=== PATIENT | female | born 1955 | race Caucasian/White ===

== ENCOUNTER 2018-06-11 22:17 | Emergency (ER) | payer OTHER, MEDICAID, SELFPAY ==
[2018-06-11 22:25] VITALS: BP 130/78; PULSE 87; RESP 14; TEMP 37; O2SAT 100; BMI 22.4
--- NOTE | 2018-06-11 22:38 | PC.NURSE ---
She has some skin flaking on her anterior right 5th toe and posterior 3rd toe.also has a whitish colored lesion on bottom of her right foot below her 2nd and 3rd toes.
--- NOTE | 2018-06-11 22:48 | ED.SKABFB ---
HPI - Skin/Abscess/Foreign Bdy General Chief complaint: Skin/Abscess/Foreign Body Stated complaint: Rt foot poss spider bite, bumps and pain Time Seen by Provider: 06/11/18 22:19 Source: patient Mode of arrival: ambulatory Limitations: no limitations History of Present Illness HPI narrative: 63-year-old female here for evaluation of a possible skin abscess on the bottom of her right foot. Patient states that approximately 3 weeks ago she thought she was bit by a spider. She states that it was itching afterwards. Her foot then started to peel. Everything was improving until several days ago when it started to hurt more. She went to the walk-in clinic and was placed on to steroid creams. She reports that she started those 3 days ago and things have not helped. Related Data Home Medications Medication Instructions Recorded Confirmed ASPIRIN (#ASPIRIN) 325 mg PO Q DAY #0 02/21/11 04/17/18 [Fish Oil] Q DAY #0 03/09/11 04/17/18 Previous Rx's Medication Instructions Recorded methocarbamol 500 mg PO QIDP PRN #30 tab 10/23/17 bupropion HCl XL 300 mg 24 hr 300 mg PO QDAY #30 tab 04/17/18 tablet, extended release citalopram 40 mg tablet 40 mg PO Q DAY #30 tab 04/17/18 clonazepam 1 mg tablet 1 mg PO SEE INSTRUCTIONS PRN #60 04/17/18 tab levothyroxine 25 mcg tablet 25 mcg PO QAM #30 tab 04/17/18 liothyronine 5 mcg tablet 5 mcg PO BID #90 tab 04/17/18 losartan 50 mg tablet 50 mg PO Q DAY #30 tab 04/17/18 simvastatin 80 mg tablet 80 mg PO Q PM #30 tab 04/17/18 topiramate 100 mg tablet 100 mg PO BID #60 tab 04/17/18 clotrimazole 1 % topical cream 1 applictn TOP BID #28 gram 06/07/18 triamcinolone acetonide 0.1 % 1 applictn TOP BID 7 Days #28.4 06/07/18 topical cream gram Allergies Allergy/AdvReac Type Severity Reaction Status Date / Time NASRIN Inhibitors Allergy Intermediate EDEMA IN Verified 06/11/18 22:25 BOTH HANDS codeine Allergy Mild NAUSEA/VOMI Verified 06/11/18 22:25 TING meperidine Allergy Mild VOMITING Verified 06/11/18 22:25 Review of Systems Constitutional Denies fever(s) Musculoskeletal Denies myalgias and Denies arthralgias Integumentary/Breasts Comments: Pain and itching to the bottom of the right foot with peeling of the skin and a small lump Neurologic Comments: No numbness or tingling to the right foot Hematologic/Lymphatic Denies easy bleeding and Denies easy bruising PFSH Medical History Chronic pain (Acute) Diabetes (Acute) Surgical History No pertinent past surgical history (Acute) Social History Smoking Status: Current some day smoker alcohol intake: never substance use type: does not use Exam Initial Vital Signs Initial Vital Signs: Vital Signs Temperature 98.6 F 06/11/18 22:25 Pulse Rate 87 06/11/18 22:25 Respiratory Rate 14 06/11/18 22:25 Blood Pressure 130/78 H 06/11/18 22:25 Pulse Oximetry 100 06/11/18 22:25 Const General: cooperative, healthy appearing, comfortable, well developed, well groomed and No acute distress Orientation: alert, awake and oriented x3 Resp Effort & Inspection: normal respiratory effort Cardio Pulses: dorsalis pedis present on the right Skin Other: Patient with a 1/2 cm area of firmness and overlying white scan without surrounding erythema on the plantar aspect of her right foot just over the ball of her foot. Neuro Other: Sensation intact to light touch right lower extremity Extrem Other: Right lower extremity unremarkable except for what was described in the skin section Procedures Abscess I/D Site: foot Side (if applicable): right Local Anesthetic: lidocaine 1% Amount of anesthesia used (mL): 2 Technique: incised with #11 blade Amount of fluid expressed (mL): 0.5 Irrigation: No Packing used?: none Course Vital Signs - 8 hr 06/11/18 22:25 Temperature 98.6 F Pulse Rate 87 Respiratory Rate 14 Blood Pressure 130/78 H Pulse Oximetry 100 MDM - Skin/Abscess/Foreign Bdy MDM Narrative Medical decision making narrative: Small area of firmness with a white area on the base of the right foot without surrounding erythema. This was incised as described above. Small amount of purulent material returned. Was explored no foreign body was found. Will hold on any antibiotics for now. A bandage was placed. Patient tolerated procedure well. She was given return precautions. She was instructed to stop the steroid cream that she was given earlier this week. She expressed understanding and agreement with plan. Discharge Plan Departure Patient Disposition: Home, Self-Care Clinical Impression: Abscess Instructions: DI for Incision and Drainage of a Skin Abscess Activity Restrictions/Additional Instructions: Expect some oozing from the area. Keep it covered likely discussed. You can shower in use soap and water like normal. Call your primary care doctor for a follow-up. Stop the steroid cream that she were given earlier this week. Return to the emergency department for any new or worsening symptoms Prescriptions: No Action triamcinolone acetonide 0.1 % cream 1 applictn TOP BID 7 Days Qty: 28.4 RF: 0 clotrimazole 1 % cream 1 applictn TOP BID Qty: 28 RF: 0 bupropion HCl 300 mg tablet extended release 24 hr 300 mg PO QDAY Qty: 30 RF: 3 citalopram 40 mg tablet 40 mg PO Q DAY Qty: 30 RF: 3 clonazepam 1 mg tablet 1 mg PO SEE INSTRUCTIONS PRN (Reason: anxiety) Qty: 60 RF: 3 levothyroxine 25 mcg tablet 25 mcg PO QAM Qty: 30 RF: 6 liothyronine [Cytomel] 5 mcg tablet 5 mcg PO BID Qty: 90 RF: 3 losartan [Cozaar] 50 mg tablet 50 mg PO Q DAY Qty: 30 RF: 5 simvastatin [Zocor] 80 mg tablet 80 mg PO Q PM Qty: 30 RF: 10 topiramate [Topamax] 100 mg tablet 100 mg PO BID Qty: 60 RF: 3 ASPIRIN (#ASPIRIN) 325 mg PO Q DAY Qty: 0 RF: 0 [Fish Oil] Q DAY Qty: 0 RF: 0 methocarbamol 500 MG tablet 500 mg PO QIDP PRNQty: 30 RF: 1
--- NOTE | 2018-06-11 22:52 | PC.NURSE ---
cleaned and dressed the I&D site on the bottom of her right foot.
== END 2018-06-11 22:50 | disposition home or self-care (01) ==
LOC: ED 23:00
PROVIDERS: Emergency Provider Emergency Medicine; Family Provider Physician Assistant; PCP Physician Assistant
DX: L02.611 Cutaneous abscess of right foot (principal)
CPT/HCPCS: 10060; 99282

== ENCOUNTER → 2018-09-09 14:26 | Outpatient (CLI) | payer OTHER, MEDICAID, SELFPAY ==
[2018-09-09 15:27] LABS: Hematocrit 33.6 % (36-46); Hemoglobin 11.3 g/dL (12.0-16.0); Mean Corpuscular HGB Conc 33.7 % (30-36); Mean Corpuscular Hemoglobin 32.4 PG (26-34); Mean Corpuscular Volume 95.9 fL (80-100); Platelet Count 194 X10^3/uL (150-400); Red Cell Distribution Width 12.8 % (11.6-14.8); White Blood Cell Count 5.7 X10^3/uL (4.5-11.0)
[2018-09-09 15:29] LABS: Reticulocyte Count, Percent 1.5 % (1.06-2.63)
[2018-09-09 15:55] LABS: Alanine Aminotransferase 33 IU/L (9-52); Albumin 4.6 g/dL (3.5-5.0); Albumin Globulin Ratio 2.1 (1.0-2.8); Alkaline Phosphatase 58 U/L (38-126); Aspartate Aminotransferase 33 IU/L (14-36); BUN Creatinine Ratio 23.3 (6-22); Bilirubin Total 0.2 mg/dL (0.2-1.3); Blood Urea Nitrogen 28 mg/dL (7-17); Calcium 9.4 mg/dL (8.4-10.2); Carbon Dioxide 25 mmol/L (22-32); Chloride 106 mmol/L (98-107); Cholesterol 167 mg/dL (140-199); Estimated Glomerular Filt Rate 45.4 mL/min (>60); Globulin 2.2 g/dL (1.7-4.1); Glucose 85 mg/dL (80-110); HDL Cholesterol 65 mg/dL (40-60); HEMOLYSIS < 15 (0-50); LDL Cholesterol Calculated 77 mg/dL (<100); Potassium 4.4 mmol/L (3.4-5.1); Sodium 144 mmol/L (137-145); Total Protein 6.8 g/dL (6.3-8.2); Triglycerides 124 mg/dL (35-150)
[2018-09-09 16:13] LABS: Free T3, Triiodothyronine Free 3.44 pg/mL (2.77-5.27); Free T4, Direct Thyroxine 0.65 ng/dL (0.78-2.19)
[2018-09-09 16:26] LABS: Thyroid Stimulating Hormone 0.42 uIU/mL (0.47-4.68)
[2018-09-09 16:48] LABS: Vitamin B12 878 pg/mL (239-931)
== END ==
PROVIDERS: Visit Provider Student in an Organized Health Care Education/Training Program
DX: E03.9 Hypothyroidism, unspecified (principal); D64.9 Anemia, unspecified; E55.9 Vitamin D deficiency, unspecified; E78.2 Mixed hyperlipidemia; F17.220 Nicotine dependence, chewing tobacco, uncomplicated; I10 Essential (primary) hypertension; N28.9 Disorder of kidney and ureter, unspecified; Z86.39 Personal history of other endocrine, nutritional and metabolic disease
CPT/HCPCS: 36415; 80053; 80061; 82306; 82607; 84439; 84443; 84481; 85027; 85045

== ENCOUNTER 2018-10-25 18:11 | Emergency (ER) | payer OTHER, MEDICAID, SELFPAY ==
[2018-10-25 18:18] VITALS: BP 131/89; PULSE 79; RESP 15; TEMP 37; O2SAT 100
--- NOTE | 2018-10-25 19:50 | ED.FALL ---
HPI - Fall <Anuja Freire PA-C - Last Filed: 10/25/18 22:02> General Chief Complaint: Fall Stated Complaint: fell off a ladder Thurs, rt hip pain, spine pain Time Seen by Provider: 10/25/18 19:50 Source: patient Mode of arrival: ambulatory Limitations: no limitations History of Present Illness HPI Narrative: This 63-year-old female fell about 3 ft off of a stepladder in her garage 3 days ago. She fell backwards, states that she landed on some objects (does not remember what) as well as partly on the ground. She states that she hit her head and the scalp was bleeding. She also hit her back and has some bruises on the low back and hip area. She states that she was quite sore but felt like this would get better so has been trying to treat with Tylenol at home, however especially her right hip pain has been getting progressively worse to the point that she has difficulty walking due to the pain, so she comes in for evaluation. She denies any LOC, acute vision change, nausea or vomiting. She denies any weakness or paresthesia in the extremities. She denies any bowel or bladder symptoms or groin numbness. She states that her neck is a little bit sore but no difficulty moving it. She states that her right leg hurts with movement but coming from her hip, not her back. She denies any radiating pain. Related Data Home Medications Medication Instructions Recorded Confirmed ASPIRIN (#ASPIRIN) 325 mg PO Q DAY #0 02/21/11 09/09/18 [Fish Oil] Q DAY #0 03/09/11 09/09/18 Previous Rx's Medication Instructions Recorded bupropion HCl XL 300 mg 24 hr 300 mg PO QDAY #30 tab 04/17/18 tablet, extended release citalopram 40 mg tablet 40 mg PO Q DAY #30 tab 04/17/18 levothyroxine 25 mcg tablet 25 mcg PO QAM #30 tab 04/17/18 liothyronine 5 mcg tablet 5 mcg PO BID #90 tab 04/17/18 losartan 50 mg tablet 50 mg PO Q DAY #30 tab 04/17/18 simvastatin 80 mg tablet 80 mg PO Q PM #30 tab 04/17/18 clotrimazole 1 % topical cream 1 applictn TOP BID #28 gram 06/07/18 clonazepam 1 mg tablet 2.5 mg PO DAILY PRN 30 Days #75 tab 09/09/18 topiramate 100 mg tablet 100 mg PO BID #60 tab 10/24/18 oxycodone-acetaminophen [Endocet] 1 tab PO Q4-6H PRN #10 tab 10/25/18 Allergies Allergy/AdvReac Type Severity Reaction Status Date / Time NASRIN Inhibitors Allergy Intermediate EDEMA IN Verified 09/09/18 09:59 BOTH HANDS codeine Allergy Mild NAUSEA/VOMI Verified 09/09/18 09:59 TING meperidine Allergy Mild VOMITING Verified 09/09/18 09:59 Review of Systems <Anuja Freire PA-C - Last Filed: 10/25/18 22:02> Review of Systems All systems reviewed & are unremarkable except as noted in HPI and below Exam <Anuja Freire PA-C - Last Filed: 10/25/18 22:02> Narrative Exam Narrative: GENERAL APPEARANCE: Patient sitting comfortably, in no distress. HEENT: PERRL, EOMI, normal ear canals, nasal and oral mucosa NECK: Supple LUNGS: Clear to auscultation bilaterally. HEART: Rate and rhythm regular without murmur, normal S1 and S2, no S3 or S4. DERMATOLOGIC: There is an abrasion and mild hematoma left temporoparietal scalp that is mildly tender. Faint ecchymoses on the left posterior medial hip NEUROLOGIC: Alert and oriented, normal speech and coordination. Sensation grossly intact throughout the extremities MUSCULOSKELETAL: Mild tenderness over the mid to inferior C-spine and also over inferior strap muscle attachments, more on the right. Full range of motion of the C-spine. Full range of motion of the upper extremities. Tender throughout the the entirety of the thoracic spine and mid to inferior lumbar spine. Tender over the right posterior hip and SI joint, none on the left. Range of motion in the right hip is limited secondary to tenderness. Normal flexion/extension of knee, normal range of motion in the ankle. No tenderness on the left hip or lower extremity. Patient able to ambulate independently Initial Vital Signs Initial Vital Signs: Vital Signs Temperature 98.6 F 10/25/18 18:18 Pulse Rate 79 10/25/18 18:18 Respiratory Rate 15 10/25/18 18:18 Blood Pressure 131/89 10/25/18 18:18 Pulse Oximetry 100 10/25/18 18:18 <DO Aris Loyola Last Filed: 10/26/18 04:59> Initial Vital Signs Initial Vital Signs: Vital Signs Temperature 98.6 F 10/25/18 18:18 Pulse Rate 79 10/25/18 18:18 Respiratory Rate 15 10/25/18 18:18 Blood Pressure 131/89 10/25/18 18:18 Pulse Oximetry 100 10/25/18 18:18 Course <Anuja Freire PA-C - Last Filed: 10/25/18 22:02> Orders Ordered: ED Orders 10/25/18 20:13 CT head/brain wo con Stat XR cervical spine 2V or 3V Stat XR hip w pel if done RT 2V Stat XR t and l spine 2 to 3 views Stat Discontinued Medications Oxycodone/Acetaminophen (Percocet 5/325) 1 tab PO NOW ONE Stop: 10/25/18 20:14 Last Admin: 10/25/18 20:20 Dose: 1 tab Oxycodone/Acetaminophen (Percocet 5/325) 1 tab PO NOW ONE Stop: 10/25/18 20:56 Last Admin: 10/25/18 21:15 Dose: 1 tab Vital Signs - 8 hr 10/25/18 21:30 Pulse Rate 68 Respiratory Rate 15 Blood Pressure [Right Arm] 156/92 H Pulse Oximetry 100 <Tristin Covarrubias DO - Last Filed: 10/26/18 04:59> Orders Ordered: ED Orders 10/25/18 20:13 CT head/brain wo con Stat XR cervical spine 2V or 3V Stat XR hip w pel if done RT 2V Stat XR t and l spine 2 to 3 views Stat Discontinued Medications Oxycodone/Acetaminophen (Percocet 5/325) 1 tab PO NOW ONE Stop: 10/25/18 20:14 Last Admin: 10/25/18 20:20 Dose: 1 tab Oxycodone/Acetaminophen (Percocet 5/325) 1 tab PO NOW ONE Stop: 10/25/18 20:56 Last Admin: 10/25/18 21:15 Dose: 1 tab Vital Signs - 8 hr 10/25/18 21:30 Pulse Rate 68 Respiratory Rate 15 Blood Pressure [Right Arm] 156/92 H Pulse Oximetry 100 MDM - Fall <Anuja Freire PA-C - Last Filed: 10/25/18 22:02> Imaging Data CT scan - head: Radiologist's impression: View Report History [address] [address] [address] Scan Report Signed Patient: Taylor Olivera MR#: [id number] : 1955 Acct:[id number] Age/Sex: 63 / F Date of Service: 10/25/18 Loc: ED Accession Number: [id number] Procedure: CT head/brain wo con Ordering Provider: Anuja Freire P.A-C PROCEDURE: CT HEAD/BRAIN WO CON INDICATIONS: L. temporal parietal contusion, on ASA TECHNIQUE: Noncontrast 4.5 mm thick angled axial sections acquired from the foramen magnum to the vertex, with coronal and sagittal reformats. For radiation dose reduction, the following was used: automated exposure control, adjustment of mA and/or kV according to patient size. COMPARISON: None. FINDINGS: Image quality: Excellent. CSF spaces: Basal cisterns are patent. No extra-axial fluid collections. Ventricles are normal in size and shape. Brain: No midline shift. No intracranial masses or hemorrhage. Hughes-white matter interface is normal. Skull and face: Calvarium and visualized facial bones are intact, without suspicious lesions. Sinuses: Visualized sinuses and mastoids are clear. IMPRESSION: No trauma found. No intracranial hemorrhage present. Dictated by: Wilmer Gallo M.D. on 10/25/2018 at 20:57 Approved by: Wilmer Gallo M.D. on 10/25/2018 at 20:57 hip: Radiologist's impression: View Report History [address] [address] XRay Report Signed Patient: Taylor Olivera MR#: [id number] : 1955 Acct:[id number] Age/Sex: 63 / F Date of Service: 10/25/18 Loc: ED Accession Number: [id number] Procedure: XR hip w pel if done RT 2V Ordering Provider: Anuja Freire P.A-C PROCEDURE: XR HIP W PEL IF DONE RT 2V INDICATIONS: pain posterior s/p fall TECHNIQUE: 2 views of the hip were acquired. COMPARISON: None. FINDINGS: Bones: No fractures or dislocations. No suspicious bony lesions. The visualized pelvic ring appears intact. Soft tissues: No suspicious soft tissue calcifications or masses. IMPRESSION: There is mild symmetric hip joint osteoarthritis, no trauma found. Dictated by: Wilmer Gallo M.D. on 10/25/2018 at 20:59 Approved by: Wilmer Gallo M.D. on 10/25/2018 at 20:59 spine: Radiologist's impression: [place] [address] XRay Report Signed Patient: Taylor Olivera MR#: [id number] : 1955 Acct:[id number] Age/Sex: 63 / F Date of Service: 10/25/18 Loc: ED Accession Number: [id number] Procedure: XR t and l spine 2 to 3 views Ordering Provider: Anuja Freire P.A-C PROCEDURE: XR T AND L SPINE 2 TO 3 VIEWS INDICATIONS: pain s/p fall TECHNIQUE: 2 views acquired of the thoracolumbar spine. COMPARISON: None. FINDINGS: Bones: No acute fractures or dislocations. Visualized inferior ribs appear intact. No suspicious bony lesions. Soft tissues: No suspicious soft tissue calcifications. IMPRESSION: No trauma found. Dictated by: Wilmer Gallo M.D. on 10/25/2018 at 20:58 Approved by: Wilmer Gallo M.D. on 10/25/2018 at 20:58 [place] [address] XRay Report Signed Patient: Taylor Olivera MR#: [id number] : 1955 Acct:[id number] Age/Sex: 63 / F Date of Service: 10/25/18 Loc: ED Accession Number: [id number] Procedure: XR cervical spine 2V or 3V Ordering Provider: Anuja FreireA-C PROCEDURE: XR CERVICAL SPINE 2V OR 3V INDICATIONS: inferior pain s/p fall TECHNIQUE: 3 view(s) of the cervical spine were acquired. COMPARISON: None. FINDINGS: Bones: No fractures or dislocations to the T1 level. The lateral masses of C1 appear intact on the odontoid view. No suspicious bony lesions. Soft tissues: No prevertebral soft tissue swelling. IMPRESSION: Mild mid and lower cervical spine degenerative disc disease but no sign of spinal or foraminal stenosis or trauma. Dictated by: Wilmer Gallo M.D. on 10/25/2018 at 20:57 Approved by: Wilmer Gallo Discharge Plan Departure Patient Disposition: Home Clinical Impression: Contusion of multiple sites Discharge Date/Time: 10/25/18 21:33 Interventions: ED Discharge Assessment Last Done: 10/25/18 21:32 Instructions: DI for Hip Pain Activity Restrictions/Additional Instructions: Please return as we talked about if you have any acutely worsening symptoms, or new symptoms such as vision change, vomiting or severe headache, or numbness or weakness in your extremities. You can take the prescription pain medicine Percocet as needed since you have done well with that in the past, just remember that it can make you drowsy and not to drive. You can also use other topical medicines such as patches, i.e. lidocaine, or rubs such as Maxwell-Berman. You also may wish to try ice and heat on the sore areas. Please follow-up with your PCP early next week to reassess and determine whether you need any further testing such as further imaging studies or treatment such as physical therapy depending upon your progress Prescriptions: New oxycodone-acetaminophen [Endocet] 5-325 mg tablet 1 tab PO Q4-6H PRN (Reason: acute hip/spine pain) Qty: 10 RF: 0 No Action clotrimazole 1 % cream 1 applictn TOP BID Qty: 28 RF: 0 bupropion HCl 300 mg tablet extended release 24 hr 300 mg PO QDAY Qty: 30 RF: 3 citalopram 40 mg tablet 40 mg PO Q DAY Qty: 30 RF: 3 levothyroxine 25 mcg tablet 25 mcg PO QAM Qty: 30 RF: 6 liothyronine [Cytomel] 5 mcg tablet 5 mcg PO BID Qty: 90 RF: 3 losartan [Cozaar] 50 mg tablet 50 mg PO Q DAY Qty: 30 RF: 5 simvastatin [Zocor] 80 mg tablet 80 mg PO Q PM Qty: 30 RF: 10 ASPIRIN (#ASPIRIN) 325 mg PO Q DAY Qty: 0 RF: 0 [Fish Oil] Q DAY Qty: 0 RF: 0 topiramate [Topamax] 100 mg tablet 100 mg PO BID Qty: 60 RF: 5 clonazepam 1 mg tablet 2.5 mg PO DAILY PRN (Reason: anxiety) 30 Days Qty: 75 RF: 5 Referrals: Mitchel German MD [Primary Care Provider] - <Tristin Covarrubias DO - Last Filed: 10/26/18 04:59> Cosign ED Attending Ari Attestation: I was immediately available in the department for consultation. Documentation has been reviewed. I agree with assessment and plan.
--- NOTE | 2018-10-25 20:13 | DI.RAD.S_ITS ---
PROCEDURE: XR HIP W PEL IF DONE RT 2V INDICATIONS: pain posterior s/p fall TECHNIQUE: 2 views of the hip were acquired. COMPARISON: None. FINDINGS: Bones: No fractures or dislocations. No suspicious bony lesions. The visualized pelvic ring appears intact. Soft tissues: No suspicious soft tissue calcifications or masses. IMPRESSION: There is mild symmetric hip joint osteoarthritis, no trauma found. Dictated by: Wilmer Gallo M.D. on 10/25/2018 at 20:59 Approved by: Wilmer Glalo M.D. on 10/25/2018 at 20:59
--- NOTE | 2018-10-25 20:13 | DI.RAD.S_ITS ---
PROCEDURE: XR T AND L SPINE 2 TO 3 VIEWS INDICATIONS: pain s/p fall TECHNIQUE: 2 views acquired of the thoracolumbar spine. COMPARISON: None. FINDINGS: Bones: No acute fractures or dislocations. Visualized inferior ribs appear intact. No suspicious bony lesions. Soft tissues: No suspicious soft tissue calcifications. IMPRESSION: No trauma found. Dictated by: Wilmer Gallo M.D. on 10/25/2018 at 20:58 Approved by: Wilmer Gallo M.D. on 10/25/2018 at 20:58
--- NOTE | 2018-10-25 20:13 | DI.RAD.S_ITS ---
PROCEDURE: XR CERVICAL SPINE 2V OR 3V INDICATIONS: inferior pain s/p fall TECHNIQUE: 3 view(s) of the cervical spine were acquired. COMPARISON: None. FINDINGS: Bones: No fractures or dislocations to the T1 level. The lateral masses of C1 appear intact on the odontoid view. No suspicious bony lesions. Soft tissues: No prevertebral soft tissue swelling. IMPRESSION: Mild mid and lower cervical spine degenerative disc disease but no sign of spinal or foraminal stenosis or trauma. Dictated by: Wilmer Gallo M.D. on 10/25/2018 at 20:57 Approved by: Wilmer Gallo M.D. on 10/25/2018 at 20:58
--- NOTE | 2018-10-25 20:13 | DI.CT.S_ITS ---
PROCEDURE: CT HEAD/BRAIN WO CON INDICATIONS: L. temporal parietal contusion, on ASA TECHNIQUE: Noncontrast 4.5 mm thick angled axial sections acquired from the foramen magnum to the vertex, with coronal and sagittal reformats. For radiation dose reduction, the following was used: automated exposure control, adjustment of mA and/or kV according to patient size. COMPARISON: None. FINDINGS: Image quality: Excellent. CSF spaces: Basal cisterns are patent. No extra-axial fluid collections. Ventricles are normal in size and shape. Brain: No midline shift. No intracranial masses or hemorrhage. Hughes-white matter interface is normal. Skull and face: Calvarium and visualized facial bones are intact, without suspicious lesions. Sinuses: Visualized sinuses and mastoids are clear. IMPRESSION: No trauma found. No intracranial hemorrhage present. Dictated by: Wilmer Gallo M.D. on 10/25/2018 at 20:57 Approved by: Wilmer Gallo M.D. on 10/25/2018 at 20:57
[2018-10-25] MEDS: OXYCODONE/ACETAMINOPHEN 5/325 TABLET 1 TAB PO ×2 (20:20→21:15)
[2018-10-25 21:30] VITALS: BP 156/92; PULSE 68; RESP 15; O2SAT 100
== END 2018-10-25 21:33 | disposition home or self-care (01) ==
PROVIDERS: Emergency Provider Internal Medicine; PCP Student in an Organized Health Care Education/Training Program
DX: T07.XXXA Unspecified multiple injuries, initial encounter (principal); W11.XXXA Fall on and from ladder, initial encounter
CPT/HCPCS: 70450; 72040; 72082; 73502; 99282; 99284

== ENCOUNTER → 2019-01-18 15:13 | Outpatient (CLI) | payer OTHER, MEDICAID, SELFPAY | PROVIDERS: PCP Student in an Organized Health Care Education/Training Program; Visit Provider Physician Assistant | DX: R30.0 Dysuria (principal) | CPT/HCPCS: 87077; 87086; 87186 ==

== ENCOUNTER → 2019-06-05 19:47 | Outpatient (CLI) | payer OTHER, MEDICAID, SELFPAY | PROVIDERS: PCP Student in an Organized Health Care Education/Training Program; Visit Provider Physician Assistant | DX: N30.91 Cystitis, unspecified with hematuria (principal) | CPT/HCPCS: 87077; 87086; 87186 ==

== ENCOUNTER → 2019-10-08 15:42 | Outpatient (CLI) | payer OTHER, MEDICAID, SELFPAY ==
[2019-10-08 16:46] LABS: Hematocrit 37.5 % (36-46); Hemoglobin 12.7 g/dL (12.0-16.0); Mean Corpuscular HGB Conc 33.8 % (30-36); Mean Corpuscular Hemoglobin 32.5 PG (26-34); Mean Corpuscular Volume 96.2 fL (80-100); Platelet Count 204 X10^3/uL (150-400); Red Blood Cell Count 3.89 X10^6/uL (4.0-5.2); Red Cell Distribution Width 12.6 % (11.6-14.8); White Blood Cell Count 6.8 X10^3/uL (4.5-11.0)
[2019-10-08 17:14] LABS: BUN Creatinine Ratio 25.5 (6-22); Blood Urea Nitrogen 28 mg/dL (7-17); Calcium 10.9 mg/dL (8.4-10.2); Carbon Dioxide 25 mmol/L (22-32); Chloride 107 mmol/L (98-107); Glucose 100 mg/dL (80-110); HEMOLYSIS < 15 (0-50); Potassium 4.8 mmol/L (3.4-5.1); Sodium 142 mmol/L (137-145)
[2019-10-08 17:29] LABS: Free T3, Triiodothyronine Free 3.08 pg/mL (2.77-5.27); Free T4, Direct Thyroxine 0.82 ng/dL (0.78-2.19)
[2019-10-08 17:43] LABS: Thyroid Stimulating Hormone 0.14 uIU/mL (0.47-4.68)
[2019-10-08 20:16] LABS: Vitamin D 25 Hydroxy (D3) 59.2 ng/mL (30.0-100.0)
[2019-10-13 14:07] LABS: Parathyroid Hormone Int 18 pg/mL (14-64)
== END ==
PROVIDERS: PCP Student in an Organized Health Care Education/Training Program; Visit Provider Student in an Organized Health Care Education/Training Program
DX: D64.9 Anemia, unspecified (principal); E03.9 Hypothyroidism, unspecified; I10 Essential (primary) hypertension; N28.9 Disorder of kidney and ureter, unspecified; E83.52 Hypercalcemia
CPT/HCPCS: 36415; 80048; 82306; 83970; 84439; 84443; 84481; 85027

== ENCOUNTER → 2019-11-26 16:47 | Outpatient (CLI) | payer OTHER, MEDICAID, SELFPAY ==
--- NOTE | 2019-11-26 16:48 | DI.MG.S_ITS ---
BILATERAL DIGITAL SCREENING MAMMOGRAM 3D/2D WITH CAD: 11/26/2019 CLINICAL: Routine screening. Comparison is made to exams dated: 08/27/2014 mammogram, 06/19/2010 mammogram, 11/10/2009 mammogram, and 08/20/2008 mammogram - [facility]. The tissue of both breasts is heterogeneously dense. This may lower the sensitivity of mammography. Current study was also evaluated with a Computer Aided Detection (CAD) system. No significant masses, calcifications, or other findings are seen in either breast. There has been no significant interval change. IMPRESSION: NEGATIVE There is no mammographic evidence of malignancy. A 1 year screening mammogram is recommended. This exam was interpreted at Station ID: [id number]. NOTE: For mammograms, a report in lay terms will be sent to the patient. Approximately 15% of breast malignancies will not be visualized mammographically. In the management of a palpable breast mass, a negative mammogram must not discourage biopsy of a clinically suspicious lesion. Electronically Signed By: Natasha springer/markie:11/26/2019 17:51:41 letter sent: Normal Exam ACR BI-RADS Category 1: Negative [id number]
== END ==
PROVIDERS: PCP Student in an Organized Health Care Education/Training Program; Visit Provider Student in an Organized Health Care Education/Training Program
DX: Z12.31 Encounter for screening mammogram for malignant neoplasm of breast (principal)
CPT/HCPCS: 77063; 77067

== ENCOUNTER 2019-12-13 21:18 | Observation (INO) | payer OTHER, MEDICAID, SELFPAY ==
[2019-12-13 21:30] VITALS: BP 140/72; PULSE 80; RESP 16; TEMP 36.7; O2SAT 98
--- NOTE | 2019-12-13 21:30 | DI.RAD.S_ITS ---
PROCEDURE: XR CHEST 1V INDICATIONS: chest pain TECHNIQUE: One view of the chest was acquired. COMPARISON: None. FINDINGS: Surgical changes and devices: None. Lungs and pleura: Lungs are clear. No pleural effusions or pneumothorax. Mediastinum: Mediastinal contours appear normal. Heart size is normal. Bones and chest wall: No suspicious bony lesions. Overlying soft tissues appear unremarkable. IMPRESSION: No acute cardiopulmonary disease process. Dictated by: Haley Cabrera MD, PhD on 12/13/2019 at 21:51 Approved by: Haley Cabrera MD, PhD on 12/13/2019 at 21:51
[2019-12-13 21:46] LABS: INR 0.9 (0.9-1.3); Prothrombin Time 10.5 SECONDS (10.1-12.7)
[2019-12-13 21:47] LABS: Add Manual Diff / Slide Review NO; Basophils Absolute Auto 0 /uL (0-100); Basophils Percent Auto 0.4 % (0-2); Eosinophils Absolute Auto 100 /uL (0-450); Eosinophils Percent Auto 2.2 % (2-4); Hematocrit 37.7 % (36-46); Hemoglobin 12.8 g/dL (12.0-16.0); Lymphocytes Absolute Auto 2000 /uL (1100-4500); Mean Corpuscular Hemoglobin 32.5 PG (26-34); Mean Corpuscular Volume 95.6 fL (80-100); Monocytes Absolute Auto 700 /uL (0-900); Monocytes Percent Auto 11.6 % (3-14); Neutrophils Absolute Auto 3100 /uL (1500-7000); Neutrophils Percent Auto 51.8 % (50-75); Platelet Count 218 X10^3/uL (150-400); Red Blood Cell Count 3.94 X10^6/uL (4.0-5.2); White Blood Cell Count 5.9 X10^3/uL (4.5-11.0)
[2019-12-13 21:48] LABS: PTT Partial Thromboplastin Tim 46 SECONDS (26.4-36.2)
[2019-12-13 21:50] LABS: Alanine Aminotransferase 41 IU/L (<35); Albumin Globulin Ratio 1.5 (1.0-2.8); Alkaline Phosphatase 89 U/L (38-126); Aspartate Aminotransferase 40 IU/L (14-36); Bilirubin Total 0.2 mg/dL (0.2-1.3); Blood Urea Nitrogen 33 mg/dL (7-17); Calcium 9.9 mg/dL (8.4-10.2); Carbon Dioxide 27 mmol/L (22-32); Chloride 108 mmol/L (98-107); Creatine Kinase 88 U/L (30-135); Estimated Glomerular Filt Rate 55.8 mL/min (>60); Globulin 3.3 g/dL (1.7-4.1); Glucose 68 mg/dL (80-110); HEMOLYSIS 16 (0-50); Lipase 467 U/L (23-300); Sodium 143 mmol/L (137-145); Total Protein 8.3 g/dL (6.3-8.2)
[2019-12-13 22:02] LABS: Troponin I < 0.012 ng/mL (0.01-0.034)
[2019-12-13 22:11] VITALS: BP 139/60; PULSE 70
[2019-12-13] MEDS: NITROGLYCERIN 0.4 MG SL TAB SL (22:11)
--- NOTE | 2019-12-13 22:17 | PC.NURSE ---
patient reorts feeling very nausous after first SL nitro. Pt refuses further nitro. Provider notified. Patient states her chest pain remains 6\10
[2019-12-13 22:20] LABS: D Dimer < 200 ng/mL (<230)
[2019-12-13] MEDS: ONDANSETRON 4 MG/2 ML INJ IV (22:21)
--- NOTE | 2019-12-13 22:31 | PC.NURSE ---
patient refusing metoprolol. States she is allergic. States it makes her hands swell. Provider notified and went to bedside.
--- NOTE | 2019-12-13 22:34 | ED.CHESTPAIN ---
HPI - Chest Pain General Chief Complaint: Chest Pain Stated Complaint: Chest pains Time Seen by Provider: 12/13/19 21:20 Source: patient Mode of arrival: Family Vehicle Limitations: no limitations History of Present Illness HPI narrative: 64-year-old female smoker with history of hypertension, hyperlipidemia, hypothyroid and known cardiac disease presents with a chief complaint of chest pain which started at rest about 1 hour prior to her arrival. She states that it is pressure like and in her left anterior chest but does not radiate. She denies any shortness of breath, cough nausea or vomiting. She does state that it feels quite similar to the symptoms that led her to get a stent about 10 years ago. Her last provocative testing was 1 year ago and she apparently had a normal stress test per the patient. She sees cardiology at [facility]. She does admit to increasing exertional fatigue and dyspnea over the past week but denies pain. She has had no diaphoresis. She states she has been taking her medications as directed. MD complaint: chest pain Onset (ago): hour(s) Duration: constant Onset: during rest Pain location: left chest Severity: moderate Severity scale (1-10): 8 Quality: heaviness Pain radiation: none Relieving factors: nothing Exacerbating factors: nothing Treatments prior to arrival chest pain: none Related Data Home Medications Medication Instructions Recorded Confirmed ASPIRIN (#ASPIRIN) 325 mg PO Q DAY #0 02/21/11 12/14/19 [Fish Oil] Q DAY #0 03/09/11 12/08/19 clonazepam See Rx Instructions .ROUTE .COMPLEX 12/14/19 12/14/19 topiramate 12/14/19 Previous Rx's Medication Instructions Recorded citalopram 40 mg tablet 40 mg PO Q DAY #30 tab 12/04/18 levothyroxine 25 mcg tablet 25 mcg PO QAM #30 tab 03/22/19 liothyronine 5 mcg tablet 5 mcg PO BID #60 tab 03/22/19 topiramate 100 mg tablet 100 mg PO BID #60 tab 04/28/19 simvastatin 80 mg tablet 80 mg PO Q PM #90 tab 04/29/19 losartan 50 mg tablet 50 mg PO Q DAY #90 tab 10/10/19 bupropion HCl 150 mg 24 hr tablet, 150 mg PO QAM #30 tab 12/08/19 extended release Allergies Allergy/AdvReac Type Severity Reaction Status Date / Time NASRIN Inhibitors Allergy Intermediate EDEMA IN Verified 12/13/19 21:33 BOTH HANDS codeine Allergy Mild NAUSEA/VOMI Verified 12/13/19 21:33 TING meperidine Allergy Mild VOMITING Verified 12/13/19 21:33 Review of Systems Constitutional Constitutional: Denies chills, Denies fatigue, Denies fever(s), Denies frequent falls, Denies lethargy and Denies weakness Eyes Eyes: Denies change in vision, Denies eye discharge, Denies irritation and Denies loss of vision ENT Ears, Nose, Mouth, and Throat: Denies change in voice, Denies dizziness, Denies neck pain, Denies sore throat and Denies throat swelling Cardiovascular Cardiovascular: Reports chest pain, Denies irregular heart rhythm, Denies lightheadedness, Denies palpitations, Denies dyspnea, Denies dyspnea on exertion and Denies orthopnea Respiratory Respiratory: Denies cough, Denies dyspnea, Denies dyspnea on exertion and Denies wheezing Gastrointestinal Gastrointestinal: Denies abdominal pain, Denies change in bowel habits, Denies diarrhea, Denies nausea and Denies vomiting Genitourinary Genitourinary: Denies hematuria, Denies flank pain, Denies urinary incontinence and Denies urinary urgency Musculoskeletal Musculoskeletal: Denies back pain, Denies muscle weakness, Denies neck pain, Denies numbness and Denies tingling Integumentary/Breasts Skin/Breast: Denies pruritus, Denies erythema, Denies rash and Denies wounds Neurologic Neurologic: Denies behavioral changes, Denies confusion, Denies dizziness, Denies frequent falls, Denies loss of vision, Denies numbness, Denies tingling and Denies weakness Psychiatric Psychiatric: Denies anxiety, Denies behavioral changes, Denies confusion, Denies depression, Denies homicidal ideation and Denies suicidal ideation Endocrine Endocrine: Denies fatigue, Denies flushing and Denies palpitations Hematologic/Lymphatic Hematologic/Lymphatic: Denies easy bruising Allergic/Immunologic Allergic/Immunologic: Denies urticaria, Denies throat swelling and Denies wheezing Patient History Medical History Anemia (Chronic) Anterior myocardial infarction (Resolved 2007) CAD (coronary artery disease) (Chronic) Chicken pox (Resolved) Chronic headaches (Chronic) Chronic pain (Chronic) Depression (Chronic) Diabetes mellitus (Chronic) Hyperlipidemia (Chronic) Hypertension (Chronic) Measles (Resolved) Migraines (Chronic) Narcotic abuse, episodic (Chronic) Panic disorder (Chronic) Surgical History Anesthesia (Resolved) History of appendectomy (Resolved) History of colonoscopy with polypectomy (Resolved 12/29/14) History of esophagogastroduodenoscopy (EGD) (Resolved 12/29/14) History of tonsillectomy (Resolved) Status post blepharoplasty of both eyes (Resolved 11/11/12) Status post insertion of drug-eluting stent into left anterior descending (LAD) artery (Resolved 2007) Family History Father Diabetes mellitus Heart disease Hypertension Stroke Social History household members: none Smoking Status: Current some day smoker alcohol intake: never substance use type: does not use Smoking Status: Current some day smoker alcohol intake frequency: 0-2 drinks per day Substance Use Type: does not use Exam Narrative Exam Narrative: GENERAL: [64] year old patient appears stated age. Well-nourished, well-developed patient, in mild distress. HEAD: Atraumatic. Normocephalic. EYES: Pupils equal round and reactive. Extraocular motions intact. No scleral icterus. No injection or drainage. ENT: Nose without bleeding, purulent drainage. Throat without erythema, tonsillar hypertrophy or exudate. Airway patent. NECK: Trachea midline. Non tender CARDIOVASCULAR: Regular rate and rhythm without murmurs, gallops, or rubs. RESPIRATORY: Clear to auscultation. Breath sounds equal bilaterally. No wheezes, rales, or rhonchi. GASTROINTESTINAL: Abdomen soft, non-tender, nondistended. EXTREMITIES: No edema or joint tenderness. BACK: Nontender without deformity or crepitance. No flank tenderness. NEURO: AOx3. SKIN: No rash or erythema of visible areas Initial Vital Signs Initial Vital Signs: Vital Signs Temperature 98.0 F 12/13/19 21:30 Pulse Rate 80 12/13/19 21:30 Respiratory Rate 16 12/13/19 21:30 Blood Pressure 140/72 12/13/19 21:30 Pulse Oximetry 98 12/13/19 21:30 Course Course Course Narrative: patient given aspirin, nitro, refused metoprolol despite discussion. Orders Ordered: ED Orders 12/13/19 22:35 US abdomen limited Stat 12/13/19 23:55 Troponin I Stat Naloxone HCl (Narcan) 0.2 mg IV Q2MIN PRN PRN Reason: Opiate Reversal Nitroglycerin (Nitrostat) 0.4 mg SL [id number] PRN PRN Reason: Chest Pain Last Admin: 12/13/19 22:11 Dose: 0.4 mg Documented by: GENNA Discontinued Medications Aspirin (Aspirin Chew) 324 mg PO NOW ONE Stop: 12/14/19 00:43 Last Admin: 12/14/19 02:13 Dose: 324 mg Documented by: OPAL Metoprolol Tartrate (Lopressor) 5 mg IV NOW ONE Stop: 12/13/19 22:20 Last Admin: 12/13/19 22:57 Dose: Not Given Documented by: GENNA Ondansetron HCl (Zofran) 4 mg IV NOW ONE Stop: 12/13/19 22:20 Last Admin: 12/13/19 22:21 Dose: 4 mg Documented by: GENNA Reevaluation(s) Reevaluation #1: pain free Time: 00:47 Consultations Consultation #1: second troponin normal. Call to [facility] given recent worsening symptoms Vital Signs Vital signs: Vital Signs - 8 hr 12/14/19 00:54 Pulse Rate 71 Respiratory Rate 15 Blood Pressure [Left Arm] 138/76 Pulse Oximetry 97 MDM - Chest Pain Lab Data Result diagrams: 12/13/19 21:30 12/13/19 21:30 Labs: Lab Results 12/13/19 12/13/19 12/13/19 Range/Units 21:30 21:30 21:30 WBC 5.9 (4.5-11.0) X10^3/uL RBC 3.94 L (4.0-5.2) X10^6/uL Hgb 12.8 (12.0-16.0) g/dL Hct 37.7 (36-46) % MCV 95.6 (80-100) fL MCH 32.5 (26-34) PG MCHC 34.0 (30-36) % RDW 13.0 (11.6-14.8) % Plt Count 218 (150-400) X10^3/uL Neut % (Auto) 51.8 (50-75) % Lymph % (Auto) 34.0 (25-40) % [place] % (Auto) 11.6 (3-14) % Eos % (Auto) 2.2 (2-4) % Baso % (Auto) 0.4 (0-2) % Neut # (Auto) 3100 (6511-6045) /uL Lymph # (Auto) 2000 (6886-7789) /uL [place] # (Auto) 700 (0-900) /uL Eos # (Auto) 100 (0-450) /uL Baso # (Auto) 0 (0-100) /uL PT 10.5 (10.1-12.7) SECONDS INR 0.9 (0.9-1.3) APTT 46 H (26.4-36.2) SECONDS D-Dimer (<230) ng/mL Sodium 143 (137-145) mmol/L Potassium 4.0 (3.4-5.1) mmol/L Chloride 108 H (98-107) mmol/L Carbon Dioxide 27 (22-32) mmol/L BUN 33 H (7-17) mg/dL Creatinine 1.00 (0.52-1.04) mg/dL Estimated GFR 55.8 L (>60) mL/min BUN/Creatinine Ratio 33.0 H (6-22) Glucose 68 L (80-110) mg/dL Calcium 9.9 (8.4-10.2) mg/dL Total Bilirubin 0.2 (0.2-1.3) mg/dL AST 40 H (14-36) IU/L ALT 41 H (<35) IU/L Alkaline Phosphatase 89 (38-126) U/L Total Creatine Kinase 88 (30-135) U/L CK-MB (CK-2) TNP CK-MB (CK-2) Rel Index TNP Troponin I < 0.012 (0.01-0.034) ng/mL Total Protein 8.3 H (6.3-8.2) g/dL Albumin 5.0 (3.5-5.0) g/dL Globulin 3.3 (1.7-4.1) g/dL Albumin/Globulin Ratio 1.5 (1.0-2.8) Lipase 467 H (23-300) U/L Ethyl Alcohol ( - 10) mg/dL 12/13/19 12/13/19 12/13/19 Range/Units 21:30 21:30 23:55 WBC (4.5-11.0) X10^3/uL RBC (4.0-5.2) X10^6/uL Hgb (12.0-16.0) g/dL Hct (36-46) % MCV (80-100) fL MCH (26-34) PG MCHC (30-36) % RDW (11.6-14.8) % Plt Count (150-400) X10^3/uL Neut % (Auto) (50-75) % Lymph % (Auto) (25-40) % [place] % (Auto) (3-14) % Eos % (Auto) (2-4) % Baso % (Auto) (0-2) % Neut # (Auto) (0801-3848) /uL Lymph # (Auto) (1334-3674) /uL [place] # (Auto) (0-900) /uL Eos # (Auto) (0-450) /uL Baso # (Auto) (0-100) /uL PT (10.1-12.7) SECONDS INR (0.9-1.3) APTT (26.4-36.2) SECONDS D-Dimer < 200 (<230) ng/mL Sodium (137-145) mmol/L Potassium (3.4-5.1) mmol/L Chloride (98-107) mmol/L Carbon Dioxide (22-32) mmol/L BUN (7-17) mg/dL Creatinine (0.52-1.04) mg/dL Estimated GFR (>60) mL/min BUN/Creatinine Ratio (6-22) Glucose (80-110) mg/dL Calcium (8.4-10.2) mg/dL Total Bilirubin (0.2-1.3) mg/dL AST (14-36) IU/L ALT (<35) IU/L Alkaline Phosphatase (38-126) U/L Total Creatine Kinase (30-135) U/L CK-MB (CK-2) CK-MB (CK-2) Rel Index Troponin I < 0.012 (0.01-0.034) ng/mL Total Protein (6.3-8.2) g/dL Albumin (3.5-5.0) g/dL Globulin (1.7-4.1) g/dL Albumin/Globulin Ratio (1.0-2.8) Lipase (23-300) U/L Ethyl Alcohol < 10 ( - 10) mg/dL MDM Narrative Medical decision making narrative: 64-year-old female with known cardiac history and prior stent presents with left anterior chest pressure, very similar to discomfort prior to her stent. Pain controlled with above-stated therapies. EKGs are nonischemic and troponin x2 negative. Patient has been having some increasing symptoms over the past week or so and after discussion with Cardiology at [facility] they recommend admission and stress testing but to not recommend transfer unless patient rules. Discharge Plan Departure Patient Disposition: Admitted as Observation Clinical Impression: Chest pain Qualifiers: Chest pain type: unspecified Qualified Code(s): R07.9 - Chest pain, unspecified Discharge Date/Time: 12/14/19 04:25 Admit Date/Time: 12/14/19 04:23 Admit Provider: Marnie Asher
--- NOTE | 2019-12-13 22:35 | DI.US.S_ITS ---
PROCEDURE: US ABDOMEN LIMITED INDICATIONS: EPIGASTRIC PAIN; ELEVATED LIPASE TECHNIQUE: Real-time focused scanning was performed of the abdomen, with image documentation. COMPARISON: None. FINDINGS: Liver demonstrates normal size and echotexture. No gallstones. No gallbladder wall thickening, pericholecystic fluid or sonographic Dsouza's sign. No intrahepatic or extrahepatic biliary dilation. Common bile duct measures 3.4 mm. Pancreas is obscured by overlying bowel gas. No free fluid is present IMPRESSION: 1. Normal limited ultrasound exam. 2. Pancreas is obscured by overlying bowel gas. 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 Dictated by: Yazmin Simmons M.D. on 12/14/2019 at 9:59 Approved by: Yazmin Simmons M.D. on 12/14/2019 at 10:00
[2019-12-13 23:18] LABS: Ethanol (ETOH) < 10 mg/dL
[2019-12-14 00:24] LABS: Troponin I < 0.012 ng/mL (0.01-0.034)
[2019-12-14 00:54] VITALS: BP 138/76; PULSE 71; RESP 15; O2SAT 97
[2019-12-14] MEDS: ASPIRIN 81 MG CHEW TAB 324 MG PO (02:13)
[2019-12-14 04:25] VITALS: BP 126/72; PULSE 63; RESP 18; TEMP 37; O2SAT 100
[2019-12-14 04:40] VITALS: BMI 22.9
--- NOTE | 2019-12-14 05:48 | PC.NURSE ---
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 IV in place in lt forearm and saline locked. Pt NPO as ordered. Pt denies chest pain or pressure. Pt is alert, oriented X3.
--- NOTE | 2019-12-14 05:57 | PC.NURSE ---
for additional vital signs see paper chart.
--- NOTE | 2019-12-14 06:43 | PM.HP.1 ---
History of Present Illness History of Present Illness Date Patient Seen: 12/14/19 Time Patient Seen: 06:43 Chief complaint: Chest pains Narrative: HPI is obtained via direct interview with the patient. Patient is an inconsistent historian. The patient is a 64-year-old PMHx of CAD (h/o [place] / stenting 2007), HTN, hypothyroidism, DM 2T, chronic migraine headaches, CKD, and anxiety/depression. Patient presented to the ED out of concern for chest pain. Patient physically points to chest discomfort to the area of 4th left intercostal space / left lower sternal border. Pain is characterized as stabbing. Notes highest magnitude of 7/10. Denies radiation to the back, extremities neck or jaw. Patient reports associated symptoms of feeling cold and shortness of breath. Symptom onset is said to have occured at 2000 hours (respectively), half an hour prior to ED presentation. At time of the event patient was cleaning her house, she denies over exerting at time of the event. Patient notes having a more active day than which she usually has. In ED patient was given a dose of nitro which took her chest discomfort from 7/10 to /10. Patient reports not feeling well most of the week. She denies fever and chills. Denies URI symptoms. Notes feeling more fatigued, without further specific symptoms. Patient has not experienced dizziness, lightheadedness, or syncopal events. She denies exertional dyspnea, peripheral edema, or orthopnea. Patient reports waking up at night with shortness of breath and palpitations on number of occasions over the past week. Patient states that she has been diagnosed with KATIE. She also notes that an appointment has been set up for further follow-up, which she has missed. Patient denies abdominal pain and gastrointestinal distress. The patient states that in September of 2019 she had an adjustment in her Wellbutrin dose. The dose was increased from 300 mg daily to 450 mg. Patient reports having side effects to the increased dose in the form of auditory hallucinations. Patient reports notifying her primary care doctor and notes a decrease in dose to 300 mg in the past week. PCP note reviewed and it appears that patient is providing a fairly accurate account. ED presentation and workup VSS. Labs, 12/13/19 2130 WBC 5.9 HGB 12.8 PLT 218 PT 10.5 INR 0.9 APTT 46 Na 143 K 4.0 Cl 108 Ca 9.9 Alb 5.0 Glucose 68 CO2 27 BUN 33 CR 1.0 GFR 55 T.Bili 0.2 AST 40 ALT 41 ALP 89 Trop < 0.012 Lipase 467 Chest x-ray did not reveal any acute cardiopulmonary findings Abdominal U/S pending Patient History Medical History Anemia (Chronic) Anterior myocardial infarction (Resolved 2007) CAD (coronary artery disease) (Chronic) Chicken pox (Resolved) Chronic headaches (Chronic) Chronic pain (Chronic) Depression (Chronic) Diabetes mellitus (Chronic) Hyperlipidemia (Chronic) Hypertension (Chronic) Measles (Resolved) Migraines (Chronic) Narcotic abuse, episodic (Chronic) Panic disorder (Chronic) Surgical History Anesthesia (Resolved) History of appendectomy (Resolved) History of colonoscopy with polypectomy (Resolved 12/29/14) History of esophagogastroduodenoscopy (EGD) (Resolved 12/29/14) History of tonsillectomy (Resolved) Status post blepharoplasty of both eyes (Resolved 11/11/12) Status post insertion of drug-eluting stent into left anterior descending (LAD) artery (Resolved 2007) Family & Social History Family History Father Diabetes mellitus Heart disease Hypertension Stroke Social History: household members none Prior Living Arrangements House Safety & Behavioral: Feels Safe in Current Yes Environment Been Physically Hurt or No Threatened By a Person Suicidal Ideation Description None Suicide Plan Description No Plan Tobacco & Substance use: Smoking Status Current some day smoker. Overall patient denies any type of history of smoking. However she notes smoking half a cigarette in the morning and half in the evening alcohol intake never alcohol intake frequency 0-2 drinks per day Substance Use Type does not use Meds Home Medications and Allergies Home Medications Medication Instructions Recorded Confirmed Type ASPIRIN (#ASPIRIN) 325 mg PO Q DAY #0 02/21/11 12/14/19 History [Fish Oil] Q DAY #0 03/09/11 12/08/19 History citalopram 40 mg tablet 40 mg PO Q DAY #30 tab 12/04/18 12/14/19 Rx levothyroxine 25 mcg tablet 25 mcg PO QAM #30 tab 03/22/19 12/08/19 Rx liothyronine 5 mcg tablet 5 mcg PO BID #60 tab 03/22/19 12/14/19 Rx topiramate 100 mg tablet 100 mg PO BID #60 tab 04/28/19 12/14/19 Rx simvastatin 80 mg tablet 80 mg PO Q PM #90 tab 04/29/19 12/08/19 Rx losartan 50 mg tablet 50 mg PO Q DAY #90 tab 10/10/19 12/08/19 Rx bupropion HCl 150 mg 24 hr tablet, 150 mg PO QAM #30 tab 12/08/19 12/08/19 Rx extended release clonazepam See Rx Instructions .ROUTE .COMPLEX 12/14/19 12/14/19 History topiramate 12/14/19 History Allergies Allergy/AdvReac Type Severity Reaction Status Date / Time NASRIN Inhibitors Allergy Intermediate EDEMA IN Verified 12/13/19 21:33 BOTH HANDS codeine Allergy Mild NAUSEA/VOMI Verified 12/13/19 21:33 TING meperidine Allergy Mild VOMITING Verified 12/13/19 21:33 Review of Systems Review of Systems ROS: Yes All systems reviewed with the patient and are negative except as otherwise documented Exam Vital Signs (past 8 hours): - 12/14/19 00:54 12/14/19 04:25 Temperature 98.6 F Pulse Rate 71 63 Respiratory Rate 15 18 Blood Pressure 126/72 Blood Pressure [Left Arm] 138/76 Pulse Oximetry 97 100 Oxygen Delivery Method Room Air Oxygen Flow Rate 0 Narrative Exam Narrative: Constitutional: NAD Neurologic: AOx3, no focal neurological deficits Head: NC, AT Eyes: PERRL, EOMI, Ears: external ears normal, no otorrhea Nose: external nose normal, no rhinorrhea or epistaxis Throat: MMM, oropharynx w/o exudate Neck: no masses, lymphadenopathy, or JVD Chest / Respiratory: CTAB, no dyspnea or tachypnea at rest Heart / CV: S1S2, no murmur Abdomen / GI: round, NT, ND, + BS, no organomegaly : no suprapubic tenderness, no CVA Peripheral / Vascular: warm to touch, DP and PT pulses palpable, no edema Musc: full ROM of upper and lower extremities, adequate muscle tone and bulk Skin: no ecchymosis or suspicious lesions / ulcers Objective Labs Result Diagrams: 12/13/19 21:30 12/13/19 21:30 Labs: Laboratory Results - last 24 hr 12/13/19 12/13/19 12/13/19 21:30 21:30 21:30 WBC 5.9 RBC 3.94 L Hgb 12.8 Hct 37.7 MCV 95.6 MCH 32.5 MCHC 34.0 RDW 13.0 Plt Count 218 Neut % (Auto) 51.8 Lymph % (Auto) 34.0 [place] % (Auto) 11.6 Eos % (Auto) 2.2 Baso % (Auto) 0.4 Neut # (Auto) 3100 Lymph # (Auto) 2000 [place] # (Auto) 700 Eos # (Auto) 100 Baso # (Auto) 0 PT 10.5 INR 0.9 APTT 46 H D-Dimer Sodium 143 Potassium 4.0 Chloride 108 H Carbon Dioxide 27 BUN 33 H Creatinine 1.00 Estimated GFR 55.8 L BUN/Creatinine Ratio 33.0 H Glucose 68 L Calcium 9.9 Total Bilirubin 0.2 AST 40 H ALT 41 H Alkaline Phosphatase 89 Total Creatine Kinase 88 CK-MB (CK-2) TNP CK-MB (CK-2) Rel Index TNP Troponin I < 0.012 Total Protein 8.3 H Albumin 5.0 Globulin 3.3 Albumin/Globulin Ratio 1.5 Lipase 467 H Ethyl Alcohol 12/13/19 12/13/19 12/13/19 21:30 21:30 23:55 WBC RBC Hgb Hct MCV MCH MCHC RDW Plt Count Neut % (Auto) Lymph % (Auto) [place] % (Auto) Eos % (Auto) Baso % (Auto) Neut # (Auto) Lymph # (Auto) [place] # (Auto) Eos # (Auto) Baso # (Auto) PT INR APTT D-Dimer < 200 Sodium Potassium Chloride Carbon Dioxide BUN Creatinine Estimated GFR BUN/Creatinine Ratio Glucose Calcium Total Bilirubin AST ALT Alkaline Phosphatase Total Creatine Kinase CK-MB (CK-2) CK-MB (CK-2) Rel Index Troponin I < 0.012 Total Protein Albumin Globulin Albumin/Globulin Ratio Lipase Ethyl Alcohol < 10 Assessment & Plan Assessment & Plan narrative: Patient is being admitted for acute chest pain Acute chest pain, present on admission, active - H/O CAD ([place] s/p stenting) - Trop negative x2. 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 Elevated lipase, acute, present on admission, active - Repeat lipase w/ am lab - U/S of abdomen (pending), to be followed, reported to be negative by ED - Will hold statin until liver enzyme normalize Hypoglycemia, acute, present on admission, active - Asymptomatic - h/o DM II, diet controlled - Currently NPO, check glucose Q4H Hypothyroidism, chronic condition, present on admission, active - TSH 0.14 in september 2019, appears to be over corrected According to the patient she has not had an adjustment in her thyroid medications - Resume BRICK MACHINE OPERATOR regimen of cytomel and lethothyroxine Essential hypertension, chronic condition, present on admission, active - Normotensive, continue trending - Resume BRICK MACHINE OPERATOR regimen of llosartan 50 mg q.day Anxiety and depression, chronic condition present on admission, active - Resume BRICK MACHINE OPERATOR regimen of bupropion and citalopram Full code. Designates her daughter has surrogate decision maker. Home medications reviewed and reconciled accordingly VTE prophylaxis with SCDs / SQ heparin
[2019-12-14 08:00] VITALS: BP 144/73; PULSE 73; RESP 22; TEMP 37; O2SAT 98
[2019-12-14 08:46] LABS: Creatine Kinase 58 U/L (30-135)
[2019-12-14 08:48] LABS: Alanine Aminotransferase 31 IU/L (<35); Albumin Globulin Ratio 1.5 (1.0-2.8); Alkaline Phosphatase 59 U/L (38-126); Aspartate Aminotransferase 31 IU/L (14-36); BUN Creatinine Ratio 28.9 (6-22); Bilirubin Total 0.2 mg/dL (0.2-1.3); Blood Urea Nitrogen 26 mg/dL (7-17); Calcium 9.1 mg/dL (8.4-10.2); Carbon Dioxide 22 mmol/L (22-32); Chloride 110 mmol/L (98-107); Estimated Glomerular Filt Rate > 60.0 mL/min (>60); Globulin 2.7 g/dL (1.7-4.1); Glucose 107 mg/dL (80-110); HEMOLYSIS < 15 (0-50); Potassium 3.9 mmol/L (3.4-5.1); Sodium 144 mmol/L (137-145); Total Protein 6.7 g/dL (6.3-8.2)
[2019-12-14 08:49] LABS: Hemoglobin A1C% w Est Avg Glu 5.5 % (4.0-6.0)
[2019-12-14] MEDS: TOPIRAMATE 100 MG TABLET PO (08:49)
[2019-12-14] MEDS: buPROPion XL 150 MG TAB 300 MG PO (08:49)
[2019-12-14] MEDS: LIOTHYRONINE 5 MCG TABLET PO (08:49)
[2019-12-14] MEDS: ASPIRIN 325 MG TABLET PO (08:49)
[2019-12-14] MEDS: CITALOPRAM 20 MG TABLET 40 MG PO (08:49)
[2019-12-14 08:58] LABS: Troponin I < 0.012 ng/mL (0.01-0.034)
[2019-12-14 09:08] LABS: Lipase 299 U/L (23-300)
[2019-12-14 09:36] LABS: Cholesterol 135 mg/dL (140-199); HDL Cholesterol 55 mg/dL (40-60); LDL Cholesterol Calculated 67 mg/dL (<100); Triglycerides 66 mg/dL (35-150)
[2019-12-14] MEDS: ACETAMINOPHEN 325 MG TABLET 650 MG PO (10:54)
--- NOTE | 2019-12-14 11:16 | PM.DS.1 ---
History of Present Illness History of Present Illness Date Patient Seen: 12/14/19 Chief complaint: Chest pains Narrative: Written by Marnie AVILA: HPI is obtained via direct interview with the patient. Patient is an inconsistent historian. The patient is a 64-year-old PMHx of CAD (h/o DE / stenting 2007), HTN, hypothyroidism, DM 2T, chronic migraine headaches, CKD, and anxiety/depression. Patient presented to the ED out of concern for chest pain. Patient physically points to chest discomfort to the area of 4th left intercostal space / left lower sternal border. Pain is characterized as stabbing. Notes highest magnitude of 7/10. Denies radiation to the back, extremities neck or jaw. Patient reports associated symptoms of feeling cold and shortness of breath. Symptom onset is said to have occured at 2000 hours (respectively), half an hour prior to ED presentation. At time of the event patient was cleaning her house, she denies over exerting at time of the event. Patient notes having a more active day than which she usually has. In ED patient was given a dose of nitro which took her chest discomfort from 7/10 to 10. Patient reports not feeling well most of the week. She denies fever and chills. Denies URI symptoms. Notes feeling more fatigued, without further specific symptoms. Patient has not experienced dizziness, lightheadedness, or syncopal events. She denies exertional dyspnea, peripheral edema, or orthopnea. Patient reports waking up at night with shortness of breath and palpitations on number of occasions over the past week. Patient states that she has been diagnosed with KATIE. She also notes that an appointment has been set up for further follow-up, which she has missed. Patient denies abdominal pain and gastrointestinal distress. The patient states that in September of 2019 she had an adjustment in her Wellbutrin dose. The dose was increased from 300 mg daily to 450 mg. Patient reports having side effects to the increased dose in the form of auditory hallucinations. Patient reports notifying her primary care doctor and notes a decrease in dose to 300 mg in the past week. PCP note reviewed and it appears that patient is providing a fairly accurate account. ED presentation and workup VSS. Labs, 12/13/19 2130 WBC 5.9 HGB 12.8 PLT 218 PT 10.5 INR 0.9 APTT 46 Na 143 K 4.0 Cl 108 Ca 9.9 Alb 5.0 Glucose 68 CO2 27 BUN 33 CR 1.0 GFR 55 T.Bili 0.2 AST 40 ALT 41 ALP 89 Trop < 0.012 Lipase 467 Chest x-ray did not reveal any acute cardiopulmonary findings Abdominal U/S pending Discharge Providers Provider Date of admission: 12/14/19 04:23 Discharge Date: 12/14/19 Primary care physician: Mitchel German MD Discharge provider: Lata Tyson DO Summary Hospital Course Discharge Diagnosis: 1. Acute atypical chest pain, present on admission. Resolved. 2. Acute elevated lipase, present on admission. Resolved. 3. Acute hypoglycemia, present on admission. Resolved. 4. Hypothyroidism, chronic, present on admission. Stable. 5. Hypertension, chronic, present on admission. Stable. 6. Depression and anxiety, chronic, present on admission. Stable. 7. Tobacco dependence, chronic, present on admission. Stable. 8. Migraine headaches, chronic, present on admission. Stable. Hospital Course: Taylor Olivera is a 64-year-old female with past medical history significant for CAD status post DE and stenting x1 in 2007, hypertension, hyperlipidemia, previous diabetes mellitus type 2 now in remission, hypothyroidism, chronic migraine headaches, depression and anxiety. Patient presented to the ED out of concern for chest pain. 1. Acute atypical chest pain, present on admission. Resolved. -Patient presented with intermittent sharp and stabbing left-sided chest pain with associated -Cardiac risk factors include: CAD status post DE and stenting x1, treated hypertension, treated hyperlipidemia, smoker, and family history. -Cardiac risk factors include: CAD, untreated hypertension, uncontrolled hyperlipidemia, former smoker, significant family history, possible KATIE. -EKG demonstrated normal sinus rhythm without acute ischemic changes such as ST elevation or depression. -Continued to monitor serial troponin x3 which were negative at < 0.012. -Risk stratified with hemoglobin A1c which was normal at 5.5% and fasting lipid panel demonstrated good lipid control including: Total cholesterol 135, triglycerides 66, LDL 67 (goal <100), HDL 55. -Continued to monitor closely on telemetry. Patient was in normal sinus rhythm throughout entire hospitalization without ectopy. -Continued aspirin 81 mg daily and simvastatin 80 mg daily for cardiovascular prophylaxis. -Unable to perform stress test or echocardiogram due to scheduling conflicts. Recommended outpatient cardiac stress test in next 1-2 weeks per PCP. 2. Acute elevated lipase, present on admission. Resolved. -Initial lipase mildly elevated at 467. Repeat lipase normal at 299. -Abdominal ultrasound was normal. Pancreas was unable to be evaluated due to being obscured by overlying bowel gas. -Held statin initially as LFTs are mildly elevated with AST 41 and ALT 40. LFTs normalized and discharged with instructions to resume statin therapy. 3. Acute hypoglycemia, present on admission. Resolved. -Patient presented with glucose of 68 and asymptomatic. -Patient previously had diabetes mellitus type 2 that was diet controlled and now in remission with normal hemoglobin A1c 5.5%. 4. Hypothyroidism, chronic, present on admission. Stable. -According to the patient she has not had an adjustment in her thyroid medications -TSH low at 0.24 and free T4 low at a 0.75 possibly public service representative of sick euthyroid or secondary/tertiary hypothyroidism. -Continued levothyroxine 25 mcg daily and liothyronine 5 mcg twice daily. Recommend outpatient referral to Endocrinology for evaluation of thyroid disease per PCP. 5. Hypertension, chronic, present on admission. Stable. -Patient mostly normotensive throughout hospitalization with occasional elevated SBP 140s. -Continued losartan 50 mg daily. 6. Depression and anxiety, chronic, present on admission. Stable. -Continued home bupropion 300 mg daily and citalopram 40 mg daily. 7. Tobacco dependence, chronic, present on admission. Stable. -Patient initially denied smoking and then reported smoking half a cigarette in the morning and half a cigarette in the evening. -Counseled patient on smoking cessation. 8. Migraine headaches, chronic, present on admission. Stable. -Patient developed migraine headache which was treated with her home medication topiramate. -Continued topiramate 100 mg twice daily. Exam Vital Signs (past 8 hours): - 12/14/19 04:25 12/14/19 08:00 Temperature 98.6 F 98.6 F Pulse Rate 63 73 Respiratory Rate 18 22 Blood Pressure 126/72 144/73 H Pulse Oximetry 100 98 Oxygen Delivery Method Room Air Oxygen Flow Rate 0 Narrative Exam Narrative: General: Older female sitting in bed and in acute distress, well-developed, well-nourished, mildly somnolent but appropriately interactive. HEENT: Normocephalic, atraumatic. External ears without defect. Pupils equal, round, and reactive to light. Anicteric sclerae, moist conjunctivae, and no lid lag. Oropharynx free of erythema and cobble stoning with moist mucosa. Neck: Supple with full range of motion. No jugular venous distension. No lymphadenopathy or thyromegaly. Cardiovascular: Regular rate and rhythm without murmurs, rubs, or gallops appreciated. Pulmonary: Clear to auscultation bilaterally without crackles, wheezes, or rhonchi. Normal respiratory effort with no use of accessory muscles. Abdomen: Soft, bowel sounds present, nontender, nondistended. No hepatosplenomegaly or masses appreciated. Extremities: No clubbing, cyanosis, or edema. Skin: Normal temperature, turgor, and texture; no rash, ulcers, or subcutaneous nodules appreciated. Neurological: Cranial nerves grossly intact. Psychiatric: Mildly somnolent but arousable. Normal mood and affect. Alert and oriented to person, place, and time. Objective Labs Result Diagrams: 12/13/19 21:30 12/14/19 08:10 Labs: Laboratory Results - last 24 hr 12/13/19 12/13/19 12/13/19 21:30 21:30 21:30 WBC 5.9 RBC 3.94 L Hgb 12.8 Hct 37.7 MCV 95.6 MCH 32.5 MCHC 34.0 RDW 13.0 Plt Count 218 Neut % (Auto) 51.8 Lymph % (Auto) 34.0 [place] % (Auto) 11.6 Eos % (Auto) 2.2 Baso % (Auto) 0.4 Neut # (Auto) 3100 Lymph # (Auto) 2000 [place] # (Auto) 700 Eos # (Auto) 100 Baso # (Auto) 0 PT 10.5 INR 0.9 APTT 46 H D-Dimer Sodium 143 Potassium 4.0 Chloride 108 H Carbon Dioxide 27 BUN 33 H Creatinine 1.00 Estimated GFR 55.8 L BUN/Creatinine Ratio 33.0 H Glucose 68 L Hemoglobin A1c Calcium 9.9 Total Bilirubin 0.2 AST 40 H ALT 41 H Alkaline Phosphatase 89 Total Creatine Kinase 88 CK-MB (CK-2) TNP CK-MB (CK-2) Rel Index TNP Troponin I < 0.012 Total Protein 8.3 H Albumin 5.0 Globulin 3.3 Albumin/Globulin Ratio 1.5 Triglycerides Cholesterol LDL Cholesterol, Calc HDL Cholesterol Lipase 467 H Ethyl Alcohol 12/13/19 12/13/19 12/13/19 21:30 21:30 23:55 WBC RBC Hgb Hct MCV MCH MCHC RDW Plt Count Neut % (Auto) Lymph % (Auto) [place] % (Auto) Eos % (Auto) Baso % (Auto) Neut # (Auto) Lymph # (Auto) [place] # (Auto) Eos # (Auto) Baso # (Auto) PT INR APTT D-Dimer < 200 Sodium Potassium Chloride Carbon Dioxide BUN Creatinine Estimated GFR BUN/Creatinine Ratio Glucose Hemoglobin A1c Calcium Total Bilirubin AST ALT Alkaline Phosphatase Total Creatine Kinase CK-MB (CK-2) CK-MB (CK-2) Rel Index Troponin I < 0.012 Total Protein Albumin Globulin Albumin/Globulin Ratio Triglycerides Cholesterol LDL Cholesterol, Calc HDL Cholesterol Lipase Ethyl Alcohol < 10 12/14/19 12/14/19 12/14/19 08:10 08:10 08:10 WBC RBC Hgb Hct MCV MCH MCHC RDW Plt Count Neut % (Auto) Lymph % (Auto) [place] % (Auto) Eos % (Auto) Baso % (Auto) Neut # (Auto) Lymph # (Auto) [place] # (Auto) Eos # (Auto) Baso # (Auto) PT INR APTT D-Dimer Sodium 144 Potassium 3.9 Chloride 110 H Carbon Dioxide 22 BUN 26 H Creatinine 0.90 Estimated GFR > 60.0 BUN/Creatinine Ratio 28.9 H Glucose 107 Hemoglobin A1c Calcium 9.1 Total Bilirubin 0.2 AST 31 ALT 31 Alkaline Phosphatase 59 Total Creatine Kinase 58 CK-MB (CK-2) TNP CK-MB (CK-2) Rel Index TNP Troponin I < 0.012 Total Protein 6.7 Albumin 4.0 Globulin 2.7 Albumin/Globulin Ratio 1.5 Triglycerides Cholesterol LDL Cholesterol, Calc HDL Cholesterol Lipase 299 Ethyl Alcohol 12/14/19 12/14/19 08:10 08:10 WBC RBC Hgb Hct MCV MCH MCHC RDW Plt Count Neut % (Auto) Lymph % (Auto) [place] % (Auto) Eos % (Auto) Baso % (Auto) Neut # (Auto) Lymph # (Auto) [place] # (Auto) Eos # (Auto) Baso # (Auto) PT INR APTT D-Dimer Sodium Potassium Chloride Carbon Dioxide BUN Creatinine Estimated GFR BUN/Creatinine Ratio Glucose Hemoglobin A1c 5.5 Calcium Total Bilirubin AST ALT Alkaline Phosphatase Total Creatine Kinase CK-MB (CK-2) CK-MB (CK-2) Rel Index Troponin I Total Protein Albumin Globulin Albumin/Globulin Ratio Triglycerides 66 Cholesterol 135 L LDL Cholesterol, Calc 67 HDL Cholesterol 55 Lipase Ethyl Alcohol Discharge Plan Discharge Plan Patient Disposition: Home Discharge comment: You are being discharged home. There is no evidence that your intermittent shooting/sharp chest pain was related to your heart, as your heart enzymes and EKG were negative, and more likely related to indigestion and gastrointestinal in origin as your lipase was slightly elevated and now is normal. Please follow-up with your primary care provider, Dr. German, regarding your hospitalization and recommend an outpatient stress test in the near future. Your aspirin has been lowered to 81 mg daily as there is no added cardiovascular benefit with aspirin 325 mg and more GI related side effects/complications including ulcerations and bleeding. Also recommend outpatient sleep study and implementation of CPAP if obstructive sleep apnea is present. Discharge orders & Medications Prescriptions: New aspirin 81 mg tablet,delayed release (DR/EC) 81 mg PO DAILY Qty: 30 RF: 0 Continued [Fish Oil] 1 cap PO Q DAY Qty: 0 RF: 0 citalopram 40 mg tablet 40 mg PO Q DAY Qty: 30 RF: 11 levothyroxine 25 mcg tablet 25 mcg PO QAM Qty: 30 RF: 11 liothyronine [Cytomel] 5 mcg tablet 5 mcg PO BID Qty: 60 RF: 11 topiramate [Topamax] 100 mg tablet 100 mg PO BID Qty: 60 RF: 5 losartan [Cozaar] 50 mg tablet 50 mg PO Q DAY Qty: 90 RF: 1 clonazepam 1 mg tablet See Rx Instructions .ROUTE .COMPLEX RF: 0 simvastatin [Zocor] 80 mg tablet 80 mg PO DAILY RF: 0 bupropion HCl 150 mg tablet extended release 24 hr 300 mg PO QAM RF: 0 Discontinued aspirin 325 mg Tablet 325 mg PO Q DAY Qty: 0 RF: 0 Follow up/Referrals: Mitchel German MD [Primary Care Provider] - 12/22/19 11:30 am Diet/Activity/Treatments Diet: Low-fat, Low-sodium and Low-cholesterol Activity: Activity as tolerated Visit Report/Discharge Packet Instructions: DI for Chest Pain Discharge Data Primary Care Provider: Mitchel German Attending Provider: Marnie Asher Admit Date/Time: 12/14/19 04:23 Discharges patient from system. Discharge Date/Time: 12/14/19 12:35
--- NOTE | 2019-12-14 11:23 | CM.DANOTE ---
DCP Brief Assessment Note: Patient is a 64 year old female who was admitted on 12/14/19 for Chest Pains. Pt has [facility] [facility] and [employer] for insurance and her PCP is Dr. Mitchel German. EMR was reviewed. Per MD, pt's chest pains were relieved by nitro and her EKG is negative and pt could benefit from Echo and Stress test but not available today and not emergent and can be completed in the outpt setting. No d/c barriers identified and per RN no concerns at this time. No bedside assessment completed due to triage needs and no d/c planning needs identified. Plan: Patient to d/c home today via friend POV and follow up outpt stress test and Echo. No SW needs at this time, please refer if indicated. ADRIANO Garay
[2019-12-14 12:22] LABS: TSH w/ Reflex to FT4 0.24 uIU/mL (0.47-4.68)
--- NOTE | 2019-12-14 12:36 | PC.NURSE ---
Pt dc'd to home per order at 1235. D/c packet and educational materials provided and reviewed. Family at bedside during teaching. Reviewed med regimen, ASA dose change, f/u, referral needs. Provided education re: CP and instructed pt to return to ED via EMS if symptoms return. Pt and family verbalize understanding. Removed PIV with cath tip intact. All belongings are gathered and given to pt/family. Pt was escorted to POV driven by daughter in no acute distress for d/c home.
[2019-12-14 15:25] LABS: Free T4, Direct Thyroxine 0.75 ng/dL (0.78-2.19)
== END 2019-12-14 12:35 | disposition home or self-care (01) ==
LOC: ED 12-14 03:02 → ICU 12-14 09:20
PROVIDERS: Internal Medicine; Admitting Provider Nurse Practitioner Gerontology; Emergency Provider Emergency Medicine; PCP Student in an Organized Health Care Education/Training Program; Visit Provider Nurse Practitioner Gerontology
DX: R07.89 Other chest pain (principal); R74.8 Abnormal levels of other serum enzymes; E16.2 Hypoglycemia, unspecified; E03.9 Hypothyroidism, unspecified; I10 Essential (primary) hypertension; F32.9 Major depressive disorder, single episode, unspecified; F41.9 Anxiety disorder, unspecified; F17.210 Nicotine dependence, cigarettes, uncomplicated; G43.909 Migraine, unspecified, not intractable, without status migrainosus
CPT/HCPCS: 36415; 71045; 76705; 80053; 80061; 80320; 82550; 82962; 83036; 83690; 84439; 84443; 84484; 85025; 85379; 85610; 85730; 93005; 96374; 99284; 99285; G0378; J1644; J2405

== ENCOUNTER → 2020-01-07 15:57 | Outpatient (CLI) | payer OTHER, MEDICAID, SELFPAY ==
[2019-12-14 04:40] VITALS: BMI 22.9
[2019-12-28 15:14] VITALS: BMI 22.9
--- NOTE | 2020-01-07 15:58 | DI.ECHO.S_ITS ---
[facility]---------+ [facility] +---------+ : : [address] : : : : [id number] : : : : Phone: [phone]---------+ Echocardiogram Report + + :Name: TANISHA IRIZARRY Study Date: 01/07/2020 Height: 60 in : :[facility] Weight: 115 lb : : Gender: Female BSA: 1.5 m2 : :: 1955 Age: 64 yrs BP: 170/100 mmHg: :Reason For Study: chest pain : : Performed By: Jaycee Morgan : :Referring: JANE GERMAN : + + Interpretation Summary The left ventricle is normal in size and wall thickness. The left ventricular ejection fraction is normal. Diastolic parameters suggest a relaxation abnormality of the left ventricle, consistent with probable normal filling pressures. The right ventricle is normal in size and function. Pulmonary artery pressures cannot be estimated because of the lack of a measurable TR jet velocity but the IVC suggests a CVP of around 3 mmHg. No hemodynamically significant valvular abnormalities. Document Control Specialist's note: Please note that patient complained of headache for past 4-5 hours and feeling unwell. Patient stated she took her blood pressure medication around 10:30AM. Spoke with Dr. Watters the aircraft inspection record clerk physician for Dr. German who stated she should go to ER due to elevated blood pressure and symptomatic. Patient agreed and was taken to ER registration. Procedure: A two-dimensional transthoracic echocardiogram with color flow and Doppler was performed. The study quality was technically adequate. There is no prior echocardiogram noted for this patient. The patient was in normal sinus rhythm during the exam. Left Ventricle: The left ventricle is normal in size and wall thickness. The ejection fraction is estimated to be 55-60%. The left ventricular ejection fraction is normal. There are no focal wall motion abnormalities. Diastolic parameters suggest a relaxation abnormality of the left ventricle, consistent with probable normal filling pressures. Right Ventricle: The right ventricle is normal in size and function. Atria: Both atria are normal in size. There is no Doppler evidence for an interatrial shunt. Mitral Valve: The mitral valve is normal in structure and function. There is trace mitral regurgitation. Aortic Valve: The aortic valve is trileaflet. The aortic valve opens well. There is no aortic valve stenosis. There is mild aortic regurgitation. Tricuspid Valve: The tricuspid valve is normal in structure and function. There is a trace or physiologic amount of tricuspid regurgitation. Pulmonary artery pressures cannot be estimated because of the lack of a measurable TR jet velocity but the IVC suggests a CVP of around 3 mmHg. Pulmonic Valve: The pulmonic valve is not well seen, but is grossly normal. There is no pulmonic valvular regurgitation. Great Vessels: The aortic root is normal size. The ascending aorta is normal in size. The IVC is of normal diameter and collapses greater than 50% with a sniff. This suggests a low right atrial pressure of 3 mm Hg. Pericardium/ Pleura There is no pericardial effusion. There is no pleural effusion. MMode/2D Measurements & Calculations LVIDd: 4.0 cm LVOT diam: 2.0 cm LVIDs: 2.8 cm Ao root diam: 2.7 cm FS: 31.3 % asc Aorta Diam: 2.9 cm EPSS: 1.3 cm Ao Arch Diam (Prox Trans): 2.7 cm IVSd: 0.83 cm LVPWd: 0.87 cm LV diehl. diameter/BSA (cm/m^2): 2.7 LV sys. diameter/BSA (cm/m^2): 1.9 LA A2 area: 16.1 cm2 RA long axis: 4.7 cm LA A4 area: 11.2 cm2 RA area: 11.3 cm2 LA length (vol): 3.6 cm RA vol: 22.8 ml LA vol: 42.7 ml RA : 15.5 ml/m2 LA vol index: 28.9 ml/m2 IVC diam: 1.3 cm RVD1 (basal): 2.9 cm TAPSE: 2.1 cm Doppler Measurements & Calculations Ao V2 max: 112.3 cm/sec LVOT Max Erik: 89.8 cm/sec Ao V2 mean: 78.1 cm/sec LV V1 max P.2 mmHg Ao max P.0 mmHg LV V1 VTI: 17.6 cm Ao mean P.7 mmHg CARMEN(I,D): 2.5 cm2 Ao V2 VTI: 22.4 cm CARMEN(V,D): 2.5 cm2 sev ratio: 0.79 CARMEN indexed to BSA (cm^2/m^2): 1.7 AI P1/2t: 858.0 msec AI dec slope: 144.3 cm/sec2 MV E max erik: 60.5 cm/sec PA V2 max: 56.3 cm/sec MV A max erik: 88.5 cm/sec PA V2 mean: 38.5 cm/sec MV E/A: 0.68 PA mean P.66 mmHg Med Peak E' Erik: 4.7 cm/sec PA Accel Time: 0.09 sec E/E' med: 12.8 Lat Peak E' Erik: 6.6 cm/sec E/E' lat: 9.1 E/e' average: 10.9 MV dec time: 0.22 sec MV P1/2t: 64.1 msec MV P1/2t max erik: 62.4 cm/sec SV(LVOT): 55.2 ml MVA(P1/2t): 3.4 cm2 Electronically signed by: Luis F Cartagena M.D. on Reading Physician:01/07/2020 05:44 PM
== END ==
PROVIDERS: PCP Student in an Organized Health Care Education/Training Program; Referring Provider Student in an Organized Health Care Education/Training Program; Visit Provider Student in an Organized Health Care Education/Training Program
DX: I35.1 Nonrheumatic aortic (valve) insufficiency (principal); R07.9 Chest pain, unspecified; I25.10 Atherosclerotic heart disease of native coronary artery without angina pectoris; R51 Headache; I10 Essential (primary) hypertension
CPT/HCPCS: 93306

== ENCOUNTER 2020-01-07 17:12 | Emergency (ER) | payer OTHER, MEDICAID, SELFPAY ==
[2019-12-28 15:14] VITALS: BMI 22.9
[2020-01-07 17:15] VITALS: BP 146/79; PULSE 80; RESP 18; TEMP 36.9; O2SAT 98
--- NOTE | 2020-01-07 17:20 | PC.NURSE ---
Pt states she was sent by the [employer] and states I really don't think I need to be here. States she would not normally have come to ED for such. BP checked and it is lower than previous reading. As per triage note, pt is a/o x 4, easy work of breathing, pink, warm and dry. Pt denies complaints. States she wants to go home and take her migraine meds. Given strict instructions to return if any needs or concerns which patient verbalized. Pt concerned about bill, I told her to call billing if needed. Pt did not want to sign in but felt as if she had to. Home w/o difficulty.
--- NOTE | 2020-01-08 08:02 | ED.HA ---
HPI - Headache General Chief Complaint: Headache Stated Complaint: high blood pressure Mode of arrival: Ambulatory History of Present Illness HPI Narrative: The patient left without treatment. The patient was not seen, evaluated, or examined by myself. Related Data Home Medications Medication Instructions Recorded Confirmed [Fish Oil] 1 cap PO Q DAY #0 03/09/11 12/16/19 bupropion HCl 300 mg PO QAM 12/14/19 12/16/19 clonazepam See Rx Instructions .ROUTE .COMPLEX 12/14/19 12/16/19 simvastatin [Zocor] 80 mg PO DAILY 12/14/19 12/16/19 Previous Rx's Medication Instructions Recorded levothyroxine 25 mcg tablet 25 mcg PO QAM #30 tab 03/22/19 liothyronine 5 mcg tablet 5 mcg PO BID #60 tab 03/22/19 topiramate 100 mg tablet 100 mg PO BID #60 tab 04/28/19 losartan 50 mg tablet 50 mg PO Q DAY #90 tab 10/10/19 aspirin 81 mg PO DAILY #30 tab 12/14/19 citalopram 40 mg tablet 40 mg PO Q DAY #30 tab 12/30/19 Allergies Allergy/AdvReac Type Severity Reaction Status Date / Time NASRIN Inhibitors Allergy Intermediate EDEMA IN Verified 12/16/19 15:38 BOTH HANDS codeine Allergy Mild NAUSEA/VOMI Verified 12/16/19 15:38 TING meperidine Allergy Mild VOMITING Verified 12/16/19 15:38 Patient History Medical History (Updated 01/07/20 @ 17:23 by Rhianna Reyna RN) Anemia (Chronic) Anterior myocardial infarction (Resolved 2007) CAD (coronary artery disease) (Chronic) Chest pain (Resolved) Chicken pox (Resolved) Chronic headaches (Chronic) Chronic pain (Chronic) Depression (Chronic) Diabetes mellitus (Chronic) Hyperlipidemia (Chronic) Hypertension (Chronic) Measles (Resolved) Migraines (Chronic) Narcotic abuse, episodic (Chronic) Panic disorder (Chronic) Surgical History Anesthesia (Resolved) History of appendectomy (Resolved) History of colonoscopy with polypectomy (Resolved 12/29/14) History of esophagogastroduodenoscopy (EGD) (Resolved 12/29/14) History of tonsillectomy (Resolved) Status post blepharoplasty of both eyes (Resolved 11/11/12) Status post insertion of drug-eluting stent into left anterior descending (LAD) artery (Resolved 2007) Social History household members: none Smoking Status: Current some day smoker alcohol intake: never substance use type: does not use Smoking Status: Current some day smoker alcohol intake frequency: 0-2 drinks per day Substance Use Type: does not use Exam Initial Vital Signs Initial Vital Signs: Vital Signs Temperature 98.4 F 01/07/20 17:15 Pulse Rate 80 01/07/20 17:15 Respiratory Rate 18 01/07/20 17:15 Blood Pressure 146/79 H 01/07/20 17:15 Pulse Oximetry 98 01/07/20 17:15 Discharge Plan Departure Patient Disposition: Left Without Being Seen Clinical Impression: Patient left without being seen Discharge Date/Time: 01/07/20 17:23
== END 2020-01-07 17:23 | disposition left against medical advice (07) ==
PROVIDERS: Emergency Provider Emergency Medicine; PCP Student in an Organized Health Care Education/Training Program
DX: I10 Essential (primary) hypertension (principal); I35.1 Nonrheumatic aortic (valve) insufficiency; R07.9 Chest pain, unspecified; I25.10 Atherosclerotic heart disease of native coronary artery without angina pectoris; R51 Headache
CPT/HCPCS: 93306; 99281

== ENCOUNTER → 2020-02-03 11:54 | Outpatient (CLI) | payer OTHER, MEDICAID, SELFPAY ==
[2019-12-28 15:14] VITALS: BMI 22.9
[2020-02-04 07:17] LABS: Hepatitis B Core Antibody Positive (Negative); RPR Screen Non Reactive (Non Reactive)
[2020-02-04 15:21] LABS: Hepatitis B Surface Antigen NEGATIVE s/c (NEGATIVE)
[2020-02-04 15:34] LABS: HIV 1 & 2 Ab/Ag 4th Gen Combo NEGATIVE (NEGATIVE); Hep C Virus Ab w/Reflex Quant NEGATIVE s/c (NEGATIVE)
== END ==
PROVIDERS: PCP Student in an Organized Health Care Education/Training Program; Referring Provider Student in an Organized Health Care Education/Training Program; Visit Provider Student in an Organized Health Care Education/Training Program
DX: Z72.51 High risk heterosexual behavior (principal)
CPT/HCPCS: 36415; 86592; 86704; 86803; 87340; 87389

== ENCOUNTER → 2020-02-05 14:23 | Outpatient (CLI) | payer OTHER, MEDICAID, SELFPAY ==
[2019-12-28 15:14] VITALS: BMI 22.9
[2020-02-06 04:07] LABS: Hepatitis B Surf Ab Qualitativ Reactive (.)
== END ==
PROVIDERS: PCP Student in an Organized Health Care Education/Training Program; Referring Provider Student in an Organized Health Care Education/Training Program; Visit Provider Student in an Organized Health Care Education/Training Program
DX: B19.10 Unspecified viral hepatitis B without hepatic coma (principal); Z72.51 High risk heterosexual behavior
CPT/HCPCS: 36415; 86706; 87517

== ENCOUNTER 2020-02-13 20:29 | Emergency (ER) | payer OTHER, MEDICAID, SELFPAY ==
[2019-12-28 15:14] VITALS: BMI 22.9
[2020-02-13 20:30] VITALS: BP 145/72; PULSE 85; RESP 19; TEMP 36.6; O2SAT 96; BMI 18.2
--- NOTE | 2020-02-13 20:41 | DI.RAD.S_ITS ---
PROCEDURE: XR CHEST 2V INDICATIONS: shortness of breath TECHNIQUE: 2 views of the chest were acquired. COMPARISON: [facility], , XR CHEST 1V, 12/13/2019, 21:36. FINDINGS: Surgical changes and devices: None. Lungs and pleura: Slight interval increase in conspicuity of diffuse interstitial prominence. No focal consolidation. No pleural effusion or pneumothorax. Mediastinum: Mediastinal contours are normal. Heart size is normal. Bones and chest wall: No suspicious bony abnormalities. Soft tissues appear unremarkable. IMPRESSION: Slight interval increase in conspicuity of diffuse interstitial prominence. This is nonspecific and may represent an infectious/inflammatory process versus mild/early pulmonary edema. No focal airspace disease. Dictated by: Tyson Heath M.D. on 02/13/2020 at 21:10 Approved by: Tyson Heath M.D. on 02/13/2020 at 21:12
[2020-02-13 20:46] VITALS: PULSE 80; RESP 18; O2SAT 99
--- NOTE | 2020-02-13 20:50 | PC.NURSE ---
patient states she was just sitting there and developed sudden onset of shortness of breath. Denies chest pains, n\v\d, fever, chills. She reports she did not have a cough at home. Patient has been coughing intermittently in the ED with auditory expiratory wheeze from across the room.
[2020-02-13 21:03] LABS: Add Manual Diff / Slide Review NO; Basophils Absolute Auto 0 /uL (0-100); Basophils Percent Auto 0.7 % (0-2); Eosinophils Absolute Auto 100 /uL (0-450); Eosinophils Percent Auto 2.3 % (2-4); Hematocrit 34.3 % (36-46); Hemoglobin 11.6 g/dL (12.0-16.0); Lymphocytes Absolute Auto 2100 /uL (1100-4500); Lymphocytes Percent Auto 33.9 % (25-40); Mean Corpuscular HGB Conc 33.8 % (30-36); Mean Corpuscular Hemoglobin 32.9 PG (26-34); Mean Corpuscular Volume 97.2 fL (80-100); Monocytes Absolute Auto 600 /uL (0-900); Monocytes Percent Auto 9.1 % (3-14); Neutrophils Absolute Auto 3400 /uL (1500-7000); Platelet Count 223 X10^3/uL (150-400); Red Blood Cell Count 3.53 X10^6/uL (4.0-5.2); Red Cell Distribution Width 13.2 % (11.6-14.8); White Blood Cell Count 6.3 X10^3/uL (4.5-11.0)
[2020-02-13 21:15] LABS: Lactate (Lactic Acid) 1.5 mmol/L (0.7-2.1)
[2020-02-13 21:15] LABS: Alanine Aminotransferase 28 IU/L (<35); Albumin 4.7 g/dL (3.5-5.0); Albumin Globulin Ratio 1.6 (1.0-2.8); Alkaline Phosphatase 83 U/L (38-126); Aspartate Aminotransferase 39 IU/L (14-36); BUN Creatinine Ratio 28.2 (6-22); Bilirubin Total 0.2 mg/dL (0.2-1.3); Blood Urea Nitrogen 29 mg/dL (7-17); Calcium 9.5 mg/dL (8.4-10.2); Carbon Dioxide 25 mmol/L (22-32); Chloride 110 mmol/L (98-107); Estimated Glomerular Filt Rate 53.9 mL/min (>60); Glucose 93 mg/dL (80-110); HEMOLYSIS < 15 (0-50); Potassium 3.9 mmol/L (3.4-5.1); Sodium 140 mmol/L (137-145); Total Protein 7.7 g/dL (6.3-8.2)
[2020-02-13 21:19] LABS: D Dimer < 200 ng/mL (<230)
[2020-02-13 21:34] LABS: NT-proBNP (BNP-Adult 18+) 88 pg/mL (<125)
--- NOTE | 2020-02-13 21:37 | ED.SOB ---
HPI - SOB/Dyspnea General Chief Complaint: Shortness of Breath/Dyspnea Stated Complaint: SOB Time Seen by Provider: 02/13/20 20:30 Source: patient Mode of arrival: Wheelchair Limitations: no limitations History of Present Illness HPI Narrative: 64-year-old smoker with history of hypothyroid and a previous [place] presents with her son and a chief complaint of an episode of shortness of breath that started about 1 hour prior to her arrival. She was resting and not doing anything overly exertional. She is not dizzy nor weak or lightheaded. She has had some cough which is occasionally productive of sputum. She denies any chest pain or pressure. She denies any recent travel or exposure to persons known to have COVID-19. She does have a history of myocardial infarction and a stent but states this feels much different. She was in her normal state of health until this event. She denies any recent exertional pain, shortness of breath or decreasing exercise tolerance. She has had no fever or chills nor nausea, vomiting or diarrhea. She states that her chest is whistling. When she takes a deep breath she has a dry and hacking cough. She states that she was working in her mother's garden this evening and was working with some loss just prior to when this happened. She denies any allergic symptoms. She denies any provocation of her shortness of breath. She denies any medication or dietary change MD Complaint: shortness of breath Onset (ago): hour(s) Context: allergen exposure Severity: mild Consistency/Duration: constant Relieving factors: nothing Exacerbating factors: deep breaths Known history of: other Associated symptoms: cough, wheezing and sputum production Treatment prior to arrival: none Related Data Home Medications Medication Instructions Recorded Confirmed [Fish Oil] 1 cap PO Q DAY #0 03/09/11 02/10/20 clonazepam See Rx Instructions .ROUTE .COMPLEX 12/14/19 02/10/20 simvastatin [Zocor] 80 mg PO DAILY 12/14/19 02/10/20 Previous Rx's Medication Instructions Recorded levothyroxine 25 mcg tablet 25 mcg PO QAM #30 tab 03/22/19 liothyronine 5 mcg tablet 5 mcg PO BID #60 tab 03/22/19 topiramate 100 mg tablet 100 mg PO BID #60 tab 04/28/19 aspirin 81 mg PO DAILY #30 tab 12/14/19 citalopram 40 mg tablet 40 mg PO Q DAY #30 tab 01/12/20 losartan 50 mg tablet 50 mg PO Q DAY #90 tab 01/27/20 quetiapine 25 mg tablet See Rx Instructions PO ONCE HS #90 02/10/20 tab Allergies Allergy/AdvReac Type Severity Reaction Status Date / Time NASRIN Inhibitors Allergy Intermediate EDEMA IN Verified 02/13/20 20:38 BOTH HANDS codeine Allergy Mild NAUSEA/VOMI Verified 02/13/20 20:38 TING meperidine Allergy Mild VOMITING Verified 02/13/20 20:38 Review of Systems Constitutional Constitutional: Denies chills, Denies fatigue, Denies fever(s), Denies frequent falls, Denies lethargy and Denies weakness Eyes Eyes: Denies change in vision, Denies eye discharge, Denies irritation and Denies loss of vision ENT Ears, Nose, Mouth, and Throat: Denies change in voice, Denies dizziness, Denies neck pain, Denies sore throat and Denies throat swelling Cardiovascular Cardiovascular: Denies chest pain, Denies irregular heart rhythm, Denies lightheadedness, Denies palpitations, Denies dyspnea, Denies dyspnea on exertion and Denies orthopnea Respiratory Respiratory: Reports cough, Denies dyspnea, Denies dyspnea on exertion and Reports wheezing Gastrointestinal Gastrointestinal: Denies abdominal pain, Denies change in bowel habits, Denies diarrhea, Denies nausea and Denies vomiting Genitourinary Genitourinary: Denies hematuria, Denies flank pain, Denies urinary incontinence and Denies urinary urgency Musculoskeletal Musculoskeletal: Denies back pain, Denies muscle weakness, Denies neck pain, Denies numbness and Denies tingling Integumentary/Breasts Skin/Breast: Denies pruritus, Denies erythema, Denies rash and Denies wounds Neurologic Neurologic: Denies behavioral changes, Denies confusion, Denies dizziness, Denies frequent falls, Denies loss of vision, Denies numbness, Denies tingling and Denies weakness Psychiatric Psychiatric: Denies anxiety, Denies behavioral changes, Denies confusion, Denies depression, Denies homicidal ideation and Denies suicidal ideation Endocrine Endocrine: Denies fatigue, Denies flushing and Denies palpitations Hematologic/Lymphatic Hematologic/Lymphatic: Denies easy bruising Allergic/Immunologic Allergic/Immunologic: Denies urticaria, Denies throat swelling and Reports wheezing Patient History Medical History Anemia (Chronic) Anterior myocardial infarction (Resolved 2007) CAD (coronary artery disease) (Chronic) Chest pain (Resolved) Chicken pox (Resolved) Chronic headaches (Chronic) Chronic pain (Chronic) Depression (Acute) Diabetes mellitus (Chronic) Hyperlipidemia (Chronic) Hypertension (Chronic) Measles (Resolved) Migraines (Chronic) Narcotic abuse, episodic (Chronic) Panic disorder (Chronic) Panic disorder without agoraphobia (02/21/11) PTSD (post-traumatic stress disorder) (Acute) Sinusitis (Acute) Skin rash (Acute) Surgical History Anesthesia (Resolved) History of appendectomy (Resolved) History of colonoscopy with polypectomy (Resolved 12/29/14) History of esophagogastroduodenoscopy (EGD) (Resolved 12/29/14) History of tonsillectomy (Resolved) Status post blepharoplasty of both eyes (Resolved 11/11/12) Status post insertion of drug-eluting stent into left anterior descending (LAD) artery (Resolved 2007) Family History Father Diabetes mellitus Heart disease Hypertension Stroke Social History household members: none Smoking Status: Current some day smoker alcohol intake: never substance use type: does not use Smoking Status: Current some day smoker alcohol intake frequency: holidays/special occasions only Substance Use Type: does not use Exam Narrative Exam Narrative: GENERAL: [64] year old patient appears stated age. Well-nourished, well-developed patient, in mild distress. HEAD: Atraumatic. Normocephalic. EYES: Pupils equal round and reactive. Extraocular motions intact. No scleral icterus. No injection or drainage. ENT: Nose without bleeding, purulent drainage. Throat without erythema, tonsillar hypertrophy or exudate. Airway patent. NECK: Trachea midline. Non tender CARDIOVASCULAR: Regular rate and rhythm without murmurs, gallops, or rubs. RESPIRATORY: Decreased breath sounds bilaterally with prolonged expiratory phase and a faint bilateral expiratory wheeze GASTROINTESTINAL: Abdomen soft, non-tender, nondistended. EXTREMITIES: No edema or joint tenderness. BACK: Nontender without deformity or crepitance. No flank tenderness. NEURO: AOx3. SKIN: No rash or erythema of visible areas Initial Vital Signs Initial Vital Signs: Vital Signs Temperature 97.9 F 02/13/20 20:30 Pulse Rate 85 02/13/20 20:30 Respiratory Rate 19 02/13/20 20:30 Blood Pressure 145/72 H 02/13/20 20:30 Pulse Oximetry 96 02/13/20 20:30 Scores HEART Score Heart Score history: Slightly Suspicious Heart Score EKG: Normal Heart Score Age: 45-64 years old Heart Score risk factors: > 3 risk factors or hx of atherosclerotic disease Heart Score troponin: < or = to normal limit Heart Score Total: 3 Course Orders Ordered: ED Orders 02/13/20 20:36 EKG-12 Lead Stat 02/13/20 20:40 Complete Blood Count AUTO DIFF Stat Comprehensive Metabolic Panel Stat D Dimer Stat NT-proBNP (BNP-Adult 18+) Stat 02/13/20 20:41 XR chest 2V Stat Measure peak expiratory flow ONCE RT Consult Eval and Treat Now 02/13/20 20:55 Lactate (Lactic Acid) Stat 02/13/20 21:55 CT chest wo con Stat 02/13/20 23:30 Troponin I Stat Discontinued Medications Albuterol (Ventolin Hfa Prepack) 1 box MISC SEEINSTR ONE Stop: 02/13/20 21:56 Last Admin: 02/13/20 23:18 Dose: 1 box Documented by: ROSALINO Vital Signs Vital signs: Vital Signs - 8 hr 02/13/20 20:30 02/13/20 20:46 02/13/20 22:33 Temperature 97.9 F Pulse Rate 85 80 78 Respiratory Rate 19 18 18 Blood Pressure 145/72 H Blood Pressure [Right Arm] 120/74 Pulse Oximetry 96 99 98 02/13/20 23:18 02/14/20 00:00 02/14/20 00:52 Temperature Pulse Rate 82 82 81 Respiratory Rate 20 17 18 Blood Pressure Blood Pressure [Right Arm] 95/51 L 111/57 L Pulse Oximetry 96 97 96 02/14/20 01:05 Temperature Pulse Rate 78 Respiratory Rate 15 Blood Pressure 107/57 L Blood Pressure [Right Arm] Pulse Oximetry 96 MDM - SOB/Dyspnea Lab Data Result diagrams: 02/13/20 20:40 02/13/20 20:40 Labs: Lab Results 02/13/20 02/13/20 02/13/20 Range/Units 20:40 20:40 20:40 WBC 6.3 (4.5-11.0) X10^3/uL RBC 3.53 L (4.0-5.2) X10^6/uL Hgb 11.6 L (12.0-16.0) g/dL Hct 34.3 L (36-46) % MCV 97.2 (80-100) fL MCH 32.9 (26-34) PG MCHC 33.8 (30-36) % RDW 13.2 (11.6-14.8) % Plt Count 223 (150-400) X10^3/uL Neut % (Auto) 54.0 (50-75) % Lymph % (Auto) 33.9 (25-40) % [place] % (Auto) 9.1 (3-14) % Eos % (Auto) 2.3 (2-4) % Baso % (Auto) 0.7 (0-2) % Neut # (Auto) 3400 (6284-3762) /uL Lymph # (Auto) 2100 (6409-8992) /uL [place] # (Auto) 600 (0-900) /uL Eos # (Auto) 100 (0-450) /uL Baso # (Auto) 0 (0-100) /uL D-Dimer < 200 (<230) ng/mL Sodium 140 (137-145) mmol/L Potassium 3.9 (3.4-5.1) mmol/L Chloride 110 H (98-107) mmol/L Carbon Dioxide 25 (22-32) mmol/L BUN 29 H (7-17) mg/dL Creatinine 1.03 (0.52-1.04) mg/dL Estimated GFR 53.9 L (>60) mL/min BUN/Creatinine Ratio 28.2 H (6-22) Glucose 93 (80-110) mg/dL Lactate (0.7-2.1) mmol/L Calcium 9.5 (8.4-10.2) mg/dL Total Bilirubin 0.2 (0.2-1.3) mg/dL AST 39 H (14-36) IU/L ALT 28 (<35) IU/L Alkaline Phosphatase 83 (38-126) U/L Troponin I (0.01-0.034) ng/mL NT-Pro-B Natriuret Pep (<125) pg/mL Total Protein 7.7 (6.3-8.2) g/dL Albumin 4.7 (3.5-5.0) g/dL Globulin 3.0 (1.7-4.1) g/dL Albumin/Globulin Ratio 1.6 (1.0-2.8) 02/13/20 02/13/20 02/13/20 Range/Units 20:40 20:55 23:30 WBC (4.5-11.0) X10^3/uL RBC (4.0-5.2) X10^6/uL Hgb (12.0-16.0) g/dL Hct (36-46) % MCV (80-100) fL MCH (26-34) PG MCHC (30-36) % RDW (11.6-14.8) % Plt Count (150-400) X10^3/uL Neut % (Auto) (50-75) % Lymph % (Auto) (25-40) % [place] % (Auto) (3-14) % Eos % (Auto) (2-4) % Baso % (Auto) (0-2) % Neut # (Auto) (8982-1654) /uL Lymph # (Auto) (2419-8449) /uL [place] # (Auto) (0-900) /uL Eos # (Auto) (0-450) /uL Baso # (Auto) (0-100) /uL D-Dimer (<230) ng/mL Sodium (137-145) mmol/L Potassium (3.4-5.1) mmol/L Chloride (98-107) mmol/L Carbon Dioxide (22-32) mmol/L BUN (7-17) mg/dL Creatinine (0.52-1.04) mg/dL Estimated GFR (>60) mL/min BUN/Creatinine Ratio (6-22) Glucose (80-110) mg/dL Lactate 1.5 (0.7-2.1) mmol/L Calcium (8.4-10.2) mg/dL Total Bilirubin (0.2-1.3) mg/dL AST (14-36) IU/L ALT (<35) IU/L Alkaline Phosphatase (38-126) U/L Troponin I < 0.012 (0.01-0.034) ng/mL NT-Pro-B Natriuret Pep 88 (<125) pg/mL Total Protein (6.3-8.2) g/dL Albumin (3.5-5.0) g/dL Globulin (1.7-4.1) g/dL Albumin/Globulin Ratio (1.0-2.8) Imaging Data CT scan - chest: Radiologist's Impression: No airspace consolidation ECG Data Attestation: I personally reviewed and interpreted this ECG as follows: Interpretation: EKG is normal sinus rhythm rate [79] and free of any signs of ischemia or ectopy. No ST segmental elevation or depression. No T wave inversions MDM Narrative Medical decision making narrative: Multiple causes of chest pain considered including [place], PE, pneumothorax, pneumonia, aortic dissection, and pleurisy. Patient reports no radiation, no diaphoresis, no provocation with exertion, and no vomiting Patient's symptoms improved or duration of stay with above-stated therapies. Findings and discharge diagnosis discussed with patient/family followed by verbalization of understanding Return precautions discussed with patient/family whom verbalize understanding. Discharge Plan Departure Patient Disposition: Home Clinical Impression: Acute dyspnea, Cough Discharge Date/Time: 02/14/20 01:06 Instructions: DI for Cough -- Adult Activity Restrictions/Additional Instructions: *You have been diagnosed with [acute dyspnea with cough. Heart attack and blood clot considered, and there are no signs of pneumonia on imaging. ] *What to do: *Take medications as directed *Follow up with your primary care provider in 2-3 days, call for an appointment. Let them know you were seen in the Emergency Department and that we ask that you be seen in follow up *Return to ER if you should have any new, worsening or concerning symptoms, such as [ ] Prescriptions: No Action quetiapine 25 mg tablet See Rx Instructions PO ONCE HS Qty: 90 RF: 3 citalopram 40 mg tablet 40 mg PO Q DAY Qty: 30 RF: 1 [Fish Oil] 1 cap PO Q DAY Qty: 0 RF: 0 levothyroxine 25 mcg tablet 25 mcg PO QAM Qty: 30 RF: 11 liothyronine [Cytomel] 5 mcg tablet 5 mcg PO BID Qty: 60 RF: 11 topiramate [Topamax] 100 mg tablet 100 mg PO BID Qty: 60 RF: 5 losartan [Cozaar] 50 mg tablet 50 mg PO Q DAY Qty: 90 RF: 1 clonazepam 1 mg tablet See Rx Instructions .ROUTE .COMPLEX RF: 0 simvastatin [Zocor] 80 mg tablet 80 mg PO DAILY RF: 0 aspirin 81 mg tablet,delayed release (DR/EC) 81 mg PO DAILY Qty: 30 RF: 0 Referrals: Mitchel German MD [Primary Care Provider] -
--- NOTE | 2020-02-13 21:55 | DI.CT.S_ITS ---
PROCEDURE: CT CHEST WO CON INDICATIONS: cough, SOB, smoker TECHNIQUE: Noncontrast 5 mm thick sections acquired from the pulmonary apices to the posterior costophrenic angles. 1 mm lung window, 5 mm thick coronal and sagittal and 7 mm axial MIP reformats were then acquired. For radiation dose reduction, the following was used: automated exposure control, adjustment of mA and/or kV according to patient size. COMPARISON: [facility], CT, CHEST/ABD/PEL WITHOUT CONTRAST, 12/06/2014, 13:46. FINDINGS: Image quality: Diagnostic. Lungs and pleura: The lungs are well aerated without a focal consolidation, effusion, or pneumothorax. No overt heart failure is identified. No significant bronchial wall thickening is evident. The major airways are patent. There is no lung mass. A 3 mm nodule involving the inferior aspect of the left lower lobe near the pulmonary fissure is unchanged (image 36, series 6). This nodule is unchanged since 12/06/14. Areas of mild pleural thickening along the major pulmonary fissures are present bilaterally, unchanged. No new nodules are identified. No imaging findings of emphysema are appreciated. Mediastinum: Heart size is normal. No pericardial effusion. No mediastinal adenopathy by size criteria. Coronary artery atherosclerosis is present. There is also mild aortic atherosclerosis. Thoracic aorta and central pulmonary arteries are normal in size. Esophagus is normal in caliber. There is a small hiatal hernia. Bones and chest wall: No suspicious bony lesions. No vertebral body compression fractures. Mild degenerative changes of the spine are present. No axillary or supraclavicular adenopathy by size criteria. Thyroid gland is not enlarged were adequately characterized on CT. Abdomen: Visualized upper abdominal solid organs and bowel loops appear normal in the absence of contrast. IMPRESSION: 1. No acute cardiopulmonary process. 2. Small hiatal hernia. 3. Coronary and aortic atherosclerosis. Note: The preliminary report provided by [email or web address]. is concordant with the final report. Dictated by: Rick Lambert M.D. on 02/14/2020 at 7:51 Approved by: Rick Lambert M.D. on 02/14/2020 at 7:56
[2020-02-13 22:33] VITALS: BP 120/74; PULSE 78; RESP 18; O2SAT 98
[2020-02-13 23:18] VITALS: PULSE 82; RESP 20; O2SAT 96
[2020-02-13] MEDS: ALBUTEROL HFA PREPACK 1 BOX MISC (23:18)
[2020-02-14] VITALS: BP 95/51; PULSE 82; RESP 17; O2SAT 97
[2020-02-14 00:52] VITALS: BP 111/57; PULSE 81; RESP 18; O2SAT 96
[2020-02-14 00:52] LABS: Troponin I < 0.012 ng/mL (0.01-0.034)
[2020-02-14 01:05] VITALS: BP 107/57; PULSE 78; RESP 15; O2SAT 96
[2020-02-15 02:04] LABS: COVID19 Sendout Not Detected (Not Detect)
== END 2020-02-14 01:06 | disposition home or self-care (01) ==
PROVIDERS: Emergency Provider Emergency Medicine; PCP Student in an Organized Health Care Education/Training Program
DX: R06.00 Dyspnea, unspecified (principal); R05 Cough; R68.89 Other general symptoms and signs; I25.10 Atherosclerotic heart disease of native coronary artery without angina pectoris
CPT/HCPCS: 36415; 71046; 71250; 80053; 83605; 83880; 84484; 85025; 85379; 87635; 93005; 94150; 94640; 99284

== ENCOUNTER → 2020-02-22 14:00 | Outpatient (CLI) | payer OTHER, MEDICAID, SELFPAY ==
[2019-12-28 15:14] VITALS: BMI 22.9
[2020-02-22 14:11] LABS: Bacteria Urine None Seen; RBC Urine None Seen (0-5/HPF)
[2020-02-22 14:51] LABS: Appearance Urine UA CLEAR; Bilirubin Urine UA NEGATIVE (NEGATIVE); Color Urine UA YELLOW; Glucose Urine UA NEGATIVE (Negative); Ketones Urine UA NEGATIVE (NEGATIVE); Leukocyte Esterase Urine UA NEGATIVE (NEGATIVE); Nitrite Urine UA NEGATIVE (Negative); Occult Blood Urine UA TRACE-LYSED (Negative); Protein Urine UA NEGATIVE (Negative); Specific Gravity Urine UA 1.015 (1.000-1.035); Urobilinogen Urine UA 0.2 E.U./dL (0.2)
[2020-02-22 15:27] LABS: Culture Indicated Urine Cult Not Indicated; Squamous Epithelial Cell Urine 0-1 /HPF (0-5/HPF); WBC Urine 0-1/HPF (0-5/HPF)
== END ==
PROVIDERS: PCP Student in an Organized Health Care Education/Training Program; Referring Provider Student in an Organized Health Care Education/Training Program; Visit Provider Student in an Organized Health Care Education/Training Program
DX: R30.0 Dysuria (principal)
CPT/HCPCS: 81001

== ENCOUNTER 2020-03-01 18:29 | Emergency (ER) | payer OTHER, MEDICAID, SELFPAY ==
[2019-12-28 15:14] VITALS: BMI 22.9
[2020-03-01 18:40] VITALS: BP 114/80; PULSE 96; RESP 14; TEMP 36.6; O2SAT 100; BMI 24.7
[2020-03-01 19:11] LABS: UR Morphine/Opiate cutoff 300 Negative (Negative); Ur Creatinine Normal (Normal); Ur Specific Gravity Normal (Normal); Urine Amphetamines Negative (Negative); Urine Barbiturates Negative (Negative); Urine Benzodiazepines Negative (Negative); Urine Cocaine Negative (Negative); Urine MDMA Negative (Negative); Urine Methadone Negative (Negative); Urine Methamphetamines Negative (Negative); Urine Oxycodone Negative (Negative); Urine Phencyclidine Negative (Negative); Urine Tetrahydrocannabinol Negative (Negative); Urine Tricyclic Antidepressant Positive (Negative); Urine pH Normal (Normal)
[2020-03-01 19:18] LABS: Add Manual Diff / Slide Review NO; Basophils Absolute Auto 0 /uL (0-100); Basophils Percent Auto 0.7 % (0-2); Eosinophils Absolute Auto 100 /uL (0-450); Eosinophils Percent Auto 2.9 % (2-4); Hematocrit 34.1 % (36-46); Hemoglobin 11.4 g/dL (12.0-16.0); Lymphocytes Absolute Auto 2100 /uL (1100-4500); Mean Corpuscular HGB Conc 33.5 % (30-36); Mean Corpuscular Hemoglobin 32.9 PG (26-34); Mean Corpuscular Volume 98.2 fL (80-100); Monocytes Absolute Auto 500 /uL (0-900); Monocytes Percent Auto 9.3 % (3-14); Neutrophils Absolute Auto 2400 /uL (1500-7000); Neutrophils Percent Auto 46.1 % (50-75); Platelet Count 200 X10^3/uL (150-400); Red Blood Cell Count 3.47 X10^6/uL (4.0-5.2); Red Cell Distribution Width 13.8 % (11.6-14.8); White Blood Cell Count 5.1 X10^3/uL (4.5-11.0)
[2020-03-01 19:28] LABS: Acetaminophen < 10 ug/mL (10-30); Alanine Aminotransferase 29 IU/L (<35); Albumin 4.6 g/dL (3.5-5.0); Albumin Globulin Ratio 1.5 (1.0-2.8); Alkaline Phosphatase 82 U/L (38-126); Aspartate Aminotransferase 42 IU/L (14-36); BUN Creatinine Ratio 18.3 (6-22); Bilirubin Total 0.1 mg/dL (0.2-1.3); Blood Urea Nitrogen 21 mg/dL (7-17); Calcium 9.8 mg/dL (8.4-10.2); Carbon Dioxide 24 mmol/L (22-32); Chloride 109 mmol/L (98-107); Estimated Glomerular Filt Rate 47.5 mL/min (>60); Ethanol (ETOH) < 10 mg/dL; Globulin 3.1 g/dL (1.7-4.1); Glucose 90 mg/dL (80-110); HEMOLYSIS < 15 (0-50); Potassium 3.5 mmol/L (3.4-5.1); Salicylate < 1.0 mg/dL (<20); Sodium 142 mmol/L (137-145); Total Protein 7.7 g/dL (6.3-8.2)
--- NOTE | 2020-03-01 19:49 | PC.NURSE ---
Pt just getting dressed in hosp attire. Has daughter with her
[2020-03-01 19:50] LABS: Free T4, Direct Thyroxine 0.57 ng/dL (0.78-2.19)
[2020-03-01 20:04] LABS: Thyroid Stimulating Hormone 0.27 uIU/mL (0.47-4.68)
--- NOTE | 2020-03-01 20:19 | ED_ITS ---
HPI - Psych <Tristin Covarrubias, DO - Last Filed: 03/03/20 05:06> General Chief Complaint: Psychiatric Symptoms Stated Complaint: attempted to commit suicide Time Seen by Provider: 03/01/20 18:50 Source: patient Mode of arrival: Ambulatory Limitations: no limitations History of Present Illness HPI Narrative: 64-year-old female daily smoker with history of depression is sent here by her psychiatrist with her daughter and a chief complaint failed suicide attempt yesterday. This came to the attention of her psychiatrist whom center to see us today. The patient has had increasing difficulty with auditory and visual hallucinations over the past few months. Though she does have a history of methamphetamine use she has been clean for over 90 days and continues to have hallucinations. These solution a shins largely pertain to former boyfriend that used to live with her and tell her that he is spying on her and has hidden cameras in her apartment. Daughter states that she has used a shovel to carve holes in many of the card[place] of her house looking for these campus. Last night in an attempt to commit suicide the patient took a significant number of her Klonopin and daughter watched her overnight and call the psychiatrist today. The patient denies any history of suicidal ideation. Psychiatrist had called the rn social services earlier in the day to inform him of the patient's vomiting and likely need for inpatient hospitalization MD complaint: suicidal ideation and feels depressed Onset (ago): day(s) Duration: constant History of same: Yes Relieving factors: none Exacerbating factors: other Context: significant life stressor Associated psychiatric symptoms: depression and suicidal ideation Associated symptoms: denies other symptoms Treatments prior to arrival: none If self harm: admits thoughts of self harm and has plan Related Data Home Medications Medication Instructions Recorded Confirmed [Fish Oil] 1 cap PO Q DAY #0 03/09/11 02/24/20 clonazepam See Rx Instructions .ROUTE .COMPLEX 12/14/19 02/24/20 simvastatin [Zocor] 80 mg PO DAILY 12/14/19 02/24/20 Previous Rx's Medication Instructions Recorded levothyroxine 25 mcg tablet 25 mcg PO QAM #30 tab 03/22/19 liothyronine 5 mcg tablet 5 mcg PO BID #60 tab 03/22/19 aspirin 81 mg PO DAILY #30 tab 12/14/19 losartan 50 mg tablet 50 mg PO Q DAY #90 tab 01/27/20 quetiapine 25 mg tablet See Rx Instructions PO ONCE HS #90 02/10/20 tab quetiapine 50 mg tablet 150 mg PO BEDTIME #90 tab 02/18/20 topiramate 100 mg tablet 100 mg PO BID #60 tab 02/19/20 citalopram 40 mg tablet 40 mg PO Q DAY #30 tab 02/22/20 cefdinir 300 mg capsule 300 mg PO BID 7 Days #14 cap 02/24/20 nicotine 1 patch TRANSDERMAL DAILY 60 Days 02/24/20 21mg/24hr-14mg/24hr-7mg/24hr daily #56 patch transderm patch,sequential Allergies Allergy/AdvReac Type Severity Reaction Status Date / Time NASRIN Inhibitors Allergy Intermediate EDEMA IN Verified 03/01/20 18:40 BOTH HANDS codeine Allergy Mild NAUSEA/VOMI Verified 03/01/20 18:40 TING meperidine Allergy Mild VOMITING Verified 03/01/20 18:40 Review of Systems <Tristin Covarrubias, - Last Filed: 03/03/20 05:06> Constitutional Constitutional: Denies chills, Denies fatigue, Denies fever(s), Denies frequent falls, Denies lethargy and Denies weakness Eyes Eyes: Denies change in vision, Denies eye discharge, Denies irritation and Denies loss of vision ENT Ears, Nose, Mouth, and Throat: Denies change in voice, Denies dizziness, Denies neck pain, Denies sore throat and Denies throat swelling Cardiovascular Cardiovascular: Denies chest pain, Denies irregular heart rhythm, Denies lightheadedness, Denies palpitations, Denies dyspnea, Denies dyspnea on exertion and Denies orthopnea Respiratory Respiratory: Denies cough, Denies dyspnea, Denies dyspnea on exertion and Denies wheezing Gastrointestinal Gastrointestinal: Denies abdominal pain, Denies change in bowel habits, Denies diarrhea, Denies nausea and Denies vomiting Genitourinary Genitourinary: Denies hematuria, Denies flank pain, Denies urinary incontinence and Denies urinary urgency Musculoskeletal Musculoskeletal: Denies back pain, Denies muscle weakness, Denies neck pain, Denies numbness and Denies tingling Integumentary/Breasts Skin/Breast: Denies pruritus, Denies erythema, Denies rash and Denies wounds Neurologic Neurologic: Denies behavioral changes, Denies confusion, Denies dizziness, Denies frequent falls, Denies loss of vision, Denies numbness, Denies tingling and Denies weakness Psychiatric Psychiatric: Denies anxiety, Denies behavioral changes, Denies confusion, Denies depression, Reports hallucinations, Denies homicidal ideation and Reports suicidal ideation Endocrine Endocrine: Denies fatigue, Denies flushing and Denies palpitations Hematologic/Lymphatic Hematologic/Lymphatic: Denies easy bruising Allergic/Immunologic Allergic/Immunologic: Denies urticaria, Denies throat swelling and Denies wheezing Patient History <Tristin Covarrubias DO - Last Filed: 03/03/20 05:06> Social History household members: none Smoking Status: Current every day smoker alcohol intake: never substance use type: does not use Smoking Status: Current every day smoker alcohol intake frequency: holidays/special occasions only Substance Use Type: does not use Exam <Tristin Covarrubias DO - Last Filed: 03/03/20 05:06> Narrative Exam Narrative: GENERAL: [64] year old patient appears stated age. Well-nourishe d, well-developed patient, in mild distress. HEAD: Atraumatic. Normocephalic. EYES: Pupils equal round and reactive. Extraocular motions intact. No scleral icterus. No injection or drainage. ENT: Nose without bleeding, purulent drainage. Throat without erythema, tonsillar hypertrophy or exudate. Airway patent. NECK: Trachea midline. Non tender CARDIOVASCULAR: Regular rate and rhythm without murmurs, gallops, or rubs. RESPIRATORY: Clear to auscultation. Breath sounds equal bilaterally. No wheezes, rales, or rhonchi. GASTROINTESTINAL: Abdomen soft, non-tender, nondistended. EXTREMITIES: No edema or joint tenderness. BACK: Nontender without deformity or crepitance. No flank tenderness. NEURO: AOx3. SKIN: No rash or erythema of visible areas Initial Vital Signs Initial Vital Signs: Vital Signs Temperature 97.9 F 03/01/20 18:40 Pulse Rate 96 H 03/01/20 18:40 Respiratory Rate 14 03/01/20 18:40 Blood Pressure 114/80 03/01/20 18:40 Pulse Oximetry 100 03/01/20 18:40 <Ramona Blanca MD - Last Filed: 03/02/20 11:16> Initial Vital Signs Initial Vital Signs: Vital Signs Temperature 97.9 F 03/01/20 18:40 Pulse Rate 96 H 03/01/20 18:40 Respiratory Rate 14 03/01/20 18:40 Blood Pressure 114/80 03/01/20 18:40 Pulse Oximetry 100 03/01/20 18:40 Course <Tristin Covarrubias DO - Last Filed: 03/03/20 05:06> Course Course Narrative: patient seen by STUDY DIRECTOR, briefly at end of shift. We share the opinion that she is currently cooperative and therefore not an PATRICIO/DCR patient. We will keep her overnight and will work on opportunities for placement tomorrow. Orders Ordered: Discontinued Medications Citalopram Hydrobromide (Celexa) 40 mg PO NOW ONE Stop: 03/02/20 05:58 Last Admin: 03/02/20 07:46 Dose: 40 mg Documented by: XOCHITL Levothyroxine Sodium (Synthroid) 25 mcg PO 0600 TEETEE Last Admin: 03/02/20 07:45 Dose: 25 mcg Documented by: XOCHITL Losartan Potassium (Cozaar) 50 mg PO NOW ONE Stop: 03/02/20 05:58 Last Admin: 03/02/20 07:45 Dose: 50 mg Documented by: XOCHITL Topiramate (Topamax) 100 mg PO NOW ONE Stop: 03/02/20 05:58 Last Admin: 03/02/20 07:45 Dose: 100 mg Documented by: XOCHITL Vital Signs Vital signs: Vital Signs - 8 hr 03/02/20 04:44 03/02/20 07:43 03/02/20 07:45 Temperature 98.1 F Pulse Rate 78 76 65 Respiratory Rate 16 17 Blood Pressure 107/63 Blood Pressure [Right Arm] 117/59 L 107/63 Pulse Oximetry 98 96 03/02/20 11:00 Temperature 98.1 F Pulse Rate 79 Respiratory Rate 18 Blood Pressure Blood Pressure [Right Arm] 104/55 L Pulse Oximetry 96 <Ramona Blanca MD - Last Filed: 03/02/20 11:16> Orders Ordered: Discontinued Medications Citalopram Hydrobromide (Celexa) 40 mg PO NOW ONE Stop: 03/02/20 05:58 Last Admin: 03/02/20 07:46 Dose: 40 mg Documented by: XOCHITL Levothyroxine Sodium (Synthroid) 25 mcg PO 0600 TEETEE Last Admin: 03/02/20 07:45 Dose: 25 mcg Documented by: XOCHITL Losartan Potassium (Cozaar) 50 mg PO NOW ONE Stop: 03/02/20 05:58 Last Admin: 03/02/20 07:45 Dose: 50 mg Documented by: XOCHITL Topiramate (Topamax) 100 mg PO NOW ONE Stop: 03/02/20 05:58 Last Admin: 03/02/20 07:45 Dose: 100 mg Documented by: XOCHITL Vital Signs Vital signs: Vital Signs - 8 hr 03/02/20 04:44 03/02/20 07:43 03/02/20 07:45 Temperature 98.1 F Pulse Rate 78 76 65 Respiratory Rate 16 17 Blood Pressure 107/63 Blood Pressure [Right Arm] 117/59 L 107/63 Pulse Oximetry 98 96 03/02/20 11:00 Temperature 98.1 F Pulse Rate 79 Respiratory Rate 18 Blood Pressure Blood Pressure [Right Arm] 104/55 L Pulse Oximetry 96 [facility] - Psych <Tristin Covarrubias, - Last Filed: 03/03/20 05:06> Lab Data Result diagrams: 03/01/20 19:07 03/01/20 23:30 Labs: Lab Results 03/01/20 03/01/20 03/01/20 Range/Units 18:57 19:07 19:07 WBC 5.1 (4.5-11.0) X10^3/uL RBC 3.47 L (4.0-5.2) X10^6/uL Hgb 11.4 L (12.0-16.0) g/dL Hct 34.1 L (36-46) % MCV 98.2 (80-100) fL MCH 32.9 (26-34) PG MCHC 33.5 (30-36) % RDW 13.8 (11.6-14.8) % Plt Count 200 (150-400) X10^3/uL Neut % (Auto) 46.1 L (50-75) % Lymph % (Auto) 41.0 H (25-40) % [place] % (Auto) 9.3 (3-14) % Eos % (Auto) 2.9 (2-4) % Baso % (Auto) 0.7 (0-2) % Neut # (Auto) 2400 (4970-5363) /uL Lymph # (Auto) 2100 (5215-5981) /uL [place] # (Auto) 500 (0-900) /uL Eos # (Auto) 100 (0-450) /uL Baso # (Auto) 0 (0-100) /uL Sodium 142 (137-145) mmol/L Potassium 3.5 (3.4-5.1) mmol/L Chloride 109 H (98-107) mmol/L Carbon Dioxide 24 (22-32) mmol/L BUN 21 H (7-17) mg/dL Creatinine 1.15 H (0.52-1.04) mg/dL Estimated GFR 47.5 L (>60) mL/min BUN/Creatinine Ratio 18.3 (6-22) Glucose 90 (80-110) mg/dL Calcium 9.8 (8.4-10.2) mg/dL Total Bilirubin 0.1 L (0.2-1.3) mg/dL AST 42 H (14-36) IU/L ALT 29 (<35) IU/L Alkaline Phosphatase 82 (38-126) U/L Total Protein 7.7 (6.3-8.2) g/dL Albumin 4.6 (3.5-5.0) g/dL Globulin 3.1 (1.7-4.1) g/dL Albumin/Globulin Ratio 1.5 (1.0-2.8) TSH (0.47-4.68) uIU/mL Free T4 (0.78-2.19) ng/dL Salicylates < 1.0 (<20) mg/dL U Opiates 300ng/mL cut Negative (Negative) Ur Oxycodone Screen Negative (Negative) Urine Methadone Screen Negative (Negative) Acetaminophen < 10 L (10-30) ug/mL Ur Barbiturates Screen Negative (Negative) U Tricyclic Antidepress Positive H (Negative) Ur Phencyclidine Scrn Negative (Negative) Ur Amphetamines Screen Negative (Negative) U Methamphetamines Scrn Negative (Negative) Ur MDMA Scrn (Ecstasy) Negative (Negative) U Benzodiazepines Scrn Negative (Negative) Urine Cocaine Screen Negative (Negative) U Marijuana (THC) Screen Negative (Negative) Ethyl Alcohol < 10 ( - 10) mg/dL 03/01/20 03/01/20 Range/Units 19:07 23:30 WBC (4.5-11.0) X10^3/uL RBC (4.0-5.2) X10^6/uL Hgb (12.0-16.0) g/dL Hct (36-46) % MCV (80-100) fL MCH (26-34) PG MCHC (30-36) % RDW (11.6-14.8) % Plt Count (150-400) X10^3/uL Neut % (Auto) (50-75) % Lymph % (Auto) (25-40) % [place] % (Auto) (3-14) % Eos % (Auto) (2-4) % Baso % (Auto) (0-2) % Neut # (Auto) (5018-3931) /uL Lymph # (Auto) (4305-9015) /uL [place] # (Auto) (0-900) /uL Eos # (Auto) (0-450) /uL Baso # (Auto) (0-100) /uL Sodium 137 (137-145) mmol/L Potassium 3.5 (3.4-5.1) mmol/L Chloride 109 H (98-107) mmol/L Carbon Dioxide 22 (22-32) mmol/L BUN 22 H (7-17) mg/dL Creatinine 1.15 H (0.52-1.04) mg/dL Estimated GFR 47.5 L (>60) mL/min BUN/Creatinine Ratio 19.1 (6-22) Glucose 106 (80-110) mg/dL Calcium 9.1 (8.4-10.2) mg/dL Total Bilirubin (0.2-1.3) mg/dL AST (14-36) IU/L ALT (<35) IU/L Alkaline Phosphatase (38-126) U/L Total Protein (6.3-8.2) g/dL Albumin (3.5-5.0) g/dL Globulin (1.7-4.1) g/dL Albumin/Globulin Ratio (1.0-2.8) TSH 0.27 L (0.47-4.68) uIU/mL Free T4 0.57 L (0.78-2.19) ng/dL Salicylates (<20) mg/dL U Opiates 300ng/mL cut (Negative) Ur Oxycodone Screen (Negative) Urine Methadone Screen (Negative) Acetaminophen (10-30) ug/mL Ur Barbiturates Screen (Negative) U Tricyclic Antidepress (Negative) Ur Phencyclidine Scrn (Negative) Ur Amphetamines Screen (Negative) U Methamphetamines Scrn (Negative) Ur MDMA Scrn (Ecstasy) (Negative) U Benzodiazepines Scrn (Negative) Urine Cocaine Screen (Negative) U Marijuana (THC) Screen (Negative) Ethyl Alcohol ( - 10) mg/dL Urine Dip Bedside Urine Glucose Negative Bedside Urine Bilirubin - Negative Bedside Urine Ketone - Negative Urine Specific [place] 1.015 Bedside Urine Occult Blood - Negative Bedside Urine pH 6.0 Bedside Urine Protein - Negative Bedside Urine Urobilinogen - Negative Bedside Urine Nitrite - Negative Bedside Urine Leukocytes - Negative Esterase Imaging Data CT scan - head: Radiologist's Impression: [address] [address] [address] Scan Report Signed Patient: Hilda Olivera#: [id number] : 5Acct:[id number] Age/Sex: 64 / FDate of Service: 03/01/20 Loc: ED Accession Number: [id number] Procedure: CT head/brain wo con Ordering Provider: Tristin Covarrubias D.O. PROCEDURE: CT HEAD/BRAIN WO CON INDICATIONS: mental status change TECHNIQUE: Noncontrast 4.5 mm thick angled axial sections acquired from the foramen magnum to the vertex, with coronal and sagittal reformats. For radiation dose reduction, the following was used: automated exposure control, adjustment of mA and/or kV according to patient size. COMPARISON: [facility], CT, CT HEAD/BRAIN WO CON, 10/25/2018, 20:10. FINDINGS: Image quality: Excellent. CSF spaces: Basal cisterns are patent. No extra-axial fluid collections. Ventricles are normal in size and shape. Brain: No midline shift. No intracranial masses or hemorrhage. Hughes-white matter interface is normal. Skull and face: Calvarium and visualized facial bones are intact, without suspicious lesions. Sinuses: Visualized sinuses and mastoids are clear. IMPRESSION: 1. No acute intracranial abnormalities. Dictated by: Yazmin Simmons M.D. on 03/01/2020 at 21:29 Approved by: Yazmin Simmons M.D. on 03/01/2020 at 21:31 <Ramona Blanca MD - Last Filed: 03/02/20 11:16> Medical Records Attestation: I reviewed the patient's medical records. Lab Data Attestation: I reviewed the patient's lab results. Labs: Lab Results 03/01/20 03/01/20 03/01/20 Range/Units 18:57 19:07 19:07 WBC 5.1 (4.5-11.0) X10^3/uL RBC 3.47 L (4.0-5.2) X10^6/uL Hgb 11.4 L (12.0-16.0) g/dL Hct 34.1 L (36-46) % MCV 98.2 (80-100) fL MCH 32.9 (26-34) PG MCHC 33.5 (30-36) % RDW 13.8 (11.6-14.8) % Plt Count 200 (150-400) X10^3/uL Neut % (Auto) 46.1 L (50-75) % Lymph % (Auto) 41.0 H (25-40) % [place] % (Auto) 9.3 (3-14) % Eos % (Auto) 2.9 (2-4) % Baso % (Auto) 0.7 (0-2) % Neut # (Auto) 2400 (9663-5800) /uL Lymph # (Auto) 2100 (2416-4172) /uL [place] # (Auto) 500 (0-900) /uL Eos # (Auto) 100 (0-450) /uL Baso # (Auto) 0 (0-100) /uL Sodium 142 (137-145) mmol/L Potassium 3.5 (3.4-5.1) mmol/L Chloride 109 H (98-107) mmol/L Carbon Dioxide 24 (22-32) mmol/L BUN 21 H (7-17) mg/dL Creatinine 1.15 H (0.52-1.04) mg/dL Estimated GFR 47.5 L (>60) mL/min BUN/Creatinine Ratio 18.3 (6-22) Glucose 90 (80-110) mg/dL Calcium 9.8 (8.4-10.2) mg/dL Total Bilirubin 0.1 L (0.2-1.3) mg/dL AST 42 H (14-36) IU/L ALT 29 (<35) IU/L Alkaline Phosphatase 82 (38-126) U/L Total Protein 7.7 (6.3-8.2) g/dL Albumin 4.6 (3.5-5.0) g/dL Globulin 3.1 (1.7-4.1) g/dL Albumin/Globulin Ratio 1.5 (1.0-2.8) TSH (0.47-4.68) uIU/mL Free T4 (0.78-2.19) ng/dL Salicylates < 1.0 (<20) mg/dL U Opiates 300ng/mL cut Negative (Negative) Ur Oxycodone Screen Negative (Negative) Urine Methadone Screen Negative (Negative) Acetaminophen < 10 L (10-30) ug/mL Ur Barbiturates Screen Negative (Negative) U Tricyclic Antidepress Positive H (Negative) Ur Phencyclidine Scrn Negative (Negative) Ur Amphetamines Screen Negative (Negative) U Methamphetamines Scrn Negative (Negative) Ur MDMA Scrn (Ecstasy) Negative (Negative) U Benzodiazepines Scrn Negative (Negative) Urine Cocaine Screen Negative (Negative) U Marijuana (THC) Screen Negative (Negative) Ethyl Alcohol < 10 ( - 10) mg/dL 03/01/20 03/01/20 Range/Units 19:07 23:30 WBC (4.5-11.0) X10^3/uL RBC (4.0-5.2) X10^6/uL Hgb (12.0-16.0) g/dL Hct (36-46) % MCV (80-100) fL MCH (26-34) PG MCHC (30-36) % RDW (11.6-14.8) % Plt Count (150-400) X10^3/uL Neut % (Auto) (50-75) % Lymph % (Auto) (25-40) % [place] % (Auto) (3-14) % Eos % (Auto) (2-4) % Baso % (Auto) (0-2) % Neut # (Auto) (7501-5384) /uL Lymph # (Auto) (7768-5974) /uL [place] # (Auto) (0-900) /uL Eos # (Auto) (0-450) /uL Baso # (Auto) (0-100) /uL Sodium 137 (137-145) mmol/L Potassium 3.5 (3.4-5.1) mmol/L Chloride 109 H (98-107) mmol/L Carbon Dioxide 22 (22-32) mmol/L BUN 22 H (7-17) mg/dL Creatinine 1.15 H (0.52-1.04) mg/dL Estimated GFR 47.5 L (>60) mL/min BUN/Creatinine Ratio 19.1 (6-22) Glucose 106 (80-110) mg/dL Calcium 9.1 (8.4-10.2) mg/dL Total Bilirubin (0.2-1.3) mg/dL AST (14-36) IU/L ALT (<35) IU/L Alkaline Phosphatase (38-126) U/L Total Protein (6.3-8.2) g/dL Albumin (3.5-5.0) g/dL Globulin (1.7-4.1) g/dL Albumin/Globulin Ratio (1.0-2.8) TSH 0.27 L (0.47-4.68) uIU/mL Free T4 0.57 L (0.78-2.19) ng/dL Salicylates (<20) mg/dL U Opiates 300ng/mL cut (Negative) Ur Oxycodone Screen (Negative) Urine Methadone Screen (Negative) Acetaminophen (10-30) ug/mL Ur Barbiturates Screen (Negative) U Tricyclic Antidepress (Negative) Ur Phencyclidine Scrn (Negative) Ur Amphetamines Screen (Negative) U Methamphetamines Scrn (Negative) Ur MDMA Scrn (Ecstasy) (Negative) U Benzodiazepines Scrn (Negative) Urine Cocaine Screen (Negative) U Marijuana (THC) Screen (Negative) Ethyl Alcohol ( - 10) mg/dL Urine Dip Bedside Urine Glucose Negative Bedside Urine Bilirubin - Negative Bedside Urine Ketone - Negative Urine Specific [place] 1.015 Bedside Urine Occult Blood - Negative Bedside Urine pH 6.0 Bedside Urine Protein - Negative Bedside Urine Urobilinogen - Negative Bedside Urine Nitrite - Negative Bedside Urine Leukocytes - Negative Esterase MDM Narrative Medical decision making narrative: After discussion with rn social services and brief evaluation with Dr. Clifford, psychiatrist, patient is felt to be safe for home discharge. She has an appointment tomorrow with Dr. Clifford at 2pm check in at walk in clinic. 11:15 patient seen evaluated. Has a safety plan, does not feels like she has heard herself, is pleased with discharge plans and outpatient follow-up tomorrow. Her daughter is in the room during the discussion and also feel safe current plans. She is safe for home discharge at this time Discharge Plan Departure Patient Disposition: Home Clinical Impression: Suicidal ideation Depression Qualifiers: Depression Type: unspecified Qualified Code(s): F32.9 - Major depressive disorder, single episode, unspecified Discharge Date/Time: 03/02/20 11:26 Instructions: DI for Suicidal Ideation-Adult Activity Restrictions/Additional Instructions: Thank you for coming in today After talking with Dr. Clifford, our psychiatrist and our social work, it does seem safe for you to be discharged home. If you feel that you are getting worse or feel like you need to hurt herself, please return to the emergency department. You have an appointment at 2:00 a.m. tomorrow, March [address] Clifford. You will need to check in to see him through the walking clinic tomorrow. I wish you the best. Prescriptions: No Action quetiapine 25 mg tablet See Rx Instructions PO ONCE HS Qty: 90 RF: 3 quetiapine 50 mg tablet 150 mg PO BEDTIME Qty: 90 RF: 3 [Fish Oil] 1 cap PO Q DAY Qty: 0 RF: 0 levothyroxine 25 mcg tablet 25 mcg PO QAM Qty: 30 RF: 11 liothyronine [Cytomel] 5 mcg tablet 5 mcg PO BID Qty: 60 RF: 11 losartan [Cozaar] 50 mg tablet 50 mg PO Q DAY Qty: 90 RF: 1 topiramate [Topamax] 100 mg tablet 100 mg PO BID Qty: 60 RF: 5 citalopram 40 mg tablet 40 mg PO Q DAY Qty: 30 RF: 1 cefdinir 300 mg capsule 300 mg PO BID 7 Days Qty: 14 RF: 0 nicotine 21-14-7 mg/24 hr patch, TD daily, sequential 1 patch transdermal DAILY 60 Days Qty: 56 RF: 0 clonazepam 1 mg tablet See Rx Instructions .ROUTE .COMPLEX RF: 0 simvastatin [Zocor] 80 mg tablet 80 mg PO DAILY RF: 0 aspirin 81 mg tablet,delayed release (DR/EC) 81 mg PO DAILY Qty: 30 RF: 0 Referrals: Mitchel German MD [Primary Care Provider] - ED Sign-out <Tristin Covarrubias DO - Last Filed: 03/03/20 05:06> Cosign ED Attending Taishaature Attestation: I was immediately available in the department for consultation. This documentation has been reviewed and I agree with assessment and plan. Supervised by Tristin Covarrubias DO
--- NOTE | 2020-03-01 20:30 | PC.NURSE ---
Pt currently speaking with Dr Covarrubias
--- NOTE | 2020-03-01 20:33 | DI.CT.S_ITS ---
PROCEDURE: CT HEAD/BRAIN WO CON INDICATIONS: mental status change TECHNIQUE: Noncontrast 4.5 mm thick angled axial sections acquired from the foramen magnum to the vertex, with coronal and sagittal reformats. For radiation dose reduction, the following was used: automated exposure control, adjustment of mA and/or kV according to patient size. COMPARISON: [facility], CT, CT HEAD/BRAIN WO CON, 10/25/2018, 20:10. FINDINGS: Image quality: Excellent. CSF spaces: Basal cisterns are patent. No extra-axial fluid collections. Ventricles are normal in size and shape. Brain: No midline shift. No intracranial masses or hemorrhage. Hughes-white matter interface is normal. Skull and face: Calvarium and visualized facial bones are intact, without suspicious lesions. Sinuses: Visualized sinuses and mastoids are clear. IMPRESSION: 1. No acute intracranial abnormalities. Dictated by: Yazmin Simmons M.D. on 03/01/2020 at 21:29 Approved by: Yazmin Simmons M.D. on 03/01/2020 at 21:31
--- NOTE | 2020-03-01 21:46 | PC.NURSE ---
Pt eating a sandwich and has finished approx 1100 ml fluids. currently reading a book.
--- NOTE | 2020-03-01 22:22 | PC.NURSE ---
Currently speaking with ADRIANO
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
[2020-03-01 23:43] VITALS: BP 122/78; PULSE 88; RESP 16; TEMP 36.1; O2SAT 98
[2020-03-01 23:49] LABS: BUN Creatinine Ratio 19.1 (6-22); Blood Urea Nitrogen 22 mg/dL (7-17); Calcium 9.1 mg/dL (8.4-10.2); Carbon Dioxide 22 mmol/L (22-32); Chloride 109 mmol/L (98-107); Estimated Glomerular Filt Rate 47.5 mL/min (>60); Glucose 106 mg/dL (80-110); HEMOLYSIS < 15 (0-50); Potassium 3.5 mmol/L (3.4-5.1); Sodium 137 mmol/L (137-145)
[2020-03-02 04:44] VITALS: BP 117/59; PULSE 78; RESP 16; TEMP 36.7; O2SAT 98
[2020-03-02 07:43] VITALS: BP 107/63; PULSE 76; RESP 17; O2SAT 96
[2020-03-02 07:45] VITALS: BP 107/63; PULSE 65
[2020-03-02] MEDS: TOPIRAMATE 100 MG TABLET PO (07:45)
[2020-03-02] MEDS: LOSARTAN 50 MG TABLET PO (07:45)
[2020-03-02] MEDS: LEVOTHYROXINE 25 MCG TABLET PO (07:45)
[2020-03-02] MEDS: CITALOPRAM 20 MG TABLET 40 MG PO (07:46)
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
--- NOTE | 2020-03-02 10:50 | PC.NURSE ---
SUPERINTENDENT CEMETERY in room with patient
[2020-03-02 11:00] VITALS: BP 104/55; PULSE 79; RESP 18; TEMP 36.7; O2SAT 96
== END 2020-03-02 11:26 | disposition home or self-care (01) ==
PROVIDERS: Emergency Medicine; Emergency Provider Emergency Medicine; PCP Student in an Organized Health Care Education/Training Program
DX: R45.851 Suicidal ideations (principal); F32.9 Major depressive disorder, single episode, unspecified
CPT/HCPCS: 36415; 70450; 80048; 80053; 80305; 80320; 80329; 81003; 84439; 84443; 85025; 99284; G0480

== ENCOUNTER 2020-03-07 14:02 | Emergency (ER) | payer OTHER, MEDICAID, SELFPAY ==
[2019-12-28 15:14] VITALS: BMI 22.9
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
--- NOTE | 2020-03-07 19:27 | ED.ABDPAIN ---
HPI - Abdominal Pain General Stated Complaint: Shortness of Breath History of Present Illness HPI narrative: The patient is a 64-year-old female who left without being interviewed or examined. She was never treated or examined. Related Data Home Medications Medication Instructions Recorded Confirmed [Fish Oil] 1 cap PO Q DAY #0 03/09/11 03/03/20 simvastatin [Zocor] 80 mg PO DAILY 12/14/19 03/03/20 Previous Rx's Medication Instructions Recorded levothyroxine 25 mcg tablet 25 mcg PO QAM #30 tab 03/22/19 liothyronine 5 mcg tablet 5 mcg PO BID #60 tab 03/22/19 aspirin 81 mg PO DAILY #30 tab 12/14/19 losartan 50 mg tablet 50 mg PO Q DAY #90 tab 01/27/20 topiramate 100 mg tablet 100 mg PO BID #60 tab 02/19/20 citalopram 40 mg tablet 40 mg PO Q DAY #30 tab 02/22/20 nicotine 1 patch TRANSDERMAL DAILY 60 Days 02/24/20 21mg/24hr-14mg/24hr-7mg/24hr daily #56 patch transderm patch,sequential clonazepam 0.5 mg tablet 0.5 mg PO BID #60 tab 03/03/20 quetiapine 100 mg tablet 300 mg PO BEDTIME #90 tab 03/07/20 quetiapine 25 mg tablet 50 mg PO BID #60 tab 03/07/20 Allergies Allergy/AdvReac Type Severity Reaction Status Date / Time NASRIN Inhibitors Allergy Intermediate EDEMA IN Verified 03/03/20 14:11 BOTH HANDS codeine Allergy Mild NAUSEA/VOMI Verified 03/03/20 14:11 TING meperidine Allergy Mild VOMITING Verified 03/03/20 14:11 Patient History Social History household members: none Smoking Status: Current every day smoker alcohol intake: never substance use type: does not use Smoking Status: Current every day smoker alcohol intake frequency: holidays/special occasions only Substance Use Type: does not use Discharge Plan Departure Patient Disposition: Left Without Being Seen Clinical Impression: Patient left before triage assessment Discharge Date/Time: 03/07/20 14:34
== END 2020-03-07 14:34 | disposition left against medical advice (07) ==
PROVIDERS: Emergency Provider Emergency Medicine; PCP Student in an Organized Health Care Education/Training Program

== ENCOUNTER → 2020-03-09 16:27 | Outpatient (CLI) | payer OTHER, MEDICAID, SELFPAY ==
[2019-12-28 15:14] VITALS: BMI 22.9
[2020-03-09 16:51] LABS: Ur Creatinine Normal (Normal); Ur Specific Gravity Normal (Normal); Urine Tetrahydrocannabinol Negative (Negative); Urine pH Normal (Normal)
[2020-03-09 16:52] LABS: UR Morphine/Opiate cutoff 300 Negative (Negative); Urine Amphetamines Negative (Negative); Urine Barbiturates Negative (Negative); Urine Benzodiazepines Negative (Negative); Urine Cocaine Negative (Negative); Urine MDMA Negative (Negative); Urine Methadone Negative (Negative); Urine Methamphetamines Negative (Negative); Urine Oxycodone Negative (Negative); Urine Phencyclidine Negative (Negative); Urine Tricyclic Antidepressant Positive (Negative)
== END ==
PROVIDERS: PCP Student in an Organized Health Care Education/Training Program; Referring Provider Student in an Organized Health Care Education/Training Program; Visit Provider Student in an Organized Health Care Education/Training Program
DX: F15.21 Other stimulant dependence, in remission (principal)
CPT/HCPCS: 80305

== ENCOUNTER → 2020-04-04 13:25 | Outpatient (CLI) | payer OTHER, MEDICAID, SELFPAY ==
[2019-12-28 15:14] VITALS: BMI 22.9
[2020-04-04 14:32] LABS: BUN Creatinine Ratio 21.9 (6-22); Blood Urea Nitrogen 23 mg/dL (7-17); Calcium 9.8 mg/dL (8.4-10.2); Carbon Dioxide 25 mmol/L (22-32); Chloride 108 mmol/L (98-107); Estimated Glomerular Filt Rate 52.8 mL/min (>60); Glucose 111 mg/dL (80-110); HEMOLYSIS < 15 (0-50); Potassium 4.1 mmol/L (3.4-5.1); Sodium 141 mmol/L (137-145)
[2020-04-05 11:36] LABS: Ionized Calcium 5.1 mg/dL (4.5-5.6)
== END ==
PROVIDERS: PCP Student in an Organized Health Care Education/Training Program; Referring Provider Student in an Organized Health Care Education/Training Program; Visit Provider Student in an Organized Health Care Education/Training Program
DX: E83.52 Hypercalcemia (principal); N18.3 Chronic kidney disease, stage 3 (moderate)
CPT/HCPCS: 36415; 80048; 82330

== ENCOUNTER → 2020-08-01 11:39 | Outpatient (CLI) | payer MEDICARE, MEDICAID, SELFPAY ==
[2019-12-28 15:14] VITALS: BMI 22.9
--- NOTE | 2020-08-01 | DI.CT.S_ITS ---
PROCEDURE: CT SINUS SCREEN WO CON INDICATIONS: Acute recurrent pansinusitis TECHNIQUE: Noncontrast 3.0 mm axial images acquired from the frontal sinuses to the mid-sella, with coronal and sagittal reformats. For radiation dose reduction, the following was used: automated exposure control, adjustment of mA and/or kV according to patient size. COMPARISON: [facility], CT, SINUS SCREEN WO CONTRAST, 12/02/2014, 15:09. FINDINGS: Image quality: Excellent. Maxillary Sinuses: No bony remodeling or destruction. Sinuses are clear. Ethmoid Air Cells: No bony remodeling or destruction. Sinuses are clear. Sphenoid Sinuses: No bony remodeling or destruction. Sinuses are clear. Frontal Sinuses: No bony remodeling or destruction. Sinuses are clear. Ostiomeatal Complexes: Ostiomeatal complexes are patent, yet they are mildly constitutionally narrowed. No Vlad cells. Miscellaneous: Visualized intra-orbital contents are normal. No brian bullosa or paradoxical turbinate curvature. A portion of the nasal septum is missing. There is mild rightward nasal septal deviation. IMPRESSION: No significant active paranasal sinus disease is seen. Mild rightward nasal septal deviation. A portion nasal septum is missing. Constitutionally narrowed ostiomeatal complexes. Dictated by: Thaddeus Og M.D. on 08/01/2020 at 11:16 Approved by: Thaddeus Og M.D. on 08/01/2020 at 11:19
== END ==
PROVIDERS: PCP Student in an Organized Health Care Education/Training Program; Referring Provider Student in an Organized Health Care Education/Training Program; Visit Provider Otolaryngology
DX: J01.41 Acute recurrent pansinusitis (principal); J34.89 Other specified disorders of nose and nasal sinuses; J34.2 Deviated nasal septum
CPT/HCPCS: 70486

== ENCOUNTER → 2020-08-12 13:45 | Outpatient (CLI) | payer MEDICARE, MEDICAID, SELFPAY ==
[2019-12-28 15:14] VITALS: BMI 22.9
[2020-08-12 15:19] LABS: HEMOLYSIS 17 (0-50); Iron 121 ug/dL (37-170)
[2020-08-12 15:21] LABS: Alanine Aminotransferase 65 IU/L (<35); Albumin 4.4 g/dL (3.5-5.0); Albumin Globulin Ratio 1.5 (1.0-2.8); Alkaline Phosphatase 109 U/L (38-126); Aspartate Aminotransferase 52 IU/L (14-36); Bilirubin Total 0.2 mg/dL (0.2-1.3); Bilirubin Unconjugated 0.1 mg/dL (0.0-1.1); Globulin 2.9 g/dL (1.7-4.1); HEMOLYSIS < 15 (0-50); Total Protein 7.3 g/dL (6.3-8.2)
[2020-08-12 15:30] LABS: Percent Iron Saturation 33 % (15-50); Total Iron Binding Capacity 371 ug/dL (265-497); Transferrin 312 mg/dL (206-381)
[2020-08-12 16:52] LABS: Hepatitis B Surface Antigen NEGATIVE s/c (NEGATIVE)
[2020-08-14 07:49] LABS: Hepatitis BE Antigen Negative (Negative)
== END ==
PROVIDERS: PCP Student in an Organized Health Care Education/Training Program; Referring Provider Student in an Organized Health Care Education/Training Program; Visit Provider Student in an Organized Health Care Education/Training Program
DX: G25.81 Restless legs syndrome (principal); R76.8 Other specified abnormal immunological findings in serum
CPT/HCPCS: 36415; 80076; 83540; 83550; 87340; 87350

== ENCOUNTER → 2020-08-22 13:26 | Outpatient (CLI) | payer MEDICARE, MEDICAID, SELFPAY ==
[2019-12-28 15:14] VITALS: BMI 22.9
--- NOTE | 2020-08-22 13:31 | DI.US.S_ITS ---
PROCEDURE: US PERIPH VENOUS LOW EXTREM LT INDICATIONS: Unilateral edema with pain TECHNIQUE: Real-time imaging, as well as color and pulse Doppler interrogation, were performed of the lower extremity deep veins from the inguinal ligament to the popliteal fossa. COMPARISON: None. FINDINGS: The common femoral, femoral and popliteal veins are normally compressible, and free of intraluminal thrombus. Color and pulse Doppler demonstrate normal phasic intraluminal flow. There is normal augmentation response to distal compression maneuver. IMPRESSION: No deep venous thrombosis identified within the left lower extremity. Dictated by: Omkar GARCIA Interpreted: Amauri Mills MD on 08/22/2020 at 13:52 Approved by: Amauri Mills M.D. on 08/22/2020 at 15:43
== END ==
PROVIDERS: PCP Student in an Organized Health Care Education/Training Program; Referring Provider Student in an Organized Health Care Education/Training Program; Visit Provider Student in an Organized Health Care Education/Training Program
DX: M79.605 Pain in left leg (principal); R60.0 Localized edema
CPT/HCPCS: 93971

== ENCOUNTER → 2020-11-18 15:14 | Outpatient (CLI) | payer MEDICARE, MEDICAID, SELFPAY ==
[2019-12-28 15:14] VITALS: BMI 22.9
[2020-11-18] MEDS: COVID-19 VACC #1, MRNA(MOD) 100 MCG/0.5 ML VIAL IM (15:28)
== END ==
PROVIDERS: PCP Student in an Organized Health Care Education/Training Program; Visit Provider Internal Medicine
DX: Z23 Encounter for immunization (principal)
CPT/HCPCS: 0011A; 91301

== ENCOUNTER → 2020-12-02 17:09 | Outpatient (CLI) | payer MEDICARE, MEDICAID, SELFPAY ==
[2019-12-28 15:14] VITALS: BMI 22.9
--- NOTE | 2020-12-02 17:11 | DI.MG.S_ITS ---
BILATERAL DIGITAL SCREENING MAMMOGRAM 3D/2D WITH CAD: 12/02/2020 CLINICAL: Routine screening. Comparison is made to exams dated: 11/26/2019 mammogram, 08/27/2014 mammogram, and 06/19/2010 mammogram - [facility]. The tissue of both breasts is heterogeneously dense. This may lower the sensitivity of mammography. Current study was also evaluated with a Computer Aided Detection (CAD) system. No significant masses, calcifications, or other findings are seen in either breast. There has been no significant interval change. IMPRESSION: NEGATIVE There is no mammographic evidence of malignancy. A 1 year screening mammogram is recommended. This exam was interpreted at Station ID: [id number]. NOTE: For mammograms, a report in lay terms will be sent to the patient. Approximately 15% of breast malignancies will not be visualized mammographically. In the management of a palpable breast mass, a negative mammogram must not discourage biopsy of a clinically suspicious lesion. Electronically Signed By: Tyson hargrove/markie:12/05/2020 07:16:18 letter sent: Normal Exam ACR BI-RADS Category 1: Negative [id number]
== END ==
PROVIDERS: PCP Student in an Organized Health Care Education/Training Program; Referring Provider Student in an Organized Health Care Education/Training Program; Visit Provider Student in an Organized Health Care Education/Training Program
DX: Z12.31 Encounter for screening mammogram for malignant neoplasm of breast (principal)
CPT/HCPCS: 77063; 77067

== ENCOUNTER → 2020-12-16 15:59 | Outpatient (CLI) | payer MEDICARE, MEDICAID, SELFPAY ==
[2019-12-28 15:14] VITALS: BMI 22.9
[2020-12-16] MEDS: COVID-19 VACC #2, MRNA(MOD) 100 MCG/0.5 ML VIAL IM (16:12)
== END ==
PROVIDERS: PCP Student in an Organized Health Care Education/Training Program; Visit Provider Internal Medicine
DX: Z23 Encounter for immunization (principal)
CPT/HCPCS: 0012A; 91301

== ENCOUNTER → 2021-01-11 15:02 | Outpatient (CLI) | payer MEDICARE, MEDICAID, SELFPAY ==
[2019-12-28 15:14] VITALS: BMI 22.9
[2021-01-11 16:30] LABS: Hemoglobin A1C% w Est Avg Glu 5.8 % (4.0-6.0)
[2021-01-11 17:42] LABS: BUN Creatinine Ratio 23.6 (6-22); Blood Urea Nitrogen 26 mg/dL (7-17); Estimated Glomerular Filt Rate 49.8 mL/min (>60)
[2021-01-11 18:09] LABS: TSH w/ Reflex to FT4 1.99 uIU/mL (0.47-4.68)
== END ==
PROVIDERS: PCP Student in an Organized Health Care Education/Training Program; Referring Provider Student in an Organized Health Care Education/Training Program; Visit Provider Student in an Organized Health Care Education/Training Program
DX: E03.9 Hypothyroidism, unspecified (principal); R73.03 Prediabetes; N18.31 Chronic kidney disease, stage 3a; F15.21 Other stimulant dependence, in remission; F43.10 Post-traumatic stress disorder, unspecified; F41.0 Panic disorder [episodic paroxysmal anxiety]; F32.9 Major depressive disorder, single episode, unspecified; F15.950 Other stimulant use, unspecified with stimulant-induced psychotic disorder with delusions
CPT/HCPCS: 36415; 82565; 83036; 84443; 84520; 90833; 99214

== ENCOUNTER → 2021-03-01 14:53 | Outpatient (CLI) | payer MEDICARE, MEDICAID, SELFPAY ==
[2019-12-28 15:14] VITALS: BMI 22.9
[2021-03-01 16:23] LABS: Appearance Urine UA SL CLOUDY; Bilirubin Urine UA NEGATIVE (NEGATIVE); Color Urine UA YELLOW; Glucose Urine UA NEGATIVE (Negative); Ketones Urine UA NEGATIVE (NEGATIVE); Leukocyte Esterase Urine UA 2+ (NEGATIVE); Nitrite Urine UA NEGATIVE (Negative); Occult Blood Urine UA 1+ (Negative); Protein Urine UA NEGATIVE (Negative); Urobilinogen Urine UA 0.2 E.U./dL (0.2)
[2021-03-01 16:27] LABS: pH Urine UA 6.5 (4.5-8.0)
[2021-03-01 16:38] LABS: Bacteria Urine Few (2-10); Culture Indicated Urine Specimen Cultured; RBC Urine 5-10/HPF (0-5/HPF); Squamous Epithelial Cell Urine 1-5 /HPF (0-5/HPF); Transitional Epi Cells Urine 1-5/HPF (0-5/HPF); WBC Urine >100/HPF (0-5/HPF)
[2021-03-01 16:39] LABS: UR Morphine/Opiate cutoff 300 Negative (Negative); Ur Creatinine Normal (Normal); Ur Specific Gravity Normal (Normal); Urine Amphetamines Negative (Negative); Urine Barbiturates Negative (Negative); Urine Benzodiazepines Negative (Negative); Urine Cocaine Negative (Negative); Urine MDMA Negative (Negative); Urine Methadone Negative (Negative); Urine Methamphetamines Negative (Negative); Urine Oxycodone Negative (Negative); Urine Phencyclidine Negative (Negative); Urine Tetrahydrocannabinol Negative (Negative); Urine Tricyclic Antidepressant Positive (Negative); Urine pH Normal (Normal)
== END ==
PROVIDERS: Psychiatry & Neurology Psychiatry; PCP Student in an Organized Health Care Education/Training Program; Referring Provider Student in an Organized Health Care Education/Training Program; Visit Provider Student in an Organized Health Care Education/Training Program
DX: F15.21 Other stimulant dependence, in remission (principal); R30.0 Dysuria; F15.950 Other stimulant use, unspecified with stimulant-induced psychotic disorder with delusions
CPT/HCPCS: 80305; 81001; 87086

== ENCOUNTER 2021-04-03 14:20 | Emergency (ER) | payer MEDICARE, MEDICAID, SELFPAY ==
[2019-12-28 15:14] VITALS: BMI 22.9
[2021-04-03 14:37] VITALS: BP 116/71; PULSE 77; RESP 19; TEMP 37.1; O2SAT 96; BMI 28.3
--- NOTE | 2021-04-03 14:59 | ED.LOWEXIN ---
HPI - Extremity Injury (Lower) General Chief Complaint: Extremity Injury, Lower Stated Complaint: Fall, Hurt Back Time Seen by Provider: 04/03/21 14:54 Source: patient Mode of arrival: Family Vehicle Limitations: no limitations History of Present Illness HPI Narrative: Patient is a 65-year-old female who presents with multiple falls in pain all over her body. She says that she has had multiple falls over the last 6 weeks or more. Provider on 03/01/2021 after she fell at a parking lot she was having some right knee pain he ordered an outpatient x-ray which she has yet to get down. Since then she slipped and fell off a ladder she fell pulling weeds she had a ladder come out and fall on her. She is complaining of severe pain all over her body. She is unable to walk on has to walk hunched over. She has no midline pain. No real lumbar pain, she has no numbness tingling or weakness. She complains of a left pain and in her hip and some left rib pain. But she denies any shortness of breath or pain with breathing MD complaint: hip injury and knee injury Onset (ago): unknown Related Data Home Medications Medication Instructions Recorded Confirmed quetiapine 100 mg tablet 100 mg PO DAILY 01/25/21 03/28/21 Previous Rx's Medication Instructions Recorded aspirin 81 mg PO DAILY #30 tab 12/14/19 levothyroxine 25 mcg tablet 25 mcg PO QAM #30 tab 04/15/20 liothyronine 5 mcg tablet 5 mcg PO BID #60 tab 04/15/20 losartan 50 mg tablet 50 mg PO Q DAY #90 tab 07/27/20 simvastatin 80 mg tablet 80 mg PO DAILY #90 tab 07/27/20 gabapentin 300 mg capsule 600 mg PO Q OTHER DAY #90 cap 08/17/20 risperidone 1 mg tablet 1 mg PO DAILY #30 tab 02/28/21 citalopram 40 mg tablet 40 mg PO DAILY #30 tab 03/17/21 clonazepam 0.5 mg tablet See Rx Instructions .ROUTE 03/17/21 .COMPLEX #150 tab topiramate 100 mg tablet 100 mg PO BID #60 tab 03/17/21 propranolol 10 mg tablet 20 mg PO TID #180 tab 03/28/21 Allergies Allergy/AdvReac Type Severity Reaction Status Date / Time NASRIN Inhibitors Allergy Intermediate EDEMA IN Verified 04/03/21 14:36 BOTH HANDS codeine Allergy Mild NAUSEA/VOMI Verified 04/03/21 14:36 TING meperidine Allergy Mild VOMITING Verified 04/03/21 14:36 Review of Systems Review of Systems Narrative: GENERAL: Denies chills, fatigue, malaise, fever, sweats, travel HEENT: Denies sinus pain, ear pain, sore throat, difficulty swallowing, neck pain RESPIRATORY: Denies dyspnea, cough, wheezing, hemoptysis, sputum. CARDIOVASCULAR: Denies chest pain, palpitations, orthopnea, edema GASTROINTESTINAL: Denies nausea, vomiting, abdominal pain, diarrhea, constipation, melena. : Denies dysuria, frequency, incontinence, hematuria, urinary retention, flank pain. MUSCULOSKELETAL: See HPI SKIN: No rash, no erythema, no pruritus NEUROLOGIC: Denies weakness, dizziness, headache, numbness, change in speech, confusion PSYCHIATRIC: No concerning psychosocial issues. 12 point review of systems is negative except for those stated above and HPI Patient History Medical History (Updated 04/03/21 @ 16:29 by Urmila Collazo DO) Amphetamine use disorder, severe, in early remission Anemia Anterior myocardial infarction (2007) CAD (coronary artery disease) Chest pain Chicken pox Chronic headaches Chronic pain Depression Diabetes mellitus 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 Hyperlipidemia Hypertension Intentional benzodiazepine overdose Measles Migraines Narcotic abuse, episodic Panic disorder Panic disorder without agoraphobia (02/21/11) PTSD (post-traumatic stress disorder) Surgical History Anesthesia History of appendectomy History of colonoscopy with polypectomy (12/29/14) History of esophagogastroduodenoscopy (EGD) (12/29/14) History of tonsillectomy Status post blepharoplasty of both eyes (11/11/12) Status post insertion of drug-eluting stent into left anterior descending (LAD) artery (2007) Family History Father Diabetes mellitus Heart disease Hypertension Stroke Social History household members: none Smoking Status: Current every day smoker alcohol intake: never substance use type: does not use Smoking Status: Current every day smoker tobacco type: cigarettes alcohol intake frequency: holidays/special occasions only Substance Use Type: does not use Exam Initial Vital Signs Initial Vital Signs: Vital Signs Temperature 98.7 F 04/03/21 14:37 Pulse Rate 77 04/03/21 14:37 Respiratory Rate 19 04/03/21 14:37 Blood Pressure 116/71 04/03/21 14:37 Pulse Oximetry 96 04/03/21 14:37 GENERAL: Sleeping female but arousable HEENT: Head atraumatic,EOMI, pupils reactive, face symmetric, [moist] mucous membranes NECK: Full flexion extension and rotation no vertebral tenderness or step-off CARDIOVASCULAR: Regular rate and rhythm without murmurs, rubs or gallops. RESPIRATORY: Breath sounds equal bilaterally, no wheezes rales or rhonchi. Mild left-sided rib pain without flail chest or contusion ABDOMEN: Soft, nontender. Normoactive bowel sounds all 4 quadrants. No guarding or rebound. BACK: No vertebral tenderness no step-offs EXTREMITIES: Normal range of motion, no clubbing or edema. Neurovascularly intact. Both knees are stable mild pain to left hip to palpation but good internal external rotation NEUROLOGICAL: Alert and oriented x4.Normal gait and speech. Cranial nerves II through XII grossly intact. SKIN: Warm, dry, no laceration, no petechiae, no rashes or lesions. Course Orders Ordered: ED Orders 04/03/21 15:13 CT cervical spine wo con Stat CT head/brain wo con Stat XR hip w pel if done LT 2V Stat XR ribs LT min 3V w CXR1V Stat Discontinued Medications Ketorolac Tromethamine (Ketorolac 30 Mg/Ml Vial) 30 mg IM NOW ONE Stop: 04/03/21 15:14 Last Admin: 04/03/21 15:50 Dose: 30 mg Documented by: GENNA Vital Signs Vital signs: Vital Signs - 8 hr 04/03/21 14:37 Temperature 98.7 F Pulse Rate 77 Respiratory Rate 19 Blood Pressure 116/71 Pulse Oximetry 96 MDM - Extremity Injury (Lower) Imaging Data CT scan - head: Radiologist's Impression: PROCEDURE: CT HEAD/BRAIN WO CON INDICATIONS: multiple frequent falls TECHNIQUE: Noncontrast 4.5 mm thick angled axial sections acquired from the foramen magnum to the vertex, with coronal and sagittal reformats. For radiation dose reduction, the following was used: automated exposure control, adjustment of mA and/or kV according to patient size. COMPARISON: [facility], CT, CT HEAD/BRAIN WO CON, 10/25/2018, 20:10. [facility], CT, CT HEAD/BRAIN WO CON, 03/01/2020, 20:45. FINDINGS: Image quality: Excellent. CSF spaces: Basal cisterns are patent. No extra-axial fluid collections. Ventricles are normal in size and shape. Brain: No midline shift. No intracranial masses or hemorrhage. Hughes-white matter interface is normal. Skull and face: Calvarium and visualized facial bones are intact, without suspicious lesions. Sinuses: Visualized sinuses and mastoids are clear. IMPRESSION: 1. No acute intracranial abnormalities. Dictated by: Yazmin Simmons M.D. on 04/03/2021 at 15:30 CT - cervical spine: Radiologist's Impression: PROCEDURE: CT CERVICAL SPINE WO CON INDICATIONS: pain falls TECHNIQUE: Noncontrast 3 mm thick sections acquired from the skull base to the T4 level. Sagittal and coronal reformats were then constructed. For radiation dose reduction, the following was used: automated exposure control, adjustment of mA and/or kV according to patient size. COMPARISON: RG, XR C-SPINE 4-6V, 09/13/2005, 13:33. [facility], CR, XR CERVICAL SPINE 2V OR 3V, 10/25/2018, 20:31. FINDINGS: Image quality: Excellent. Bones: No fractures or dislocations. There is moderate degenerative disc disease and uncovertebral hypertrophy at C6-C7. Mild facet arthropathy scattered in cervical spine, most pronounced at C 2-C3 on the right. Visualized superior ribs are intact. Soft tissues: Prevertebral soft tissues are normal in thickness. No paravertebral hematomas. No apical pneumothoraces. There is moderate carotid artery calcifications bilaterally IMPRESSION: 1. No fracture. 2. Degenerative disc and facet disease. 3. Moderate carotid artery calcifications. Dictated by: Yazmin Simmons M.D. on 04/03/2021 at 15:33 Chest x-ray: Radiologist's Impression: PROCEDURE: XR RIBS LT MIN 3V W CXR1V INDICATIONS: fall pain TECHNIQUE: 2 views of the left ribs were acquired, along with a single view chest. COMPARISON: None. FINDINGS: Surgical changes and devices: None. Bones and chest wall: No fractures or dislocations. No suspicious bony lesions. Overlying soft tissues appear unremarkable. Lungs and pleura: No pleural effusions or pneumothorax. Lungs appear clear. Mediastinum: Mediastinal contours appear normal. Heart size is normal. IMPRESSION: Normal PA view of the chest and left ribs. No fracture. Dictated by: Mckinley Mariano M.D. on 04/03/2021 at 16:07 Approved by: Mckinley Mariano M.D. on 04/03/2021 at 16:09 Extremity x-ray #1: Radiologist's Impression: PROCEDURE: XR HIP W PEL IF DONE LT 2V INDICATIONS: falls pain TECHNIQUE: AP view of the pelvis and two views of the left hip. COMPARISON: [facility], , XR HIP W PEL IF DONE RT 2V, 10/25/2018, 20:38. FINDINGS: Bones: No fractures or dislocations. No suspicious bony lesions. The visualized pelvic ring appears intact. Minimal degenerative changes of both hips. Soft tissues: No suspicious soft tissue calcifications or masses. IMPRESSION: No acute abnormality of the left hip or pelvis. The hips have minimal degenerative changes. Dictated by: Mckinley Mariano M.D. on 04/03/2021 at 16:10 [facility] Narrative Medical decision making narrative: Patient has had multiple falls the sound mechanical. She is feeling better after Toradol. Her scans are negative there is no acute injury. Discharge Plan Departure Patient Disposition: Home Clinical Impression: Falls Qualifiers: Encounter type: initial encounter Qualified Code(s): W19.XXXA - Unspecified fall, initial encounter Instructions: How to Prevent Falls Activity Restrictions/Additional Instructions: *You have been diagnosed with frequent falls *What to do: At this time likely you have no abnormality on a or scans. Please increase activity as tolerated avoid risky activities such as ladders *Continue to take medications as directed Tylenol 650 mg every 4-6 hours if needed for pain Motrin 600 mg every 6-8 hours if needed for pain *Follow up with your primary care provider in 2-3 days *Return to ER if you should have dizzy lightheadedness or any new, worsening or concerning symptoms Prescriptions: No Action quetiapine 100 mg tablet 100 mg PO DAILY RF: 0 risperidone 1 mg tablet 1 mg PO DAILY Qty: 30 RF: 1 propranolol 10 mg tablet 20 mg PO TID Qty: 180 RF: 1 liothyronine [Cytomel] 5 mcg tablet 5 mcg PO BID Qty: 60 RF: 11 levothyroxine 25 mcg tablet 25 mcg PO QAM Qty: 30 RF: 11 losartan [Cozaar] 50 mg tablet 50 mg PO Q DAY Qty: 90 RF: 3 simvastatin [Zocor] 80 mg tablet 80 mg PO DAILY Qty: 90 RF: 3 citalopram 40 mg tablet 40 mg PO DAILY Qty: 30 RF: 1 clonazepam 0.5 mg tablet See Rx Instructions .ROUTE .COMPLEX Qty: 150 RF: 0 topiramate [Topamax] 100 mg tablet 100 mg PO BID Qty: 60 RF: 11 gabapentin 300 mg capsule 600 mg PO Q OTHER DAY Qty: 90 RF: 3 aspirin 81 mg tablet,delayed release (DR/EC) 81 mg PO DAILY Qty: 30 RF: 0 Referrals: Mitchel German MD [Primary Care Provider] -
--- NOTE | 2021-04-03 15:13 | DI.CT.S_ITS ---
PROCEDURE: CT CERVICAL SPINE WO CON INDICATIONS: pain falls TECHNIQUE: Noncontrast 3 mm thick sections acquired from the skull base to the T4 level. Sagittal and coronal reformats were then constructed. For radiation dose reduction, the following was used: automated exposure control, adjustment of mA and/or kV according to patient size. COMPARISON: RG, XR C-SPINE 4-6V, 09/13/2005, 13:33. [facility], CR, XR CERVICAL SPINE 2V OR 3V, 10/25/2018, 20:31. FINDINGS: Image quality: Excellent. Bones: No fractures or dislocations. There is moderate degenerative disc disease and uncovertebral hypertrophy at C6-C7. Mild facet arthropathy scattered in cervical spine, most pronounced at C 2-C3 on the right. Visualized superior ribs are intact. Soft tissues: Prevertebral soft tissues are normal in thickness. No paravertebral hematomas. No apical pneumothoraces. There is moderate carotid artery calcifications bilaterally IMPRESSION: 1. No fracture. 2. Degenerative disc and facet disease. 3. Moderate carotid artery calcifications. Dictated by: Yazmin Simmons M.D. on 04/03/2021 at 15:33 Approved by: Yazmin Simmons M.D. on 04/03/2021 at 15:50
--- NOTE | 2021-04-03 15:13 | DI.CT.S_ITS ---
PROCEDURE: CT HEAD/BRAIN WO CON INDICATIONS: multiple frequent falls TECHNIQUE: Noncontrast 4.5 mm thick angled axial sections acquired from the foramen magnum to the vertex, with coronal and sagittal reformats. For radiation dose reduction, the following was used: automated exposure control, adjustment of mA and/or kV according to patient size. COMPARISON: [facility], CT, CT HEAD/BRAIN WO CON, 10/25/2018, 20:10. [facility], CT, CT HEAD/BRAIN WO CON, 03/01/2020, 20:45. FINDINGS: Image quality: Excellent. CSF spaces: Basal cisterns are patent. No extra-axial fluid collections. Ventricles are normal in size and shape. Brain: No midline shift. No intracranial masses or hemorrhage. Hughes-white matter interface is normal. Skull and face: Calvarium and visualized facial bones are intact, without suspicious lesions. Sinuses: Visualized sinuses and mastoids are clear. IMPRESSION: 1. No acute intracranial abnormalities. Dictated by: Yazmin Simmons M.D. on 04/03/2021 at 15:30 Approved by: Yazmin Simmons M.D. on 04/03/2021 at 15:32
--- NOTE | 2021-04-03 15:13 | DI.RAD.S_ITS ---
PROCEDURE: XR RIBS LT MIN 3V W CXR1V INDICATIONS: fall pain TECHNIQUE: 2 views of the left ribs were acquired, along with a single view chest. COMPARISON: None. FINDINGS: Surgical changes and devices: None. Bones and chest wall: No fractures or dislocations. No suspicious bony lesions. Overlying soft tissues appear unremarkable. Lungs and pleura: No pleural effusions or pneumothorax. Lungs appear clear. Mediastinum: Mediastinal contours appear normal. Heart size is normal. IMPRESSION: Normal PA view of the chest and left ribs. No fracture. Dictated by: Mckinley Mariano M.D. on 04/03/2021 at 16:07 Approved by: Mckinley Mariano M.D. on 04/03/2021 at 16:09
--- NOTE | 2021-04-03 15:13 | DI.RAD.S_ITS ---
PROCEDURE: XR HIP W PEL IF DONE LT 2V INDICATIONS: falls pain TECHNIQUE: AP view of the pelvis and two views of the left hip. COMPARISON: [facility], [facility], XR HIP W PEL IF DONE RT 2V, 10/25/2018, 20:38. FINDINGS: Bones: No fractures or dislocations. No suspicious bony lesions. The visualized pelvic ring appears intact. Minimal degenerative changes of both hips. Soft tissues: No suspicious soft tissue calcifications or masses. IMPRESSION: No acute abnormality of the left hip or pelvis. The hips have minimal degenerative changes. Dictated by: Mckinley Mariano M.D. on 04/03/2021 at 16:10 Approved by: Mckinley Mariano M.D. on 04/03/2021 at 16:11
[2021-04-03] MEDS: KETOROLAC 30 MG/ML VIAL IM (15:50)
--- NOTE | 2021-04-03 15:51 | PC.NURSE ---
Patient reports several falls two weeks ago while gardening at her mothers houses. reports 9\10 right knee pain is the worst pain. amblitory into the ED with a slow steady gate.
== END 2021-04-03 16:39 | disposition home or self-care (01) ==
PROVIDERS: Emergency Provider Emergency Medicine; PCP Student in an Organized Health Care Education/Training Program
DX: S79.912A Unspecified injury of left hip, initial encounter (principal); R07.81 Pleurodynia; M54.2 Cervicalgia; S09.90XA Unspecified injury of head, initial encounter; W19.XXXA Unspecified fall, initial encounter; R29.6 Repeated falls
CPT/HCPCS: 70450; 71101; 72125; 73502; 96372; 99283; 99284; J1885

== ENCOUNTER → 2021-04-06 15:53 | Outpatient (CLI) | payer MEDICARE, MEDICAID, SELFPAY ==
[2019-12-28 15:14] VITALS: BMI 22.9
--- NOTE | 2021-04-06 | DI.RAD.S_ITS ---
PROCEDURE: XR THORACIC SPINE 3V INDICATIONS: FALLS, BACK PAIN. TECHNIQUE: 3 views of the thoracic spine were acquired. COMPARISON: [facility], , XR T AND L SPINE 2 TO 3 VIEWS, 10/25/2018, 20:35. FINDINGS: Bones: No fractures or dislocations. No suspicious bony lesions. Multilevel disc space narrowing and endplate osteophyte formation. Visualized ribs are intact. Soft tissues: No paravertebral stripe thickening. IMPRESSION: Multilevel degenerative disc disease. No acute fracture. No osseous lesion. If symptoms and/or clinical suspicion for pathology persist, further assessment with repeat, or advanced imaging (e.g., CT, MRI, or bone scan) may be helpful for further assessment. Dictated by: Amauri Mills M.D. on 04/06/2021 at 16:50 Approved by: Amauri Mills M.D. on 04/06/2021 at 16:50
--- NOTE | 2021-04-06 15:55 | DI.RAD.S_ITS ---
PROCEDURE: XR LUMBAR SPINE 2-3V INDICATIONS: Falls, back pain TECHNIQUE: 3 views of the lumbar spine were acquired. COMPARISON: None. FINDINGS: Bones: 5 [id number] vertebrae are present. There is normal bony alignment. No vertebral body compression fractures. No suspicious bony lesions. Multilevel disc space narrowing and endplate osteophyte formation throughout the lumbar and lower thoracic spine. Facet hypertrophy throughout the mid and lower lumbar spine. Soft tissues: Overlying bowel gas pattern is normal. No suspicious soft tissue calcifications. IMPRESSION: Multilevel degenerative disc and facet disease. No acute fracture. No osseous lesion. If symptoms and/or clinical suspicion for pathology persist, further assessment with repeat, or advanced imaging (e.g., CT, MRI, or bone scan) may be helpful for further assessment. Dictated by: Amauri Mills M.D. on 04/06/2021 at 16:51 Approved by: Amauri Mills M.D. on 04/06/2021 at 16:51
--- NOTE | 2021-04-06 15:55 | DI.RAD.S_ITS ---
PROCEDURE: XR KNEE RT 3V INDICATIONS: Falls, knee pain TECHNIQUE: 3 views of the knee were acquired. COMPARISON: [facility], , KNEE 3V RIGHT, 07/03/2011, 8:46. FINDINGS: Bones: No fractures or dislocations. No suspicious bony lesions. Mild tricompartmental periarticular osteophyte formation. Soft tissues: No joint effusion. No suspicious soft tissue calcifications. IMPRESSION: Osteoarthritis. No acute fracture. No osseous lesion. If symptoms and/or clinical suspicion for pathology persist, further assessment with repeat, or advanced imaging (e.g., CT, MRI, or bone scan) may be helpful for further assessment. Dictated by: Amauri Mills M.D. on 04/06/2021 at 16:50 Approved by: Amauri Mills M.D. on 04/06/2021 at 16:51
--- NOTE | 2021-04-06 15:55 | DI.RAD.S_ITS ---
PROCEDURE: XR KNEE LT 3V INDICATIONS: Falls, knee pain TECHNIQUE: 3 views of the knee were acquired. COMPARISON: [facility], CR, XR KNEE RT 3V, 04/06/2021, 16:07. FINDINGS: Bones: No acute fractures or dislocations. Well corticated bony fragment adjacent to the patella, which may indicate a remote fracture. No suspicious bony lesions. Soft tissues: No joint effusion. No suspicious soft tissue calcifications. IMPRESSION: 1. Possible remote patellar fracture. 2. No acute fracture. No osseous lesion. If symptoms and/or clinical suspicion for pathology persist, further assessment with repeat, or advanced imaging (e.g., CT, MRI, or bone scan) may be helpful for further assessment. Dictated by: Amauri Mills M.D. on 04/06/2021 at 16:51 Approved by: Amauri Mills M.D. on 04/06/2021 at 16:52
== END ==
PROVIDERS: PCP Student in an Organized Health Care Education/Training Program; Referring Provider Student in an Organized Health Care Education/Training Program; Visit Provider Student in an Organized Health Care Education/Training Program
DX: M51.34 Other intervertebral disc degeneration, thoracic region (principal); M51.36 Other intervertebral disc degeneration, lumbar region; M47.816 Spondylosis without myelopathy or radiculopathy, lumbar region; M17.11 Unilateral primary osteoarthritis, right knee; M25.569 Pain in unspecified knee; M54.9 Dorsalgia, unspecified
CPT/HCPCS: 72072; 72100; 73562

== ENCOUNTER 2021-04-17 21:02 | Emergency (ER) | payer MEDICARE, MEDICAID, SELFPAY ==
[2019-12-28 15:14] VITALS: BMI 22.9
[2021-04-17 21:10] VITALS: BP 102/58; PULSE 72; RESP 17; TEMP 36.8; O2SAT 98; BMI 29.2
--- NOTE | 2021-04-17 22:44 | PC.NURSE ---
Patient was sleeping when RN came to assess her. Her daughter, Ronna, gave a detailed report: the patient has been having severe back and leg pain for a couple of weeks. She was given some relief with Tordadol during her previous ED visit which helped. She subsequently saw her PCP who diagnosed her with arthritis and recommended physical therapy; she has been having increasing pain unrelieved by the medication (Ronna thinks it is meloxicab) prescribed by her MD. She presents today sleeping so RN is not going to waken her until MD is available.
--- NOTE | 2021-04-17 23:06 | ED.BACK ---
HPI - Back Pain/Injury General Chief Complaint: Back Pain/Injury Stated Complaint: Severe back pain Time Seen by Provider: 04/17/21 21:07 Source: patient Mode of arrival: Wheelchair Limitations: no limitations History of Present Illness HPI Narrative: 65-year-old female daily smoker with history of type 2 diabetes and ongoing left lower back pain with radiation down her left leg. She has had troubles for some time including falls on various occasions but nothing recently. She states the pain is worse with motion and improves with rest, she states it starts in her lower back and radiates down her left lateral leg. It is sharp and stabbing and improves with rest. She denies any numbness, tingling or weakness. She has no footdrop. She denies any loss of control of bowel or bladder. She has had no recent trauma denies the use of blood thinners or street drugs. She has no chest pain or shortness of breath. MD Complaint: back pain Onset (ago): day(s) Duration: constant Similar Symptoms Previously: Yes Location: lumbar spine Severity: moderate Quality: burning and sharp Radiation: none Relieving factors: other Exacerbating factors: movement Associated symptoms: denies other symptoms Related Data Home Medications Medication Instructions Recorded Confirmed quetiapine 100 mg tablet 100 mg PO DAILY 01/25/21 04/11/21 Previous Rx's Medication Instructions Recorded aspirin 81 mg PO DAILY #30 tab 12/14/19 levothyroxine 25 mcg tablet 25 mcg PO QAM #30 tab 04/15/20 liothyronine 5 mcg tablet 5 mcg PO BID #60 tab 04/15/20 losartan 50 mg tablet 50 mg PO Q DAY #90 tab 07/27/20 simvastatin 80 mg tablet 80 mg PO DAILY #90 tab 07/27/20 gabapentin 300 mg capsule 600 mg PO Q OTHER DAY #90 cap 08/17/20 risperidone 1 mg tablet 1 mg PO DAILY #30 tab 02/28/21 citalopram 40 mg tablet 40 mg PO DAILY #30 tab 03/17/21 clonazepam 0.5 mg tablet See Rx Instructions .ROUTE 03/17/21 .COMPLEX #150 tab topiramate 100 mg tablet 100 mg PO BID #60 tab 03/17/21 propranolol 10 mg tablet 20 mg PO TID #180 tab 03/28/21 meloxicam 15 mg tablet 15 mg PO DAILY PRN 30 Days #30 tab 04/06/21 cyclobenzaprine 10 mg PO TID PRN #14 tab 04/18/21 ketorolac 10 mg PO Q6H PRN #14 tab 04/18/21 methylprednisolone [Medrol (Pritesh)] See Rx Instructions .ROUTE 04/18/21 .COMPLEX #21 ea Allergies Allergy/AdvReac Type Severity Reaction Status Date / Time NASRIN Inhibitors Allergy Intermediate EDEMA IN Verified 04/17/21 21:13 BOTH HANDS codeine Allergy Mild NAUSEA/VOMI Verified 04/17/21 21:13 TING meperidine Allergy Mild VOMITING Verified 04/17/21 21:13 Review of Systems Constitutional Constitutional: Denies chills, Denies fatigue, Denies fever(s), Denies frequent falls, Denies lethargy and Denies weakness Eyes Eyes: Denies change in vision, Denies eye discharge, Denies irritation and Denies loss of vision ENT Ears, Nose, Mouth, and Throat: Denies change in voice, Denies dizziness, Denies neck pain, Denies sore throat and Denies throat swelling Cardiovascular Cardiovascular: Denies chest pain, Denies irregular heart rhythm, Denies lightheadedness, Denies palpitations, Denies dyspnea, Denies dyspnea on exertion and Denies orthopnea Respiratory Respiratory: Denies cough, Denies dyspnea, Denies dyspnea on exertion and Denies wheezing Gastrointestinal Gastrointestinal: Denies abdominal pain, Denies change in bowel habits, Denies diarrhea, Denies nausea and Denies vomiting Musculoskeletal Musculoskeletal: Reports back pain, Denies neck pain and Denies numbness Integumentary/Breasts Skin/Breast: Denies pruritus, Denies erythema, Denies rash and Denies wounds Neurologic Neurologic: Denies behavioral changes, Denies confusion, Denies dizziness, Denies frequent falls, Denies loss of vision, Denies numbness and Denies weakness Psychiatric Psychiatric: Denies anxiety, Denies behavioral changes, Denies confusion, Denies depression, Denies homicidal ideation and Denies suicidal ideation Endocrine Endocrine: Denies fatigue, Denies flushing and Denies palpitations Hematologic/Lymphatic Hematologic/Lymphatic: Denies easy bruising Allergic/Immunologic Allergic/Immunologic: Denies urticaria, Denies throat swelling and Denies wheezing Patient History Medical History Amphetamine use disorder, severe, in early remission Anemia Anterior myocardial infarction (2007) CAD (coronary artery disease) Chest pain Chicken pox Chronic headaches Chronic pain Depression Diabetes mellitus 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 Hyperlipidemia Hypertension Intentional benzodiazepine overdose Measles Migraines Narcotic abuse, episodic Panic disorder Panic disorder without agoraphobia (02/21/11) PTSD (post-traumatic stress disorder) Surgical History Anesthesia History of appendectomy History of colonoscopy with polypectomy (12/29/14) History of esophagogastroduodenoscopy (EGD) (12/29/14) History of tonsillectomy Status post blepharoplasty of both eyes (11/11/12) Status post insertion of drug-eluting stent into left anterior descending (LAD) artery (2007) Family History Father Diabetes mellitus Heart disease Hypertension Stroke Social History household members: none Smoking Status: Current every day smoker alcohol intake: never substance use type: does not use Smoking Status: Current every day smoker tobacco type: cigarettes alcohol intake frequency: holidays/special occasions only Substance Use Type: does not use Exam Narrative Exam Narrative: GENERAL: [65] year old patient appears stated age. Well-developed patient, in mild distress. HEAD: Atraumatic. Normocephalic. EYES: Pupils equal round and reactive. Extraocular motions intact. No scleral icterus. No injection or drainage. ENT: Nose without bleeding, purulent drainage. Throat without erythema, tonsillar hypertrophy or exudate. Airway patent. NECK: Trachea midline. Non tender CARDIOVASCULAR: Regular rate and rhythm without murmurs, gallops, or rubs. RESPIRATORY: Clear to auscultation. Breath sounds equal bilaterally. No wheezes, rales, or rhonchi. GASTROINTESTINAL: Abdomen soft, non-tender, nondistended. EXTREMITIES: No edema or joint tenderness. BACK: assembly machine tender but free of any obvious external abnormalities. Patient exam notes decreased range of motion and muscle spasm, but no CVA tenderness, or vertebral point tenderness. There are no symptoms of cauda equina such as saddle anesthesia, and decreased reflexes, decreased sensation or strength. NEURO: AOx3. SKIN: No rash or erythema of visible areas Initial Vital Signs Initial Vital Signs: Vital Signs Temperature 98.2 F 04/17/21 21:10 Pulse Rate 72 04/17/21 21:10 Respiratory Rate 17 04/17/21 21:10 Blood Pressure 102/58 L 04/17/21 21:10 Pulse Oximetry 98 04/17/21 21:10 Course Orders Ordered: ED Orders 04/17/21 23:54 CT lumbar spine wo con Stat Discontinued Medications Gabapentin (Gabapentin 300 Mg Capsule) 300 mg PO NOW ONE Stop: 04/17/21 23:55 Last Admin: 04/18/21 00:19 Dose: 300 mg Documented by: VIJAY Prednisone (Prednisone 20 Mg Tablet) 40 mg PO NOW ONE Stop: 04/17/21 23:55 Last Admin: 04/18/21 00:19 Dose: 40 mg Documented by: VIJAY Vital Signs Vital signs: Vital Signs - 8 hr 04/18/21 01:49 Temperature 98.1 F Pulse Rate 67 Respiratory Rate 16 Blood Pressure 117/70 Pulse Oximetry 95 MDM - Back Pain/Injury Imaging Data L Spine: Radiologist's Impression: No acute findings MDM Narrative Medical decision making narrative: Multiple etiologies of back pain considered including; Epidural abscess, cauda equina, mass occupying lesion, and other considered Patient is very reassuring exam, CT scan demonstrates no obvious abnormality. She is given above-stated medications and demonstrates improvement even while in the department. Return precautions given and questions answered to her apparent satisfaction Discharge Plan Departure Patient Disposition: Home Clinical Impression: Acute left lumbar radiculopathy Instructions: DI for Low Back Pain Activity Restrictions/Additional Instructions: *You have been diagnosed with [lumbar pain with radiculopathy] *What to do: *Please continue to take your regular medications as directed. [x ] New medication prescriptions sent to your pharmacy: [ ] [ ] New medication written as a paper prescription [ ] No new medications given *Please follow up with your primary care provider in 2-3 days, call for an appointment. Let them know you were seen in the Emergency Department and that we ask that you be seen in follow up. We will electronically transmit a record of today's note if your PCP is in our system *If you do not have a primary care provider please contact the [facility] Resource line at [phone]. They will ask some questions about your medical history and help get you set up with a doctor in the community. *Return to Emergency Department if you should have any new, worsening or concerning symptoms, such as [fever greater than 101 F, shaking chills, worsening pain, persistent vomiting or other bothersome symptoms] Prescriptions: New cyclobenzaprine 10 mg tablet 10 mg PO TID PRN (Reason: muscle spasm) Qty: 14 RF: 0 ketorolac 10 mg tablet 10 mg PO Q6H PRN (Reason: pain) Qty: 14 RF: 0 methylprednisolone [Medrol (Pritesh)] 4 mg tablets,dose pack See Rx Instructions .ROUTE .COMPLEX Qty: 21 RF: 0 No Action quetiapine 100 mg tablet 100 mg PO DAILY RF: 0 risperidone 1 mg tablet 1 mg PO DAILY Qty: 30 RF: 1 propranolol 10 mg tablet 20 mg PO TID Qty: 180 RF: 1 liothyronine [Cytomel] 5 mcg tablet 5 mcg PO BID Qty: 60 RF: 11 levothyroxine 25 mcg tablet 25 mcg PO QAM Qty: 30 RF: 11 losartan [Cozaar] 50 mg tablet 50 mg PO Q DAY Qty: 90 RF: 3 simvastatin [Zocor] 80 mg tablet 80 mg PO DAILY Qty: 90 RF: 3 citalopram 40 mg tablet 40 mg PO DAILY Qty: 30 RF: 1 clonazepam 0.5 mg tablet See Rx Instructions .ROUTE .COMPLEX Qty: 150 RF: 0 topiramate [Topamax] 100 mg tablet 100 mg PO BID Qty: 60 RF: 11 gabapentin 300 mg capsule 600 mg PO Q OTHER DAY Qty: 90 RF: 3 meloxicam 15 mg tablet 15 mg PO DAILY PRN (Reason: Pain) 30 Days Qty: 30 RF: 0 aspirin 81 mg tablet,delayed release (DR/EC) 81 mg PO DAILY Qty: 30 RF: 0 Referrals: Mitchel German MD [Primary Care Provider] -
--- NOTE | 2021-04-17 23:54 | DI.CT.S_ITS ---
PROCEDURE: CT LUMBAR SPINE WO CON INDICATIONS: severe lumbar pain TECHNIQUE: Noncontrast 3 mm thick sections acquired from the T12 level to the sacrum. Sagittal and coronal reformats were constructed. For radiation dose reduction, the following was used: automated exposure control. COMPARISON: None. FINDINGS: Image quality: Degraded by patient motion artifact. Bones: There is normal bony alignment. No acute vertebral body compression fractures. No suspicious lytic or blastic bony lesions. No pars defects. Spine degenerative disc disease and facet arthropathy. Soft tissues: No retroperitoneal masses or hematomas. Visualized aorta is normal in caliber. IMPRESSION: No fracture. No acute osseous lesion. If symptoms and/or clinical suspicion for pathology persists, evaluation with MRI should be considered for further assessment. Dictated by: Haley Cabrera MD, PhD on 04/18/2021 at 7:43 Approved by: Haley Cabrera MD, PhD on 04/18/2021 at 7:46
[2021-04-18] MEDS: predniSONE 20 MG TABLET 40 MG PO (00:19)
[2021-04-18] MEDS: GABAPENTIN 300 MG CAPSULE PO (00:19)
[2021-04-18 01:49] VITALS: BP 117/70; PULSE 67; RESP 16; TEMP 36.7; O2SAT 95
== END 2021-04-18 01:50 | disposition home or self-care (01) ==
PROVIDERS: Emergency Provider Emergency Medicine; PCP Student in an Organized Health Care Education/Training Program
DX: M54.16 Radiculopathy, lumbar region (principal)
CPT/HCPCS: 72131; 99283; 99284

== ENCOUNTER 2021-07-12 13:00 | Outpatient (RCR) | payer MEDICARE, MEDICAID, SELFPAY ==
[2019-12-28 15:14] VITALS: BMI 22.9
--- NOTE | 2021-05-08 16:00 | PT.OPPOC ---
Physical, Occupational & Speech Therapy At [facility] Current Diagnoses Unspecified osteoarthritis, unspecified site (05/08/21) Pain in unspecified knee (05/08/21) Dorsalgia, unspecified (05/08/21) Difficulty in walking, not elsewhere classified (05/08/21) Abnormal posture (05/08/21) Visit Care Team Role Provider Type Mitchel German MD Attending Provider Physician Primary Care Provider Referring Provider Specialty: Internal Medicine Address: [address] [place] [address], [address], [facility] Email: [email or web address] Plan Of Care PT-OP-T Assessment and Plan Start: 04/26/21 14:10 Freq: Status: Active Protocol: Document 05/08/21 11:18 SAK (Rec: 05/11/21 21:45 SAK [id number]) Physical Therapy Assessment Rehab Potential Rehabilitation Potential Good Evaluation Complexity Number of Personal Factors/Comorbidities 1-2 Number of Body Systems Impaired 3 Clinical Presentation at Evaluation Evolving Impairments Impairments Activity Tolerance,Gait,Pain, Posture Goals Six Impairment balance dysfunction Short Term Goal (STG) Perform objective balance assessment to include Amaro Balance assessment Retirement Goal (LTG) Patient to score in the low fall risk category on Amaro balance score LTG Duration 08/09/21 Five Impairment unable to walk without pain Retirement Goal (LTG) Patient will be able to resume prior level of activity including returning to taking walks of 3 miles with minimal to no pain with least restrictive device. LTG Duration 08/09/21 Four Impairment postural dysfunction with moderate lean to the right Mold Cooler Goal (LTG) Patient will be able to stand and walk with neutral posture without an increase in pain LTG Duration 08/09/21 Three Impairment Oswestry disability index score 30% Retirement Goal (LTG) Decrease Oswestry disability index score to no greater than 10% as measure of improved activity tolerance and functin LTG Duration 08/09/21 Two Impairment LE functional scale score 50% Short Term Goal (STG) Improve LEFS to at least 60% as measure of improved activity tolerance and function Mold Cooler Goal (LTG) Improve LEFS score to at least 75% as measure of improved activity tolerance and function LTG Duration 08/09/21 One Impairment pain thoracic spine, left LE Short Term Goal (STG) Decrease pain to no greater than 4/10 STG Duration 06/27/21 Retirement Goal (LTG) decrease pain to no greater than 2/10 with all usual activities LTG Duration 08/09/21 Assessment Summary Assessment Patient presents with function -limiting pain s/p multiple falls. x-rays negative except for possible patellar fracture right. Objective assessment difficulty due to high pain level. Patient activity level is very low, she sits, stands, and walks with significant lean to the right, has difficulty correcting. Hasn't been using assistive device, but may benefit from use of cane or trekking pole, or possibly walker. No clear cause of falls, time limitations didn't allow for balance assessment this date; will perform at subsequent visits. Feel she would benefit from PT for pain management, gentle progression of therapeutic exercises, balance assessment and treatment, gait training, modalities and mnanual therapy as indicated. Physical Therapy Plan Frequency and Duration Frequency of Treatment 2x/Week Duration of Treatment 12 weeks Plan of Care Start Date 05/08/21 Plan of Care End Date 08/09/21 Therapeutic Interventions Therapeutic Interventions Aquatic Therapy,Gait Training, Home Exercise Program,Joint Mobilizations,Manual Therapy, Neuromuscular Re-education, Patient/Caregiver Education, Self-Care/Home Management,Soft Tissue Mobilization,Taping, Therapeutic Activities, Therapeutic Exercises Modalities Cold Pack/Ice Massage,Electric Stimulation,Hot Packs Next Visit Focus/Plan Next Note Type Treatment Note Next Visit Plan REview HEP, gentle ther ex progression for postural correction and stabilization, LE strengthening, gait training possibly with assistive device . End with heat or ice as indicated ( patient expressed preverence for heat). balance assessment and treatment as indicated. Plan of Care Dates Plan of Care Start Date 05/08/21 Plan of Care End Date 08/09/21 Electronically Signed by: Brittani Jensen, PT 05/11/21 [id number] Please Sign and Return: I have reviewed this Plan of Care and certify that the skilled therapy services above are required to meet the patient?s needs. Physician Signature Date Printed Name and Credentials Clinical Instructor Signature Printed Name and Credentials
--- NOTE | 2021-05-08 16:00 | PT.OIE ---
Current Diagnoses Unspecified osteoarthritis, unspecified site (05/08/21) Pain in unspecified knee (05/08/21) Dorsalgia, unspecified (05/08/21) Difficulty in walking, not elsewhere classified (05/08/21) Abnormal posture (05/08/21) Past Medical History (Last Reviewed 04/18/21 @ 00:00 by Tristin Covarrubias DO) Amphetamine use disorder, severe, in early remission Anemia Anterior myocardial infarction (2007) CAD (coronary artery disease) Chest pain Chicken pox Chronic headaches Chronic pain Depression Diabetes mellitus 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 History of appendectomy History of colonoscopy with polypectomy (12/29/14) History of esophagogastroduodenoscopy (EGD) (12/29/14) History of tonsillectomy Hyperlipidemia Hypertension Intentional benzodiazepine overdose Measles Migraines Narcotic abuse, episodic Panic disorder Panic disorder without agoraphobia (02/21/11) PTSD (post-traumatic stress disorder) Status post blepharoplasty of both eyes (11/11/12) Past Surgical History (Last Reviewed 04/18/21 @ 00:00 by Tristin Covarrubias DO) Anesthesia History of appendectomy History of colonoscopy with polypectomy (12/29/14) History of esophagogastroduodenoscopy (EGD) (12/29/14) History of tonsillectomy Status post blepharoplasty of both eyes (11/11/12) Status post insertion of drug-eluting stent into left anterior descending (LAD) artery (2007) Visit Care Team Role Provider Type Mitchel German MD Attending Provider Physician Primary Care Provider Referring Provider Specialty: Internal Medicine Address: [address] [place] [address], [address], [facility] Email: [email or web address] Physical Therapy Initial Evaluation PT-OP-A Visit Information Start: 04/26/21 14:10 Freq: Status: Active Protocol: Document 05/08/21 11:18 VARSHA (Rec: 05/08/21 12:00 VARSHA [id number]) Out-Patient Physical Therapy Visit Information Visit Information Visit Type Initial Evaluation Visit Start Time 11:15 Visit Stop Time 12:10 Total Visit Minutes 55 Visit Number 1 Evaluation Information Evaluation Date 05/08/21 PT-OP-B Current Condition Start: 04/26/21 14:10 Freq: Status: Active Protocol: Document 05/08/21 11:18 [facility] (Rec: 05/08/21 12:00 [facility] [id number]) Current Condition History of Current Condition Onset Date 1 month Current Complaints left LE pain History of Current Condition 4 falls in short period of time; was on folding ladder, fell off. Going downstairs, slipped and fell. Working in yard fell on rocks. Initially pain right knee; x-ray showed chip in knee cap. After subsequent falls, pain in left side. Exacerbation of mid and upper back pain since falls. A little better now but still leaning to side and forward, can't walk straight. Occasional tingling left foot, occasionally gives way (every other day), has fallen when leg gives way. Hasn't used assistive device. Less pain when walking with cart at grocery store. 4 days ago spent 2 days in bed, lots less pain, then overdid activity and increased pain again. No use of ice or heat. Worst pain back of right knee when standing and walking, best when laying down on right side . Prior Treatments and Tests xrays negative Future Testing and Treatments Planned Not sure when sees Dr. German for follow-up appointment. Treatment Goals Patient/Caregiver Goals return to prior level of function including ability to walk 3 miles, currently unable to walk due to pain. Prior Functional Status Baseline Function- ADL's Independent Baseline Function- Mobility Independent Baseline Function- Gait indep no device Baseline Function- Work/School retired Baseline Function- Recreation/Hobbies took walks of up to 3 miles at a time without difficulty or pain. Current Functional Impairments (Reported) Functional Limitations- ADL's painful Functional Limitations- Mobility/Gait painful and extremely limited Functional Limitations- Work/School retired Functional Limitations- Recreation/ unable to go for walks Hobbies Personal Factors Other Personal Factors That May Effect depression Therapy/Recovery PT-OP-C Subjective Start: 04/26/21 14:10 Freq: Status: Active Protocol: Document 05/08/21 11:18 [facility] (Rec: 05/11/21 21:45 [facility] [id number]) Patient Questionnaires Lower Extremity Functional Scale LEFS Score 50 Oswestry Low Back Index Oswestry Score 30% OP-PT Pain Assessment Location left LE Intensity 7 thoracic spine flora Intensity 7 PT-OP-G Mobility & Gait Start: 04/26/21 14:10 Freq: Status: Active Protocol: Document 05/08/21 11:18 SAK (Rec: 05/11/21 21:45 [facility] [id number]) OP Gait Assessment Gait Gait Assistance Required: Independent Assistive Devices Assistive Device None Gait Deviations General Gait Pattern Antalgic,Lateral Trunk Lean Comments Gait Comments trunk lean to right in standing and with gait. Stair Climbing Evaluation Comments Stair Climbing Comments not tested today due to high pain level PT-OP-H Neuro Start: 04/26/21 14:10 Freq: Status: Active Protocol: Document 05/08/21 11:18 SAK (Rec: 05/11/21 21:45 [facility] [id number]) Sensation Evaluation Gross Sensation Gross Sensation WNL PT-OP-J Posture/Palpation/Skin Start: 04/26/21 14:10 Freq: Status: Active Protocol: Document 05/08/21 11:18 SAK (Rec: 05/11/21 21:45 [facility] [id number]) Posture Evaluation Position Standing Head/C-Spine Posture Side Bent Right,Forward Head T-Spine Posture Increased Kyphosis L-Spine Posture Shifted Right Palpation Assessment Location left LE Palpation Findings Soft Tissue Tightness,Muscle Guarding,Tenderness thoracic spine flora Palpation Findings Soft Tissue Tightness,Muscle Guarding,Tenderness PT-OP-K Range of Motion Start: 04/26/21 14:10 Freq: Status: Active Protocol: Document 05/08/21 11:18 SAK (Rec: 05/11/21 21:45 [facility] [id number]) Lumbar Spine Range of Motion Lumbar Spine Active Testing Position Standing ROM Limitations Pain Comments moderate decrease all motions Shoulder Goniometric Range of Motion Shoulder flora Shoulder ROM WFL Yes Hip Goniometric Range of Motion Hip Left Hip ROM WFL No Flexion w/Knee Flexed 90 Straight Leg Raise 45 Extension 0 Abduction 25 Internal Rotation 20 External Rotation 35 Right Hip ROM WFL Yes Knee Goniometric Range of Motion Knee Left Knee ROM WFL No Flexion Active (degrees) 90 Extension Active (degrees) 5 Right Knee ROM WFL Yes Ankle and Foot Goniometric Range of Motion Ankle and Foot flora Ankle/Foot ROM WFL Yes PT-OP-M Strength Start: 04/26/21 14:10 Freq: Status: Active Protocol: Document 05/08/21 11:18 SAK (Rec: 05/11/21 21:45 [facility] [id number]) Shoulder Strength Shoulder Manual Muscle Testing flora Comments MMT difficult due to high level of pain in spine, low tolerance for resistance. Demonstrates anti-gravity strength approximately 75% Hip Strength Hip Manual Muscle Testing Left Flexion (L2) 3+ Fair+ Extension (S1) 3- Fair- Abduction 3+ Fair+ Adduction 3+ Fair+ External Rotation 3+ Fair+ Internal Rotation 3+ Fair+ Comments limited by pain Right Flexion (L2) 4- Good- Extension (S1) 3+ Fair+ Abduction 4- Good- Adduction 4- Good- External Rotation 4- Good- Internal Rotation 4- Good- Knee Strength Knee Manual Muscle Testing Left Flexion (S2) 4 Good Extension (L3) 4 Good Comments limited by pain Right Flexion (S2) 5 Normal Extension (L3) 5 Normal Ankle/Foot Strength Ankle and Foot Manual Muscle Testing flora Dorsiflexion (L4) 5 Normal Plantarflexion (S1) 5 Normal PT-OP-Q Treatments Start: 04/26/21 14:10 Freq: Status: Active Protocol: Document 05/08/21 11:18 [facility] (Rec: 05/11/21 21:45 [facility] [id number]) Self-Care/Home Management Treatment Education Patient Education Home Exercise Program Other Education written handout issued, patient demonstrated good understanding PT-OP-R Modalities Start: 04/26/21 14:10 Freq: Status: Active Protocol: Document 05/08/21 11:18 [facility] (Rec: 05/11/21 21:45 [facility] [id number]) Hot Pack/Cold Pack Treatment Hot Pack Location thoracic spine, left hip Patient Position Hooklying Treatment Duration (minutes) 15 Patient Tolerance Good PT-OP-T Assessment and Plan Start: 04/26/21 14:10 Freq: Status: Active Protocol: Document 05/08/21 11:18 [facility] (Rec: 05/11/21 21:45 [facility] [id number]) Physical Therapy Assessment Rehab Potential Rehabilitation Potential Good Evaluation Complexity Number of Personal Factors/Comorbidities 1-2 Number of Body Systems Impaired 3 Clinical Presentation at Evaluation Evolving Impairments Impairments Activity Tolerance,Gait,Pain, Posture Goals Six Impairment balance dysfunction Short Term Goal (STG) Perform objective balance assessment to include Amaro Balance assessment Sdv Pilot/Navigator/Dds Operator Goal (LTG) Patient to score in the low fall risk category on Amaro balance score LTG Duration 08/09/21 Five Impairment unable to walk without pain Penitentiary Goal (LTG) Patient will be able to resume prior level of activity including returning to taking walks of 3 miles with minimal to no pain with least restrictive device. LTG Duration 08/09/21 Four Impairment postural dysfunction with moderate lean to the right Sdv Pilot/Navigator/Dds Operator Goal (LTG) Patient will be able to stand and walk with neutral posture without an increase in pain LTG Duration 08/09/21 Three Impairment Oswestry disability index score 30% Penitentiary Goal (LTG) Decrease Oswestry disability index score to no greater than 10% as measure of improved activity tolerance and functin LTG Duration 08/09/21 Two Impairment LE functional scale score 50% Short Term Goal (STG) Improve LEFS to at least 60% as measure of improved activity tolerance and function Sdv Pilot/Navigator/Dds Operator Goal (LTG) Improve LEFS score to at least 75% as measure of improved activity tolerance and function LTG Duration 08/09/21 One Impairment pain thoracic spine, left LE 7 /10 Short Term Goal (STG) Decrease pain to no greater than 4/10 STG Duration 06/27/21 Penitentiary Goal (LTG) decrease pain to no greater than 2/10 with all usual activities LTG Duration 08/09/21 Assessment Summary Assessment Patient presents with function -limiting pain s/p multiple falls. x-rays negative except for possible patellar fracture right. Objective assessment difficulty due to high pain level. Patient activity level is very low, she sits, stands, and walks with significant lean to the right, has difficulty correcting. Hasn't been using assistive device, but may benefit from use of cane or trekking pole, or possibly walker. No clear cause of falls, time limitations didn't allow for balance assessment this date; will perform at subsequent visits. Feel she would benefit from PT for pain management, gentle progression of therapeutic exercises, balance assessment and treatment, gait training, modalities and mnanual therapy as indicated. Physical Therapy Plan Frequency and Duration Frequency of Treatment 2x/Week Duration of Treatment 12 weeks Plan of Care Start Date 05/08/21 Plan of Care End Date 08/09/21 Therapeutic Interventions Therapeutic Interventions Aquatic Therapy,Gait Training, Home Exercise Program,Joint Mobilizations,Manual Therapy, Neuromuscular Re-education, Patient/Caregiver Education, Self-Care/Home Management,Soft Tissue Mobilization,Taping, Therapeutic Activities, Therapeutic Exercises Modalities Cold Pack/Ice Massage,Electric Stimulation,Hot Packs Next Visit Focus/Plan Next Note Type Treatment Note Next Visit Plan REview HEP, gentle ther ex progression for postural correction and stabilization, LE strengthening, gait training possibly with assistive device . End with heat or ice as indicated ( patient expressed preverence for heat). balance assessment and treatment as indicated.
--- NOTE | 2021-05-18 09:45 | PT.OTN ---
Current Diagnoses Unspecified osteoarthritis, unspecified site (05/18/21) Pain in unspecified knee (05/18/21) Dorsalgia, unspecified (05/18/21) Difficulty in walking, not elsewhere classified (05/18/21) Abnormal posture (05/18/21) Physical Therapy Treatment Note PT-OP-A Visit Information Start: 04/26/21 14:10 Freq: Status: Active Protocol: Document 05/18/21 09:04 SP (Rec: 05/18/21 10:38 SP [id number]) Out-Patient Physical Therapy Visit Information Visit Information Visit Type Treatment Note Visit Start Time 09:04 Visit Stop Time 09:45 Total Visit Minutes 41 Visit Number 2 Number of GROUP MANAGING DIRECTOR Visits 1 Evaluation Information Evaluation Date 05/08/21 PT-OP-B Current Condition Start: 04/26/21 14:10 Freq: Status: Active Protocol: Document 05/08/21 11:18 SAK (Rec: 05/08/21 12:00 SAK [id number]) Current Condition History of Current Condition Onset Date 1 month Current Complaints left LE pain History of Current Condition 4 falls in short period of time; was on folding ladder, fell off. Going downstairs, slipped and fell. Working in yard fell on rocks. Initially pain right knee; x-ray showed chip in knee cap. After subsequent falls, pain in left side. Exacerbation of mid and upper back pain since falls. A little better now but still leaning to side and forward, can't walk straight. Occasional tingling left foot, occasionally gives way (every other day), has fallen when leg gives way. Hasn't used assistive device. Less pain when walking with cart at grocery store. 4 days ago spent 2 days in bed, lots less pain, then overdid activity and increased pain again. No use of ice or heat. Worst pain back of right knee when standing and walking, best when laying down on right side . Prior Treatments and Tests xrays negative Future Testing and Treatments Planned Not sure when sees Dr. German for follow-up appointment. Treatment Goals Patient/Caregiver Goals return to prior level of function including ability to walk 3 miles, currently unable to walk due to pain. Prior Functional Status Baseline Function- ADL's Independent Baseline Function- Mobility Independent Baseline Function- Gait indep no device Baseline Function- Work/School retired Baseline Function- Recreation/Hobbies took walks of up to 3 miles at a time without difficulty or pain. Current Functional Impairments (Reported) Functional Limitations- ADL's painful Functional Limitations- Mobility/Gait painful and extremely limited Functional Limitations- Work/School retired Functional Limitations- Recreation/ unable to go for walks Hobbies Personal Factors Other Personal Factors That May Effect depression Therapy/Recovery PT-OP-C Subjective Start: 04/26/21 14:10 Freq: Status: Active Protocol: Document 05/18/21 09:04 SP (Rec: 05/18/21 10:38 SP [id number]) OP-PT Subjective Patient Comments Patient Comments Pt stated has been able to do her exercises due to to painful. She stated walking without good posture. PT-OP-G Mobility & Gait Start: 04/26/21 14:10 Freq: Status: Active Protocol: Document 05/08/21 11:18 SAK (Rec: 05/11/21 21:45 SAK [id number]) OP Gait Assessment Gait Gait Assistance Required: Independent Assistive Devices Assistive Device None Gait Deviations General Gait Pattern Antalgic,Lateral Trunk Lean Comments Gait Comments trunk lean to right in standing and with gait. Stair Climbing Evaluation Comments Stair Climbing Comments not tested today due to high pain level PT-OP-H Neuro Start: 04/26/21 14:10 Freq: Status: Active Protocol: Document 05/08/21 11:18 SAK (Rec: 05/11/21 21:45 SAK [id number]) Sensation Evaluation Gross Sensation Gross Sensation WNL PT-OP-J Posture/Palpation/Skin Start: 04/26/21 14:10 Freq: Status: Active Protocol: Document 05/08/21 11:18 SAK (Rec: 05/11/21 21:45 SAK [id number]) Posture Evaluation Position Standing Head/C-Spine Posture Side Bent Right,Forward Head T-Spine Posture Increased Kyphosis L-Spine Posture Shifted Right Palpation Assessment Location left LE Palpation Findings Soft Tissue Tightness,Muscle Guarding,Tenderness thoracic spine flora Palpation Findings Soft Tissue Tightness,Muscle Guarding,Tenderness PT-OP-K Range of Motion Start: 04/26/21 14:10 Freq: Status: Active Protocol: Document 05/08/21 11:18 SAK (Rec: 05/11/21 21:45 SAK [id number]) Lumbar Spine Range of Motion Lumbar Spine Active Testing Position Standing ROM Limitations Pain Comments moderate decrease all motions Shoulder Goniometric Range of Motion Shoulder flora Shoulder ROM WFL Yes Hip Goniometric Range of Motion Hip Left Hip ROM WFL No Flexion w/Knee Flexed 90 Straight Leg Raise 45 Extension 0 Abduction 25 Internal Rotation 20 External Rotation 35 Right Hip ROM WFL Yes Knee Goniometric Range of Motion Knee Left Knee ROM WFL No Flexion Active (degrees) 90 Extension Active (degrees) 5 Right Knee ROM WFL Yes Ankle and Foot Goniometric Range of Motion Ankle and Foot flora Ankle/Foot ROM WFL Yes PT-OP-M Strength Start: 04/26/21 14:10 Freq: Status: Active Protocol: Document 05/08/21 11:18 SAK (Rec: 05/11/21 21:45 SAK [id number]) Shoulder Strength Shoulder Manual Muscle Testing flora Comments MMT difficult due to high level of pain in spine, low tolerance for resistance. Demonstrates anti-gravity strength approximately 75% Hip Strength Hip Manual Muscle Testing Left Flexion (L2) 3+ Fair+ Extension (S1) 3- Fair- Abduction 3+ Fair+ Adduction 3+ Fair+ External Rotation 3+ Fair+ Internal Rotation 3+ Fair+ Comments limited by pain Right Flexion (L2) 4- Good- Extension (S1) 3+ Fair+ Abduction 4- Good- Adduction 4- Good- External Rotation 4- Good- Internal Rotation 4- Good- Knee Strength Knee Manual Muscle Testing Left Flexion (S2) 4 Good Extension (L3) 4 Good Comments limited by pain Right Flexion (S2) 5 Normal Extension (L3) 5 Normal Ankle/Foot Strength Ankle and Foot Manual Muscle Testing flora Dorsiflexion (L4) 5 Normal Plantarflexion (S1) 5 Normal PT-OP-Q Treatments Start: 04/26/21 14:10 Freq: Status: Active Protocol: Document 05/18/21 09:04 SP (Rec: 05/18/21 10:38 SP [id number]) Therapeutic Exercises Supine Exercises pirformis fig 4 stretch Supine Exercise Name foot over opp knee resting and w/hip IR if beneficial Side left Resistance added to HEP Reps/Minutes 20 Comments painfree range B knee fall out Supine Exercise Name added to HEP Side bilateral Reps/Minutes x10 Comments good response painfree Sitting Exercises pirformis fig 4 stretch Sitting Exercise Name added to HEP Side left Reps/Minutes 20 Comments good reponse LE just resting on opp leg w/out hip IR for now. HS stretch Sitting Exercise Name added to HEP Side left Reps/Minutes 20 Comments cued hip hinge- felt ok, little tension painfree Manual Therapy Treatment Soft Tissue Mobilization STMs Body Location L ITB, glut med, pirformis Mobilization Type Cross-Friction,Rolling, Sustained Pressure Intensity/Depth Superficial Body Position Sidelying Comments R sidelying, gentle STMs, instruction in sitting for self usign rolling pin over quad, ITB, HS seemed helpful then 10 min later caused quad irritation. Hold on self STMs rolling pin ball on wall for now. Manual Techniques self STMs Type glut, quad, ITB, HS Comments rolling pin, ball on wall - little soreness over L quad to told her HOLD for now and focus on ROM, stretching. PT-OP-R Modalities Start: 04/26/21 14:10 Freq: Status: Active Protocol: Document 05/08/21 11:18 SAK (Rec: 05/11/21 21:45 SAK [id number]) Hot Pack/Cold Pack Treatment Hot Pack Location thoracic spine, left hip Patient Position Hooklying Treatment Duration (minutes) 15 Patient Tolerance Good PT-OP-T Assessment and Plan Start: 04/26/21 14:10 Freq: Status: Active Protocol: Document 05/18/21 09:04 SP (Rec: 05/18/21 10:38 SP [id number]) Physical Therapy Assessment Goals Six Impairment balance dysfunction Short Term Goal (STG) Perform objective balance assessment to include Amaro Balance assessment Mcc Goal (LTG) Patient to score in the low fall risk category on Amaro balance score LTG Duration 08/09/21 Five Impairment unable to walk without pain Curb Setter Helper Goal (LTG) Patient will be able to resume prior level of activity including returning to taking walks of 3 miles with minimal to no pain with least restrictive device. LTG Duration 08/09/21 Four Impairment postural dysfunction with moderate lean to the right Mcc Goal (LTG) Patient will be able to stand and walk with neutral posture without an increase in pain LTG Duration 08/09/21 Three Impairment Oswestry disability index score 30% Mcc Goal (LTG) Decrease Oswestry disability index score to no greater than 10% as measure of improved activity tolerance and functin LTG Duration 08/09/21 Two Impairment LE functional scale score 50% Short Term Goal (STG) Improve LEFS to at least 60% as measure of improved activity tolerance and function Curb Setter Helper Goal (LTG) Improve LEFS score to at least 75% as measure of improved activity tolerance and function LTG Duration 08/09/21 One Impairment pain thoracic spine, left LE 7 / Short Term Goal (STG) Decrease pain to no greater than 4/10 STG Duration 06/27/21 Curb Setter Helper Goal (LTG) decrease pain to no greater than 2/10 with all usual activities LTG Duration 08/09/21 Assessment Summary Assessment Pt reported L hip little sore after stretching but stated thinks will be helpful. Hold on rolling pin/ glut rolling at wall w/ racquetball due to think iritated L quad. Educated ease fluid movement and gentle stretches at home. Educated will continue to work on decrease muscle tension, posture and progress to strengthening, balance to improve functional mobility with pt in agreement. Physical Therapy Plan Frequency and Duration Frequency of Treatment 2x/Week Duration of Treatment 12 weeks Plan of Care Start Date 05/08/21 Plan of Care End Date 08/09/21 Therapeutic Interventions Therapeutic Interventions Aquatic Therapy,Gait Training, Home Exercise Program,Joint Mobilizations,Manual Therapy, Neuromuscular Re-education, Patient/Caregiver Education, Self-Care/Home Management,Soft Tissue Mobilization,Taping, Therapeutic Activities, Therapeutic Exercises Modalities Cold Pack/Ice Massage,Electric Stimulation,Hot Packs Next Visit Focus/Plan Next Note Type Treatment Note Next Visit Plan Next tx assess response to stretching, manual last tx. Initiated postural ex if tolerated. POC: REview HEP, gentle ther ex progression for postural correction and stabilization, LE strengthening, gait training possibly with assistive device . End with heat or ice as indicated ( patient expressed preverence for heat). balance assessment and treatment as indicated.
--- NOTE | 2021-05-26 12:56 | PT.OTN ---
Current Diagnoses Unspecified osteoarthritis, unspecified site (05/26/21) Pain in unspecified knee (05/26/21) Dorsalgia, unspecified (05/26/21) Difficulty in walking, not elsewhere classified (05/26/21) Abnormal posture (05/26/21) Physical Therapy Treatment Note PT-OP-A Visit Information Start: 04/26/21 14:10 Freq: Status: Active Protocol: Document 05/26/21 12:10 MA (Rec: 05/26/21 12:56 MA [id number]) Out-Patient Physical Therapy Visit Information Visit Information Visit Type Treatment Note Visit Note pt was late to therapy Visit Start Time 12:07 Visit Stop Time 12:48 Total Visit Minutes 41 Visit Number 3 Number of 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 Going downstairs, slipped and fell. Working in yard fell on rocks. Initially pain right knee; x-ray showed chip in knee cap. After subsequent falls, pain in left side. Exacerbation of mid and upper back pain since falls. A little better now but still leaning to side and forward, can't walk straight. Occasional tingling left foot, occasionally gives way (every other day), has fallen when leg gives way. Hasn't used assistive device. Less pain when walking with cart at grocery store. 4 days ago spent 2 days in bed, lots less pain, then overdid activity and increased pain again. No use of ice or heat. Worst pain back of right knee when standing and walking, best when laying down on right side . Prior Treatments and Tests xrays negative Future Testing and Treatments Planned Not sure when sees Dr. German for follow-up appointment. Treatment Goals Patient/Caregiver Goals return to prior level of function including ability to walk 3 miles, currently unable to walk due to pain. Prior Functional Status Baseline Function- ADL's Independent Baseline Function- Mobility Independent Baseline Function- Gait indep no device Baseline Function- Work/School retired Baseline Function- Recreation/Hobbies took walks of up to 3 miles at a time without difficulty or pain. Current Functional Impairments (Reported) Functional Limitations- ADL's painful Functional Limitations- Mobility/Gait painful and extremely limited Functional Limitations- Work/School retired Functional Limitations- Recreation/ unable to go for walks Hobbies Personal Factors Other Personal Factors That May Effect depression Therapy/Recovery PT-OP-C Subjective Start: 04/26/21 14:10 Freq: Status: Active Protocol: Document 05/26/21 12:10 MA (Rec: 05/26/21 12:56 MA [id number]) OP-PT Subjective Patient Comments Patient Comments L lateral hip is bothering pt today PT-OP-G Mobility & Gait Start: 04/26/21 14:10 Freq: Status: Active Protocol: Document 05/08/21 11:18 SAK (Rec: 05/11/21 21:45 SAK [id number]) OP Gait Assessment Gait Gait Assistance Required: Independent Assistive Devices Assistive Device None Gait Deviations General Gait Pattern Antalgic,Lateral Trunk Lean Comments Gait Comments trunk lean to right in standing and with gait. Stair Climbing Evaluation Comments Stair Climbing Comments not tested today due to high pain level PT-OP-H Neuro Start: 04/26/21 14:10 Freq: Status: Active Protocol: Document 05/08/21 11:18 SAK (Rec: 05/11/21 21:45 SAK [id number]) Sensation Evaluation Gross Sensation Gross Sensation WNL PT-OP-J Posture/Palpation/Skin Start: 04/26/21 14:10 Freq: Status: Active Protocol: Document 05/08/21 11:18 SAK (Rec: 05/11/21 21:45 SAK [id number]) Posture Evaluation Position Standing Head/C-Spine Posture Side Bent Right,Forward Head T-Spine Posture Increased Kyphosis L-Spine Posture Shifted Right Palpation Assessment Location left LE Palpation Findings Soft Tissue Tightness,Muscle Guarding,Tenderness thoracic spine flora Palpation Findings Soft Tissue Tightness,Muscle Guarding,Tenderness PT-OP-K Range of Motion Start: 04/26/21 14:10 Freq: Status: Active Protocol: Document 05/08/21 11:18 SAK (Rec: 05/11/21 21:45 SAK [id number]) Lumbar Spine Range of Motion Lumbar Spine Active Testing Position Standing ROM Limitations Pain Comments moderate decrease all motions Shoulder Goniometric Range of Motion Shoulder flora Shoulder ROM WFL Yes Hip Goniometric Range of Motion Hip Left Hip ROM WFL No Flexion w/Knee Flexed 90 Straight Leg Raise 45 Extension 0 Abduction 25 Internal Rotation 20 External Rotation 35 Right Hip ROM WFL Yes Knee Goniometric Range of Motion Knee Left Knee ROM WFL No Flexion Active (degrees) 90 Extension Active (degrees) 5 Right Knee ROM WFL Yes Ankle and Foot Goniometric Range of Motion Ankle and Foot flora Ankle/Foot ROM WFL Yes PT-OP-M Strength Start: 04/26/21 14:10 Freq: Status: Active Protocol: Document 05/08/21 11:18 SAK (Rec: 05/11/21 21:45 SAK [id number]) Shoulder Strength Shoulder Manual Muscle Testing flora Comments MMT difficult due to high level of pain in spine, low tolerance for resistance. Demonstrates anti-gravity strength approximately 75% Hip Strength Hip Manual Muscle Testing Left Flexion (L2) 3+ Fair+ Extension (S1) 3- Fair- Abduction 3+ Fair+ Adduction 3+ Fair+ External Rotation 3+ Fair+ Internal Rotation 3+ Fair+ Comments limited by pain Right Flexion (L2) 4- Good- Extension (S1) 3+ Fair+ Abduction 4- Good- Adduction 4- Good- External Rotation 4- Good- Internal Rotation 4- Good- Knee Strength Knee Manual Muscle Testing Left Flexion (S2) 4 Good Extension (L3) 4 Good Comments limited by pain Right Flexion (S2) 5 Normal Extension (L3) 5 Normal Ankle/Foot Strength Ankle and Foot Manual Muscle Testing flora Dorsiflexion (L4) 5 Normal Plantarflexion (S1) 5 Normal PT-OP-Q Treatments Start: 04/26/21 14:10 Freq: Status: Active Protocol: Document 05/26/21 12:10 MA (Rec: 05/26/21 12:56 MA [id number]) Therapeutic Exercises Supine Exercises Bridges Side bilateral Reps/Minutes 10x 5 SH Comments pt c/o tailbone pain after 8 pirformis fig 4 stretch Supine Exercise Name foot over opp knee resting and w/hip IR if beneficial Side left Resistance added to HEP Reps/Minutes 20 Comments d/c due to pain today B knee fall out Supine Exercise Name added to HEP Side bilateral Reps/Minutes x10 Comments good response painfree Sitting Exercises pirformis fig 4 stretch Sitting Exercise Name added to HEP Side left Reps/Minutes 20 Comments long sitting today & in chair HS stretch Sitting Exercise Name added to HEP Side left Reps/Minutes 20 Comments cued hip hinge- felt ok, little tension painfree Standing Exercises Calf Raises Side bilateral Equipment Used 4 stair step Reps/Minutes 10x Stretch Standing Exercise Name calf stretch on DELONTE Side bilateral Reps/Minutes 1 min Manual Therapy Treatment Soft Tissue Mobilization STMs Body Location L ITB, glut med, pirformis Mobilization Type Cross-Friction,Rolling, Sustained Pressure Intensity/Depth Superficial Body Position Sidelying Comments R sidelying, gentle STMs, instruction in sitting for self usign rolling pin over quad, ITB, HS seemed helpful then 10 min later caused quad irritation. Hold on self STMs rolling pin ball on wall for now. PT-OP-R Modalities Start: 04/26/21 14:10 Freq: Status: Active Protocol: Document 05/08/21 11:18 SAK (Rec: 05/11/21 21:45 SAK [id number]) Hot Pack/Cold Pack Treatment Hot Pack Location thoracic spine, left hip Patient Position Hooklying Treatment Duration (minutes) 15 Patient Tolerance Good PT-OP-T Assessment and Plan Start: 04/26/21 14:10 Freq: Status: Active Protocol: Document 05/26/21 12:10 MA (Rec: 05/26/21 12:56 MA [id number]) Physical Therapy Assessment Goals Six Impairment balance dysfunction Short Term Goal (STG) Perform objective balance assessment to include Amaro Balance assessment Support Group Manager Goal (LTG) Patient to score in the low fall risk category on Amaro balance score LTG Duration 08/09/21 Five Impairment unable to walk without pain [facility] Goal (LTG) Patient will be able to resume prior level of activity including returning to taking walks of 3 miles with minimal to no pain with least restrictive device. LTG Duration 08/09/21 Four Impairment postural dysfunction with moderate lean to the right [facility] Goal (LTG) Patient will be able to stand and walk with neutral posture without an increase in pain LTG Duration 08/09/21 Three Impairment Oswestry disability index score 30% [facility] Goal (LTG) Decrease Oswestry disability index score to no greater than 10% as measure of improved activity tolerance and functin LTG Duration 08/09/21 Two Impairment LE functional scale score 50% Short Term Goal (STG) Improve LEFS to at least 60% as measure of improved activity tolerance and function Support Group Manager Goal (LTG) Improve LEFS score to at least 75% as measure of improved activity tolerance and function LTG Duration 08/09/21 One Impairment pain thoracic spine, left LE Short Term Goal (STG) Decrease pain to no greater than 4/10 STG Duration 06/27/21 [facility] Goal (LTG) decrease pain to no greater than 2/10 with all usual activities LTG Duration 08/09/21 Assessment Summary Assessment Pt has pain through calf during most stretches. She has difficulty with piriformis stretch and feels it more in her ruiz than her hip. Attempted Lisandro stretch with pt also feeling pain through her ankle up to her knee both anteriorly and posteriorly. Stretched flora gastrocs on DELONTE and spent most of session cueing pt for proper LE positioning during HEP stretches and proper posture to avoid feeling the stretches in her back. Educated pt on working on her posture at home and trying to use rolling pin on LLE. Will continue posture training next session. Physical Therapy Plan Frequency and Duration Frequency of Treatment 2x/Week Duration of Treatment 12 weeks Plan of Care Start Date 05/08/21 Plan of Care End Date 08/09/21 Therapeutic Interventions Therapeutic Interventions Aquatic Therapy,Gait Training, Home Exercise Program,Joint Mobilizations,Manual Therapy, Neuromuscular Re-education, Patient/Caregiver Education, Self-Care/Home Management,Soft Tissue Mobilization,Taping, Therapeutic Activities, Therapeutic Exercises Modalities Cold Pack/Ice Massage,Electric Stimulation,Hot Packs Next Visit Focus/Plan Next Note Type Treatment Note Next Visit Plan Next tx assess response to stretching, manual last tx. Initiated postural ex if tolerated. POC: REview HEP, gentle ther ex progression for postural correction and stabilization, LE strengthening, gait training possibly with assistive device . End with heat or ice as indicated ( patient expressed preverence for heat). balance assessment and treatment as indicated.
--- NOTE | 2021-06-01 16:27 | PT.OTN ---
Current Diagnoses Unspecified osteoarthritis, unspecified site (06/01/21) Pain in unspecified knee (06/01/21) Dorsalgia, unspecified (06/01/21) Difficulty in walking, not elsewhere classified (06/01/21) Abnormal posture (06/01/21) Physical Therapy Treatment Note PT-OP-A Visit Information Start: 04/26/21 14:10 Freq: Status: Active Protocol: Document 06/01/21 14:41 SAK (Rec: 06/01/21 15:18 SAK [id number]) Out-Patient Physical Therapy Visit Information Visit Information Visit Type Treatment Note Visit Start Time 14:36 Visit Stop Time 15:20 Total Visit Minutes 44 Visit Number 4 Number of TEST ARCHITECT Visits 0 PT-OP-B Current Condition Start: 04/26/21 14:10 Freq: Status: Active Protocol: Document 05/08/21 11:18 SAK (Rec: 05/08/21 12:00 SAK [id number]) Current Condition History of Current Condition Onset Date 1 month Current Complaints left LE pain History of Current Condition 4 falls in short period of time; was on folding ladder, fell off. Going downstairs, slipped and fell. Working in yard fell on rocks. Initially pain right knee; x-ray showed chip in knee cap. After subsequent falls, pain in left side. Exacerbation of mid and upper back pain since falls. A little better now but still leaning to side and forward, can't walk straight. Occasional tingling left foot, occasionally gives way (every other day), has fallen when leg gives way. Hasn't used assistive device. Less pain when walking with cart at grocery store. 4 days ago spent 2 days in bed, lots less pain, then overdid activity and increased pain again. No use of ice or heat. Worst pain back of right knee when standing and walking, best when laying down on right side . Prior Treatments and Tests xrays negative Future Testing and Treatments Planned Not sure when sees Dr. German for follow-up appointment. Treatment Goals Patient/Caregiver Goals return to prior level of function including ability to walk 3 miles, currently unable to walk due to pain. Prior Functional Status Baseline Function- ADL's Independent Baseline Function- Mobility Independent Baseline Function- Gait indep no device Baseline Function- Work/School retired Baseline Function- Recreation/Hobbies took walks of up to 3 miles at a time without difficulty or pain. Current Functional Impairments (Reported) Functional Limitations- ADL's painful Functional Limitations- Mobility/Gait painful and extremely limited Functional Limitations- Work/School retired Functional Limitations- Recreation/ unable to go for walks Hobbies Personal Factors Other Personal Factors That May Effect depression Therapy/Recovery PT-OP-C Subjective Start: 04/26/21 14:10 Freq: Status: Active Protocol: Document 06/01/21 14:41 SAK (Rec: 06/01/21 15:18 [facility] [id number]) OP-PT Subjective Patient Comments Patient Comments Not walking as bent over, pain a little better, though sometimes really bad. Can't seem to walk very far, states doesn't have enough room in her house for a walker PT-OP-G Mobility & Gait Start: 04/26/21 14:10 Freq: Status: Active Protocol: Document 05/08/21 11:18 [facility] (Rec: 05/11/21 21:45 [facility] [id number]) OP Gait Assessment Gait Gait Assistance Required: Independent Assistive Devices Assistive Device None Gait Deviations General Gait Pattern Antalgic,Lateral Trunk Lean Comments Gait Comments trunk lean to right in standing and with gait. Stair Climbing Evaluation Comments Stair Climbing Comments not tested today due to high pain level PT-OP-H Neuro Start: 04/26/21 14:10 Freq: Status: Active Protocol: Document 05/08/21 11:18 [facility] (Rec: 05/11/21 21:45 [facility] [id number]) Sensation Evaluation Gross Sensation Gross Sensation WNL PT-OP-J Posture/Palpation/Skin Start: 04/26/21 14:10 Freq: Status: Active Protocol: Document 05/08/21 11:18 [facility] (Rec: 05/11/21 21:45 [facility] [id number]) Posture Evaluation Position Standing Head/C-Spine Posture Side Bent Right,Forward Head T-Spine Posture Increased Kyphosis L-Spine Posture Shifted Right Palpation Assessment Location left LE Palpation Findings Soft Tissue Tightness,Muscle Guarding,Tenderness thoracic spine flora Palpation Findings Soft Tissue Tightness,Muscle Guarding,Tenderness PT-OP-K Range of Motion Start: 04/26/21 14:10 Freq: Status: Active Protocol: Document 05/08/21 11:18 [facility] (Rec: 05/11/21 21:45 [facility] [id number]) Lumbar Spine Range of Motion Lumbar Spine Active Testing Position Standing ROM Limitations Pain Comments moderate decrease all motions Shoulder Goniometric Range of Motion Shoulder flora Shoulder ROM WFL Yes Hip Goniometric Range of Motion Hip Left Hip ROM WFL No Flexion w/Knee Flexed 90 Straight Leg Raise 45 Extension 0 Abduction 25 Internal Rotation 20 External Rotation 35 Right Hip ROM WFL Yes Knee Goniometric Range of Motion Knee Left Knee ROM WFL No Flexion Active (degrees) 90 Extension Active (degrees) 5 Right Knee ROM WFL Yes Ankle and Foot Goniometric Range of Motion Ankle and Foot flora Ankle/Foot ROM WFL Yes PT-OP-M Strength Start: 04/26/21 14:10 Freq: Status: Active Protocol: Document 05/08/21 11:18 [facility] (Rec: 05/11/21 21:45 [facility] [id number]) Shoulder Strength Shoulder Manual Muscle Testing flora Comments MMT difficult due to high level of pain in spine, low tolerance for resistance. Demonstrates anti-gravity strength approximately 75% Hip Strength Hip Manual Muscle Testing Left Flexion (L2) 3+ Fair+ Extension (S1) 3- Fair- Abduction 3+ Fair+ Adduction 3+ Fair+ External Rotation 3+ Fair+ Internal Rotation 3+ Fair+ Comments limited by pain Right Flexion (L2) 4- Good- Extension (S1) 3+ Fair+ Abduction 4- Good- Adduction 4- Good- External Rotation 4- Good- Internal Rotation 4- Good- Knee Strength Knee Manual Muscle Testing Left Flexion (S2) 4 Good Extension (L3) 4 Good Comments limited by pain Right Flexion (S2) 5 Normal Extension (L3) 5 Normal Ankle/Foot Strength Ankle and Foot Manual Muscle Testing flora Dorsiflexion (L4) 5 Normal Plantarflexion (S1) 5 Normal PT-OP-Q Treatments Start: 04/26/21 14:10 Freq: Status: Active Protocol: Document 06/01/21 14:41 [facility] (Rec: 06/01/21 15:18 [facility] [id number]) Cardio Equipment Recumbent Elliptical (Biodex) Duration (Minutes) 7 Resistance 1 Other cues for neutral postural alignment Gym Equipment Shuttle Recovery Unilateral Squats Resistance 25 Shuttle Recovery Platform Stable Bilateral Squats Resistance 50 Shuttle Recovery Platform Stable Therapeutic Exercises Supine Exercises HS stretch Reps/Minutes 2x30 Comments manual Bridges Side bilateral Reps/Minutes 10x 5 SH Comments denied pain B knee fall out Side bilateral Reps/Minutes x10 Comments good response painfree Therapeutic Activity Therapeutic Activity dynamic postural training Reps/Minutes 10 Comments use of mirror for postural re- education and training in static and dynamic postures and movements including gait due to poor body awareness. Patient needed verbal, manual, and visual cues for correction. Manual Therapy Treatment Soft Tissue Mobilization STMs Body Location L ITB, glut med, pirformis Mobilization Type Cross-Friction,Rolling, Sustained Pressure Intensity/Depth Moderate Body Position Sidelying Self-Care/Home Management Treatment Education Patient Education Body Mechanics,Posture PT-OP-R Modalities Start: 04/26/21 14:10 Freq: Status: Active Protocol: Document 05/08/21 11:18 [facility] (Rec: 05/11/21 21:45 [facility] [id number]) Hot Pack/Cold Pack Treatment Hot Pack Location thoracic spine, left hip Patient Position Hooklying Treatment Duration (minutes) 15 Patient Tolerance Good PT-OP-T Assessment and Plan Start: 04/26/21 14:10 Freq: Status: Active Protocol: Document 06/01/21 14:41 [facility] (Rec: 06/01/21 15:18 [facility] [id number]) Physical Therapy Assessment Goals Six Impairment balance dysfunction Short Term Goal (STG) Perform objective balance assessment to include Amaro Balance assessment Real Estate Legal Assistant Goal (LTG) Patient to score in the low fall risk category on Amaro balance score LTG Duration 08/09/21 Five Impairment unable to walk without pain Skilled Nursing Goal (LTG) Patient will be able to resume prior level of activity including returning to taking walks of 3 miles with minimal to no pain with least restrictive device. LTG Duration 08/09/21 Four Impairment postural dysfunction with moderate lean to the right Real Estate Legal Assistant Goal (LTG) Patient will be able to stand and walk with neutral posture without an increase in pain LTG Duration 08/09/21 Three Impairment Oswestry disability index score 30% Skilled Nursing Goal (LTG) Decrease Oswestry disability index score to no greater than 10% as measure of improved activity tolerance and functin LTG Duration 08/09/21 Two Impairment LE functional scale score 50% Short Term Goal (STG) Improve LEFS to at least 60% as measure of improved activity tolerance and function Real Estate Legal Assistant Goal (LTG) Improve LEFS score to at least 75% as measure of improved activity tolerance and function LTG Duration 08/09/21 One Impairment pain thoracic spine, left LE 7 Short Term Goal (STG) Decrease pain to no greater than 4/10 STG Duration 06/27/21 Real Estate Legal Assistant Goal (LTG) decrease pain to no greater than 2/10 with all usual activities LTG Duration 08/09/21 Assessment Summary Assessment Patient demonstrated improved exercise tolerance, decreased forward lean, but has difficulty correcting lateral shift to right,needing verbal, manual, and visual cues for correction. Improved tolerance for soft tissue mobilization. Refused ice or heat. Physical Therapy Plan Frequency and Duration Frequency of Treatment 2x/Week Duration of Treatment 12 weeks Plan of Care Start Date 05/08/21 Plan of Care End Date 08/09/21 Therapeutic Interventions Therapeutic Interventions Aquatic Therapy,Gait Training, Home Exercise Program,Joint Mobilizations,Manual Therapy, Neuromuscular Re-education, Patient/Caregiver Education, Self-Care/Home Management,Soft Tissue Mobilization,Taping, Therapeutic Activities, Therapeutic Exercises Modalities Cold Pack/Ice Massage,Electric Stimulation,Hot Packs Next Visit Focus/Plan Next Note Type Treatment Note Next Visit Plan Continue progression of postural re-education, strengthening, flexibility, manual techniques to decrease soft tissue tightness and pain .
--- NOTE | 2021-06-08 13:44 | PT.OTN ---
Current Diagnoses Unspecified osteoarthritis, unspecified site (06/08/21) Pain in unspecified knee (06/08/21) Dorsalgia, unspecified (06/08/21) Difficulty in walking, not elsewhere classified (06/08/21) Abnormal posture (06/08/21) Physical Therapy Treatment Note PT-OP-A Visit Information Start: 04/26/21 14:10 Freq: Status: Active Protocol: Document 06/08/21 12:58 SAK (Rec: 06/08/21 13:44 [facility] [id number]) Out-Patient Physical Therapy Visit Information Visit Information Visit Type Treatment Note Visit Start Time 13:00 Visit Stop Time 13:45 Total Visit Minutes 45 Visit Number 5 Number of WOOD CUTTER Visits 0 PT-OP-B Current Condition Start: 04/26/21 14:10 Freq: Status: Active Protocol: Document 06/08/21 12:58 SAK (Rec: 06/08/21 13:44 SAK [id number]) Current Condition History of Current Condition Onset Date 1 month Current Complaints left LE pain History of Current Condition 4 falls in short period of time; was on folding ladder, fell off. Going downstairs, slipped and fell. Working in yard fell on rocks. Initially pain right knee; x-ray showed chip in knee cap. After subsequent falls, pain in left side. Exacerbation of mid and upper back pain since falls. A little better now but still leaning to side and forward, can't walk straight. Occasional tingling left foot, occasionally gives way (every other day), has fallen when leg gives way. Hasn't used assistive device. Less pain when walking with cart at grocery store. 4 days ago spent 2 days in bed, lots less pain, then overdid activity and increased pain again. No use of ice or heat. Worst pain back of right knee when standing and walking, best when laying down on right side . Prior Treatments and Tests xrays negative Future Testing and Treatments Planned Not sure when sees Dr. German for follow-up appointment. PT-OP-C Subjective Start: 04/26/21 14:10 Freq: Status: Active Protocol: Document 06/08/21 12:58 SAK (Rec: 06/08/21 13:44 [facility] [id number]) OP-PT Subjective Patient Comments Patient Comments Good days and bad days, today is pretty good after having a massage yesterday. Compliant to HEP, trying to work on posture. Pain 2/10 today. PT-OP-G Mobility & Gait Start: 04/26/21 14:10 Freq: Status: Active Protocol: Document 05/08/21 11:18 [facility] (Rec: 05/11/21 21:45 [facility] [id number]) OP Gait Assessment Gait Gait Assistance Required: Independent Assistive Devices Assistive Device None Gait Deviations General Gait Pattern Antalgic,Lateral Trunk Lean Comments Gait Comments trunk lean to right in standing and with gait. Stair Climbing Evaluation Comments Stair Climbing Comments not tested today due to high pain level PT-OP-H Neuro Start: 04/26/21 14:10 Freq: Status: Active Protocol: Document 05/08/21 11:18 [facility] (Rec: 05/11/21 21:45 [facility] [id number]) Sensation Evaluation Gross Sensation Gross Sensation WNL PT-OP-J Posture/Palpation/Skin Start: 04/26/21 14:10 Freq: Status: Active Protocol: Document 05/08/21 11:18 [facility] (Rec: 05/11/21 21:45 [facility] [id number]) Posture Evaluation Position Standing Head/C-Spine Posture Side Bent Right,Forward Head T-Spine Posture Increased Kyphosis L-Spine Posture Shifted Right Palpation Assessment Location left LE Palpation Findings Soft Tissue Tightness,Muscle Guarding,Tenderness thoracic spine flora Palpation Findings Soft Tissue Tightness,Muscle Guarding,Tenderness PT-OP-K Range of Motion Start: 04/26/21 14:10 Freq: Status: Active Protocol: Document 05/08/21 11:18 [facility] (Rec: 05/11/21 21:45 [facility] [id number]) Lumbar Spine Range of Motion Lumbar Spine Active Testing Position Standing ROM Limitations Pain Comments moderate decrease all motions Shoulder Goniometric Range of Motion Shoulder flora Shoulder ROM WFL Yes Hip Goniometric Range of Motion Hip Left Hip ROM WFL No Flexion w/Knee Flexed 90 Straight Leg Raise 45 Extension 0 Abduction 25 Internal Rotation 20 External Rotation 35 Right Hip ROM WFL Yes Knee Goniometric Range of Motion Knee Left Knee ROM WFL No Flexion Active (degrees) 90 Extension Active (degrees) 5 Right Knee ROM WFL Yes Ankle and Foot Goniometric Range of Motion Ankle and Foot flora Ankle/Foot ROM WFL Yes PT-OP-M Strength Start: 04/26/21 14:10 Freq: Status: Active Protocol: Document 05/08/21 11:18 [facility] (Rec: 05/11/21 21:45 [facility] [id number]) Shoulder Strength Shoulder Manual Muscle Testing flora Comments MMT difficult due to high level of pain in spine, low tolerance for resistance. Demonstrates anti-gravity strength approximately 75% Hip Strength Hip Manual Muscle Testing Left Flexion (L2) 3+ Fair+ Extension (S1) 3- Fair- Abduction 3+ Fair+ Adduction 3+ Fair+ External Rotation 3+ Fair+ Internal Rotation 3+ Fair+ Comments limited by pain Right Flexion (L2) 4- Good- Extension (S1) 3+ Fair+ Abduction 4- Good- Adduction 4- Good- External Rotation 4- Good- Internal Rotation 4- Good- Knee Strength Knee Manual Muscle Testing Left Flexion (S2) 4 Good Extension (L3) 4 Good Comments limited by pain Right Flexion (S2) 5 Normal Extension (L3) 5 Normal Ankle/Foot Strength Ankle and Foot Manual Muscle Testing flora Dorsiflexion (L4) 5 Normal Plantarflexion (S1) 5 Normal PT-OP-Q Treatments Start: 04/26/21 14:10 Freq: Status: Active Protocol: Document 06/08/21 12:58 [facility] (Rec: 06/08/21 13:44 [facility] [id number]) Cardio Equipment Recumbent Elliptical (BiodCSDN) Duration (Minutes) 8 Resistance 1 Other cues for neutral postural alignment Gym Equipment Shuttle Recovery Unilateral Squats Resistance 25 Shuttle Recovery Platform Stable Reps/Time 10x2 Bilateral Squats Resistance 50 Shuttle Recovery Platform Stable Reps/Time 10x2 Therapeutic Exercises Supine Exercises HS stretch Reps/Minutes 2x30 Comments manual Bridges Side bilateral Reps/Minutes 10x 5 SH Comments denied pain Sidelying Exercises hip abd Reps/Minutes 10x Sitting Exercises pirformis fig 4 stretch Side left Comments in chair HS stretch Sitting Exercise Name added to HEP Side left Reps/Minutes 20 Comments cued hip hinge Standing Exercises rhythmic stabilization Reps/Minutes 3 min Comments mirror for visual feedback. row, shoulder ext Resistance L1 TB Reps/Minutes 10x Stretch Standing Exercise Name calf stretch on [place] Side bilateral Reps/Minutes 1 min Therapeutic Activity Therapeutic Activity dynamic postural training Reps/Minutes 10 Comments use of mirror for postural re- education and training in static and dynamic postures and movements including gait due to poor body awareness. Patient needed verbal, manual, and visual cues for correction. Self-Care/Home Management Treatment Education Patient Education Body Mechanics,Posture PT-OP-R Modalities Start: 04/26/21 14:10 Freq: Status: Active Protocol: Document 05/08/21 11:18 [facility] (Rec: 05/11/21 21:45 [facility] [id number]) Hot Pack/Cold Pack Treatment Hot Pack Location thoracic spine, left hip Patient Position Hooklying Treatment Duration (minutes) 15 Patient Tolerance Good PT-OP-T Assessment and Plan Start: 04/26/21 14:10 Freq: Status: Active Protocol: Document 06/08/21 12:58 [facility] (Rec: 06/08/21 13:44 [facility] [id number]) Physical Therapy Assessment Goals Six Impairment balance dysfunction Short Term Goal (STG) Perform objective balance assessment to include Amaro Balance assessment Damage Adjuster Goal (LTG) Patient to score in the low fall risk category on Amaro balance score LTG Duration 08/09/21 Five Impairment unable to walk without pain Damage Adjuster Goal (LTG) Patient will be able to resume prior level of activity including returning to taking walks of 3 miles with minimal to no pain with least restrictive device. LTG Duration 08/09/21 Four Impairment postural dysfunction with moderate lean to the right Care Home Goal (LTG) Patient will be able to stand and walk with neutral posture without an increase in pain LTG Duration 08/09/21 Three Impairment Oswestry disability index score 30% Care Home Goal (LTG) Decrease Oswestry disability index score to no greater than 10% as measure of improved activity tolerance and functin LTG Duration 08/09/21 Two Impairment LE functional scale score 50% Short Term Goal (STG) Improve LEFS to at least 60% as measure of improved activity tolerance and function Care Home Goal (LTG) Improve LEFS score to at least 75% as measure of improved activity tolerance and function LTG Duration 08/09/21 One Impairment pain thoracic spine, left LE 7 /10 Short Term Goal (STG) Decrease pain to no greater than 4/10 STG Duration 06/27/21 Damage Adjuster Goal (LTG) decrease pain to no greater than 2/10 with all usual activities LTG Duration 08/09/21 Assessment Summary Assessment Improving postural alignment, though unable to feel when neutral; still benefits from use of mirror. Increased exercise tolerance. Physical Therapy Plan Frequency and Duration Frequency of Treatment 2x/Week Duration of Treatment 12 weeks Plan of Care Start Date 05/08/21 Plan of Care End Date 08/09/21 Therapeutic Interventions Therapeutic Interventions Aquatic Therapy,Gait Training, Home Exercise Program,Joint Mobilizations,Manual Therapy, Neuromuscular Re-education, Patient/Caregiver Education, Self-Care/Home Management,Soft Tissue Mobilization,Taping, Therapeutic Activities, Therapeutic Exercises Modalities Cold Pack/Ice Massage,Electric Stimulation,Hot Packs Next Visit Focus/Plan Next Note Type Treatment Note Next Visit Plan Continue progression of postural re-education, strengthening, flexibility, manual techniques to decrease soft tissue tightness and pain .
--- NOTE | 2021-06-13 15:05 | PT.OTN ---
Current Diagnoses Unspecified osteoarthritis, unspecified site (06/13/21) Pain in unspecified knee (06/13/21) Dorsalgia, unspecified (06/13/21) Difficulty in walking, not elsewhere classified (06/13/21) Abnormal posture (06/13/21) Physical Therapy Treatment Note PT-OP-A Visit Information Start: 04/26/21 14:10 Freq: Status: Active Protocol: Document 06/13/21 14:33 [facility] (Rec: 06/13/21 15:04 [facility] [id number]) Out-Patient Physical Therapy Visit Information Visit Information Visit Type Treatment Note Visit Note Pt forgot about a dr's appt and has to leave at 15:00 Visit Start Time 14:30 Visit Stop Time 15:00 Total Visit Minutes 30 Visit Number 6 Number of FORESTRY SUPPORT SPECIALIST Visits 1 PT-OP-B Current Condition Start: 04/26/21 14:10 Freq: Status: Active Protocol: Document 06/08/21 12:58 SAK (Rec: 06/08/21 13:44 SAK [id number]) Current Condition History of Current Condition Onset Date 1 month Current Complaints left LE pain History of Current Condition 4 falls in short period of time; was on folding ladder, fell off. Going downstairs, slipped and fell. Working in yard fell on rocks. Initially pain right knee; x-ray showed chip in knee cap. After subsequent falls, pain in left side. Exacerbation of mid and upper back pain since falls. A little better now but still leaning to side and forward, can't walk straight. Occasional tingling left foot, occasionally gives way (every other day), has fallen when leg gives way. Hasn't used assistive device. Less pain when walking with cart at grocery store. 4 days ago spent 2 days in bed, lots less pain, then overdid activity and increased pain again. No use of ice or heat. Worst pain back of right knee when standing and walking, best when laying down on right side . Prior Treatments and Tests xrays negative Future Testing and Treatments Planned Not sure when sees Dr. German for follow-up appointment. PT-OP-C Subjective Start: 04/26/21 14:10 Freq: Status: Active Protocol: Document 06/13/21 14:33 MA (Rec: 06/13/21 15:04 MA [id number]) OP-PT Subjective Patient Comments Patient Comments When asked about pain, pt states she is feeling pretty good today PT-OP-G Mobility & Gait Start: 04/26/21 14:10 Freq: Status: Active Protocol: Document 05/08/21 11:18 SAK (Rec: 05/11/21 21:45 [facility] [id number]) OP Gait Assessment Gait Gait Assistance Required: Independent Assistive Devices Assistive Device None Gait Deviations General Gait Pattern Antalgic,Lateral Trunk Lean Comments Gait Comments trunk lean to right in standing and with gait. Stair Climbing Evaluation Comments Stair Climbing Comments not tested today due to high pain level PT-OP-H Neuro Start: 04/26/21 14:10 Freq: Status: Active Protocol: Document 05/08/21 11:18 SAK (Rec: 05/11/21 21:45 [facility] [id number]) Sensation Evaluation Gross Sensation Gross Sensation WNL PT-OP-J Posture/Palpation/Skin Start: 04/26/21 14:10 Freq: Status: Active Protocol: Document 05/08/21 11:18 [facility] (Rec: 05/11/21 21:45 [facility] [id number]) Posture Evaluation Position Standing Head/C-Spine Posture Side Bent Right,Forward Head T-Spine Posture Increased Kyphosis L-Spine Posture Shifted Right Palpation Assessment Location left LE Palpation Findings Soft Tissue Tightness,Muscle Guarding,Tenderness thoracic spine flora Palpation Findings Soft Tissue Tightness,Muscle Guarding,Tenderness PT-OP-K Range of Motion Start: 04/26/21 14:10 Freq: Status: Active Protocol: Document 05/08/21 11:18 [facility] (Rec: 05/11/21 21:45 [facility] [id number]) Lumbar Spine Range of Motion Lumbar Spine Active Testing Position Standing ROM Limitations Pain Comments moderate decrease all motions Shoulder Goniometric Range of Motion Shoulder flora Shoulder ROM WFL Yes Hip Goniometric Range of Motion Hip Left Hip ROM WFL No Flexion w/Knee Flexed 90 Straight Leg Raise 45 Extension 0 Abduction 25 Internal Rotation 20 External Rotation 35 Right Hip ROM WFL Yes Knee Goniometric Range of Motion Knee Left Knee ROM WFL No Flexion Active (degrees) 90 Extension Active (degrees) 5 Right Knee ROM WFL Yes Ankle and Foot Goniometric Range of Motion Ankle and Foot flora Ankle/Foot ROM WFL Yes PT-OP-M Strength Start: 04/26/21 14:10 Freq: Status: Active Protocol: Document 05/08/21 11:18 SAK (Rec: 05/11/21 21:45 SAK [id number]) Shoulder Strength Shoulder Manual Muscle Testing flora Comments MMT difficult due to high level of pain in spine, low tolerance for resistance. Demonstrates anti-gravity strength approximately 75% Hip Strength Hip Manual Muscle Testing Left Flexion (L2) 3+ Fair+ Extension (S1) 3- Fair- Abduction 3+ Fair+ Adduction 3+ Fair+ External Rotation 3+ Fair+ Internal Rotation 3+ Fair+ Comments limited by pain Right Flexion (L2) 4- Good- Extension (S1) 3+ Fair+ Abduction 4- Good- Adduction 4- Good- External Rotation 4- Good- Internal Rotation 4- Good- Knee Strength Knee Manual Muscle Testing Left Flexion (S2) 4 Good Extension (L3) 4 Good Comments limited by pain Right Flexion (S2) 5 Normal Extension (L3) 5 Normal Ankle/Foot Strength Ankle and Foot Manual Muscle Testing flora Dorsiflexion (L4) 5 Normal Plantarflexion (S1) 5 Normal PT-OP-Q Treatments Start: 04/26/21 14:10 Freq: Status: Active Protocol: Document 06/13/21 14:33 MA (Rec: 06/13/21 15:04 MA [id number]) Cardio Equipment Recumbent Elliptical (Hum) Duration (Minutes) 8 Resistance [address] Position all the way fwd Other cues for neutral postural alignment Gym Equipment Shuttle Recovery Unilateral Squats Resistance 25 Shuttle Recovery Platform Stable Reps/Time 10x2 Bilateral Squats Resistance 50#, 67# Shuttle Recovery Platform Stable Reps/Time 10x2 Therapeutic Exercises Sitting Exercises pirformis fig 4 stretch Side left Comments in chair HS stretch Sitting Exercise Name added to HEP Side left Reps/Minutes 20 Comments cued hip hinge Standing Exercises row, shoulder ext Resistance L1 TB Reps/Minutes 10x Neuro Re-Education Treatment Balance Activities Balance board Details A/P and lateral weight shifts Equipment rocker board Reps/Duration 5' Comments ccues for posture PT-OP-R Modalities Start: 04/26/21 14:10 Freq: Status: Active Protocol: Document 05/08/21 11:18 SAK (Rec: 05/11/21 21:45 SAK [id number]) Hot Pack/Cold Pack Treatment Hot Pack Location thoracic spine, left hip Patient Position Hooklying Treatment Duration (minutes) 15 Patient Tolerance Good PT-OP-T Assessment and Plan Start: 04/26/21 14:10 Freq: Status: Active Protocol: Document 06/13/21 14:33 [facility] (Rec: 06/13/21 15:04 [facility] [id number]) Physical Therapy Assessment Goals Six Impairment balance dysfunction Short Term Goal (STG) Perform objective balance assessment to include Amaro Balance assessment Chief Revenue Officer Goal (LTG) Patient to score in the low fall risk category on Amaro balance score LTG Duration 08/09/21 Five Impairment unable to walk without pain Skilled Nursing Goal (LTG) Patient will be able to resume prior level of activity including returning to taking walks of 3 miles with minimal to no pain with least restrictive device. LTG Duration 08/09/21 Four Impairment postural dysfunction with moderate lean to the right Chief Revenue Officer Goal (LTG) Patient will be able to stand and walk with neutral posture without an increase in pain LTG Duration 08/09/21 Three Impairment Oswestry disability index score 30% Chief Revenue Officer Goal (LTG) Decrease Oswestry disability index score to no greater than 10% as measure of improved activity tolerance and functin LTG Duration 08/09/21 Two Impairment LE functional scale score 50% Short Term Goal (STG) Improve LEFS to at least 60% as measure of improved activity tolerance and function Chief Revenue Officer Goal (LTG) Improve LEFS score to at least 75% as measure of improved activity tolerance and function LTG Duration 08/09/21 One Impairment pain thoracic spine, left LE 7 /10 Short Term Goal (STG) Decrease pain to no greater than 4/10 STG Duration 06/27/21 Chief Revenue Officer Goal (LTG) decrease pain to no greater than 2/10 with all usual activities LTG Duration 08/09/21 Assessment Summary Assessment Taylor requires frequent cues for posture throughout session today. Worked on balance with A/P and lateral weight shifts on balance board . Pt was able to increase weight on leg press from 50# to 67#. She had to leave session early due to having another drs appt. Encouraged pt to continue with stretches at home after appt due to limited time this session. Physical Therapy Plan Frequency and Duration Frequency of Treatment 2x/Week Duration of Treatment 12 weeks Plan of Care Start Date 05/08/21 Plan of Care End Date 08/09/21 Therapeutic Interventions Therapeutic Interventions Aquatic Therapy,Gait Training, Home Exercise Program,Joint Mobilizations,Manual Therapy, Neuromuscular Re-education, Patient/Caregiver Education, Self-Care/Home Management,Soft Tissue Mobilization,Taping, Therapeutic Activities, Therapeutic Exercises Modalities Cold Pack/Ice Massage,Electric Stimulation,Hot Packs Next Visit Focus/Plan Next Note Type Treatment Note Next Visit Plan Continue progression of postural re-education, strengthening, flexibility, manual techniques to decrease soft tissue tightness and pain . Use mirror for postural feeback
--- NOTE | 2021-06-20 15:18 | PT.OTN ---
Current Diagnoses Unspecified osteoarthritis, unspecified site (06/20/21) Pain in unspecified knee (06/20/21) Dorsalgia, unspecified (06/20/21) Difficulty in walking, not elsewhere classified (06/20/21) Abnormal posture (06/20/21) Physical Therapy Treatment Note PT-OP-A Visit Information Start: 04/26/21 14:10 Freq: Status: Active Protocol: Document 06/20/21 14:39 MA (Rec: 06/20/21 15:18 MA [id number]) Out-Patient Physical Therapy Visit Information Visit Information Visit Type Treatment Note Visit Start Time 14:35 Visit Stop Time 15:15 Total Visit Minutes 40 Visit Number 7 Number of FRAME STRAIGHTENER Visits 2 PT-OP-B Current Condition Start: 04/26/21 14:10 Freq: Status: Active Protocol: Document 06/08/21 12:58 SAK (Rec: 06/08/21 13:44 SAK [id number]) Current Condition History of Current Condition Onset Date 1 month Current Complaints left LE pain History of Current Condition 4 falls in short period of time; was on folding ladder, fell off. Going downstairs, slipped and fell. Working in yard fell on rocks. Initially pain right knee; x-ray showed chip in knee cap. After subsequent falls, pain in left side. Exacerbation of mid and upper back pain since falls. A little better now but still leaning to side and forward, can't walk straight. Occasional tingling left foot, occasionally gives way (every other day), has fallen when leg gives way. Hasn't used assistive device. Less pain when walking with cart at grocery store. 4 days ago spent 2 days in bed, lots less pain, then overdid activity and increased pain again. No use of ice or heat. Worst pain back of right knee when standing and walking, best when laying down on right side . Prior Treatments and Tests xrays negative Future Testing and Treatments Planned Not sure when sees Dr. German for follow-up appointment. PT-OP-C Subjective Start: 04/26/21 14:10 Freq: Status: Active Protocol: Document 06/20/21 14:39 MA (Rec: 06/20/21 15:18 MA [id number]) OP-PT Subjective Patient Comments Patient Comments My leg hurts bad today- pt pointing to lateral LLE PT-OP-G Mobility & Gait Start: 04/26/21 14:10 Freq: Status: Active Protocol: Document 05/08/21 11:18 SAK (Rec: 05/11/21 21:45 SAK [id number]) OP Gait Assessment Gait Gait Assistance Required: Independent Assistive Devices Assistive Device None Gait Deviations General Gait Pattern Antalgic,Lateral Trunk Lean Comments Gait Comments trunk lean to right in standing and with gait. Stair Climbing Evaluation Comments Stair Climbing Comments not tested today due to high pain level PT-OP-H Neuro Start: 04/26/21 14:10 Freq: Status: Active Protocol: Document 05/08/21 11:18 SAK (Rec: 05/11/21 21:45 SAK [id number]) Sensation Evaluation Gross Sensation Gross Sensation WNL PT-OP-J Posture/Palpation/Skin Start: 04/26/21 14:10 Freq: Status: Active Protocol: Document 05/08/21 11:18 SAK (Rec: 05/11/21 21:45 SAK [id number]) Posture Evaluation Position Standing Head/C-Spine Posture Side Bent Right,Forward Head T-Spine Posture Increased Kyphosis L-Spine Posture Shifted Right Palpation Assessment Location left LE Palpation Findings Soft Tissue Tightness,Muscle Guarding,Tenderness thoracic spine flora Palpation Findings Soft Tissue Tightness,Muscle Guarding,Tenderness PT-OP-K Range of Motion Start: 04/26/21 14:10 Freq: Status: Active Protocol: Document 05/08/21 11:18 SAK (Rec: 05/11/21 21:45 SAK [id number]) Lumbar Spine Range of Motion Lumbar Spine Active Testing Position Standing ROM Limitations Pain Comments moderate decrease all motions Shoulder Goniometric Range of Motion Shoulder flora Shoulder ROM WFL Yes Hip Goniometric Range of Motion Hip Left Hip ROM WFL No Flexion w/Knee Flexed 90 Straight Leg Raise 45 Extension 0 Abduction 25 Internal Rotation 20 External Rotation 35 Right Hip ROM WFL Yes Knee Goniometric Range of Motion Knee Left Knee ROM WFL No Flexion Active (degrees) 90 Extension Active (degrees) 5 Right Knee ROM WFL Yes Ankle and Foot Goniometric Range of Motion Ankle and Foot flora Ankle/Foot ROM WFL Yes PT-OP-M Strength Start: 04/26/21 14:10 Freq: Status: Active Protocol: Document 05/08/21 11:18 SAK (Rec: 05/11/21 21:45 SAK [id number]) Shoulder Strength Shoulder Manual Muscle Testing flora Comments MMT difficult due to high level of pain in spine, low tolerance for resistance. Demonstrates anti-gravity strength approximately 75% Hip Strength Hip Manual Muscle Testing Left Flexion (L2) 3+ Fair+ Extension (S1) 3- Fair- Abduction 3+ Fair+ Adduction 3+ Fair+ External Rotation 3+ Fair+ Internal Rotation 3+ Fair+ Comments limited by pain Right Flexion (L2) 4- Good- Extension (S1) 3+ Fair+ Abduction 4- Good- Adduction 4- Good- External Rotation 4- Good- Internal Rotation 4- Good- Knee Strength Knee Manual Muscle Testing Left Flexion (S2) 4 Good Extension (L3) 4 Good Comments limited by pain Right Flexion (S2) 5 Normal Extension (L3) 5 Normal Ankle/Foot Strength Ankle and Foot Manual Muscle Testing flora Dorsiflexion (L4) 5 Normal Plantarflexion (S1) 5 Normal PT-OP-Q Treatments Start: 04/26/21 14:10 Freq: Status: Active Protocol: Document 06/20/21 14:39 MA (Rec: 06/20/21 15:18 MA [id number]) Cardio Equipment Recumbent Elliptical ([email or web address]) Duration (Minutes) 8 Resistance 1 [address] Position all the way fwd Other cues for neutral postural alignment Therapeutic Exercises Supine Exercises Adduction Side bilateral Equipment Used pillow Reps/Minutes 10x 5 SH Bridges Side bilateral Reps/Minutes 10x 5 SH Comments denied pain pirformis fig 4 stretch Supine Exercise Name foot over opp knee resting and w/hip IR if beneficial Side left Reps/Minutes 1' B knee fall out Side bilateral Reps/Minutes x10 Comments good response painfree Sitting Exercises pirformis fig 4 stretch Side left Comments in chair HS stretch Sitting Exercise Name added to HEP Side left Reps/Minutes 20 Comments cued hip hinge Manual Therapy Treatment Soft Tissue Mobilization STMs Body Location L ITB, glut med, pirformis Mobilization Type Cross-Friction,Rolling, Sustained Pressure Intensity/Depth Moderate Body Position Sidelying PT-OP-R Modalities Start: 04/26/21 14:10 Freq: Status: Active Protocol: Document 05/08/21 11:18 SAK (Rec: 05/11/21 21:45 SAK [id number]) Hot Pack/Cold Pack Treatment Hot Pack Location thoracic spine, left hip Patient Position Hooklying Treatment Duration (minutes) 15 Patient Tolerance Good PT-OP-T Assessment and Plan Start: 04/26/21 14:10 Freq: Status: Active Protocol: Document 06/20/21 14:39 MA (Rec: 06/20/21 15:18 MA [id number]) Physical Therapy Assessment Goals Six Impairment balance dysfunction Short Term Goal (STG) Perform objective balance assessment to include Amaro Balance assessment World Renowned Chef And Restaurant Owner Goal (LTG) Patient to score in the low fall risk category on Amaro balance score LTG Duration 08/09/21 Five Impairment unable to walk without pain Snf Goal (LTG) Patient will be able to resume prior level of activity including returning to taking walks of 3 miles with minimal to no pain with least restrictive device. LTG Duration 08/09/21 Four Impairment postural dysfunction with moderate lean to the right Snf Goal (LTG) Patient will be able to stand and walk with neutral posture without an increase in pain LTG Duration 08/09/21 Three Impairment Oswestry disability index score 30% World Renowned Chef And Restaurant Owner Goal (LTG) Decrease Oswestry disability index score to no greater than 10% as measure of improved activity tolerance and functin LTG Duration 08/09/21 Two Impairment LE functional scale score 50% Short Term Goal (STG) Improve LEFS to at least 60% as measure of improved activity tolerance and function Snf Goal (LTG) Improve LEFS score to at least 75% as measure of improved activity tolerance and function LTG Duration 08/09/21 One Impairment pain thoracic spine, left LE 7 /10 Short Term Goal (STG) Decrease pain to no greater than 4/10 STG Duration 06/27/21 World Renowned Chef And Restaurant Owner Goal (LTG) decrease pain to no greater than 2/10 with all usual activities LTG Duration 08/09/21 Assessment Summary Assessment Pt has not been doing her HEP. Educated pt on importance of her HEP to see any improvements in her pain. Added self-rolling with rolling pin to L ITB and calf to help reduce pain. Pt required cues for all HEP exercises reviewed this session. Will continue reviewing exercises, work on STM to lateral LLE, and postural education next session. Physical Therapy Plan Frequency and Duration Frequency of Treatment 2x/Week Duration of Treatment 12 weeks Plan of Care Start Date 05/08/21 Plan of Care End Date 10/13/21 Therapeutic Interventions Therapeutic Interventions Aquatic Therapy,Gait Training, Home Exercise Program,Joint Mobilizations,Manual Therapy, Neuromuscular Re-education, Patient/Caregiver Education, Self-Care/Home Management,Soft Tissue Mobilization,Taping, Therapeutic Activities, Therapeutic Exercises Modalities Cold Pack/Ice Massage,Electric Stimulation,Hot Packs Next Visit Focus/Plan Next Note Type Treatment Note Next Visit Plan Continue progression of postural re-education, strengthening, flexibility, manual techniques to decrease soft tissue tightness and pain . Use mirror for postural feeback
--- NOTE | 2021-06-23 17:21 | PT.OTN ---
Current Diagnoses Unspecified osteoarthritis, unspecified site (06/23/21) Pain in unspecified knee (06/23/21) Dorsalgia, unspecified (06/23/21) Difficulty in walking, not elsewhere classified (06/23/21) Abnormal posture (06/23/21) Physical Therapy Treatment Note PT-OP-A Visit Information Start: 04/26/21 14:10 Freq: Status: Active Protocol: Document 06/23/21 14:27 MA (Rec: 06/23/21 15:16 MA [id number]) Out-Patient Physical Therapy Visit Information Visit Information Visit Type Treatment Note Visit Start Time 14:30 Visit Stop Time 15:10 Total Visit Minutes 40 Visit Number 8 Number of DIRECTOR OF SALES Visits 3 PT-OP-B Current Condition Start: 04/26/21 14:10 Freq: Status: Active Protocol: Document 06/08/21 12:58 SAK (Rec: 06/08/21 13:44 SAK [id number]) Current Condition History of Current Condition Onset Date 1 month Current Complaints left LE pain History of Current Condition 4 falls in short period of time; was on folding ladder, fell off. Going downstairs, slipped and fell. Working in yard fell on rocks. Initially pain right knee; x-ray showed chip in knee cap. After subsequent falls, pain in left side. Exacerbation of mid and upper back pain since falls. A little better now but still leaning to side and forward, can't walk straight. Occasional tingling left foot, occasionally gives way (every other day), has fallen when leg gives way. Hasn't used assistive device. Less pain when walking with cart at grocery store. 4 days ago spent 2 days in bed, lots less pain, then overdid activity and increased pain again. No use of ice or heat. Worst pain back of right knee when standing and walking, best when laying down on right side . Prior Treatments and Tests xrays negative Future Testing and Treatments Planned Not sure when sees Dr. German for follow-up appointment. PT-OP-C Subjective Start: 04/26/21 14:10 Freq: Status: Active Protocol: Document 06/23/21 14:27 MA (Rec: 06/23/21 15:16 MA [id number]) OP-PT Subjective Patient Comments Patient Comments Pt states she has tried her HEP exercises at home but she could not find a rolling pin for self-STM. PT-OP-G Mobility & Gait Start: 04/26/21 14:10 Freq: Status: Active Protocol: Document 05/08/21 11:18 SAK (Rec: 05/11/21 21:45 [facility] [id number]) OP Gait Assessment Gait Gait Assistance Required: Independent Assistive Devices Assistive Device None Gait Deviations General Gait Pattern Antalgic,Lateral Trunk Lean Comments Gait Comments trunk lean to right in standing and with gait. Stair Climbing Evaluation Comments Stair Climbing Comments not tested today due to high pain level PT-OP-H Neuro Start: 04/26/21 14:10 Freq: Status: Active Protocol: Document 05/08/21 11:18 SAK (Rec: 05/11/21 21:45 [facility] [id number]) Sensation Evaluation Gross Sensation Gross Sensation WNL PT-OP-J Posture/Palpation/Skin Start: 04/26/21 14:10 Freq: Status: Active Protocol: Document 05/08/21 11:18 [facility] (Rec: 05/11/21 21:45 [facility] [id number]) Posture Evaluation Position Standing Head/C-Spine Posture Side Bent Right,Forward Head T-Spine Posture Increased Kyphosis L-Spine Posture Shifted Right Palpation Assessment Location left LE Palpation Findings Soft Tissue Tightness,Muscle Guarding,Tenderness thoracic spine flora Palpation Findings Soft Tissue Tightness,Muscle Guarding,Tenderness PT-OP-K Range of Motion Start: 04/26/21 14:10 Freq: Status: Active Protocol: Document 05/08/21 11:18 SAK (Rec: 05/11/21 21:45 [facility] [id number]) Lumbar Spine Range of Motion Lumbar Spine Active Testing Position Standing ROM Limitations Pain Comments moderate decrease all motions Shoulder Goniometric Range of Motion Shoulder flora Shoulder ROM WFL Yes Hip Goniometric Range of Motion Hip Left Hip ROM WFL No Flexion w/Knee Flexed 90 Straight Leg Raise 45 Extension 0 Abduction 25 Internal Rotation 20 External Rotation 35 Right Hip ROM WFL Yes Knee Goniometric Range of Motion Knee Left Knee ROM WFL No Flexion Active (degrees) 90 Extension Active (degrees) 5 Right Knee ROM WFL Yes Ankle and Foot Goniometric Range of Motion Ankle and Foot flora Ankle/Foot ROM WFL Yes PT-OP-M Strength Start: 04/26/21 14:10 Freq: Status: Active Protocol: Document 05/08/21 11:18 SAK (Rec: 05/11/21 21:45 SAK [id number]) Shoulder Strength Shoulder Manual Muscle Testing flora Comments MMT difficult due to high level of pain in spine, low tolerance for resistance. Demonstrates anti-gravity strength approximately 75% Hip Strength Hip Manual Muscle Testing Left Flexion (L2) 3+ Fair+ Extension (S1) 3- Fair- Abduction 3+ Fair+ Adduction 3+ Fair+ External Rotation 3+ Fair+ Internal Rotation 3+ Fair+ Comments limited by pain Right Flexion (L2) 4- Good- Extension (S1) 3+ Fair+ Abduction 4- Good- Adduction 4- Good- External Rotation 4- Good- Internal Rotation 4- Good- Knee Strength Knee Manual Muscle Testing Left Flexion (S2) 4 Good Extension (L3) 4 Good Comments limited by pain Right Flexion (S2) 5 Normal Extension (L3) 5 Normal Ankle/Foot Strength Ankle and Foot Manual Muscle Testing flora Dorsiflexion (L4) 5 Normal Plantarflexion (S1) 5 Normal PT-OP-Q Treatments Start: 04/26/21 14:10 Freq: Status: Active Protocol: Document 06/23/21 14:27 MA (Rec: 06/23/21 15:16 MA [id number]) Cardio Equipment Recumbent Stepper ([employer]) Duration (Minutes) 6 Resistance 2.0 Seat Position 5 Therapeutic Exercises Supine Exercises Pelvic Tilts Reps/Minutes x10 Comments for better understanding of core work during supine marching Marching Side bilateral Reps/Minutes x10 Comments cues for core activation pirformis fig 4 stretch Supine Exercise Name foot over opp knee resting and w/hip IR if beneficial Side left Reps/Minutes 1' Gait Training Gait Activity Gait in mirror Comments working on push off watching for lateral shift of pelvis Manual Therapy Treatment Soft Tissue Mobilization STMs Body Location L ITB, glut med, pirformis Mobilization Type Cross-Friction,Rolling, Sustained Pressure Intensity/Depth Moderate Body Position Sidelying PT-OP-R Modalities Start: 04/26/21 14:10 Freq: Status: Active Protocol: Document 05/08/21 11:18 SAK (Rec: 05/11/21 21:45 SAK [id number]) Hot Pack/Cold Pack Treatment Hot Pack Location thoracic spine, left hip Patient Position Hooklying Treatment Duration (minutes) 15 Patient Tolerance Good PT-OP-T Assessment and Plan Start: 04/26/21 14:10 Freq: Status: Active Protocol: Document 06/23/21 14:27 MA (Rec: 06/23/21 15:16 MA [id number]) Physical Therapy Assessment Goals Six Impairment balance dysfunction Short Term Goal (STG) Perform objective balance assessment to include Amaro Balance assessment Mcfp Goal (LTG) Patient to score in the low fall risk category on Amaro balance score LTG Duration 08/09/21 Five Impairment unable to walk without pain Mcfp Goal (LTG) Patient will be able to resume prior level of activity including returning to taking walks of 3 miles with minimal to no pain with least restrictive device. LTG Duration 08/09/21 Four Impairment postural dysfunction with moderate lean to the right Mcfp Goal (LTG) Patient will be able to stand and walk with neutral posture without an increase in pain LTG Duration 08/09/21 Three Impairment Oswestry disability index score 30% Dog Food Shredder Operator Goal (LTG) Decrease Oswestry disability index score to no greater than 10% as measure of improved activity tolerance and functin LTG Duration 08/09/21 Two Impairment LE functional scale score 50% Short Term Goal (STG) Improve LEFS to at least 60% as measure of improved activity tolerance and function Dog Food Shredder Operator Goal (LTG) Improve LEFS score to at least 75% as measure of improved activity tolerance and function LTG Duration 08/09/21 One Impairment pain thoracic spine, left LE 7 /10 Short Term Goal (STG) Decrease pain to no greater than 4/10 STG Duration 06/27/21 Dog Food Shredder Operator Goal (LTG) decrease pain to no greater than 2/10 with all usual activities LTG Duration 08/09/21 Assessment Summary Assessment Pt struggles to complete HEP review today without heavy cues for form and movements. Encouraged pt to try all HEP exercises at home this weekend and write notes to reivew any exercises that cause her pain , any exercises she is confused on, or any exercises she has difficulty with so that she can review them with therapist next session. Pt is unable to properly do 90/90 core exercise without back pain initially. Went back to basic movements with pelvic tilts emphasising using her core before returning to 90/90 exercise with pt showing improved core connection and decreased back pain. When pt arrives she ambulates with increased lateral lean today. Worked on gait during session in front of mirror emphasizing push off without lateral shift of pelvis and increased lateral lean. Physical Therapy Plan Frequency and Duration Frequency of Treatment 2x/Week Duration of Treatment 12 weeks Plan of Care Start Date 05/08/21 Plan of Care End Date 08/09/21 Therapeutic Interventions Therapeutic Interventions Aquatic Therapy,Gait Training, Home Exercise Program,Joint Mobilizations,Manual Therapy, Neuromuscular Re-education, Patient/Caregiver Education, Self-Care/Home Management,Soft Tissue Mobilization,Taping, Therapeutic Activities, Therapeutic Exercises Modalities Cold Pack/Ice Massage,Electric Stimulation,Hot Packs Next Visit Focus/Plan Next Note Type Treatment Note Next Visit Plan Pt was instructed to do all HEP exercises and bring them next week with notes on which ones she had difficulty/pain with Continue progression of postural re-education, strengthening, flexibility, manual techniques to decrease soft tissue tightness and pain . Use mirror for postural feeback
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
--- NOTE | 2021-07-02 09:35 | PT.OTN ---
Current Diagnoses Unspecified osteoarthritis, unspecified site (06/29/21) Pain in unspecified knee (06/29/21) Dorsalgia, unspecified (06/29/21) Difficulty in walking, not elsewhere classified (06/29/21) Abnormal posture (06/29/21) Physical Therapy Treatment Note PT-OP-A Visit Information Start: 04/26/21 14:10 Freq: Status: Active Protocol: Document 06/29/21 12:56 SAK (Rec: 06/29/21 13:43 SAK [id number]) Out-Patient Physical Therapy Visit Information Visit Information Visit Type Treatment Note Visit Start Time 13:00 Visit Stop Time 13:40 Total Visit Minutes 40 Visit Number 9 PT-OP-B Current Condition Start: 04/26/21 14:10 Freq: Status: Active Protocol: Document 06/08/21 12:58 SAK (Rec: 06/08/21 13:44 SAK [id number]) Current Condition History of Current Condition Onset Date 1 month Current Complaints left LE pain History of Current Condition 4 falls in short period of time; was on folding ladder, fell off. Going downstairs, slipped and fell. Working in yard fell on rocks. Initially pain right knee; x-ray showed chip in knee cap. After subsequent falls, pain in left side. Exacerbation of mid and upper back pain since falls. A little better now but still leaning to side and forward, can't walk straight. Occasional tingling left foot, occasionally gives way (every other day), has fallen when leg gives way. Hasn't used assistive device. Less pain when walking with cart at grocery store. 4 days ago spent 2 days in bed, lots less pain, then overdid activity and increased pain again. No use of ice or heat. Worst pain back of right knee when standing and walking, best when laying down on right side . Prior Treatments and Tests xrays negative Future Testing and Treatments Planned Not sure when sees Dr. German for follow-up appointment. PT-OP-C Subjective Start: 04/26/21 14:10 Freq: Status: Active Protocol: Document 06/29/21 12:56 SAK (Rec: 06/29/21 13:43 SAK [id number]) OP-PT Subjective Patient Comments Patient Comments Patient reports she hasn't been doing her exercises faithfully, not using mirror for postural correction. States she feels like one of her legs is longer than the other. Pain constant 6/10, sometimes better sometimes more pain after PT. States moving more seems to help PT-OP-G Mobility & Gait Start: 04/26/21 14:10 Freq: Status: Active Protocol: Document 05/08/21 11:18 SAK (Rec: 05/11/21 21:45 [facility] [id number]) OP Gait Assessment Gait Gait Assistance Required: Independent Assistive Devices Assistive Device None Gait Deviations General Gait Pattern Antalgic,Lateral Trunk Lean Comments Gait Comments trunk lean to right in standing and with gait. Stair Climbing Evaluation Comments Stair Climbing Comments not tested today due to high pain level PT-OP-H Neuro Start: 04/26/21 14:10 Freq: Status: Active Protocol: Document 05/08/21 11:18 [facility] (Rec: 05/11/21 21:45 [facility] [id number]) Sensation Evaluation Gross Sensation Gross Sensation WNL PT-OP-J Posture/Palpation/Skin Start: 04/26/21 14:10 Freq: Status: Active Protocol: Document 05/08/21 11:18 [facility] (Rec: 05/11/21 21:45 [facility] [id number]) Posture Evaluation Position Standing Head/C-Spine Posture Side Bent Right,Forward Head T-Spine Posture Increased Kyphosis L-Spine Posture Shifted Right Palpation Assessment Location left LE Palpation Findings Soft Tissue Tightness,Muscle Guarding,Tenderness thoracic spine flora Palpation Findings Soft Tissue Tightness,Muscle Guarding,Tenderness PT-OP-K Range of Motion Start: 04/26/21 14:10 Freq: Status: Active Protocol: Document 05/08/21 11:18 [facility] (Rec: 05/11/21 21:45 [facility] [id number]) Lumbar Spine Range of Motion Lumbar Spine Active Testing Position Standing ROM Limitations Pain Comments moderate decrease all motions Shoulder Goniometric Range of Motion Shoulder flora Shoulder ROM WFL Yes Hip Goniometric Range of Motion Hip Left Hip ROM WFL No Flexion w/Knee Flexed 90 Straight Leg Raise 45 Extension 0 Abduction 25 Internal Rotation 20 External Rotation 35 Right Hip ROM WFL Yes Knee Goniometric Range of Motion Knee Left Knee ROM WFL No Flexion Active (degrees) 90 Extension Active (degrees) 5 Right Knee ROM WFL Yes Ankle and Foot Goniometric Range of Motion Ankle and Foot flora Ankle/Foot ROM WFL Yes PT-OP-M Strength Start: 04/26/21 14:10 Freq: Status: Active Protocol: Document 05/08/21 11:18 [facility] (Rec: 05/11/21 21:45 [facility] [id number]) Shoulder Strength Shoulder Manual Muscle Testing flora Comments MMT difficult due to high level of pain in spine, low tolerance for resistance. Demonstrates anti-gravity strength approximately 75% Hip Strength Hip Manual Muscle Testing Left Flexion (L2) 3+ Fair+ Extension (S1) 3- Fair- Abduction 3+ Fair+ Adduction 3+ Fair+ External Rotation 3+ Fair+ Internal Rotation 3+ Fair+ Comments limited by pain Right Flexion (L2) 4- Good- Extension (S1) 3+ Fair+ Abduction 4- Good- Adduction 4- Good- External Rotation 4- Good- Internal Rotation 4- Good- Knee Strength Knee Manual Muscle Testing Left Flexion (S2) 4 Good Extension (L3) 4 Good Comments limited by pain Right Flexion (S2) 5 Normal Extension (L3) 5 Normal Ankle/Foot Strength Ankle and Foot Manual Muscle Testing flora Dorsiflexion (L4) 5 Normal Plantarflexion (S1) 5 Normal PT-OP-Q Treatments Start: 04/26/21 14:10 Freq: Status: Active Protocol: Document 06/29/21 12:56 [facility] (Rec: 06/29/21 13:43 [facility] [id number]) Cardio Equipment Recumbent Stepper (Sci-Fit) Duration (Minutes) 6 Resistance 2.0 Seat Position 6 Therapeutic Exercises Supine Exercises lower trunk rotation Reps/Minutes 10x Pelvic Tilts Reps/Minutes x10 Comments for better understanding of core work during supine marching Marching Side bilateral Reps/Minutes x10 Comments cues for core activation Bridges Side bilateral Reps/Minutes 10x 5 SH Comments denied pain pirformis fig 4 stretch Supine Exercise Name foot over opp knee resting and w/hip IR if beneficial Side bilateral Reps/Minutes 1' Sitting Exercises HS stretch Side left Reps/Minutes 20 Comments cued hip hinge Standing Exercises lateral trunk stretch Reps/Minutes 2x10 rhythmic stabilization Standing Exercise Name after postural correction Reps/Minutes 3 min Comments mirror for visual feedback. row, shoulder ext Resistance L1 TB Reps/Minutes 10x Gait Training Gait Activity Gait in mirror Comments working on push off watching for lateral shift of pelvis Manual Therapy Treatment Soft Tissue Mobilization STMs Body Location L ITB, glut med, pirformis Mobilization Type Cross-Friction,Rolling, Sustained Pressure Intensity/Depth Moderate Body Position Sidelying Neuro Re-Education Treatment Other Activities postural correction Details seated and standing Comments mirror for visual feedback, verbal and manual cues as well . PT-OP-R Modalities Start: 04/26/21 14:10 Freq: Status: Active Protocol: Document 05/08/21 11:18 SAK (Rec: 05/11/21 21:45 [facility] [id number]) Hot Pack/Cold Pack Treatment Hot Pack Location thoracic spine, left hip Patient Position Hooklying Treatment Duration (minutes) 15 Patient Tolerance Good PT-OP-T Assessment and Plan Start: 04/26/21 14:10 Freq: Status: Active Protocol: Document 06/29/21 12:56 SAK (Rec: 06/29/21 13:43 [facility] [id number]) Physical Therapy Assessment Goals Six Impairment balance dysfunction Short Term Goal (STG) Perform objective balance assessment to include Amaro Balance assessment Intermediate Goal (LTG) Patient to score in the low fall risk category on Amaro balance score LTG Duration 08/09/21 Five Impairment unable to walk without pain Locksmith Apprentice Goal (LTG) Patient will be able to resume prior level of activity including returning to taking walks of 3 miles with minimal to no pain with least restrictive device. LTG Duration 08/09/21 Four Impairment postural dysfunction with moderate lean to the right Intermediate Goal (LTG) Patient will be able to stand and walk with neutral posture without an increase in pain LTG Duration 08/09/21 Three Impairment Oswestry disability index score 30% Intermediate Goal (LTG) Decrease Oswestry disability index score to no greater than 10% as measure of improved activity tolerance and functin LTG Duration 08/09/21 Two Impairment LE functional scale score 50% Short Term Goal (STG) Improve LEFS to at least 60% as measure of improved activity tolerance and function Locksmith Apprentice Goal (LTG) Improve LEFS score to at least 75% as measure of improved activity tolerance and function LTG Duration 08/09/21 One Impairment pain thoracic spine, left LE 7 /10 Short Term Goal (STG) Decrease pain to no greater than 4/10 STG Duration 06/27/21 Intermediate Goal (LTG) decrease pain to no greater than 2/10 with all usual activities LTG Duration 08/09/21 Assessment Summary Assessment Patient has difficulty with postural correction, needs verbal, manual, and visual cues. Leg length checked; equal leg length and pelvis level. Advised again not to carry heavy purse, especially on shortened side. Physical Therapy Plan Frequency and Duration Frequency of Treatment 2x/Week Duration of Treatment 12 weeks Plan of Care Start Date 05/08/21 Plan of Care End Date 08/09/21 Therapeutic Interventions Therapeutic Interventions Aquatic Therapy,Gait Training, Home Exercise Program,Joint Mobilizations,Manual Therapy, Neuromuscular Re-education, Patient/Caregiver Education, Self-Care/Home Management,Soft Tissue Mobilization,Taping, Therapeutic Activities, Therapeutic Exercises Modalities Cold Pack/Ice Massage,Electric Stimulation,Hot Packs Next Visit Focus/Plan Next Note Type Treatment Note Next Visit Plan Continue progression of postural re-education, strengthening, flexibility, manual techniques to decrease soft tissue tightness and pain . Use mirror for postural feeback
--- NOTE | 2021-07-10 16:50 | PT.OTN ---
Current Diagnoses Unspecified osteoarthritis, unspecified site (07/10/21) Pain in unspecified knee (07/10/21) Dorsalgia, unspecified (07/10/21) Difficulty in walking, not elsewhere classified (07/10/21) Abnormal posture (07/10/21) Physical Therapy Treatment Note PT-OP-A Visit Information Start: 04/26/21 14:10 Freq: Status: Active Protocol: Document 07/10/21 13:45 SAK (Rec: 07/10/21 14:27 SAK [id number]) Out-Patient Physical Therapy Visit Information Visit Information Visit Type Treatment Note Visit Start Time 13:45 Visit Stop Time 14:30 Total Visit Minutes 45 Visit Number 10 PT-OP-B Current Condition Start: 04/26/21 14:10 Freq: Status: Active Protocol: Document 06/08/21 12:58 SAK (Rec: 06/08/21 13:44 SAK [id number]) Current Condition History of Current Condition Onset Date 1 month Current Complaints left LE pain History of Current Condition 4 falls in short period of time; was on folding ladder, fell off. Going downstairs, slipped and fell. Working in yard fell on rocks. Initially pain right knee; x-ray showed chip in knee cap. After subsequent falls, pain in left side. Exacerbation of mid and upper back pain since falls. A little better now but still leaning to side and forward, can't walk straight. Occasional tingling left foot, occasionally gives way (every other day), has fallen when leg gives way. Hasn't used assistive device. Less pain when walking with cart at grocery store. 4 days ago spent 2 days in bed, lots less pain, then overdid activity and increased pain again. No use of ice or heat. Worst pain back of right knee when standing and walking, best when laying down on right side . Prior Treatments and Tests xrays negative Future Testing and Treatments Planned Not sure when sees Dr. German for follow-up appointment. PT-OP-C Subjective Start: 04/26/21 14:10 Freq: Status: Active Protocol: Document 06/29/21 12:56 SAK (Rec: 06/29/21 13:43 SAK [id number]) OP-PT Subjective Patient Comments Patient Comments Patient reports she hasn't been doing her exercises faithfully, not using mirror for postural correction. States she feels like one of her legs is longer than the other. Pain constant 6/10, sometimes better sometimes more pain after PT. States moving more seems to help PT-OP-G Mobility & Gait Start: 04/26/21 14:10 Freq: Status: Active Protocol: Document 05/08/21 11:18 SAK (Rec: 05/11/21 21:[address] [facility] [id number]) OP Gait Assessment Gait Gait Assistance Required: Independent Assistive Devices Assistive Device None Gait Deviations General Gait Pattern Antalgic,Lateral Trunk Lean Comments Gait Comments trunk lean to right in standing and with gait. Stair Climbing Evaluation Comments Stair Climbing Comments not tested today due to high pain level PT-OP-H Neuro Start: 04/26/21 14:10 Freq: Status: Active Protocol: Document 05/08/21 11:18 [facility] (Rec: 05/11/21 21:45 [facility] [id number]) Sensation Evaluation Gross Sensation Gross Sensation WNL PT-OP-J Posture/Palpation/Skin Start: 04/26/21 14:10 Freq: Status: Active Protocol: Document 05/08/21 11:18 [facility] (Rec: 05/11/21 21:45 [facility] [id number]) Posture Evaluation Position Standing Head/C-Spine Posture Side Bent Right,Forward Head T-Spine Posture Increased Kyphosis L-Spine Posture Shifted Right Palpation Assessment Location left LE Palpation Findings Soft Tissue Tightness,Muscle Guarding,Tenderness thoracic spine flora Palpation Findings Soft Tissue Tightness,Muscle Guarding,Tenderness PT-OP-K Range of Motion Start: 04/26/21 14:10 Freq: Status: Active Protocol: Document 05/08/21 11:18 [facility] (Rec: 05/11/21 21:45 [facility] [id number]) Lumbar Spine Range of Motion Lumbar Spine Active Testing Position Standing ROM Limitations Pain Comments moderate decrease all motions Shoulder Goniometric Range of Motion Shoulder flora Shoulder ROM WFL Yes Hip Goniometric Range of Motion Hip Left Hip ROM WFL No Flexion w/Knee Flexed 90 Straight Leg Raise 45 Extension 0 Abduction 25 Internal Rotation 20 External Rotation 35 Right Hip ROM WFL Yes Knee Goniometric Range of Motion Knee Left Knee ROM WFL No Flexion Active (degrees) 90 Extension Active (degrees) 5 Right Knee ROM WFL Yes Ankle and Foot Goniometric Range of Motion Ankle and Foot flora Ankle/Foot ROM WFL Yes PT-OP-M Strength Start: 04/26/21 14:10 Freq: Status: Active Protocol: Document 05/08/21 11:18 [facility] (Rec: 05/11/21 21:45 [facility] [id number]) Shoulder Strength Shoulder Manual Muscle Testing flora Comments MMT difficult due to high level of pain in spine, low tolerance for resistance. Demonstrates anti-gravity strength approximately 75% Hip Strength Hip Manual Muscle Testing Left Flexion (L2) 3+ Fair+ Extension (S1) 3- Fair- Abduction 3+ Fair+ Adduction 3+ Fair+ External Rotation 3+ Fair+ Internal Rotation 3+ Fair+ Comments limited by pain Right Flexion (L2) 4- Good- Extension (S1) 3+ Fair+ Abduction 4- Good- Adduction 4- Good- External Rotation 4- Good- Internal Rotation 4- Good- Knee Strength Knee Manual Muscle Testing Left Flexion (S2) 4 Good Extension (L3) 4 Good Comments limited by pain Right Flexion (S2) 5 Normal Extension (L3) 5 Normal Ankle/Foot Strength Ankle and Foot Manual Muscle Testing flora Dorsiflexion (L4) 5 Normal Plantarflexion (S1) 5 Normal PT-OP-Q Treatments Start: 04/26/21 14:10 Freq: Status: Active Protocol: Document 07/10/21 13:45 [facility] (Rec: 07/10/21 14:27 [facility] [id number]) Cardio Equipment Recumbent Stepper (Sci-Fit) Duration (Minutes) 8 Resistance 2.0 Seat Position 6 Other mirror for visual feedback of lateral alignment Gym Equipment Sport Cord green cord Exercise Details forward Reps/Duration 8x Comments emphasis on neutral postural alignment Therapeutic Exercises Prone Exercises shoulder extension Reps/Minutes 10x Comments with shoulder blade squeeze row Reps/Minutes 10x Standing Exercises lateral trunk flexion Equipment Used 2# Reps/Minutes 5x2 Comments mirror for visual feedback lateral trunk stretch Reps/Minutes 2x10 rhythmic stabilization Standing Exercise Name after postural correction Reps/Minutes 3 min Comments mirror for visual feedback. row, shoulder ext Resistance L1 TB Reps/Minutes 10x Comments multiple verbal and manual cues for aligment and movement . Therapeutic Activity Therapeutic Activity dynamic postural training Reps/Minutes 10 Comments use of mirror for postural re- education and training in static and dynamic postures and movements including gait due to poor body awareness. Patient needed verbal, manual, and visual cues for correction. Gait Training Gait Activity Gait in mirror Comments working on push off watching for lateral shift of pelvis Manual Therapy Treatment Soft Tissue Mobilization STMs Body Location thoracic and lumbar paraspinals Mobilization Type Myofascial Release,Strumming Intensity/Depth Moderate Body Position Prone Comments prone pillow Neuro Re-Education Treatment Other Activities postural correction Details seated and standing Comments mirror for visual feedback, verbal and manual cues as well . PT-OP-R Modalities Start: 04/26/21 14:10 Freq: Status: Active Protocol: Document 05/08/21 11:18 [facility] (Rec: 05/11/21 21:45 [facility] [id number]) Hot Pack/Cold Pack Treatment Hot Pack Location thoracic spine, left hip Patient Position Hooklying Treatment Duration (minutes) 15 Patient Tolerance Good PT-OP-T Assessment and Plan Start: 04/26/21 14:10 Freq: Status: Active Protocol: Document 07/10/21 13:45 [facility] (Rec: 07/10/21 14:27 [facility] [id number]) Physical Therapy Assessment Goals Six Impairment balance dysfunction Short Term Goal (STG) Perform objective balance assessment to include Amaro Balance assessment Steel Buffer Goal (LTG) Patient to score in the low fall risk category on Amaro balance score LTG Duration 08/09/21 Five Impairment unable to walk without pain Usp Goal (LTG) Patient will be able to resume prior level of activity including returning to taking walks of 3 miles with minimal to no pain with least restrictive device. LTG Duration 08/09/21 Four Impairment postural dysfunction with moderate lean to the right Usp Goal (LTG) Patient will be able to stand and walk with neutral posture without an increase in pain LTG Duration 08/09/21 Three Impairment Oswestry disability index score 30% Usp Goal (LTG) Decrease Oswestry disability index score to no greater than 10% as measure of improved activity tolerance and functin LTG Duration 08/09/21 Two Impairment LE functional scale score 50% Short Term Goal (STG) Improve LEFS to at least 60% as measure of improved activity tolerance and function Steel Buffer Goal (LTG) Improve LEFS score to at least 75% as measure of improved activity tolerance and function LTG Duration 08/09/21 One Impairment pain thoracic spine, left LE Short Term Goal (STG) Decrease pain to no greater than 4/10 STG Duration 06/27/21 Usp Goal (LTG) decrease pain to no greater than 2/10 with all usual activities LTG Duration 08/09/21 Assessment Summary Assessment Patient demonstrated some improvement in postural correction today with continued visual feedback, and addition of 2# weights for lateral trunk flexion. Needs fairly constant cues in sitting and standing as has poor kinesthetic awareness of positioning. Decreased soft tissue tightness after manual treatment. Physical Therapy Plan Frequency and Duration Frequency of Treatment 2x/Week Duration of Treatment 12 weeks Plan of Care Start Date 05/08/21 Plan of Care End Date 08/09/21 Therapeutic Interventions Therapeutic Interventions Aquatic Therapy,Gait Training, Home Exercise Program,Joint Mobilizations,Manual Therapy, Neuromuscular Re-education, Patient/Caregiver Education, Self-Care/Home Management,Soft Tissue Mobilization,Taping, Therapeutic Activities, Therapeutic Exercises Modalities Cold Pack/Ice Massage,Electric Stimulation,Hot Packs Next Visit Focus/Plan Next Note Type Treatment Note Next Visit Plan Continue progression of postural re-education, strengthening, flexibility, manual techniques to decrease soft tissue tightness and pain . Use mirror for postural feeback
--- NOTE | 2021-07-16 08:36 | PT.OTN ---
Current Diagnoses Unspecified osteoarthritis, unspecified site (07/12/21) Pain in unspecified knee (07/12/21) Dorsalgia, unspecified (07/12/21) Difficulty in walking, not elsewhere classified (07/12/21) Abnormal posture (07/12/21) Physical Therapy Treatment Note PT-OP-A Visit Information Start: 04/26/21 14:10 Freq: Status: Active Protocol: Document 07/12/21 12:57 SAK (Rec: 07/12/21 13:46 SAK [id number]) Out-Patient Physical Therapy Visit Information Visit Information Visit Type Treatment Note Visit Start Time 13:00 Visit Stop Time 13:45 Total Visit Minutes 45 Visit Number 11 PT-OP-B Current Condition Start: 04/26/21 14:10 Freq: Status: Active Protocol: Document 06/08/21 12:58 SAK (Rec: 06/08/21 13:44 SAK [id number]) Current Condition History of Current Condition Onset Date 1 month Current Complaints left LE pain History of Current Condition 4 falls in short period of time; was on folding ladder, fell off. Going downstairs, slipped and fell. Working in yard fell on rocks. Initially pain right knee; x-ray showed chip in knee cap. After subsequent falls, pain in left side. Exacerbation of mid and upper back pain since falls. A little better now but still leaning to side and forward, can't walk straight. Occasional tingling left foot, occasionally gives way (every other day), has fallen when leg gives way. Hasn't used assistive device. Less pain when walking with cart at grocery store. 4 days ago spent 2 days in bed, lots less pain, then overdid activity and increased pain again. No use of ice or heat. Worst pain back of right knee when standing and walking, best when laying down on right side . Prior Treatments and Tests xrays negative Future Testing and Treatments Planned Not sure when sees Dr. German for follow-up appointment. PT-OP-C Subjective Start: 04/26/21 14:10 Freq: Status: Active Protocol: Document 07/12/21 12:57 SAK (Rec: 07/12/21 13:46 SAK [id number]) OP-PT Subjective Patient Comments Patient Comments having difficulty correcting posture. less pain for 1 whole day after PT, feels soft tissue work very helpful, liked prone pillow. PT-OP-G Mobility & Gait Start: 04/26/21 14:10 Freq: Status: Active Protocol: Document 05/08/21 11:18 SAK (Rec: 05/11/21 21:45 [facility] [id number]) OP Gait Assessment Gait Gait Assistance Required: Independent Assistive Devices Assistive Device None Gait Deviations General Gait Pattern Antalgic,Lateral Trunk Lean Comments Gait Comments trunk lean to right in standing and with gait. Stair Climbing Evaluation Comments Stair Climbing Comments not tested today due to high pain level PT-OP-H Neuro Start: 04/26/21 14:10 Freq: Status: Active Protocol: Document 05/08/21 11:18 SAK (Rec: 05/11/21 21:45 [facility] [id number]) Sensation Evaluation Gross Sensation Gross Sensation WNL PT-OP-J Posture/Palpation/Skin Start: 04/26/21 14:10 Freq: Status: Active Protocol: Document 05/08/21 11:18 [facility] (Rec: 05/11/21 21:45 [facility] [id number]) Posture Evaluation Position Standing Head/C-Spine Posture Side Bent Right,Forward Head T-Spine Posture Increased Kyphosis L-Spine Posture Shifted Right Palpation Assessment Location left LE Palpation Findings Soft Tissue Tightness,Muscle Guarding,Tenderness thoracic spine flora Palpation Findings Soft Tissue Tightness,Muscle Guarding,Tenderness PT-OP-K Range of Motion Start: 04/26/21 14:10 Freq: Status: Active Protocol: Document 05/08/21 11:18 SAK (Rec: 05/11/21 21:45 [facility] [id number]) Lumbar Spine Range of Motion Lumbar Spine Active Testing Position Standing ROM Limitations Pain Comments moderate decrease all motions Shoulder Goniometric Range of Motion Shoulder flora Shoulder ROM WFL Yes Hip Goniometric Range of Motion Hip Left Hip ROM WFL No Flexion w/Knee Flexed 90 Straight Leg Raise 45 Extension 0 Abduction 25 Internal Rotation 20 External Rotation 35 Right Hip ROM WFL Yes Knee Goniometric Range of Motion Knee Left Knee ROM WFL No Flexion Active (degrees) 90 Extension Active (degrees) 5 Right Knee ROM WFL Yes Ankle and Foot Goniometric Range of Motion Ankle and Foot flora Ankle/Foot ROM WFL Yes PT-OP-M Strength Start: 04/26/21 14:10 Freq: Status: Active Protocol: Document 05/08/21 11:18 [facility] (Rec: 05/11/21 21:45 [facility] [id number]) Shoulder Strength Shoulder Manual Muscle Testing flora Comments MMT difficult due to high level of pain in spine, low tolerance for resistance. Demonstrates anti-gravity strength approximately 75% Hip Strength Hip Manual Muscle Testing Left Flexion (L2) 3+ Fair+ Extension (S1) 3- Fair- Abduction 3+ Fair+ Adduction 3+ Fair+ External Rotation 3+ Fair+ Internal Rotation 3+ Fair+ Comments limited by pain Right Flexion (L2) 4- Good- Extension (S1) 3+ Fair+ Abduction 4- Good- Adduction 4- Good- External Rotation 4- Good- Internal Rotation 4- Good- Knee Strength Knee Manual Muscle Testing Left Flexion (S2) 4 Good Extension (L3) 4 Good Comments limited by pain Right Flexion (S2) 5 Normal Extension (L3) 5 Normal Ankle/Foot Strength Ankle and Foot Manual Muscle Testing flora Dorsiflexion (L4) 5 Normal Plantarflexion (S1) 5 Normal PT-OP-Q Treatments Start: 04/26/21 14:10 Freq: Status: Active Protocol: Document 07/12/21 12:57 [facility] (Rec: 07/12/21 13:46 [facility] [id number]) Cardio Equipment Recumbent Stepper (Sci-Fit) Duration (Minutes) 10 Resistance 1.0 Seat Position 6 Other mirror for visual feedback of lateral alignment Therapeutic Exercises Supine Exercises full body stretch Reps/Minutes 2x 30 Comments arms overhead, emphasis on symmetry lower trunk rotation Reps/Minutes 10x Pelvic Tilts Reps/Minutes x10 Comments for better understanding of core work during supine marching Bridges Side bilateral Reps/Minutes 10x 5 SH Comments denied pain Sitting Exercises lateral trunk stretch Reps/Minutes 2 min Comments left sidelying with 2 pillows under side Standing Exercises lateral trunk flexion Equipment Used 2# Reps/Minutes 5x2 Comments mirror for visual feedback lateral trunk stretch Reps/Minutes 2x10 rhythmic stabilization Standing Exercise Name after postural correction Reps/Minutes 3 min Comments mirror for visual feedback. Therapeutic Activity Therapeutic Activity dynamic postural training Reps/Minutes 10 Comments use of mirror for postural re- education and training in static and dynamic postures and movements including gait due to poor body awareness. Patient needed verbal, manual, and visual cues for correction. Gait Training Gait Activity Gait in mirror Comments Emphasis on symmetrical postural alignment Manual Therapy Treatment Soft Tissue Mobilization STMs Body Location thoracic and lumbar paraspinals Mobilization Type Myofascial Release,Strumming Intensity/Depth Moderate Body Position Prone Comments prone pillow Neuro Re-Education Treatment Other Activities postural correction Details seated and standing Comments mirror for visual feedback, verbal and manual cues as well . PT-OP-R Modalities Start: 04/26/21 14:10 Freq: Status: Active Protocol: Document 05/08/21 11:18 [facility] (Rec: 05/11/21 21:45 [facility] [id number]) Hot Pack/Cold Pack Treatment Hot Pack Location thoracic spine, left hip Patient Position Hooklying Treatment Duration (minutes) 15 Patient Tolerance Good PT-OP-T Assessment and Plan Start: 04/26/21 14:10 Freq: Status: Active Protocol: Document 07/12/21 12:57 [facility] (Rec: 07/12/21 13:46 [facility] [id number]) Physical Therapy Assessment Goals Six Impairment balance dysfunction Short Term Goal (STG) Perform objective balance assessment to include Amaro Balance assessment Lab Scientist Goal (LTG) Patient to score in the low fall risk category on Amaro balance score LTG Duration 08/09/21 Five Impairment unable to walk without pain Fpc Goal (LTG) Patient will be able to resume prior level of activity including returning to taking walks of 3 miles with minimal to no pain with least restrictive device. LTG Duration 08/09/21 Four Impairment postural dysfunction with moderate lean to the right Lab Scientist Goal (LTG) Patient will be able to stand and walk with neutral posture without an increase in pain LTG Duration 08/09/21 Three Impairment Oswestry disability index score 30% Fpc Goal (LTG) Decrease Oswestry disability index score to no greater than 10% as measure of improved activity tolerance and functin 07/10/21: some goal progress. LTG Duration 08/09/21 Two Impairment LE functional scale score 50% Short Term Goal (STG) Improve LEFS to at least 60% as measure of improved activity tolerance and function 07/10/21: 50% despite verbalization of some improvement Fpc Goal (LTG) Improve LEFS score to at least 75% as measure of improved activity tolerance and function LTG Duration 08/09/21 One Impairment pain thoracic spine, left LE Short Term Goal (STG) Decrease pain to no greater than 4/10 07/10/21: pain decreased to 5/ 10 STG Duration partially met Fpc Goal (LTG) decrease pain to no greater than 2/10 with all usual activities LTG Duration 08/09/21 Assessment Summary Assessment decreased pain after PT. Patient needs constant cues for postural alignment, despite seeing lean in mirror has difficulty correcting. Physical Therapy Plan Frequency and Duration Frequency of Treatment 2x/Week Duration of Treatment 12 weeks Plan of Care Start Date 05/08/21 Plan of Care End Date 08/09/21 Therapeutic Interventions Therapeutic Interventions Aquatic Therapy,Gait Training, Home Exercise Program,Joint Mobilizations,Manual Therapy, Neuromuscular Re-education, Patient/Caregiver Education, Self-Care/Home Management,Soft Tissue Mobilization,Taping, Therapeutic Activities, Therapeutic Exercises Modalities Cold Pack/Ice Massage,Electric Stimulation,Hot Packs Next Visit Focus/Plan Next Note Type Treatment Note Next Visit Plan Continue progression of postural re-education, strengthening, flexibility, manual techniques to decrease soft tissue tightness and pain . Use mirror for postural feeback
--- NOTE | 2021-07-19 13:18 | PT-OP ANOTE ---
DNS for PT appointment despite phone call after last session, with patient apologizing and stating she would come today
--- NOTE | 2021-07-24 11:57 | PT.OPDS ---
Current Diagnoses Unspecified osteoarthritis, unspecified site (07/12/21) Pain in unspecified knee (07/12/21) Dorsalgia, unspecified (07/12/21) Difficulty in walking, not elsewhere classified (07/12/21) Abnormal posture (07/12/21) Visit Care Team Role Provider Type Mitchel German MD Attending Provider Physician Primary Care Provider Referring Provider Specialty: Internal Medicine Address: [address] [place] [address], [address], [facility] Email: [email or web address] Visit Number Visit Number 11 Discharge Summary PT-OP-B Current Condition Start: 04/26/21 14:10 Freq: Status: Active Protocol: Document 06/08/21 12:58 SAK (Rec: 06/08/21 13:44 SAK [id number]) Current Condition History of Current Condition Onset Date 1 month Current Complaints left LE pain History of Current Condition 4 falls in short period of time; was on folding ladder, fell off. Going downstairs, slipped and fell. Working in yard fell on rocks. Initially pain right knee; x-ray showed chip in knee cap. After subsequent falls, pain in left side. Exacerbation of mid and upper back pain since falls. A little better now but still leaning to side and forward, can't walk straight. Occasional tingling left foot, occasionally gives way (every other day), has fallen when leg gives way. Hasn't used assistive device. Less pain when walking with cart at grocery store. 4 days ago spent 2 days in bed, lots less pain, then overdid activity and increased pain again. No use of ice or heat. Worst pain back of right knee when standing and walking, best when laying down on right side . Prior Treatments and Tests xrays negative Future Testing and Treatments Planned Not sure when sees Dr. German for follow-up appointment. PT-OP-C Subjective Start: 04/26/21 14:10 Freq: Status: Active Protocol: Document 07/12/21 12:57 SAK (Rec: 07/12/21 13:46 SAK [id number]) OP-PT Subjective Patient Comments Patient Comments having difficulty correcting posture. less pain for 1 whole day after PT, feels soft tissue work very helpful, liked prone pillow. PT-OP-G Mobility & Gait Start: 04/26/21 14:10 Freq: Status: Active Protocol: Document 05/08/21 11:18 SAK (Rec: 05/11/21 21:45 SAK [id number]) OP Gait Assessment Gait Gait Assistance Required: Independent Assistive Devices Assistive Device None Gait Deviations General Gait Pattern Antalgic,Lateral Trunk Lean Comments Gait Comments trunk lean to right in standing and with gait. Stair Climbing Evaluation Comments Stair Climbing Comments not tested today due to high pain level PT-OP-H Neuro Start: 04/26/21 14:10 Freq: Status: Active Protocol: Document 05/08/21 11:18 SAK (Rec: 05/11/21 21:45 SAK [id number]) Sensation Evaluation Gross Sensation Gross Sensation WNL PT-OP-J Posture/Palpation/Skin Start: 04/26/21 14:10 Freq: Status: Active Protocol: Document 05/08/21 11:18 SAK (Rec: 05/11/21 21:45 [facility] [id number]) Posture Evaluation Position Standing Head/C-Spine Posture Side Bent Right,Forward Head T-Spine Posture Increased Kyphosis L-Spine Posture Shifted Right Palpation Assessment Location left LE Palpation Findings Soft Tissue Tightness,Muscle Guarding,Tenderness thoracic spine flora Palpation Findings Soft Tissue Tightness,Muscle Guarding,Tenderness PT-OP-K Range of Motion Start: 04/26/21 14:10 Freq: Status: Active Protocol: Document 05/08/21 11:18 SAK (Rec: 05/11/21 21:45 SAK [id number]) Lumbar Spine Range of Motion Lumbar Spine Active Testing Position Standing ROM Limitations Pain Comments moderate decrease all motions Shoulder Goniometric Range of Motion Shoulder flora Shoulder ROM WFL Yes Hip Goniometric Range of Motion Hip Left Hip ROM WFL No Flexion w/Knee Flexed 90 Straight Leg Raise 45 Extension 0 Abduction 25 Internal Rotation 20 External Rotation 35 Right Hip ROM WFL Yes Knee Goniometric Range of Motion Knee Left Knee ROM WFL No Flexion Active (degrees) 90 Extension Active (degrees) 5 Right Knee ROM WFL Yes Ankle and Foot Goniometric Range of Motion Ankle and Foot flora Ankle/Foot ROM WFL Yes PT-OP-M Strength Start: 04/26/21 14:10 Freq: Status: Active Protocol: Document 05/08/21 11:18 [facility] (Rec: 05/11/21 21:45 [facility] [id number]) Shoulder Strength Shoulder Manual Muscle Testing flora Comments MMT difficult due to high level of pain in spine, low tolerance for resistance. Demonstrates anti-gravity strength approximately 75% Hip Strength Hip Manual Muscle Testing Left Flexion (L2) 3+ Fair+ Extension (S1) 3- Fair- Abduction 3+ Fair+ Adduction 3+ Fair+ External Rotation 3+ Fair+ Internal Rotation 3+ Fair+ Comments limited by pain Right Flexion (L2) 4- Good- Extension (S1) 3+ Fair+ Abduction 4- Good- Adduction 4- Good- External Rotation 4- Good- Internal Rotation 4- Good- Knee Strength Knee Manual Muscle Testing Left Flexion (S2) 4 Good Extension (L3) 4 Good Comments limited by pain Right Flexion (S2) 5 Normal Extension (L3) 5 Normal Ankle/Foot Strength Ankle and Foot Manual Muscle Testing flora Dorsiflexion (L4) 5 Normal Plantarflexion (S1) 5 Normal PT-OP-T Assessment and Plan Start: 04/26/21 14:10 Freq: Status: Active Protocol: Document 07/24/21 11:56 [facility] (Rec: 07/24/21 11:56 [facility] [id number]) Physical Therapy Plan Discharge Physical Therapy Discharge Comments 3 no shows
== END 2021-07-25 14:15 | disposition home or self-care (01) ==
LOC: PHYS 13:00
PROVIDERS: PCP Student in an Organized Health Care Education/Training Program; Referring Provider Student in an Organized Health Care Education/Training Program; Visit Provider Student in an Organized Health Care Education/Training Program
DX: M25.569 Pain in unspecified knee (principal); M54.9 Dorsalgia, unspecified; M19.90 Unspecified osteoarthritis, unspecified site; R26.2 Difficulty in walking, not elsewhere classified; R29.3 Abnormal posture
CPT/HCPCS: 97110; 97116; 97140; 97162; 97530; 97535

== ENCOUNTER → 2021-09-13 14:03 | Outpatient (CLI) | payer MEDICARE, MEDICAID, SELFPAY ==
[2021-08-22 16:55] VITALS: BMI 22.9
== END ==
PROVIDERS: PCP Student in an Organized Health Care Education/Training Program; Referring Provider Psychiatry & Neurology Psychiatry; Visit Provider Psychiatry & Neurology Psychiatry
DX: R94.31 Abnormal electrocardiogram [ECG] [EKG] (principal)
CPT/HCPCS: 93005

== ENCOUNTER → 2021-10-30 14:21 | Outpatient (CLI) | payer MEDICARE, MEDICAID, SELFPAY ==
[2021-08-22 16:55] VITALS: BMI 22.9
[2021-10-30 15:53] LABS: Ur Creatinine Normal (Normal); Ur Specific Gravity Normal (Normal); Urine Cocaine Negative (Negative); Urine Tetrahydrocannabinol Negative (Negative); Urine pH Normal (Normal)
[2021-10-30 15:54] LABS: UR Morphine/Opiate cutoff 300 Negative (Negative); Urine Amphetamines Positive (Negative); Urine Barbiturates Negative (Negative); Urine Benzodiazepines Negative (Negative); Urine MDMA Negative (Negative); Urine Methadone Negative (Negative); Urine Methamphetamines Positive (Negative); Urine Oxycodone Negative (Negative); Urine Phencyclidine Negative (Negative); Urine Tricyclic Antidepressant Positive (Negative)
== END ==
PROVIDERS: PCP Student in an Organized Health Care Education/Training Program; Referring Provider Psychiatry & Neurology Psychiatry; Visit Provider Psychiatry & Neurology Psychiatry
DX: F15.950 Other stimulant use, unspecified with stimulant-induced psychotic disorder with delusions (principal); G25.71 Drug induced akathisia; F32.9 Major depressive disorder, single episode, unspecified; F43.10 Post-traumatic stress disorder, unspecified; F41.0 Panic disorder [episodic paroxysmal anxiety]
CPT/HCPCS: 80305; 99214

== ENCOUNTER → 2022-01-10 14:28 | Outpatient (CLI) | payer MEDICARE, MEDICAID, SELFPAY ==
[2021-08-22 16:55] VITALS: BMI 22.9
--- NOTE | 2022-01-10 | DI.MG.S_ITS ---
BILATERAL DIGITAL SCREENING MAMMOGRAM 3D/2D WITH CAD: 01/10/2022 CLINICAL: Routine screening. Comparison is made to exams dated: 12/02/2020 mammogram, 11/26/2019 mammogram, and 08/27/2014 mammogram - [facility]. The tissue of both breasts is heterogeneously dense. This may lower the sensitivity of mammography. Current study was also evaluated with a Computer Aided Detection (CAD) system. No significant masses, calcifications, or other findings are seen in either breast. There has been no significant interval change. IMPRESSION: NEGATIVE There is no mammographic evidence of malignancy. A 1 year screening mammogram is recommended. This exam was interpreted at Station ID: [id number]. NOTE: For mammograms, a report in lay terms will be sent to the patient. Approximately 15% of breast malignancies will not be visualized mammographically. In the management of a palpable breast mass, a negative mammogram must not discourage biopsy of a clinically suspicious lesion. Electronically Signed By: James hughes/markie:01/10/2022 14:57:21 letter sent: Normal Exam ACR BI-RADS Category 1: Negative [id number]
== END ==
PROVIDERS: PCP Student in an Organized Health Care Education/Training Program; Referring Provider Student in an Organized Health Care Education/Training Program; Visit Provider Student in an Organized Health Care Education/Training Program
DX: Z12.31 Encounter for screening mammogram for malignant neoplasm of breast (principal)
CPT/HCPCS: 77063; 77067

== ENCOUNTER → 2022-01-30 12:03 | Outpatient (CLI) | payer MEDICARE, MEDICAID, SELFPAY ==
[2021-08-22 16:55] VITALS: BMI 22.9
[2022-01-30 13:31] LABS: Hemoglobin A1C% w Est Avg Glu 5.7 % (4.0-6.0)
[2022-01-30 14:29] LABS: Alanine Aminotransferase 15 IU/L (<35); Albumin 4.3 g/dL (3.5-5.0); Albumin Globulin Ratio 1.7 (1.0-2.8); Alkaline Phosphatase 78 U/L (38-126); Aspartate Aminotransferase 24 IU/L (14-36); BUN Creatinine Ratio 21.4 (6-22); Bilirubin Total 0.3 mg/dL (0.2-1.3); Bilirubin Unconjugated 0.3 mg/dL (0.0-1.1); Blood Urea Nitrogen 24 mg/dL (7-17); Calcium 9.5 mg/dL (8.4-10.2); Carbon Dioxide 20 mmol/L (22-32); Chloride 110 mmol/L (98-107); Estimated Glomerular Filt Rate 48.7 mL/min (>60); Globulin 2.6 g/dL (1.7-4.1); Glucose 99 mg/dL (80-110); HEMOLYSIS < 15 (0-50); Potassium 4.3 mmol/L (3.4-5.1); Sodium 141 mmol/L (137-145); Total Protein 6.9 g/dL (6.3-8.2)
[2022-01-30 15:01] LABS: TSH w/ Reflex to FT4 1.61 uIU/mL (0.47-4.68)
[2022-01-31 07:43] LABS: Hepatitis B Surface Antigen NEGATIVE s/c (NEGATIVE)
== END ==
PROVIDERS: PCP Student in an Organized Health Care Education/Training Program; Referring Provider Student in an Organized Health Care Education/Training Program; Visit Provider Student in an Organized Health Care Education/Training Program
DX: E11.9 Type 2 diabetes mellitus without complications (principal); E03.9 Hypothyroidism, unspecified; N18.31 Chronic kidney disease, stage 3a; F15.21 Other stimulant dependence, in remission; R76.8 Other specified abnormal immunological findings in serum
CPT/HCPCS: 36415; 80048; 80076; 83036; 84443; 87340

== ENCOUNTER 2022-03-31 13:54 | Emergency (ER) | payer MEDICARE, MEDICAID, SELFPAY ==
[2021-08-22 16:55] VITALS: BMI 22.9
[2022-03-31] VITALS (8 sets, daily range): BP systolic 112–121; BP diastolic 59; PULSE 72–79; RESP 18; TEMP 36.9; O2SAT 92–99; BMI 25.5
--- NOTE | 2022-03-31 14:13 | DI.RAD.S_ITS ---
PROCEDURE: XR KNEE LT 1TO2V INDICATIONS: fall off ladder with pain and swelling TECHNIQUE: 3 views of the knee were acquired. COMPARISON: [facility], CR, XR TIBIA FIBULA LT 2V, 03/31/2022, 14:13. [facility], CR, XR KNEE RT 3V, 04/06/2021, 16:07. [facility], CR, XR KNEE LT 3V, 04/06/2021, 16:07. FINDINGS: Bones: Similar appearance of comminuted fracturing of the proximal tibia with comminuted tibial plateau fracture as well as mildly displaced and angulated oblique fracture of the proximal tibial metaphysis/diaphysis. No suspicious bony lesions. Soft tissues: Moderate joint effusion. Diffuse soft tissue edema/swelling. No suspicious soft tissue calcifications. IMPRESSION: Comminuted fracturing of the proximal tibia including comminuted fractures of the tibial plateau as well as a mildly displaced and angulated fracture of the proximal tibial metaphysis/diaphysis. Dictated by: Jake Sutherland D.O. on 03/31/2022 at 13:55 Approved by: Jake Sutherland D.O. on 03/31/2022 at 13:56
--- NOTE | 2022-03-31 14:13 | DI.RAD.S_ITS ---
PROCEDURE: XR TIBIA FIBULA LT 2V INDICATIONS: fall with pain and swelling TECHNIQUE: 4 views of the tibia and fibula were acquired. COMPARISON: None. FINDINGS: Bones: There is comminuted fracturing of the proximal tibia with comminuted fractures of the tibial plateau as well as oblique displaced and angulated fracture of the proximal tibial metaphysis/diaphysis. No suspicious bony lesions. Soft tissues: Enthesophyte of the superior pole of the patella. Diffuse soft tissue edema. IMPRESSION: Comminuted fracturing of the proximal tibia to include comminuted fracturing of the tibial plateau as well as a mildly displaced and angulated fracture of the proximal tibial metaphysis/diaphysis. Dictated by: Jake Sutherland D.O. on 03/31/2022 at 13:38 Approved by: Jake Sutherland D.O. on 03/31/2022 at 13:41
--- NOTE | 2022-03-31 14:14 | ED_ITS ---
HPI - Fall General Chief Complaint: Fall Stated Complaint: Fell off of ladder, knee pain, can't walk Time Seen by Provider: 03/31/22 14:00 Source: patient and family Mode of arrival: Wheelchair Limitations: no limitations History of Present Illness HPI Narrative: 66-year-old female who is here for evaluation of left knee pain. She states that earlier today she was standing on a ladder trying to move some things in her garage when she fell off the ladder. She landed on her bent left knee. Since that time she has been unable to walk. She has pain and swelling in the area. She did not hit her head. No loss of conscious. She has some bruising on her arms but no other injuries from the event. Related Data Home Medications Medication Instructions Recorded Confirmed aspirin 325 mg tablet 325 mg PO DAILY 10/16/21 12/12/21 Previous Rx's Medication Instructions Recorded gabapentin 300 mg capsule 600 mg PO Q OTHER DAY #90 cap 08/17/20 liothyronine 5 mcg tablet (Cytomel) 5 mcg PO BID #60 tab 04/18/21 levothyroxine 25 mcg tablet 25 mcg PO QAM #30 tab 05/25/21 losartan 50 mg tablet (Cozaar) 50 mg PO Q DAY #90 tab 08/08/21 simvastatin 80 mg tablet (Zocor) 80 mg PO DAILY #90 tab 08/08/21 quetiapine 100 mg tablet See Rx Instructions .ROUTE 10/30/21 .COMPLEX #240 tab propranolol 10 mg tablet 20 mg PO TID #180 tab 11/13/21 citalopram 40 mg tablet 40 mg PO DAILY #30 tab 03/05/22 clonazepam 0.5 mg tablet See Rx Instructions .ROUTE 03/05/22 .COMPLEX #150 tab topiramate 100 mg tablet (Topamax) 100 mg PO BID #60 tab 03/27/22 Allergies Allergy/AdvReac Type Severity Reaction Status Date / Time NASRIN Inhibitors Allergy Intermediate EDEMA IN Verified 12/12/21 14:15 BOTH HANDS codeine Allergy Mild NAUSEA/VOMI Verified 12/12/21 14:15 TING meperidine Allergy Mild VOMITING Verified 12/12/21 14:15 Review of Systems Constitutional Constitutional: Reports headache(s) (This is present prior to the) ENT Ears, Nose, Mouth, and Throat: Reports headache(s) (This is present prior to the) Musculoskeletal Musculoskeletal: Reports system reviewed and no additional complaints, except as documented and Reports as per HPI Integumentary/Breasts Skin/Breast: Reports system reviewed and no additional complaints, except as documented and Reports as per HPI Neurologic Neurologic: Reports headache(s) (This is present prior to the) Hematologic/Lymphatic On Anticoagulants: No Patient History Medical History Amphetamine use disorder, severe, in early remission Anemia Anterior myocardial infarction (2007) CAD (coronary artery disease) Chest pain Chicken pox Chronic headaches Chronic pain Depression Diabetes mellitus 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 Hyperlipidemia Hypertension Intentional benzodiazepine overdose Measles Migraines Narcotic abuse, episodic Panic disorder Panic disorder without agoraphobia (02/21/11) Presbyacusis PTSD (post-traumatic stress disorder) Right knee pain Surgical History Anesthesia History of appendectomy History of colonoscopy with polypectomy (12/29/14) History of esophagogastroduodenoscopy (EGD) (12/29/14) History of tonsillectomy Status post blepharoplasty of both eyes (11/11/12) Status post insertion of drug-eluting stent into left anterior descending (LAD) artery (2007) Family History Father Diabetes mellitus Heart disease Hypertension Stroke Social History household members: none Smoking Status: Current every day smoker alcohol intake: never substance use type: does not use Smoking Status: Current every day smoker tobacco type: cigarettes alcohol intake frequency: holidays/special occasions only Substance Use Type: does not use Exam Initial Vital Signs Initial Vital Signs: Vital Signs Temperature 98.5 F 03/31/22 13:54 Pulse Rate 79 03/31/22 13:54 Respiratory Rate 18 03/31/22 13:54 Blood Pressure 112/59 L 03/31/22 13:54 Pulse Oximetry 99 03/31/22 13:54 Const General: cooperative HENMT Head: normal to inspection and normocephalic Resp Effort & Inspection: normal respiratory effort Cardio Pulses: dorsalis pedis present on the left Skin Other: Significant bruising located anterior knee and anterior ruiz. Neuro General: patient alert and patient awake Extrem Other: Pelvis is stable. Right eye lower extremity in bilateral upper extremities unremarkable. Patient cannot do a straight leg raise on the left. Has tenderness to palpation throughout the left knee. Unable to evaluate ligaments secondary to discomfort Psych Appearance: grossly normal and well kempt Procedures Orthopedic Splinting/Casting Injury #1: Side: left Lower Extremity Injury Location: knee Lower Extremity Immobilizer: knee immobilizer Post splinting neuro exam: intact Post splinting vascular exam: intact Placed by: Nursing Course Orders Ordered: ED Orders 03/31/22 14:13 XR knee LT 1to2V Stat XR tibia fibula LT 2V Stat 03/31/22 14:48 COVID19 -Nasal RAPID/Pre-Proc Stat 03/31/22 15:15 Basic Metabolic Panel Stat Complete Blood Count AUTO DIFF Stat Discontinued Medications Morphine Sulfate (Morphine 4 Mg/Ml Inj) 4 mg IV NOW ONE Stop: 03/31/22 15:20 Last Admin: 03/31/22 15:29 Dose: 4 mg Documented by: MACK Vital Signs Vital signs: Vital Signs - 8 hr 03/31/22 13:54 03/31/22 14:05 03/31/22 14:06 Temperature 98.5 F Pulse Rate 79 79 79 Respiratory Rate 18 Blood Pressure 112/59 L 112/59 L Pulse Oximetry 99 92 98 03/31/22 14:30 03/31/22 15:00 03/31/22 15:01 Temperature Pulse Rate 74 78 73 Respiratory Rate Blood Pressure 119/59 L 121/59 L Pulse Oximetry 94 98 98 03/31/22 15:30 03/31/22 16:00 Temperature Pulse Rate 72 76 Respiratory Rate Blood Pressure Pulse Oximetry 99 98 MDM - Fall Lab Data Result diagrams: 03/31/22 15:15 03/31/22 15:15 Labs: Lab Results 03/31/22 03/31/22 03/31/22 Range/Units 14:48 15:15 15:15 WBC 10.3 (4.5-11.0) X10^3/uL RBC 2.73 L (4.0-5.2) X10^6/uL Hgb 9.0 L (12.0-16.0) g/dL Hct 26.2 L (36-46) % MCV 95.9 (80-100) fL MCH 32.9 (26-34) PG MCHC 34.3 (30-36) % RDW 13.6 (11.6-14.8) % Plt Count 167 (150-400) X10^3/uL Neut % (Auto) 80.9 H (50-75) % Lymph % (Auto) 7.3 L (25-40) % [place] % (Auto) 11.6 (3-14) % Eos % (Auto) 0.0 L (2-4) % Baso % (Auto) 0.2 (0-2) % Neut # (Auto) 8300 H (9736-8622) /uL Lymph # (Auto) 700 L (8740-4960) /uL [place] # (Auto) 1200 H (0-900) /uL Eos # (Auto) 0 (0-450) /uL Baso # (Auto) 0 (0-100) /uL Sodium 140 (137-145) mmol/L Potassium 3.8 (3.4-5.1) mmol/L Chloride 107 (98-107) mmol/L Carbon Dioxide 23 (22-32) mmol/L BUN 53 H (7-17) mg/dL Creatinine 1.35 H (0.52-1.04) mg/dL Estimated GFR 43 L (>60) mL/min BUN/Creatinine Ratio 39.3 H (6-22) Glucose 131 H (80-110) mg/dL Calcium 9.0 (8.4-10.2) mg/dL SARS-CoV-2 (PCR) Negative (Negative) Imaging Data Extremity x-ray #1: Radiologist's Impression: [address] [address] XRay Report Signed Patient: Taylor Olivera MR#: [id number] : 1955 Acct:[id number] Age/Sex: 66 / F Date of Service: 03/31/22 Loc: ED Accession Number: [id number] ?? Procedure: XR tibia fibula LT 2V Ordering Provider: Rommel Carlisle D.O. PROCEDURE:? XR TIBIA FIBULA LT 2V ? INDICATIONS:? fall with pain and swelling ? TECHNIQUE:? 4 views of the tibia and fibula were acquired.? ? COMPARISON:? None. ? FINDINGS:? ? Bones:? There is comminuted fracturing of the proximal tibia with comminuted fractures of the tibial plateau as well as oblique displaced and angulated fracture of the proximal tibial metaphysis/diaphysis.? No suspicious bony lesions.? ? Soft tissues:? Enthesophyte of the superior pole of the patella. Diffuse soft tissue edema. ? ? IMPRESSION:? ? Comminuted fracturing of the proximal tibia to include comminuted fracturing of the tibial plateau as well as a mildly displaced and angulated fracture of the proximal tibial metaphysis/diaphysis.? ? Dictated by: Jake Sutherland D.O. on 03/31/2022 at 13:38 ? ? Approved by: Jake Sutherland D.O. on 03/31/2022 at 13:41 Extremity x-ray #2: Radiologist's Impression: [place] [address] XRay Report Signed Patient: Taylor Olivera MR#: [id number] : 1955 Acct:[id number] Age/Sex: 66 / F Date of Service: 03/31/22 Loc: ED Accession Number: [id number] ?? Procedure: XR knee LT 1to2V Ordering Provider: Rommel Carlisle D.O. PROCEDURE:? XR KNEE LT 1TO2V ? INDICATIONS:? fall off ladder with pain and swelling ? TECHNIQUE:? 3 views of the knee were acquired.? ? COMPARISON:? [facility], CR, XR TIBIA FIBULA LT 2V, 03/31/2022, 14:13.? [facility], CR, XR KNEE RT 3V, 04/06/2021, 16:07.? [facility], CR, XR KNEE LT 3V, 04/06/2021, 16:07. ? FINDINGS:? ? Bones:? Similar appearance of comminuted fracturing of the proximal tibia with comminuted tibial plateau fracture as well as mildly displaced and angulated oblique fracture of the proximal tibial metaphysis/diaphysis.? No suspicious bony lesions.? ? Soft tissues:? Moderate joint effusion.? Diffuse soft tissue edema/swelling.? No suspicious soft tissue calcifications.? ? ? IMPRESSION:? ? Comminuted fracturing of the proximal tibia including comminuted fractures of the tibial plateau as well as a mildly displaced and angulated fracture of the proximal tibial metaphysis/diaphysis. ? ? Dictated by: Jake Sutherland D.O. on 03/31/2022 at 13:55 ? ? Approved by: Jake Sutherland D.O. on 03/31/2022 at 13:56?? [facility] Narrative Medical decision making narrative: Neurovascularly intact. Does have left-sided tibial plateau fracture and also a proximal tibia fracture. She was placed in a knee immobilizer for her comfort. Discussed the case with Dr. Jo with orthopedic surgery who recommended the patient be transferred to a facility that has orthopedic trauma given the tibial plateau fracture. There are no other injuries reported from the event. Did not hit her head. No loss of consciousness. No hip pain. Will transfer to [facility]. Discussed the case with the emergency physician who accepts patient in transfer. Patient is stable for transport. Discharge Plan Departure Patient Disposition: [facility] Clinical Impression: Closed fracture of left tibial plateau Prescriptions: No Action quetiapine 100 mg tablet See Rx Instructions .ROUTE .COMPLEX Qty: 240 3RF Rx Instructions: Take 100 mg (1 tab) PO BID and 600 mg (6 tabs) PO QHS aspirin 325 mg tablet 325 mg PO DAILY 0RF propranolol 10 mg tablet 20 mg PO TID Qty: 180 3RF liothyronine [Cytomel] 5 mcg tablet 5 mcg PO BID Qty: 60 11RF Hold Instructions: needs labs levothyroxine 25 mcg tablet 25 mcg PO QAM Qty: 30 11RF Hold Instructions: needs labs losartan [Cozaar] 50 mg tablet 50 mg PO Q DAY Qty: 90 2RF simvastatin [Zocor] 80 mg tablet 80 mg PO DAILY Qty: 90 2RF citalopram 40 mg tablet 40 mg PO DAILY Qty: 30 3RF clonazepam 0.5 mg tablet See Rx Instructions .ROUTE .COMPLEX Qty: 150 0RF Rx Instructions: 0.5 mg (1 tab) PO TID, and 1.0 mg (2 tab) PO QHS topiramate [Topamax] 100 mg tablet 100 mg PO BID Qty: 60 9RF gabapentin 300 mg capsule 600 mg PO Q OTHER DAY Qty: 90 3RF Referrals: Mitchel German MD [Primary Care Provider] -
[2022-03-31 15:13] LABS: COVID19 -Nasal RAPID Negative (Negative)
[2022-03-31 15:23] LABS: Add Manual Diff / Slide Review NO; Basophils Absolute Auto 0 /uL (0-100); Basophils Percent Auto 0.2 % (0-2); Eosinophils Absolute Auto 0 /uL (0-450); Hematocrit 26.2 % (36-46); Lymphocytes Absolute Auto 700 /uL (1100-4500); Lymphocytes Percent Auto 7.3 % (25-40); Mean Corpuscular HGB Conc 34.3 % (30-36); Mean Corpuscular Hemoglobin 32.9 PG (26-34); Mean Corpuscular Volume 95.9 fL (80-100); Monocytes Absolute Auto 1200 /uL (0-900); Monocytes Percent Auto 11.6 % (3-14); Neutrophils Absolute Auto 8300 /uL (1500-7000); Neutrophils Percent Auto 80.9 % (50-75); Platelet Count 167 X10^3/uL (150-400); Red Blood Cell Count 2.73 X10^6/uL (4.0-5.2); Red Cell Distribution Width 13.6 % (11.6-14.8); White Blood Cell Count 10.3 X10^3/uL (4.5-11.0)
[2022-03-31] MEDS: MORPHINE 4 MG/ML INJ IV (15:29)
[2022-03-31 15:36] LABS: BUN Creatinine Ratio 39.3 (6-22); Blood Urea Nitrogen 53 mg/dL (7-17); Carbon Dioxide 23 mmol/L (22-32); Chloride 107 mmol/L (98-107); Estimated Glomerular Filt Rate 43 mL/min (>60); Glucose 131 mg/dL (80-110); HEMOLYSIS < 15 (0-50); Potassium 3.8 mmol/L (3.4-5.1); Sodium 140 mmol/L (137-145)
[2022-03-31] MEDS: HYDROMORPHONE 1 MG INJ IV (16:20)
== END 2022-03-31 16:35 | disposition short-term general hospital (02) ==
PROVIDERS: Emergency Provider Emergency Medicine; PCP Student in an Organized Health Care Education/Training Program
DX: S82.142A Displaced bicondylar fracture of left tibia, initial encounter for closed fracture (principal); W11.XXXA Fall on and from ladder, initial encounter; Z20.822 Contact with and (suspected) exposure to COVID-19
CPT/HCPCS: 29530; 36415; 73560; 73590; 80048; 85025; 87635; 96374; 96375; 99284; C9803; J1170; J2270

== ENCOUNTER 2022-08-21 13:14 | Emergency (ER) | payer MEDICARE, MEDICAID, SELFPAY ==
[2021-08-22 16:55] VITALS: BMI 22.9
[2022-08-21 13:26] VITALS: BP 186/102; PULSE 100; RESP 18; TEMP 36.9; O2SAT 96; BMI 27.3
[2022-08-21 13:51] VITALS: BP 177/104; PULSE 103; O2SAT 96
--- NOTE | 2022-08-21 14:00 | PC.NURSE ---
i spoke with daughter lourdes (she is in the waiting room) she states she does not believe any one has been in the house that shouldn't be. she states the house is clean and looks like usual. lourdes states her mom gets paranoid when using meth. she found meth in the house, she through it out. the pt admits to using meth 2 days ago. lourdes doesn't think her mom has been taking her regular meds in the last 2 days either, nor sleeping.
--- NOTE | 2022-08-21 14:15 | DI.RAD.S_ITS ---
PROCEDURE: XR KNEE LT 3V INDICATIONS: knee pain, prior fx TECHNIQUE: 3 views of the knee were acquired. COMPARISON: [facility], CR, XR TIBIA FIBULA LT 2V, 03/31/2022, 14:13. [facility], CR, XR KNEE LT 1TO2V, 03/31/2022, 14:13. FINDINGS: Bones: No fractures or dislocations. No suspicious bony lesions. Soft tissues: Patient is status post ORIF of the left proximal tibia. Fracture fragments are in anatomic alignment with interval healing when compared with the prior study dated March 31, 2022. No suspicious bony lesions. IMPRESSION: Healed proximal tibial fracture. Dictated by: Natasha Connor M.D. on 08/21/2022 at 14:46 Approved by: Natasha Connor M.D. on 08/21/2022 at 14:46
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
[2022-08-21 14:27] LABS: Bacteria Urine Many (>30); Culture Indicated Urine Specimen Cultured; RBC Urine 1-5/HPF (0-5/HPF); Squamous Epithelial Cell Urine 1-5 /HPF (0-5/HPF); WBC Urine 5-10/HPF (0-5/HPF)
[2022-08-21 14:31] LABS: UR Morphine/Opiate cutoff 300 Negative (Negative); Ur Creatinine Normal (Normal); Ur Specific Gravity Normal (Normal); Urine Amphetamines Positive (Negative); Urine Barbiturates Negative (Negative); Urine Benzodiazepines Positive (Negative); Urine Cocaine Negative (Negative); Urine MDMA Negative (Negative); Urine Methadone Negative (Negative); Urine Methamphetamines Positive (Negative); Urine Oxycodone Negative (Negative); Urine Phencyclidine Negative (Negative); Urine Tetrahydrocannabinol Negative (Negative); Urine Tricyclic Antidepressant Positive (Negative); Urine pH Normal (Normal)
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
[2022-08-21] MEDS: cephALEXin 250 MG CAPSULE 500 MG PO (15:20)
[2022-08-21] MEDS: KETOROLAC 10 MG TABLET PO (15:21)
[2022-08-21] MEDS: clonazePAM 0.5 MG TABLET PO (15:21)
[2022-08-21 15:35] LABS: Add Manual Diff / Slide Review NO; Basophils Absolute Auto 0 /uL (0-100); Basophils Percent Auto 0.5 % (0-2); Eosinophils Absolute Auto 100 /uL (0-450); Eosinophils Percent Auto 1.1 % (2-4); Hematocrit 37.3 % (36-46); Hemoglobin 12.7 g/dL (12.0-16.0); Lymphocytes Absolute Auto 1700 /uL (1100-4500); Lymphocytes Percent Auto 29.5 % (25-40); Mean Corpuscular Hemoglobin 31.9 PG (26-34); Mean Corpuscular Volume 93.7 fL (80-100); Monocytes Absolute Auto 600 /uL (0-900); Monocytes Percent Auto 10.6 % (3-14); Neutrophils Absolute Auto 3300 /uL (1500-7000); Neutrophils Percent Auto 58.3 % (50-75); Platelet Count 225 X10^3/uL (150-400); Red Blood Cell Count 3.98 X10^6/uL (4.0-5.2); Red Cell Distribution Width 13.1 % (11.6-14.8); White Blood Cell Count 5.6 X10^3/uL (4.5-11.0)
[2022-08-21 15:39] LABS: Alanine Aminotransferase 29 IU/L (<35); Albumin 4.7 g/dL (3.5-5.0); Albumin Globulin Ratio 1.3 (1.0-2.8); Alkaline Phosphatase 133 U/L (38-126); Aspartate Aminotransferase 40 IU/L (14-36); BUN Creatinine Ratio 26.1 (6-22); Bilirubin Total 0.6 mg/dL (0.2-1.3); Blood Urea Nitrogen 23 mg/dL (7-17); Calcium 9.4 mg/dL (8.4-10.2); Carbon Dioxide 26 mmol/L (22-32); Chloride 99 mmol/L (98-107); Estimated Glomerular Filt Rate > 60 mL/min (>60); Ethanol (ETOH) < 10 mg/dL; Globulin 3.7 g/dL (1.7-4.1); Glucose 98 mg/dL (80-110); HEMOLYSIS < 15 (0-50); Potassium 3.9 mmol/L (3.4-5.1); Sodium 138 mmol/L (137-145); Total Protein 8.4 g/dL (6.3-8.2)
[2022-08-21 15:45] LABS: COVID19 -Nasal RAPID Negative (Negative)
[2022-08-21 15:48] VITALS: BP 186/104; PULSE 78; O2SAT 98
[2022-08-21 16:14] LABS: Acetaminophen < 10 ug/mL (10-30); Salicylate < 1.0 mg/dL (<20)
== END 2022-08-21 16:22 | disposition home or self-care (01) ==
PROVIDERS: Emergency Medicine; Emergency Provider Nurse Practitioner Critical Care Medicine; PCP Student in an Organized Health Care Education/Training Program
DX: N30.01 Acute cystitis with hematuria (principal); F41.9 Anxiety disorder, unspecified; F15.10 Other stimulant abuse, uncomplicated; I10 Essential (primary) hypertension; Z20.822 Contact with and (suspected) exposure to COVID-19
CPT/HCPCS: 73562; 80053; 80305; 80320; 80329; 81003; 81015; 85025; 87077; 87086; 87186; 87635; 99283; 99284; C9803; G0480

== ENCOUNTER → 2022-09-12 10:26 | Outpatient (CLI) | payer MEDICARE, MEDICAID, SELFPAY ==
[2021-08-22 16:55] VITALS: BMI 22.9
[2022-09-12 11:14] LABS: Appearance Urine UA CLEAR; Bilirubin Urine UA NEGATIVE (NEGATIVE); Color Urine UA YELLOW; Glucose Urine UA NEGATIVE (Negative); Ketones Urine UA NEGATIVE (NEGATIVE); Leukocyte Esterase Urine UA NEGATIVE (NEGATIVE); Nitrite Urine UA NEGATIVE (Negative); Occult Blood Urine UA 2+ (Negative); Protein Urine UA 1+ (Negative); Specific Gravity Urine UA 1.025 (1.000-1.035); Urobilinogen Urine UA 0.2 E.U./dL (0.2)
[2022-09-12 11:20] LABS: RBC Urine 1-5/HPF (0-5/HPF); WBC Urine None Seen (0-5/HPF)
[2022-09-12 11:21] LABS: Bacteria Urine None Seen; Culture Indicated Urine Cult Not Indicated
[2022-09-13 11:38] LABS: Hepatitis B Surface Antigen NEGATIVE s/c (NEGATIVE)
[2022-09-21 21:48] LABS: Hep C Virus Ab w/Reflex Quant NEGATIVE s/c (NEGATIVE)
== END ==
PROVIDERS: PCP Student in an Organized Health Care Education/Training Program; Referring Provider Student in an Organized Health Care Education/Training Program; Visit Provider Student in an Organized Health Care Education/Training Program
DX: Z11.59 Encounter for screening for other viral diseases (principal); R30.0 Dysuria; R76.8 Other specified abnormal immunological findings in serum; Z91.89 Other specified personal risk factors, not elsewhere classified
CPT/HCPCS: 36415; 81001; 86803; 87340

== ENCOUNTER → 2022-11-03 15:56 | Outpatient (CLI) | payer MEDICARE, MEDICAID, SELFPAY ==
[2021-08-22 16:55] VITALS: BMI 22.9
[2022-11-03 16:46] LABS: Influenza A - CEPHEID Flu A NEGATIVE (NEGATIVE); Influenza B - CEPHEID Flu B NEGATIVE (NEGATIVE); Respiratory Syncytial Virus Negative (Negative)
[2022-11-03 16:49] LABS: COVID-19 CEPHEID 4-PLEX PCR Negative (Negative)
== END ==
PROVIDERS: PCP Student in an Organized Health Care Education/Training Program; Visit Provider Nurse Practitioner Family
DX: J06.9 Acute upper respiratory infection, unspecified (principal)
CPT/HCPCS: 0241U

== ENCOUNTER 2023-03-04 22:22 | Emergency (ER) | payer MEDICARE, MEDICAID, SELFPAY ==
[2021-08-22 16:55] VITALS: BMI 22.9
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
[2023-03-04 22:32] VITALS: BP 198/105; PULSE 98; RESP 16; TEMP 36.6; O2SAT 98; BMI 29.2
[2023-03-04 23:53] VITALS: PULSE 85; O2SAT 91
[2023-03-04 23:54] VITALS: BP 208/110; PULSE 85; O2SAT 98
[2023-03-04 23:55] VITALS: BP 203/109; PULSE 81; O2SAT 97
--- NOTE | 2023-03-04 23:58 | DI.RAD.S_ITS ---
PROCEDURE: XR CHEST 2V INDICATIONS: possible pneumonitis TECHNIQUE: 2 views of the chest were acquired. COMPARISON: [facility], CR, XR CHEST 2V, 02/13/2020, 20:47. FINDINGS: Surgical changes and devices: None. Lungs and pleura: Lungs are clear. No pleural effusions or pneumothorax. Mediastinum: Mediastinal contours are normal. Heart size is normal. Bones and chest wall: No suspicious bony abnormalities. Soft tissues appear unremarkable. IMPRESSION: 1. No acute cardiopulmonary disease. Dictated by: Aly Kemp M.D. on 03/05/2023 at 1:36 Approved by: Aly Kemp M.D. on 03/05/2023 at 1:36
[2023-03-05] VITALS (7 sets, daily range): BP systolic 172–199; BP diastolic 97–112; PULSE 70–88; RESP 16; O2SAT 79–100
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
--- NOTE | 2023-03-05 00:20 | DI.RAD.S_ITS ---
PROCEDURE: XR TIBIA FIBULA LT 2V INDICATIONS: pain, prior fx and surgery TECHNIQUE: 2 views of the tibia and fibula were acquired. COMPARISON: [facility], CR, XR TIBIA FIBULA LT 2V, 03/31/2022, 14:13. FINDINGS: Bones: There are postsurgical changes status post open reduction internal fixation of the previously visualized proximal tibial fracture with associated improved alignment. Medial and lateral fixation plates are demonstrated within the tibia with multiple fixation screws. Soft tissues: No suspicious soft tissue calcifications or masses. IMPRESSION: 1. Postsurgical changes status post ORIF of proximal tibial fracture. Dictated by: Aly Kemp M.D. on 03/05/2023 at 1:36 Approved by: Aly Kemp M.D. on 03/05/2023 at 1:43
[2023-03-05] MEDS: ACETAMINOPHEN 325 MG TABLET 975 MG PO (00:47)
== END 2023-03-05 02:06 | disposition home or self-care (01) ==
PROVIDERS: Emergency Provider Emergency Medicine; PCP Student in an Organized Health Care Education/Training Program
DX: M79.605 Pain in left leg (principal); Z71.1 Person with feared health complaint in whom no diagnosis is made
CPT/HCPCS: 71046; 73590; 99283

== ENCOUNTER 2023-04-02 16:07 | Emergency (ER) | payer MEDICARE, MEDICAID, SELFPAY ==
[2021-08-22 16:55] VITALS: BMI 22.9
[2023-04-02 16:32] VITALS: BP 180/101; PULSE 89; RESP 20; TEMP 36.5; O2SAT 98; BMI 28.3
[2023-04-02 17:22] VITALS: BP 192/94; PULSE 82; RESP 18; O2SAT 97
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
--- NOTE | 2023-04-02 17:50 | CM.SWNOTE ---
CLINICAL PHARMACY TECHNICIAN Note CLINICAL PHARMACY TECHNICIAN receives consult from RN due to patient's concern for wanting to dispose of her methamphetamine. CLINICAL PHARMACY TECHNICIAN reviews policy with RN and CLINICAL PHARMACY TECHNICIAN calls [employer] dispatch as it is undetermined how much substances patient has. CLINICAL PHARMACY TECHNICIAN requests [employer] to assist with disposing of patient's reported meth. RN reviews this with patient, and patient requests to d/c to turn it in to [employer] herself. CLINICAL PHARMACY TECHNICIAN calls [employer] with this update. CLINICAL PHARMACY TECHNICIAN reviews EMR and sees LEEANN and MH hx, patient sees psychiatrist Dr. Clifford. Plan: Patient to d/c to home upon medical clearance and to dispose of her meth, patient to f/u with PCP and Psychiatrist. Ronna Ureña, CORRECTIONAL OFFICER
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
== END 2023-04-02 18:01 | disposition home or self-care (01) ==
PROVIDERS: Emergency Provider Student in an Organized Health Care Education/Training Program; PCP Pediatrics
DX: M79.605 Pain in left leg (principal)
CPT/HCPCS: 99281

== ENCOUNTER → 2023-04-05 11:55 | Outpatient (CLI) | payer MEDICARE, MEDICAID, SELFPAY ==
[2021-08-22 16:55] VITALS: BMI 22.9
[2023-04-05 13:05] LABS: Alanine Aminotransferase 26 IU/L (<35); Albumin 3.9 g/dL (3.5-5.0); Albumin Globulin Ratio 1.6 (1.0-2.8); Alkaline Phosphatase 117 U/L (38-126); Aspartate Aminotransferase 32 IU/L (14-36); BUN Creatinine Ratio 22.9 (6-22); Bilirubin Total 0.2 mg/dL (0.2-1.3); Blood Urea Nitrogen 19 mg/dL (7-17); Calcium 8.9 mg/dL (8.4-10.2); Carbon Dioxide 30 mmol/L (22-32); Chloride 104 mmol/L (98-107); Cholesterol 148 mg/dL (140-199); Estimated Glomerular Filt Rate > 60 mL/min (>60); Globulin 2.4 g/dL (1.7-4.1); Glucose 95 mg/dL (80-110); HDL Cholesterol 65 mg/dL (40-60); HEMOLYSIS < 15 (0-50); LDL Cholesterol Calculated 47 mg/dL (<100); Potassium 3.7 mmol/L (3.4-5.1); Sodium 140 mmol/L (137-145); Total Protein 6.3 g/dL (6.3-8.2); Triglycerides 180 mg/dL (35-150)
[2023-04-06 06:19] LABS: x Labcorp Estim. Avg Glu (eAG) 126 mg/dL (.)
== END ==
PROVIDERS: PCP Pediatrics; Referring Provider Psychiatry & Neurology Psychiatry; Visit Provider Psychiatry & Neurology Psychiatry
DX: F41.8 Other specified anxiety disorders (principal); Z79.899 Other long term (current) drug therapy
CPT/HCPCS: 36415; 80053; 80061; 83036

== ENCOUNTER → 2023-04-22 15:11 | Outpatient (CLI) | payer MEDICARE, MEDICAID, SELFPAY ==
[2021-08-22 16:55] VITALS: BMI 22.9
--- NOTE | 2023-04-22 | DI.MG.S_ITS ---
BILATERAL DIGITAL SCREENING MAMMOGRAM 3D/2D WITH CAD: 04/22/2023 CLINICAL: Routine screening. Family history of breast cancer. Comparison is made to exams dated: 01/10/2022 mammogram, 12/02/2020 mammogram, and 11/26/2019 mammogram - [facility]. Both breasts are heterogeneously dense, which may obscure small masses (category c / 51-75% glandular tissue). Current study was also evaluated with a Computer Aided Detection (CAD) system. No significant masses, calcifications, or other findings are seen in either breast. There has been no significant interval change. IMPRESSION: NEGATIVE There is no mammographic evidence of malignancy. A 1 year screening mammogram is recommended. Based on the Tyrer Cuzick model (a risk assessment model) the patient's lifetime risk is 7.9% and her 10 year risk is 4.2%. According to the ACR, ACS, and NCCN guidelines, an annual breast MRI exam along with mammogram is recommended if the patient's lifetime risk is 20% or greater. This exam was interpreted at Station ID: [id number]. NOTE: For mammograms, a report in lay terms will be sent to the patient. Approximately 15% of breast malignancies will not be visualized mammographically. In the management of a palpable breast mass, a negative mammogram must not discourage biopsy of a clinically suspicious lesion. Electronically Signed By: Tyson hargrove/markie:04/23/2023 08:01:02 letter sent: Normal Exam ACR BI-RADS Category 1: Negative 3341F
--- NOTE | 2023-04-22 15:13 | DI.RAD.S_ITS ---
PROCEDURE: XR CHEST 2V INDICATIONS: crackles, orthopnea, effusion vs vasc ongestion? TECHNIQUE: 2 views of the chest were acquired. COMPARISON: [facility], CR, XR CHEST 2V, 03/05/2023, 0:39. FINDINGS: Surgical changes and devices: None. Lungs and pleura: Lungs are clear. No pleural effusions or pneumothorax. Mediastinum: Mildly tortuous thoracic aorta is seen. Heart size is mildly enlarged. Bones and chest wall: No suspicious bony abnormalities. Soft tissues appear unremarkable. IMPRESSION: No acute cardiopulmonary pathology. Dictated by: Rainer Gan M.D. on 04/22/2023 at 17:26 Approved by: Rainer Gan M.D. on 04/22/2023 at 17:26
[2023-04-22 17:06] LABS: Add Manual Diff / Slide Review NO; Basophils Absolute Auto 0 /uL (0-100); Basophils Percent Auto 0.6 % (0-2); Eosinophils Absolute Auto 200 /uL (0-450); Eosinophils Percent Auto 3.1 % (2-4); Hematocrit 35.8 % (36-46); Hemoglobin 12.2 g/dL (12.0-16.0); Lymphocytes Absolute Auto 1800 /uL (1100-4500); Lymphocytes Percent Auto 28.6 % (25-40); Mean Corpuscular HGB Conc 34.1 % (30-36); Mean Corpuscular Hemoglobin 32.3 PG (26-34); Mean Corpuscular Volume 94.8 fL (80-100); Monocytes Absolute Auto 400 /uL (0-900); Monocytes Percent Auto 6.5 % (3-14); Neutrophils Absolute Auto 3900 /uL (1500-7000); Neutrophils Percent Auto 61.2 % (50-75); Platelet Count 198 X10^3/uL (150-400); Red Blood Cell Count 3.77 X10^6/uL (4.0-5.2); Red Cell Distribution Width 13.9 % (11.6-14.8); White Blood Cell Count 6.4 X10^3/uL (4.5-11.0)
[2023-04-22 17:57] LABS: NT-proBNP (BNP-Adult 18+) 28 pg/mL (<125)
[2023-04-22 17:59] LABS: Free T4, Direct Thyroxine 0.33 ng/dL (0.78-2.19)
[2023-04-22 18:02] LABS: Free T3, Triiodothyronine Free 5.13 pg/mL (2.77-5.27)
[2023-04-22 18:13] LABS: Thyroid Stimulating Hormone 1.59 uIU/mL (0.47-4.68)
[2023-04-23 03:07] LABS: Hepatitis BE Antigen Negative (Negative)
== END ==
PROVIDERS: PCP Pediatrics; Referring Provider Pediatrics; Visit Provider Pediatrics
DX: Z12.31 Encounter for screening mammogram for malignant neoplasm of breast (principal); Z80.3 Family history of malignant neoplasm of breast; I51.7 Cardiomegaly; R09.89 Other specified symptoms and signs involving the circulatory and respiratory systems; R06.01 Orthopnea; N18.31 Chronic kidney disease, stage 3a; E03.9 Hypothyroidism, unspecified; R63.5 Abnormal weight gain; Z86.19 Personal history of other infectious and parasitic diseases
CPT/HCPCS: 36415; 71046; 77063; 77067; 83880; 84439; 84443; 84481; 85025; 87350

== ENCOUNTER → 2023-06-22 18:17 | Outpatient (CLI) | payer MEDICARE, MEDICAID, SELFPAY ==
[2021-08-22 16:55] VITALS: BMI 22.9
[2023-06-22 19:14] LABS: Influenza A - CEPHEID Flu A NEGATIVE (NEGATIVE); Influenza B - CEPHEID Flu B NEGATIVE (NEGATIVE); Respiratory Syncytial Virus Negative (Negative)
[2023-06-22 19:18] LABS: COVID-19 CEPHEID 4-PLEX PCR Negative (Negative)
== END ==
PROVIDERS: Family Provider Pediatrics; PCP Pediatrics; Visit Provider Nurse Practitioner Family
DX: Z20.828 Contact with and (suspected) exposure to other viral communicable diseases (principal); R09.81 Nasal congestion
CPT/HCPCS: 0241U

== ENCOUNTER → 2024-01-22 13:31 | Outpatient (CLI) | payer MEDICARE, MEDICAID, SELFPAY ==
[2021-08-22 16:55] VITALS: BMI 22.9
--- NOTE | 2024-01-22 13:32 | DI.ECHO.S_ITS ---
[facility] +---------+ : : [address] : : : : [id number] : : : : Phone: [phone]+ Echocardiogram Report + + :Name: TANISHA IRIZARRY Study Date: 01/22/2024 Height: 60 in : :[facility] ReadingLocation: Weight: 146 lb : : Gender: Female BSA: 1.6 m2 : :: 1955 Age: 68 yrs BP: 154/96 mmHg: :Reason For Study: HOLOSYSTOLIC MURMUR : :Ordering Physician: GLEN, : :MARIE Performed By: Jaycee Morgan : :Referring: MARIE CARROLL : + + Interpretation Summary The left ventricle is normal in size and wall thickness. The left ventricular ejection fraction is normal. The ejection fraction is estimated to be 55-60%. This is unchanged compared to the previous study. The right ventricle is normal in size and function. No significant valvular pathology seen. There is mild luminal irregularity and echogenicity in the abdominal aorta, suggestive of aortic atherosclerotic disease. The IVC is of normal diameter and collapses greater than 50% with a sniff. This suggests a low right atrial pressure of 3 mm Hg. Procedure: A two-dimensional transthoracic echocardiogram with color flow and Doppler was performed. The study quality was technically adequate. Comparison is made with the echocardiogram of 01/07/2020. The patient was in sinus rhythm with heart rates between 64-70 bpm during the exam. Left Ventricle: The left ventricle is normal in size and wall thickness. There is no thrombus. A false chord is noted (normal variant). The ejection fraction is estimated to be 55-60%. The left ventricular ejection fraction is normal. This is unchanged compared to the previous study. There are no focal wall motion abnormalities. Diastolic parameters suggest a relaxation abnormality of the left ventricle, consistent with probable normal filling pressures. Right Ventricle: The right ventricle is normal in size and function. Atria: The left atrial size is normal. There has been no significant change since the previous study. Right atrial size is normal. There is no Doppler evidence for an interatrial shunt. Mitral Valve: The mitral valve leaflets are slightly calcified. There is trace mitral regurgitation. Aortic Valve: The aortic valve is trileaflet. The aortic valve opens well. There is no aortic valve stenosis. There is trace aortic regurgitation. Compared to the prior echo study, there has been a decrease in the severity of aortic regurgitation. Tricuspid Valve: The tricuspid valve is normal in structure and function. There is trace tricuspid regurgitation. Pulmonary artery pressures cannot be estimated because of the lack of a measurable TR jet velocity. Pulmonic Valve: The pulmonic valve leaflets are thin and pliable; valve motion is normal. There is mild pulmonic regurgitation. Great Vessels: The aortic root is normal size. The dimensions of the ascending aorta are normal. There is mild luminal irregularity and echogenicity in the abdominal aorta, suggestive of aortic atherosclerotic disease. The IVC is of normal diameter and collapses greater than 50% with a sniff. This suggests a low right atrial pressure of 3 mm Hg. Pericardium/ Pleura There is no pericardial effusion. There is no pleural effusion. MMode/2D Measurements & Calculations LVIDd: 3.9 cm LVOT diam: 2.0 cm LVIDs: 3.0 cm Ao root diam: 2.8 cm FS: 24.1 % asc Aorta Diam: 3.7 cm IVSd: 0.90 cm Ao Arch Diam (Prox Trans): 2.5 cm LVPWd: 0.99 cm LV diehl. diameter/BSA (cm/m^2): 2.4 LV sys. diameter/BSA (cm/m^2): 1.8 LA A2 area: 13.9 cm2 RA long axis: 5.0 cm LA A4 area: 14.5 cm2 RA area: 10.4 cm2 LA length (vol): 4.3 cm RA vol: 18.6 ml LA vol: 39.8 ml RA : 11.4 ml/m2 LA vol index: 24.4 ml/m2 IVC diam: 1.1 cm RVD1 (basal): 3.4 cm RVD2 (mid): 2.7 cm TAPSE: 2.0 cm Doppler Measurements & Calculations Ao V2 max: 164.1 cm/sec LVOT Max Erik: 89.5 cm/sec Ao V2 mean: 125.7 cm/sec LV V1 max P.2 mmHg Ao max P.8 mmHg LV V1 VTI: 17.9 cm Ao mean P.7 mmHg CARMEN(I,D): 1.5 cm2 Ao V2 VTI: 35.4 cm CARMEN(V,D): 1.6 cm2 sev ratio: 0.51 CARMEN indexed to BSA (cm^2/m^2): 0.93 MV E max erik: 67.0 cm/sec PA V2 max: 129.0 cm/sec MV A max erik: 94.2 cm/sec PA V2 mean: 99.9 cm/sec MV E/A: 0.71 PA mean P.2 mmHg Med Peak E' Erik: 4.6 cm/sec PA pr(Accel): 39.6 mmHg E/E' med: 14.6 Lat Peak E' Erik: 6.6 cm/sec E/E' lat: 10.1 E/e' average: 12.4 MV dec time: 0.24 sec SV(LVOT): 53.9 ml Reading Physician:09:10 AM
--- NOTE | 2024-01-22 13:32 | DI.RAD.S_ITS ---
Bone Density Report Name: TANISHA IRIZARRY Age: 68 Sex: Female Ethnicity: White Date of : 1955 Indication: postmenopausal; screening for osteoporosis; Referring Provider: MARIE CARROLL Study: Bone densitometry was performed. Exam Date: January 22, 2024 Accession number: [id number] Bone Density: Region BMD T-score Z-score Classification AP Spine(L1-L4) 0.878 -1.5 0.5 Osteopenia Femoral Neck (Left) 0.500 -3.1 -1.4 Osteoporosis Total Hip (Left) 0.662 -2.3 -0.9 Osteopenia Femoral Neck (Right) 0.559 -2.6 -0.9 Osteoporosis Total Hip (Right) 0.682 -2.1 -0.7 Osteopenia Total Hip Mean 0.672 -2.2 -0.8 Osteopenia World Health Organization criteria for BMD impression classify patients as: Normal (T-score at or above -1.0), Osteopenia (T-score between -1.0 and -2.5), or Osteoporosis (T-score at or below -2.5). 10-year Fracture Risk: FRAX not reported because: Some T-score for Spine Total or Hip Total or Femoral Neck at or below -2.5 Impression: The patient has osteoporosis, based on the Left Femoral Neck T-score. Discussion: INCREASED RISK OF FRACTURE. BONE DENSITY IS UNDESIRABLY LOW AT ONE OR MORE SKELETAL SITES, CONSISTENT WITH POSTMENOPAUSAL OSTEOPOROSIS. This patient's lowest T-score meets the World Health Organization's (WHO) criteria for osteoporosis at one or more sites (T-score -2.5 or below). In untreated patients, the risk of osteoporotic fracture increases approximately two-fold for each 1.0 SD decrease in T-score. Low bone density is not the only risk factor for fracture; also consider factors such as patient's age, frailty or poor health, risk of falling, risk of injury, previous osteoporotic fracture, family history of osteoporosis, cigarette smoking, low body weight, etc. Not everyone with low bone mineral density has osteoporosis; osteomalacia and other metabolic bone disorders should also be considered. Patients who have osteoporosis should be evaluated for specific diseases and conditions (secondary causes) that may cause or contribute to bone loss. The [place] Association [employer] Clinical Endocrinologists (AACE) and National Osteoporosis Foundation (NOF) recommend pharmacologic intervention for all postmenopausal women whose T-score is in this range. The patient should follow a healthful lifestyle (good nutrition with adequate calcium and vitamin D, and appropriate weight-bearing exercise). Follow-Up: Consider a repeat BMD and Vertebral Fracture Assessment (VFA) exam in 2 years or sooner if medically necessary, to reassess this patient's status. Reported by: CARLOS MAY M.D. on 01/22/2024 1:55:00 PM.
== END ==
PROVIDERS: Family Provider Pediatrics; PCP Family Medicine; Referring Provider Family Medicine; Visit Provider Family Medicine
DX: R01.1 Cardiac murmur, unspecified (principal); I37.1 Nonrheumatic pulmonary valve insufficiency; R06.01 Orthopnea; R09.89 Other specified symptoms and signs involving the circulatory and respiratory systems; I25.10 Atherosclerotic heart disease of native coronary artery without angina pectoris; I10 Essential (primary) hypertension; M81.0 Age-related osteoporosis without current pathological fracture; Z78.0 Asymptomatic menopausal state
CPT/HCPCS: 77080; 93306

== ENCOUNTER → 2024-04-15 10:16 | Outpatient (CLI) | payer MEDICARE, MEDICAID, SELFPAY ==
[2021-08-22 16:55] VITALS: BMI 22.9
[2024-04-15 10:49] LABS: Add Manual Diff / Slide Review NO; Basophils Absolute Auto 0 /uL (0-100); Basophils Percent Auto 0.6 % (0-2); Eosinophils Absolute Auto 300 /uL (0-450); Eosinophils Percent Auto 5.6 % (2-4); Hematocrit 34.2 % (36-46); Hemoglobin 11.3 g/dL (12.0-16.0); Lymphocytes Absolute Auto 2200 /uL (1100-4500); Lymphocytes Percent Auto 38.9 % (25-40); Mean Corpuscular HGB Conc 33.1 % (30-36); Mean Corpuscular Hemoglobin 31.7 PG (26-34); Mean Corpuscular Volume 95.8 fL (80-100); Monocytes Absolute Auto 400 /uL (0-900); Monocytes Percent Auto 7.1 % (3-14); Neutrophils Absolute Auto 2700 /uL (1500-7000); Neutrophils Percent Auto 47.8 % (50-75); Platelet Count 228 X10^3/uL (150-400); Red Blood Cell Count 3.57 X10^6/uL (4.0-5.2); Red Cell Distribution Width 13.3 % (11.6-14.8); White Blood Cell Count 5.7 X10^3/uL (4.5-11.0)
[2024-04-15 10:57] LABS: Hemoglobin A1C% w Est Avg Glu 5.8 % (4.0-6.0)
[2024-04-15 12:07] LABS: Alanine Aminotransferase 19 IU/L (<35); Albumin 4.6 g/dL (3.5-5.0); Albumin Globulin Ratio 1.8 (1.0-2.8); Alkaline Phosphatase 112 U/L (38-126); Aspartate Aminotransferase 29 IU/L (14-36); BUN Creatinine Ratio 23.1 (6-22); Bilirubin Total 0.3 mg/dL (0.2-1.3); Blood Urea Nitrogen 25 mg/dL (7-17); Calcium 9.3 mg/dL (8.4-10.2); Carbon Dioxide 29 mmol/L (22-32); Chloride 106 mmol/L (98-107); Estimated Glomerular Filt Rate 56 mL/min (>60); Globulin 2.6 g/dL (1.7-4.1); Glucose 101 mg/dL (80-110); HEMOLYSIS < 15 (0-50); Potassium 4.2 mmol/L (3.4-5.1); Sodium 141 mmol/L (137-145); Total Protein 7.2 g/dL (6.3-8.2)
[2024-04-15 12:38] LABS: TSH w/ Reflex to FT4 2.35 uIU/mL (0.47-4.68)
[2024-04-17 14:36] LABS: Hepatitis B Virus HBV DNA not detected IU/mL (.)
== END ==
PROVIDERS: Family Provider Pediatrics; PCP Family Medicine; Referring Provider Family Medicine; Visit Provider Family Medicine
DX: E11.9 Type 2 diabetes mellitus without complications (principal); E03.9 Hypothyroidism, unspecified; R76.8 Other specified abnormal immunological findings in serum; M81.0 Age-related osteoporosis without current pathological fracture; G25.71 Drug induced akathisia; F32.9 Major depressive disorder, single episode, unspecified; F15.21 Other stimulant dependence, in remission; F43.10 Post-traumatic stress disorder, unspecified; F41.0 Panic disorder [episodic paroxysmal anxiety]; Z86.19 Personal history of other infectious and parasitic diseases
CPT/HCPCS: 36415; 80053; 83036; 84443; 85025; 99214

== ENCOUNTER → 2024-05-15 18:53 | Outpatient (CLI) | payer MEDICARE, MEDICAID, SELFPAY ==
[2021-08-22 16:55] VITALS: BMI 22.9
--- NOTE | 2024-05-15 18:55 | DI.RAD.S_ITS ---
PROCEDURE: XR TIBIA FIBULA LT 2V INDICATIONS: Left leg injury TECHNIQUE: 2 views of the tibia and fibula were acquired. COMPARISON: [facility], CR, XR TIBIA FIBULA LT 2V, 03/05/2023, 0:39. FINDINGS: Bones: No fractures or dislocations. No suspicious bony lesions. Status post fixation of proximal tibia using lateral and medial plate and screw construct. No evidence of hardware complication. Degenerative changes of the knee joint. Soft tissues: No suspicious soft tissue calcifications or masses. IMPRESSION: No acute bony abnormality. Stable postoperative appearance of proximal tibia fixation. Approved by: Yarely Savage M.D.,Ph.D. on 05/15/2024 at 20:26
--- NOTE | 2024-05-15 18:55 | DI.RAD.S_ITS ---
PROCEDURE: XR KNEE LT 3V INDICATIONS: Left leg injury TECHNIQUE: 3 views of the knee were acquired. COMPARISON: [facility], CR, XR KNEE LT 3V, 08/21/2022, 14:18. FINDINGS: Bones: No fractures or dislocations. No suspicious bony lesions. Status post proximal tibia fixation. No evidence of hardware complication. Mild tricompartmental joint space narrowing. Redemonstration of well corticated ossific density at the lateral aspect of the patella, unchanged since 08/21/2022, likely sequela of prior injury. Soft tissues: No joint effusion. No suspicious soft tissue calcifications. IMPRESSION: No acute bony abnormality or significant effusion. Approved by: Yarely Savage M.D.,Ph.D. on 05/15/2024 at 20:27
== END ==
PROVIDERS: Family Provider Pediatrics; PCP Family Medicine; Referring Provider Registered Nurse; Visit Provider Registered Nurse
DX: M79.605 Pain in left leg (principal); M25.562 Pain in left knee
CPT/HCPCS: 73562; 73590

== ENCOUNTER → 2024-07-21 11:53 | Outpatient (CLI) | payer MEDICARE, MEDICAID, SELFPAY ==
[2021-08-22 16:55] VITALS: BMI 22.9
[2024-07-21 12:45] LABS: Add Manual Diff / Slide Review NO; Basophils Absolute Auto 0 /uL (0-100); Basophils Percent Auto 0.8 % (0-2); Eosinophils Absolute Auto 400 /uL (0-450); Eosinophils Percent Auto 6.6 % (2-4); Hematocrit 31.3 % (36-46); Hemoglobin 10.7 g/dL (12.0-16.0); Lymphocytes Absolute Auto 2100 /uL (1100-4500); Mean Corpuscular HGB Conc 34.1 % (30-36); Mean Corpuscular Hemoglobin 32.6 PG (26-34); Mean Corpuscular Volume 95.8 fL (80-100); Monocytes Absolute Auto 500 /uL (0-900); Monocytes Percent Auto 8.6 % (3-14); Neutrophils Absolute Auto 2700 /uL (1500-7000); Platelet Count 208 X10^3/uL (150-400); Red Blood Cell Count 3.26 X10^6/uL (4.0-5.2); Red Cell Distribution Width 13.6 % (11.6-14.8); White Blood Cell Count 5.7 X10^3/uL (4.5-11.0)
[2024-07-21 16:51] LABS: Albumin 4.2 g/dL (3.5-5.0); BUN Creatinine Ratio 16.5 (6-22); Blood Urea Nitrogen 15 mg/dL (7-17); C-Reactive Protein Quant 0.5 mg/dL (<1.0); Calcium 9.3 mg/dL (8.4-10.2); Carbon Dioxide 24 mmol/L (22-32); Chloride 107 mmol/L (98-107); Estimated Glomerular Filt Rate > 60 mL/min (>60); Glucose 97 mg/dL (80-110); HEMOLYSIS < 15 (0-50); Phosphorous 3.4 mg/dL (2.8-4.1); Potassium 3.9 mmol/L (3.4-5.1); Sodium 140 mmol/L (137-145)
== END ==
PROVIDERS: Family Provider Pediatrics; PCP Family Medicine; Referring Provider Family Medicine; Visit Provider Family Medicine
DX: E11.9 Type 2 diabetes mellitus without complications (principal); Z79.899 Other long term (current) drug therapy; N18.31 Chronic kidney disease, stage 3a; I10 Essential (primary) hypertension
CPT/HCPCS: 36415; 80069; 85025; 86140

== ENCOUNTER → 2024-07-22 15:21 | Outpatient (CLI) | payer MEDICARE, MEDICAID, SELFPAY ==
[2021-08-22 16:55] VITALS: BMI 22.9
[2024-07-22 16:24] LABS: Reticulocyte Count, Percent 1.3 % (1.1-2.6)
[2024-07-22 16:45] LABS: HEMOLYSIS < 15 (0-50)
[2024-07-22 16:56] LABS: Iron 79 ug/dL (37-170)
[2024-07-22 17:04] LABS: Percent Iron Saturation 21 % (15-50); Total Iron Binding Capacity 369 ug/dL (265-497); Transferrin 299 mg/dL (206-381)
[2024-07-22 17:24] LABS: Vitamin B12 Reflex MMA if <400 369 pg/mL (239-931)
[2024-07-27 18:39] LABS: Methylmalonic Acid,Serum 210 nmol/L (0-378)
== END ==
PROVIDERS: Family Provider Pediatrics; PCP Family Medicine; Referring Provider Family Medicine; Visit Provider Family Medicine
DX: D64.9 Anemia, unspecified (principal); N18.31 Chronic kidney disease, stage 3a
CPT/HCPCS: 36415; 82607; 83540; 83550; 83921; 85045

== ENCOUNTER → 2024-08-04 09:11 | Outpatient (CLI) | payer MEDICARE, MEDICAID, SELFPAY ==
[2021-08-22 16:55] VITALS: BMI 22.9
[2024-08-04 10:03] LABS: Hematocrit 35.3 % (36-46); Mean Corpuscular Hemoglobin 32.3 PG (26-34); Platelet Count 242 X10^3/uL (150-400); Red Blood Cell Count 3.72 X10^6/uL (4.0-5.2); Red Cell Distribution Width 13.5 % (11.6-14.8); White Blood Cell Count 6.5 X10^3/uL (4.5-11.0)
[2024-08-04 10:13] LABS: Neutrophils Absolute Manual 4030 /uL (3000-5900); RBC Morphology Normal Morphology; Total Cells Counted 100
[2024-08-04 10:43] LABS: Hemoglobin A1C% w Est Avg Glu 5.7 % (4.0-6.0)
[2024-08-04 12:04] LABS: Alanine Aminotransferase 17 IU/L (<35); Albumin 4.3 g/dL (3.5-5.0); Albumin Globulin Ratio 1.9 (1.0-2.8); Alkaline Phosphatase 103 U/L (38-126); Aspartate Aminotransferase 25 IU/L (14-36); BUN Creatinine Ratio 24.4 (6-22); Bilirubin Total 0.4 mg/dL (0.2-1.3); Blood Urea Nitrogen 29 mg/dL (7-17); Carbon Dioxide 24 mmol/L (22-32); Chloride 105 mmol/L (98-107); Estimated Glomerular Filt Rate 49 mL/min (>60); Globulin 2.3 g/dL (1.7-4.1); Glucose 80 mg/dL (80-110); HEMOLYSIS < 15 (0-50); Lactate Dehydrogenase 155 U/L (120-246); Potassium 3.5 mmol/L (3.4-5.1); Sodium 139 mmol/L (137-145); Total Protein 6.6 g/dL (6.3-8.2)
[2024-08-04 12:29] LABS: Cholesterol 141 mg/dL (140-199); HDL Cholesterol 56 mg/dL (40-60); LDL Cholesterol Calculated 42 mg/dL (<100); Triglycerides 216 mg/dL (35-150)
== END ==
PROVIDERS: Family Provider Pediatrics; PCP Family Medicine; Referring Provider Family Medicine; Visit Provider Family Medicine
DX: D64.9 Anemia, unspecified (principal); E11.9 Type 2 diabetes mellitus without complications; E03.9 Hypothyroidism, unspecified; R40.0 Somnolence; N18.31 Chronic kidney disease, stage 3a; E78.2 Mixed hyperlipidemia; I12.9 Hypertensive chronic kidney disease with stage 1 through stage 4 chronic kidney disease, or unspecified chronic kidney disease
CPT/HCPCS: 36415; 80053; 80061; 83036; 83615; 85025

== ENCOUNTER → 2024-09-16 14:53 | Outpatient (CLI) | payer MEDICARE, MEDICAID, SELFPAY ==
[2021-08-22 16:55] VITALS: BMI 22.9
--- NOTE | 2024-09-16 14:54 | DI.CT.S_ITS ---
PROCEDURE: CT LUNG LOW DOSE SCREENING INDICATIONS: Tobacco use TECHNIQUE: Noncontrast 2.0-2.5 mm thick sections acquired from the pulmonary apices to the posterior costophrenic angles. 7 mm thick axial MIP, and 5 mm coronal and sagittal reformats were then acquired. For radiation dose reduction, the following was used: automated exposure control, adjustment of mA and/or kV according to patient size. COMPARISON: [facility], CT, CT CHEST WO CON, 02/13/2020, 21:53. FINDINGS: Image quality: Diagnostic Lungs and pleura: Basal scarring/atelectasis. No dense consolidation or pleural effusions. Stable right medial lung nodule (6/38). No suspicious pulmonary nodules. Mediastinum, heart, and esophagus: No hiatal hernia. Coronary calcifications. No pathologic lymph nodes by size criteria Chest wall and thyroid: Unremarkable Upper abdomen: No gross abnormality on these low-dose noncontrast images Bones: There are degenerative changes. IMPRESSION: No suspicious pulmonary nodules. LUNG-RADS 2; continued annual screening, if eligible. Other findings above. Dictated by: Richard Gonzales M.D. on 09/17/2024 at 8:26 Approved by: Richard Gonzales M.D. on 09/17/2024 at 8:31
--- NOTE | 2024-09-16 14:54 | DI.MG.S_ITS ---
BILATERAL DIGITAL SCREENING MAMMOGRAM 3D/2D WITH CAD: 09/16/2024 CLINICAL: Routine screening. Family history of breast cancer. Comparison is made to exams dated: 04/22/2023 mammogram, 01/10/2022 mammogram, 12/02/2020 mammogram, 11/26/2019 mammogram, 08/27/2014 mammogram, and 06/19/2010 mammogram - [facility]. The breasts are heterogeneously dense, which may obscure small masses (category c / 51-75% glandular tissue). Current study was also evaluated with a Computer Aided Detection (CAD) system. No significant masses, calcifications, or other findings are seen in either breast. There has been no significant interval change. IMPRESSION: NEGATIVE There is no mammographic evidence of malignancy. A 1 year screening mammogram is recommended. Based on the Tyrer Cuzick model (a risk assessment model) the patient's lifetime risk is 7.1% and her 10 year risk is 4.2%. According to the ACR, ACS, and NCCN guidelines, an annual breast MRI exam along with mammogram is recommended if the patient's lifetime risk is 20% or greater. This exam was interpreted at Station ID: [id number]. NOTE: For mammograms, a report in lay terms will be sent to the patient. Approximately 15% of breast malignancies will not be visualized mammographically. In the management of a palpable breast mass, a negative mammogram must not discourage biopsy of a clinically suspicious lesion. Electronically Signed By: Yarely Savage M.D., Ph.D. cha/markie:09/17/2024 22:10:39 letter sent: Normal Exam ACR BI-RADS Category 1: Negative
== END ==
PROVIDERS: Family Provider Pediatrics; PCP Family Medicine; Referring Provider Family Medicine; Visit Provider Family Medicine
DX: Z12.31 Encounter for screening mammogram for malignant neoplasm of breast; Z80.3 Family history of malignant neoplasm of breast; R92.333 Mammographic heterogeneous density, bilateral breasts; Z12.2 Encounter for screening for malignant neoplasm of respiratory organs; F17.210 Nicotine dependence, cigarettes, uncomplicated; R91.1 Solitary pulmonary nodule; I25.10 Atherosclerotic heart disease of native coronary artery without angina pectoris
CPT/HCPCS: 71271; 77063; 77067

== ENCOUNTER 2024-10-21 03:28 | Emergency (ER) | payer MEDICARE, MEDICAID, SELFPAY ==
[2021-08-22 16:55] VITALS: BMI 22.9
[2024-10-21] VITALS (10 sets, daily range): BP systolic 92–111; BP diastolic 55–59; PULSE 64–76; RESP 18–19; TEMP 36.5; O2SAT 93–98; BMI 27.3
--- NOTE | 2024-10-21 03:43 | ED.WEAKNESS ---
HPI - Weakness General Chief complaint: Weakness Stated complaint: blood pressure is off not feeling right Time Seen by Provider: 10/21/24 03:43 Source: patient and family Mode of arrival: Wheelchair History of Present Illness HPI Narrative: 69-year-old female with history of PTSD, [id number] diabetes, hypertension, history of amphetamine use in remission presents by private vehicle from home for not feeling well. History obtained from patient and family member at bedside. Patient states that she went to bed around 1-130am feeling normal. She woke up a few hours later feeling very lightheaded and unwell. Family member at bedside notes slightly slurred speech. Patient also complaining of generalized joint swelling and pain. Joint pains have been intermittent for months, but worse tonight. Related Data Home Medications Medication Instructions Recorded Confirmed aspirin 325 mg tablet 325 mg PO DAILY 10/16/21 08/19/24 Previous Rx's Medication Instructions Recorded liothyronine 5 mcg tablet (Cytomel) 5 mcg PO BID #60 tabs 01/03/24 metformin 500 mg tablet 500 mg PO BID #180 tabs 02/05/24 propranolol 10 mg tablet 20 mg (2 x 10 mg) PO TID #540 tabs 05/12/24 citalopram 40 mg tablet 20 mg (1/2 x 40 mg) PO DAILY #90 05/28/24 tabs levothyroxine 25 mcg tablet 25 mcg PO QAM #30 tabs 06/24/24 gabapentin 300 mg capsule 600 mg (2 x 300 mg) PO Q OTHER DAY 08/19/24 #30 caps losartan 25 mg tablet 25 mg PO DAILY #60 tabs 08/19/24 simvastatin 40 mg tablet 40 mg PO BEDTIME #60 tabs 08/19/24 clonazepam 1 mg tablet See Rx Instructions .Route 10/05/24 .COMPLEX #90 tabs quetiapine 100 mg tablet 400 mg (4 x 100 mg) PO BEDTIME 10/07/24 #180 tabs Allergies Allergy/AdvReac Type Severity Reaction Status Date / Time NASRIN Inhibitors Allergy Intermediate EDEMA IN Verified 08/19/24 08:51 BOTH HANDS codeine Allergy Mild NAUSEA/VOMI Verified 08/19/24 08:51 TING meperidine Allergy Mild VOMITING Verified 08/19/24 08:51 Patient History Medical History Drug induced akathisia Weight gain due to medication Acute bacterial sinusitis Prediabetes Sinusitis History of hepatitis B Orthopnea Rales Weight gain Right knee pain Presbyacusis Intentional benzodiazepine overdose Amphetamine use disorder, severe, in early remission 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 PTSD (post-traumatic stress disorder) Chest pain Measles Chicken pox Anemia Chronic headaches Migraines Anterior myocardial infarction (2007) Narcotic abuse, episodic CAD (coronary artery disease) Hyperlipidemia Hypertension Diabetes mellitus Depression Panic disorder Chronic pain Panic disorder without agoraphobia (02/21/11) Surgical History Anesthesia Status post insertion of drug-eluting stent into left anterior descending (LAD) artery (2007) History of appendectomy History of tonsillectomy History of colonoscopy with polypectomy (12/29/14) History of esophagogastroduodenoscopy (EGD) (12/29/14) Status post blepharoplasty of both eyes (11/11/12) Family History Father Diabetes mellitus Heart disease Hypertension Stroke Social History household members: none Smoking Status: Current every day smoker alcohol intake: never substance use type: does not use Smoking Status: Current every day smoker tobacco type: cigarettes alcohol intake frequency: holidays/special occasions only Exam Initial Vital Signs Initial Vital Signs: Vital Signs Temperature 97.7 F 10/21/24 03:37 Pulse Rate 76 10/21/24 03:37 Respiratory Rate 19 10/21/24 03:37 Blood Pressure 96/58 L 10/21/24 03:37 Pulse Oximetry 94 10/21/24 03:37 Oxygen Delivery Method Room Air 10/21/24 03:37 Const: Awake, alert, nontoxic appearing, fidgeting Cardiac: regular rate, regular rhythm RESP: unlabored, clear bilaterally, no wheezing GI: Soft, nontender, nondistended MSK: no obvious swelling of any joints Skin: Warm, Dry, intact, no rashes Neuro: AO x3, CN II-XII grossly intact, slightly slurred speech, no facial drop, no pronator/leg drift, normal coordination Course Orders Ordered: ED Orders 10/21/24 03:40 CBC Auto Diff [Complete Blood Count AUTO DIFF] Stat CMP [Comprehensive Metabolic Panel] Stat Ethanol (ETOH) Stat Free T4, Direct Thyroxine Stat PT [Prothrombin Time INR] Stat TSH [Thyroid Stimulating Hormone] Stat 10/21/24 03:42 EKG-12 Lead Stat 10/21/24 03:51 UA Complete [Urinalysis and Microscopic] Stat Urine Drug Screen, Rapid Stat 10/21/24 03:52 CT head/brain wo con Stat Chest [XR chest 1V] Stat 10/21/24 03:57 Ammonia (NH3) Stat Discontinued Medications Sodium Chloride (Normal Saline 0.9%) 1,000 mls @ 1,000 mls/hr IV BOLUS ONE Stop: 10/21/24 05:52 Last Infusion: 10/21/24 05:57 Dose: Infused Vital Signs Vital signs: Vital Signs - 8 hr 10/21/24 03:37 10/21/24 03:51 10/21/24 04:11 Temperature 97.7 F Pulse Rate 76 75 73 Respiratory Rate 19 Blood Pressure 96/58 L Pulse Oximetry 94 96 96 Oxygen Delivery Method Room Air 10/21/24 04:16 10/21/24 04:16 10/21/24 04:30 Temperature Pulse Rate 72 69 Respiratory Rate Blood Pressure 92/55 L Pulse Oximetry 95 93 Oxygen Delivery Method Room Air 10/21/24 04:30 10/21/24 05:05 10/21/24 05:05 Temperature Pulse Rate 75 Respiratory Rate Blood Pressure 93/56 L 93/58 L Pulse Oximetry 94 Oxygen Delivery Method Room Air 10/21/24 05:30 10/21/24 05:31 10/21/24 05:31 Temperature Pulse Rate 66 65 Respiratory Rate 18 Blood Pressure 105/59 L Pulse Oximetry 96 98 Oxygen Delivery Method 10/21/24 05:56 10/21/24 05:56 10/21/24 06:00 Temperature Pulse Rate 70 64 Respiratory Rate Blood Pressure 111/58 L Pulse Oximetry 98 98 Oxygen Delivery Method 10/21/24 06:00 Temperature Pulse Rate Respiratory Rate 18 Blood Pressure 105/57 L Pulse Oximetry Oxygen Delivery Method MDM - Weakness Lab Data 10/21/24 03:40 10/21/24 03:40 Labs: Lab Results 10/21/24 10/21/24 10/21/24 Range/Units 03:40 03:57 06:15 WBC 7.1 (4.5-11.0) X10^3/uL RBC 3.61 L (4.0-5.2) X10^6/uL Hgb 11.6 L (12.0-16.0) g/dL Hct 34.3 L (36-46) % MCV 95.2 (80-100) fL MCH 32.1 (26-34) PG MCHC 33.8 (30-36) % RDW 14.3 (11.6-14.8) % Plt Count 233 (150-400) X10^3/uL Neut % (Auto) 52.8 (50-75) % Lymph % (Auto) 35.1 (25-40) % [place] % (Auto) 8.4 (3-14) % Eos % (Auto) 3.0 (2-4) % Baso % (Auto) 0.7 (0-2) % Neut # (Auto) 3700 (8515-1802) /uL Lymph # (Auto) 2500 (6149-6900) /uL [place] # (Auto) 600 (0-900) /uL Eos # (Auto) 200 (0-450) /uL Baso # (Auto) 100 (0-100) /uL PT 11.2 (9.4-12.5) SECONDS INR 1.0 (0.9-1.3) Sodium 135 L (137-145) mmol/L Potassium 4.1 (3.4-5.1) mmol/L Chloride 104 (98-107) mmol/L Carbon Dioxide 23 (22-32) mmol/L BUN 37 H (7-17) mg/dL Creatinine 1.68 H (0.52-1.04) mg/dL Estimated GFR 33 L (>60) mL/min BUN/Creatinine Ratio 22.0 (6-22) Glucose 117 H (80-110) mg/dL Calcium 9.2 (8.4-10.2) mg/dL Total Bilirubin 0.4 (0.2-1.3) mg/dL AST 39 H (14-36) IU/L ALT 24 (<35) IU/L Alkaline Phosphatase 106 (38-126) U/L Ammonia < 9 L (9-30) umol/L Total Protein 7.8 (6.3-8.2) g/dL Albumin 4.6 (3.5-5.0) g/dL Globulin 3.2 (1.7-4.1) g/dL Albumin/Globulin Ratio 1.4 (1.0-2.8) TSH 21.4 H (0.47-4.68) uIU/mL Free T4 0.76 L (0.78-2.19) ng/dL Urine Color Yellow Urine Appearance Clear Urine pH 6.0 (4.5-8.0) Ur Specific [place] 1.025 (1.000-1.035) Urine Protein 2+ H (Negative) Urine Glucose (UA) Negative (Negative) g/dL Urine Ketones Negative (NEGATIVE) Urine Occult Blood 1+ H (Negative) Urine Nitrate Negative (Negative) Urine Bilirubin Negative (NEGATIVE) Urine Urobilinogen 0.2 (0.2) E.U./dL Ur Leukocyte Esterase Negative (NEGATIVE) Urine RBC 5-10/hpf H (0-5/HPF) Urine WBC None seen (0-5/HPF) Ur Squamous Epith Cells 0-1 /hpf (0-5/HPF) Amorphous Sediment 3+ Urine Bacteria Few (2-10) H (None) Hyaline Casts 1-5/lpf (None) Granular Casts 1-5/lpf (None) Ur Culture Indicated? Cult not indicated Vol Urine Centrifuged 10ml (spun) U Opiates 300ng/mL cut Negative (Negative) Ur Oxycodone Screen Negative (Negative) Urine Methadone Screen Negative (Negative) Ur Barbiturates Screen Negative (Negative) U Tricyclic Antidepress Positive H (Negative) Ur Phencyclidine Scrn Negative (Negative) Ur Amphetamines Screen Positive H (Negative) U Methamphetamines Scrn Positive H (Negative) Ur MDMA Scrn (Ecstasy) Negative (Negative) U Benzodiazepines Scrn Negative (Negative) Urine Cocaine Screen Negative (Negative) U Marijuana (THC) Screen Negative (Negative) Urine Specific [place] (Normal) Ethyl Alcohol < 10 ( - 10) mg/dL Ur Creatinine (Normal) 10/21/24 Range/Units 06:15 WBC (4.5-11.0) X10^3/uL RBC (4.0-5.2) X10^6/uL Hgb (12.0-16.0) g/dL Hct (36-46) % MCV (80-100) fL MCH (26-34) PG MCHC (30-36) % RDW (11.6-14.8) % Plt Count (150-400) X10^3/uL Neut % (Auto) (50-75) % Lymph % (Auto) (25-40) % [place] % (Auto) (3-14) % Eos % (Auto) (2-4) % Baso % (Auto) (0-2) % Neut # (Auto) (8242-4825) /uL Lymph # (Auto) (8423-0460) /uL [place] # (Auto) (0-900) /uL Eos # (Auto) (0-450) /uL Baso # (Auto) (0-100) /uL PT (9.4-12.5) SECONDS INR (0.9-1.3) Sodium (137-145) mmol/L Potassium (3.4-5.1) mmol/L Chloride (98-107) mmol/L Carbon Dioxide (22-32) mmol/L BUN (7-17) mg/dL Creatinine (0.52-1.04) mg/dL Estimated GFR (>60) mL/min BUN/Creatinine Ratio (6-22) Glucose (80-110) mg/dL Calcium (8.4-10.2) mg/dL Total Bilirubin (0.2-1.3) mg/dL AST (14-36) IU/L ALT (<35) IU/L Alkaline Phosphatase (38-126) U/L Ammonia (9-30) umol/L Total Protein (6.3-8.2) g/dL Albumin (3.5-5.0) g/dL Globulin (1.7-4.1) g/dL Albumin/Globulin Ratio (1.0-2.8) TSH (0.47-4.68) uIU/mL Free T4 (0.78-2.19) ng/dL Urine Color Urine Appearance Urine pH Normal (4.5-8.0) Ur Specific [place] (1.000-1.035) Urine Protein (Negative) Urine Glucose (UA) (Negative) g/dL Urine Ketones (NEGATIVE) Urine Occult Blood (Negative) Urine Nitrate (Negative) Urine Bilirubin (NEGATIVE) Urine Urobilinogen (0.2) E.U./dL Ur Leukocyte Esterase (NEGATIVE) Urine RBC (0-5/HPF) Urine WBC (0-5/HPF) Ur Squamous Epith Cells (0-5/HPF) Amorphous Sediment Urine Bacteria (None) Hyaline Casts (None) Granular Casts (None) Ur Culture Indicated? Vol Urine Centrifuged U Opiates 300ng/mL cut (Negative) Ur Oxycodone Screen (Negative) Urine Methadone Screen (Negative) Ur Barbiturates Screen (Negative) U Tricyclic Antidepress (Negative) Ur Phencyclidine Scrn (Negative) Ur Amphetamines Screen (Negative) U Methamphetamines Scrn (Negative) Ur MDMA Scrn (Ecstasy) (Negative) U Benzodiazepines Scrn (Negative) Urine Cocaine Screen (Negative) U Marijuana (THC) Screen (Negative) Urine Specific [place] Normal (Normal) Ethyl Alcohol ( - 10) mg/dL Ur Creatinine Normal (Normal) Point of Care Testing Glucose POC [address] scan - head: Radiologist Impression: Preliminary read: No acute intracranial process Chest x-ray: Radiologist Impression: Preliminary report: No acute cardiopulmonary process ECG Data Interpretation: NSR at 73bpm, normal MS, no ST-T wave changes MDM Narrative Medical decision making narrative: Nontoxic appearing patient with the above complaints. She does seem to have slurred speech on exam, however patient's other complaints and overall presentation seems more consistent with a metabolic picture than an ischemic picture. Labs, imaging ordered. Patient states she took her normal nightly medications of 400mg seroquel and clonazepam. Patient slowly titrating down from 600mg nightly of seroquel. Daughter states that patient took her medication much later tonight than usual and she gets very sleepy on this medication Laboratory work so far: WBC count 7.1, hemoglobin 11.6, platelet count 233, sodium 135, potassium 4 1, creatinine 1.68 (previous 1.19), ammonia undetectable, TSH 21, free T4 0.76. CT brain shows no acute findings. Chest x-ray unremarkable. Patient unable to provide urine sample, straight cath ordered. UA negative for infection. Tested positive for TCAs and methamphetamines. Patient reassessed, she is now sleeping comfortably in ED bed. Daughter at bedside informed of all lab and imaging findings. Presentation likely secondary to amphetamine use and timing of nightly sleep medications. Daughter counseled to bring patient back if no improvement. She expressed frustration at the positive amphetamine screen but stated that they would figure something out at home. Discharge Plan Departure Patient Disposition: Home Clinical Impression: Altered mental state, Amphetamine use Instructions: DI for Altered Mental Status Activity Restrictions/Additional Instructions: Your blood work today did not show any signs of infection. Your creatinine is higher today than it was when you were last here in July. Make sure that you follow up with your primary care doctor to make sure that this level goes back down to normal. Your brain CT and chest x-ray were normal without signs of infection or stroke. Your urine screen was negative for infection, but you did test positive for amphetamines. This may be related to your symptoms today. If you do not notice improvement in symptoms come back to the ED for repeat evaluation. Otherwise follow up with your primary care doctor. Prescriptions: No Action quetiapine 100 mg tablet 400 mg PO BEDTIME Qty: 180 2RF aspirin 325 mg tablet 325 mg PO DAILY liothyronine [Cytomel] 5 mcg tablet 5 mcg PO BID Qty: 60 5RF Hold Instructions: needs labs metformin 500 mg tablet 500 mg PO BID Qty: 180 3RF propranolol 10 mg tablet 20 mg PO TID Qty: 540 1RF citalopram 40 mg tablet 20 mg PO DAILY Qty: 90 1RF levothyroxine 25 mcg tablet 25 mcg PO QAM Qty: 30 11RF Hold Instructions: needs labs clonazepam 1 mg tablet See Rx Instructions .ROUTE .COMPLEX Qty: 90 0RF Rx Instructions: 0.5 mg (1/2 tab) PO BID and 2.0 mg (2 tabs) PO QHS gabapentin 300 mg capsule 600 mg PO Q OTHER DAY Qty: 30 5RF simvastatin 40 mg tablet 40 mg PO BEDTIME Qty: 60 3RF losartan 25 mg tablet 25 mg PO DAILY Qty: 60 3RF Referrals: Belia Walker DO [Primary Care Provider] - Stand Alone Forms: Patient Portal/API/Survey
--- NOTE | 2024-10-21 03:46 | EKG_ITS ---
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
--- NOTE | 2024-10-21 03:52 | DI.RAD.S_ITS ---
PROCEDURE: XR CHEST 1V INDICATIONS: AMS/SLURRED SPEECH TECHNIQUE: One view of the chest was acquired. COMPARISON: [facility], CR, XR CHEST 2V, 04/22/2023, 15:22. FINDINGS: Surgical changes and devices: None. Lungs and pleura: Lungs are clear. No pleural effusions or pneumothorax. Mediastinum: Mediastinal contours appear normal. Heart size is normal. Bones and chest wall: No suspicious bony lesions. Overlying soft tissues appear unremarkable. IMPRESSION: No acute cardiopulmonary pathology. No discrepancies. Dictated by: Rainer Gan M.D. on 10/21/2024 at 8:18 Approved by: Rainer Gan M.D. on 10/21/2024 at 8:18
--- NOTE | 2024-10-21 03:52 | DI.CT.S_ITS ---
PROCEDURE: CT HEAD/BRAIN WO CON INDICATIONS: AMS/SLURRED SPEECH TECHNIQUE: Noncontrast 4.5 mm thick angled axial sections acquired from the foramen magnum to the vertex, with coronal and sagittal reformats. For radiation dose reduction, the following was used: automated exposure control, adjustment of mA and/or kV according to patient size. COMPARISON: 04/03/2021. FINDINGS: Image quality: Diagnostic. CSF spaces: Basal cisterns are patent. No extra-axial fluid collections. The ventricles are symmetric in size and shape. Brain: No intracranial bleeds or masses. There is cerebral volume loss for age, with resultant ventricular and sulcal prominence. There are periventricular and deep white matter chronic small vessel ischemic changes. There is intracranial internal carotid artery atherosclerosis. Skull and face: Calvarium and visualized facial bones appear intact, without suspicious lesions. Sinuses: Visualized sinuses and mastoids are clear. IMPRESSION: No acute intracranial pathology. No discrepancies. Dictated by: Rainer Gan M.D. on 10/21/2024 at 8:18 Approved by: Rainer Gan M.D. on 10/21/2024 at 8:19
--- NOTE | 2024-10-21 03:59 | PC.NURSE ---
Pt to imaging via ED stretcher with tech
[2024-10-21 04:00] LABS: Prothrombin Time 11.2 SECONDS (9.4-12.5)
[2024-10-21 04:01] LABS: Add Manual Diff / Slide Review NO; Basophils Absolute Auto 100 /uL (0-100); Basophils Percent Auto 0.7 % (0-2); Eosinophils Absolute Auto 200 /uL (0-450); Hematocrit 34.3 % (36-46); Hemoglobin 11.6 g/dL (12.0-16.0); Lymphocytes Absolute Auto 2500 /uL (1100-4500); Lymphocytes Percent Auto 35.1 % (25-40); Mean Corpuscular HGB Conc 33.8 % (30-36); Mean Corpuscular Hemoglobin 32.1 PG (26-34); Mean Corpuscular Volume 95.2 fL (80-100); Monocytes Absolute Auto 600 /uL (0-900); Monocytes Percent Auto 8.4 % (3-14); Neutrophils Absolute Auto 3700 /uL (1500-7000); Neutrophils Percent Auto 52.8 % (50-75); Platelet Count 233 X10^3/uL (150-400); Red Blood Cell Count 3.61 X10^6/uL (4.0-5.2); Red Cell Distribution Width 14.3 % (11.6-14.8); White Blood Cell Count 7.1 X10^3/uL (4.5-11.0)
[2024-10-21 04:05] LABS: Alanine Aminotransferase 24 IU/L (<35); Albumin 4.6 g/dL (3.5-5.0); Albumin Globulin Ratio 1.4 (1.0-2.8); Alkaline Phosphatase 106 U/L (38-126); Aspartate Aminotransferase 39 IU/L (14-36); Bilirubin Total 0.4 mg/dL (0.2-1.3); Blood Urea Nitrogen 37 mg/dL (7-17); Calcium 9.2 mg/dL (8.4-10.2); Carbon Dioxide 23 mmol/L (22-32); Chloride 104 mmol/L (98-107); Estimated Glomerular Filt Rate 33 mL/min (>60); Globulin 3.2 g/dL (1.7-4.1); Glucose 117 mg/dL (80-110); HEMOLYSIS < 15 (0-50); Potassium 4.1 mmol/L (3.4-5.1); Sodium 135 mmol/L (137-145); Total Protein 7.8 g/dL (6.3-8.2)
[2024-10-21 04:12] LABS: Ammonia (NH3) < 9 umol/L (9-30)
[2024-10-21 04:13] LABS: Ethanol (ETOH) < 10 mg/dL
[2024-10-21 04:43] LABS: Thyroid Stimulating Hormone 21.4 uIU/mL (0.47-4.68)
[2024-10-21] MEDS: SODIUM CHLORIDE 0.9% 1,000 ML 1000 ML IV (04:55)
[2024-10-21 05:43] LABS: Free T4, Direct Thyroxine 0.76 ng/dL (0.78-2.19)
[2024-10-21 06:24] LABS: Appearance Urine UA CLEAR; Bilirubin Urine UA NEGATIVE (NEGATIVE); Color Urine UA YELLOW; Glucose Urine UA NEGATIVE (Negative); Ketones Urine UA NEGATIVE (NEGATIVE); Leukocyte Esterase Urine UA NEGATIVE (NEGATIVE); Nitrite Urine UA NEGATIVE (Negative); Occult Blood Urine UA 1+ (Negative); Protein Urine UA 2+ (Negative); Specific Gravity Urine UA 1.025 (1.000-1.035); Urobilinogen Urine UA 0.2 E.U./dL (0.2)
[2024-10-21 06:28] LABS: Ur Creatinine Normal (Normal); Ur Specific Gravity Normal (Normal); Urine Amphetamines Positive (Negative); Urine Barbiturates Negative (Negative); Urine Benzodiazepines Negative (Negative); Urine Cocaine Negative (Negative); Urine MDMA Negative (Negative); Urine Methadone Negative (Negative); Urine Methamphetamines Positive (Negative); Urine Opiates Negative (Negative); Urine Oxycodone Negative (Negative); Urine Phencyclidine Negative (Negative); Urine THC Negative (Negative); Urine Tricyclic Antidepressant Positive (Negative); Urine pH Normal (Normal)
[2024-10-21 06:30] LABS: RBC Urine 5-10/HPF (0-5/HPF); Squamous Epithelial Cell Urine 0-1 /HPF (0-5/HPF); Urine Volume 10mL (spun); WBC Urine None Seen (0-5/HPF)
[2024-10-21 06:31] LABS: Amorphous Sediment Urine 3+; Bacteria Urine Few (2-10); Granular Casts Urine 1-5/LPF; Hyaline Casts Urine 1-5/LPF
[2024-10-21 06:33] LABS: Culture Indicated Urine Cult Not Indicated
== END 2024-10-21 06:53 | disposition home or self-care (01) ==
PROVIDERS: Emergency Provider Emergency Medicine; Family Provider Pediatrics; PCP Family Medicine
DX: R42 Dizziness and giddiness (principal); R41.82 Altered mental status, unspecified; F15.90 Other stimulant use, unspecified, uncomplicated; R47.81 Slurred speech; M25.50 Pain in unspecified joint
CPT/HCPCS: 36415; 51701; 51798; 70450; 71045; 80053; 80305; 80320; 81001; 82140; 82962; 84439; 84443; 85025; 85610; 93005; 96360; 99284

== ENCOUNTER → 2024-12-16 14:59 | Outpatient (CLI) | payer MEDICARE, MEDICAID, SELFPAY ==
[2021-08-22 16:55] VITALS: BMI 22.9
[2024-12-16 17:01] LABS: Add Manual Diff / Slide Review NO; Basophils Absolute Auto 100 /uL (0-100); Eosinophils Absolute Auto 200 /uL (0-450); Eosinophils Percent Auto 2.5 % (2-4); Hematocrit 34.3 % (36-46); Hemoglobin 11.8 g/dL (12.0-16.0); Lymphocytes Absolute Auto 2000 /uL (1100-4500); Lymphocytes Percent Auto 31.3 % (25-40); Mean Corpuscular HGB Conc 34.4 % (30-36); Mean Corpuscular Hemoglobin 32.4 PG (26-34); Mean Corpuscular Volume 94.4 fL (80-100); Monocytes Absolute Auto 600 /uL (0-900); Monocytes Percent Auto 8.8 % (3-14); Neutrophils Absolute Auto 3700 /uL (1500-7000); Neutrophils Percent Auto 56.4 % (50-75); Platelet Count 267 X10^3/uL (150-400); Red Blood Cell Count 3.63 X10^6/uL (4.0-5.2); Red Cell Distribution Width 14.2 % (11.6-14.8); White Blood Cell Count 6.5 X10^3/uL (4.5-11.0)
[2024-12-16 17:28] LABS: Alanine Aminotransferase 23 IU/L (<35); Albumin 4.9 g/dL (3.5-5.0); Albumin Globulin Ratio 1.8 (1.0-2.8); Alkaline Phosphatase 96 U/L (38-126); Aspartate Aminotransferase 42 IU/L (14-36); BUN Creatinine Ratio 18.8 (6-22); Bilirubin Total 0.5 mg/dL (0.2-1.3); Blood Urea Nitrogen 19 mg/dL (7-17); Carbon Dioxide 28 mmol/L (22-32); Chloride 102 mmol/L (98-107); Cholesterol 197 mg/dL (140-199); Estimated Glomerular Filt Rate > 60 mL/min (>60); Globulin 2.7 g/dL (1.7-4.1); Glucose 107 mg/dL (80-110); HDL Cholesterol 89 mg/dL (40-60); HEMOLYSIS < 15 (0-50); LDL Cholesterol Calculated 89 mg/dL (<100); Potassium 4.2 mmol/L (3.4-5.1); Sodium 141 mmol/L (137-145); Total Protein 7.6 g/dL (6.3-8.2); Triglycerides 93 mg/dL (35-150)
[2024-12-16 18:19] LABS: Vitamin B12 Reflex MMA if <400 267 pg/mL (239-931)
[2024-12-16 18:35] LABS: Folate > 20.0 ng/mL (2.76-20.0)
[2024-12-23 07:09] LABS: Methylmalonic Acid,Serum 368 nmol/L (0-378)
== END ==
PROVIDERS: Family Provider Pediatrics; PCP Family Medicine; Referring Provider Family Medicine; Visit Provider Family Medicine
DX: I12.9 Hypertensive chronic kidney disease with stage 1 through stage 4 chronic kidney disease, or unspecified chronic kidney disease (principal); E03.9 Hypothyroidism, unspecified; D64.9 Anemia, unspecified; F99 Mental disorder, not otherwise specified; N18.31 Chronic kidney disease, stage 3a; E11.9 Type 2 diabetes mellitus without complications; Z79.899 Other long term (current) drug therapy; E78.2 Mixed hyperlipidemia; F15.21 Other stimulant dependence, in remission; F41.8 Other specified anxiety disorders; R39.15 Urgency of urination; R30.0 Dysuria; N39.0 Urinary tract infection, site not specified
CPT/HCPCS: 36415; 80053; 80061; 82607; 82746; 83921; 84443; 85025

== ENCOUNTER 2024-12-25 04:47 | Emergency (ER) | payer MEDICARE, MEDICAID, SELFPAY ==
[2021-08-22 16:55] VITALS: BMI 22.9
[2024-12-25 05:01] VITALS: BP 105/55; PULSE 72; RESP 18; TEMP 36.2; O2SAT 98; BMI 26.5
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
== END 2024-12-25 06:48 | disposition left against medical advice (07) ==
PROVIDERS: Emergency Provider Emergency Medicine; Family Provider Pediatrics; PCP Family Medicine
DX: Z03.89 Encounter for observation for other suspected diseases and conditions ruled out (principal)
CPT/HCPCS: 99281

== ENCOUNTER → 2024-12-29 11:30 | Outpatient (CLI) | payer MEDICARE, MEDICAID, SELFPAY ==
[2021-08-22 16:55] VITALS: BMI 22.9
[2024-12-29 13:33] LABS: COVID-19 CEPHEID 4-PLEX PCR Negative (Negative); Influenza A - CEPHEID Flu A POSITIVE (NEGATIVE); Influenza B - CEPHEID Flu B NEGATIVE (NEGATIVE); Respiratory Syncytial Virus Negative (Negative)
== END ==
PROVIDERS: Family Provider Pediatrics; PCP Family Medicine; Visit Provider Nurse Practitioner Family
DX: R05.1 Acute cough (principal)
CPT/HCPCS: 0241U

== ENCOUNTER → 2024-12-29 12:04 | Outpatient (CLI) | payer MEDICARE, MEDICAID, SELFPAY ==
[2021-08-22 16:55] VITALS: BMI 22.9
--- NOTE | 2024-12-29 12:05 | DI.RAD.S_ITS ---
PROCEDURE: XR CHEST 2V INDICATIONS: Cough TECHNIQUE: 2 views of the chest were acquired. COMPARISON: [facility], CR, XR CHEST 1V, 10/21/2024, 3:51. FINDINGS: Surgical changes and devices: None. Lungs and pleura: Lungs are clear. No pleural effusions or pneumothorax. Mediastinum: Mediastinal contours are normal. Heart size is normal. Bones and chest wall: No suspicious bony abnormalities. Soft tissues appear unremarkable. IMPRESSION: No acute cardiopulmonary abnormality is seen. Approved by: Lamont Henley M.D. on 12/29/2024 at 18:06
== END ==
LOC: RAD 12:05
PROVIDERS: Family Provider Pediatrics; PCP Family Medicine; Referring Provider Nurse Practitioner Family; Visit Provider Nurse Practitioner Family
DX: R05.1 Acute cough (principal)
CPT/HCPCS: 0241U; 71046

== ENCOUNTER → 2025-01-04 16:14 | Outpatient (CLI) | payer MEDICARE, MEDICAID, SELFPAY ==
[2021-08-22 16:55] VITALS: BMI 22.9
[2025-01-04 16:50] LABS: Appearance Urine UA CLEAR; Bilirubin Urine UA NEGATIVE (NEGATIVE); Color Urine UA YELLOW; Glucose Urine UA NEGATIVE (Negative); Ketones Urine UA NEGATIVE (NEGATIVE); Leukocyte Esterase Urine UA TRACE (NEGATIVE); Nitrite Urine UA NEGATIVE (Negative); Occult Blood Urine UA TRACE-LYSED (Negative); Protein Urine UA 2+ (Negative); Urobilinogen Urine UA 0.2 E.U./dL (0.2)
[2025-01-04 16:58] LABS: pH Urine UA 6.5 (4.5-8.0)
[2025-01-04 17:02] LABS: Bacteria Urine Occasional (0-1); Culture Indicated Urine Cult Not Indicated; RBC Urine 0-1/HPF (0-5/HPF); Squamous Epithelial Cell Urine 1-5 /HPF (0-5/HPF); Urine Volume 10mL (spun); WBC Urine 1-5/HPF (0-5/HPF)
== END ==
LOC: LAB 16:15
PROVIDERS: Family Provider Pediatrics; PCP Family Medicine; Referring Provider Family Medicine; Visit Provider Family Medicine
DX: R39.15 Urgency of urination (principal); R39.9 Unspecified symptoms and signs involving the genitourinary system; R30.0 Dysuria
CPT/HCPCS: 81001

== ENCOUNTER → 2025-01-07 15:13 | Outpatient (CLI) | payer MEDICARE, MEDICAID, SELFPAY ==
[2021-08-22 16:55] VITALS: BMI 22.9
--- NOTE | 2025-01-07 15:14 | DI.US.S_ITS ---
PROCEDURE: US RENAL COMPLETE INDICATIONS: chronic kidney disease;abnormal labs. TECHNIQUE: Real-time scanning was performed of the kidneys and bladder, with image documentation. COMPARISON: None. FINDINGS: Kidneys: Kidneys are normal in size. Right kidney measures 9.2 cm long; left kidney measures 9.0 cm long. Right renal cortical thickness is 0.9 cm; left renal cortical thickness is 1.0 cm. Renal cortical echotexture is increased. No hydronephrosis or nephrolithiasis. No suspicious solid mass lesions. Bilateral simple appearing cyst measuring up to 1.4 centimeters on the right and 1.3 centimeters on the left. Bladder: Pre-void bladder volume is 124 mL. Patient was unable to void. Pre-void images demonstrate no intraluminal masses or stones. On pre-void images, neither ureteral jets are noted with color Doppler interrogation. (Of note, ureteral jets may not be detectable in up to 25% of cases due to insufficient differences in specific gravity between ureteral and bladder urine). Miscellaneous: No free pelvic fluid. IMPRESSION: 1. Increased echogenicity of the bilateral kidneys, most consistent with medical renal disease. 2. Bladder volume of 124 milliliters and patient was unable to void, correlate for bladder outlet obstruction. Dictated by: Balaji Arreaga M.D. on 01/08/2025 at 11:37 Approved by: Balaji Arreaga M.D. on 01/08/2025 at 11:39
== END ==
PROVIDERS: Family Provider Pediatrics; PCP Family Medicine; Referring Provider Family Medicine; Visit Provider Family Medicine
DX: N18.31 Chronic kidney disease, stage 3a (principal); R33.9 Retention of urine, unspecified; N28.1 Cyst of kidney, acquired
CPT/HCPCS: 76770

== ENCOUNTER 2025-04-01 04:33 | Emergency (ER) | payer MEDICARE, MEDICAID, SELFPAY ==
[2021-08-22 16:55] VITALS: BMI 22.9
--- NOTE | 2025-04-01 04:35 | ED.GENADULT ---
HPI - General Adult General Chief complaint: Extremity Injury, Upper Stated complaint: R wrist injury Time Seen by Provider: 04/01/25 04:35 Source: patient, RN notes reviewed and old records reviewed Mode of arrival: Ambulatory Limitations: no limitations History of Present Illness HPI narrative: 69-year-old female history of PTSD, [id number] diabetes, hypertension, history of amphetamine use presents with complaint of right wrist pain. Patient states she was mowing the lawn earlier during the day had a fall and has some bruising and discomfort with movement. She states it has not improved. She states she has a little bit of discomfort in her left foot but is able to ambulate on it does not have any localized bony tenderness. Denies hitting her head, no neck or back pain. No chest pain or shortness of breath. No other GI or urinary symptoms. She denies any other injuries. States she takes an aspirin daily, citalopram, gabapentin, levothyroxine and liothyronine, losartan and quetiapine daily patient states has a allergies to NASRIN inhibitors, codeine and Demerol. Does use tobacco daily, denies any daily alcohol, history of methamphetamine use. Related Data Home Medications ?Medication ?Instructions ?Recorded ?Confirmed aspirin 81 mg capsule 81 mg PO DAILY 12/16/24 02/09/25 Previous Rx's ?Medication ?Instructions ?Recorded propranolol 10 mg tablet 20 mg (2 x 10 mg) PO TID #540 tabs 05/12/24 citalopram 40 mg tablet 20 mg (1/2 x 40 mg) PO DAILY #90 05/28/24 tabs levothyroxine 25 mcg tablet 25 mcg PO QAM #30 tabs 06/24/24 gabapentin 300 mg capsule 600 mg (2 x 300 mg) PO Q OTHER DAY 08/19/24 #30 caps simvastatin 40 mg tablet 40 mg PO BEDTIME #60 tabs 08/19/24 losartan 50 mg tablet 50 mg PO DAILY #60 tabs 12/16/24 liothyronine 5 mcg tablet (Cytomel) 5 mcg PO BID #60 tabs 02/18/25 metformin 500 mg tablet 500 mg PO DAILY #90 tabs 02/18/25 quetiapine 100 mg tablet 400 mg (4 x 100 mg) PO BEDTIME 03/11/25 #120 tabs clonazepam 1 mg tablet See Rx Instructions .Route 03/18/25 .COMPLEX #90 tabs Allergies Allergy/AdvReac Type Severity Reaction Status Date / Time NASRIN Inhibitors Allergy Intermediate EDEMA IN Verified 02/09/25 07:17 BOTH HANDS codeine Allergy Mild NAUSEA/VOMI Verified 02/09/25 07:17 TING meperidine Allergy Mild VOMITING Verified 02/09/25 07:17 Review of Systems Review of Systems ROS Unobtainable: All systems reviewed & are unremarkable except as noted in HPI and below Patient History Medical History Drug induced akathisia Weight gain due to medication Acute bacterial sinusitis Prediabetes Sinusitis History of hepatitis B Orthopnea Rales Weight gain Right knee pain Presbyacusis Intentional benzodiazepine overdose Amphetamine use disorder, severe, in early remission 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 PTSD (post-traumatic stress disorder) Chest pain Measles Chicken pox Anemia Chronic headaches Migraines Anterior myocardial infarction (2007) Narcotic abuse, episodic CAD (coronary artery disease) Hyperlipidemia Hypertension Diabetes mellitus Depression Panic disorder Chronic pain Panic disorder without agoraphobia (02/21/11) Surgical History Anesthesia Status post insertion of drug-eluting stent into left anterior descending (LAD) artery (2007) History of appendectomy History of tonsillectomy History of colonoscopy with polypectomy (12/29/14) History of esophagogastroduodenoscopy (EGD) (12/29/14) Status post blepharoplasty of both eyes (11/11/12) Family History Father Diabetes mellitus Heart disease Hypertension Stroke Social History household members: none alcohol intake: never substance use type: does not use tobacco type: cigarettes alcohol intake frequency: holidays/special occasions only Exam Narrative Exam Narrative: GENERAL: Alert and oriented x three, female in mild distress HEENT: Head normocephalic, atraumatic, EOMI, pupils reactive, face symmetric, moist mucous membranes NECK: Supple, full range of motion CARDIOVASCULAR: Regular rate and rhythm without murmurs, rubs or gallops. RESPIRATORY: Breath sounds equal bilaterally, no wheezes rales or rhonchi. ABDOMEN: Soft, nontender. Normoactive bowel sounds all 4 quadrants. No guarding or rebound, rigidity, no mass : No CVA tenderness EXTREMITIES: Normal range of motion, no clubbing or edema. Neurovascularly intact. Patient has a little bit of ecchymosis at the right wrist. She was slightly tender with squeeze the distal radius ulna. Nontender throughout all 5 fingers, no tenderness of the metacarpals, nontender of the proximal ulna and radius as well as elbow and shoulder. 2+ radial pulse. Full range of motion in all 5 fingers. Patient does not have any bony tenderness in her left lower extremity or foot. She was ambulating without issue. NEUROLOGICAL: Cranial nerves II through XII grossly intact. Moving all extremities SKIN: Warm, dry, no petechiae, no rashes or lesions. Initial Vital Signs Initial Vital Signs: Vital Signs Temperature 97.1 F L 04/01/25 04:38 Pulse Rate 81 04/01/25 04:38 Respiratory Rate 16 04/01/25 04:38 Blood Pressure 110/60 04/01/25 04:38 Pulse Oximetry 95 04/01/25 04:38 Oxygen Delivery Method Room Air 04/01/25 04:38 Course Orders Ordered: ED Orders 04/01/25 04:36 XR wrist RT min 3V Stat Vital Signs Vital signs: Vital Signs - 8 hr 04/01/25 04:38 Temperature 97.1 F L Pulse Rate 81 Respiratory Rate 16 Blood Pressure 110/60 Pulse Oximetry 95 Oxygen Delivery Method Room Air Medical Decision Making [facility] Narrative Medical decision making narrative: X-ray right wrist-night read she was minimal ulna +variant, demineralization. No fracture evident. Follow up in 7-10 days recommended if symptoms persist. No dislocation. Multifocal mild narrowing of joint spaces with small osteophyte formation suggesting mild osteoarthritis. Patient was some mild tenderness but good movement. Discussed return precautions. Follow up if no improvement 7-10 days. Discharge Plan Departure Patient Disposition: Home Clinical Impression: Right wrist sprain Instructions: DI for Wrist Sprain Activity Restrictions/Additional Instructions: Follow up for recheck in 7-10 days if you are not having any improvement. You can take acetaminophen up to a 1000 mg every 6 hours and/or ibuprofen up to 600 mg every 6 hours. Splint Care: Elevated affected body part to decrease swelling. OK to use ice pack on the affected body part. Use for 15-20 minutes each time, for 5-6x per day. If you develop worsening pain, numbness, tingling, discoloration of the affected body part and either see your doctor for an urgent re-assessment, or return to the Emergency Department. Return to the Emergency Department for any new or worsening symptoms. Prescriptions: No Action propranolol 10 mg tablet 20 mg PO TID Qty: 540 1RF citalopram 40 mg tablet 20 mg PO DAILY Qty: 90 1RF levothyroxine 25 mcg tablet 25 mcg PO QAM Qty: 30 11RF metformin 500 mg tablet 500 mg PO DAILY Qty: 90 1RF liothyronine [Cytomel] 5 mcg tablet 5 mcg PO BID Qty: 60 5RF quetiapine 100 mg tablet 400 mg PO BEDTIME Qty: 120 2RF clonazepam 1 mg tablet See Rx Instructions .ROUTE .COMPLEX Qty: 90 0RF Rx Instructions: 0.5 mg (1/2 tab) PO BID and 2.0 mg (2 tabs) PO QHS gabapentin 300 mg capsule 600 mg PO Q OTHER DAY Qty: 30 5RF simvastatin 40 mg tablet 40 mg PO BEDTIME Qty: 60 3RF aspirin 81 mg capsule 81 mg PO DAILY losartan 50 mg tablet 50 mg PO DAILY Qty: 60 3RF Referrals: Belia Walker DO [Primary Care Provider, Family Practice] Stand Alone Forms: Patient Portal/API
--- NOTE | 2025-04-01 04:36 | DI.RAD.S_ITS ---
PROCEDURE: XR WRIST RT MIN 3V INDICATIONS: injury TECHNIQUE: 4 views of the wrist were acquired. COMPARISON: None. FINDINGS: Bones: No fractures or dislocations. No suspicious bony lesions. Soft tissues: No suspicious soft tissue calcifications. IMPRESSION: No acute bony abnormality. Agree with preliminary report. Dictated by: Jeb Pike M.D. on 04/01/2025 at 8:30 Approved by: Jeb Pike M.D. on 04/01/2025 at 8:31
[2025-04-01 04:38] VITALS: BP 110/60; PULSE 81; RESP 16; TEMP 36.2; O2SAT 95; BMI 26.5
== END 2025-04-01 05:29 | disposition home or self-care (01) ==
PROVIDERS: Emergency Provider Emergency Medicine; Family Provider Pediatrics; PCP Family Medicine
DX: S63.501A Unspecified sprain of right wrist, initial encounter (principal); W18.30XA Fall on same level, unspecified, initial encounter; F15.21 Other stimulant dependence, in remission; F43.10 Post-traumatic stress disorder, unspecified; F41.0 Panic disorder [episodic paroxysmal anxiety]
CPT/HCPCS: 73110; 99214; 99281; 99283

== ENCOUNTER → 2025-04-09 10:19 | Outpatient (CLI) | payer MEDICARE, MEDICAID, SELFPAY ==
[2021-08-22 16:55] VITALS: BMI 22.9
[2025-04-09 10:46] LABS: Add Manual Diff / Slide Review NO; Basophils Absolute Auto 0 /uL (0-100); Basophils Percent Auto 0.7 % (0-2); Eosinophils Absolute Auto 200 /uL (0-450); Hemoglobin 10.4 g/dL (12.0-16.0); Lymphocytes Absolute Auto 1800 /uL (1100-4500); Lymphocytes Percent Auto 30.7 % (25-40); Mean Corpuscular HGB Conc 34.8 % (30-36); Mean Corpuscular Hemoglobin 33.6 PG (26-34); Mean Corpuscular Volume 96.6 fL (80-100); Monocytes Absolute Auto 400 /uL (0-900); Monocytes Percent Auto 7.5 % (3-14); Neutrophils Absolute Auto 3400 /uL (1500-7000); Neutrophils Percent Auto 57.1 % (50-75); Platelet Count 203 X10^3/uL (150-400); Red Cell Distribution Width 13.5 % (11.6-14.8); White Blood Cell Count 5.9 X10^3/uL (4.5-11.0)
[2025-04-09 11:11] LABS: Alanine Aminotransferase 16 IU/L (<35); Albumin Globulin Ratio 1.5 (1.0-2.8); Alkaline Phosphatase 72 U/L (38-126); Aspartate Aminotransferase 22 IU/L (14-36); Bilirubin Total 0.2 mg/dL (0.2-1.3); Blood Urea Nitrogen 18 mg/dL (7-17); Carbon Dioxide 26 mmol/L (22-32); Chloride 108 mmol/L (98-107); Estimated Glomerular Filt Rate > 60 mL/min (>60); Globulin 2.6 g/dL (1.7-4.1); Glucose 92 mg/dL (70-99); HEMOLYSIS < 15 (0-50); Potassium 3.9 mmol/L (3.4-5.1); Sodium 142 mmol/L (137-145); Total Protein 6.6 g/dL (6.3-8.2)
[2025-04-09 11:44] LABS: Thyroid Stimulating Hormone 5.03 uIU/mL (0.47-4.68)
[2025-04-13 14:10] LABS: QuantiFERON Mitogen Value >10.00 IU/mL (.); QuantiFERON Nil Value 0.03 IU/mL (.); QuantiFERON TB Gold Plus Negative (Negative); QuantiFERON TB1 Ag Value 0.04 IU/mL (.); QuantiFERON TB2 Ag Value 0.03 IU/mL (.)
== END ==
PROVIDERS: Family Provider Pediatrics; PCP Family Medicine; Referring Provider Family Medicine; Visit Provider Family Medicine
DX: Z09 Encounter for follow-up examination after completed treatment for conditions other than malignant neoplasm (principal); E11.9 Type 2 diabetes mellitus without complications; A15.0 Tuberculosis of lung; F15.21 Other stimulant dependence, in remission; Z79.899 Other long term (current) drug therapy; E03.9 Hypothyroidism, unspecified; N18.31 Chronic kidney disease, stage 3a
CPT/HCPCS: 36415; 80053; 84443; 84481; 85025; 86480

== ENCOUNTER 2025-04-18 21:03 | Emergency (ER) | payer MEDICARE, MEDICAID, SELFPAY ==
[2021-08-22 16:55] VITALS: BMI 22.9
[2025-04-18] VITALS (8 sets, daily range): BP systolic 168–191; BP diastolic 81–98; PULSE 67–70; RESP 8–23; TEMP 36.6; O2SAT 88–99; BMI 25.7
--- NOTE | 2025-04-18 21:14 | DI.RAD.S_ITS ---
PROCEDURE: XR HUMERUS RT 2V INDICATIONS: fall, deformity TECHNIQUE: 2 views of the humerus were acquired. COMPARISON: None. FINDINGS: Bones: There is a moderately displaced, moderately angulated fracture of the mid humerus, with overlapping of fracture fragments. Generalized degenerative changes are seen. Soft tissues: Soft tissue swelling is seen. IMPRESSION: Mid humerus fracture. Dictated by: Thaddeus Og M.D. on 04/18/2025 at 21:08 Approved by: Thaddeus Og M.D. on 04/18/2025 at 21:09
--- NOTE | 2025-04-18 21:14 | DI.CT.S_ITS ---
PROCEDURE: CT TRAUMA CHEST ABDOMEN PELVIS INDICATIONS: trauma fell down 12 stairs TECHNIQUE: MDCT axial chest images were obtained with IV contrast in the arterial phase. Maximum intensity projections and multiplanar reformats were obtained. MDCT axial abdomen and pelvis images were obtained with IV contrast in the portal venous phase. Multiplanar reformats were obtained. Optional delayed phase scanning may also be obtained Advanced techniques were used to lower patient radiation exposure. COMPARISON: [facility], US, US RENAL COMPLETE, 01/07/2025, 15:22. [facility], CT, CT LUMBAR SPINE WO CON, 04/18/2021, 0:06. [facility], CT, CT CHEST WITHOUT CONTRAST, 04/04/2025, 23:09. [facility], CR, XR HUMERUS RT 2V, 04/18/2025, 21:40. [facility], CT, CT HEAD/BRAIN WO CON, 04/18/2025, 21:18. [facility], CT, CT CERVICAL SPINE WO CON, 04/18/2025, 21:18. [facility], CT, CT ANGIO CHEST PE, 04/06/2025, 7:50. (Additional prior imaging is not available for review from the archive at the time of this dictation.) FINDINGS Image Quality: There is streak artifact seen through the level of the shoulders. Chest: Lungs and pleura: No pneumothorax or hemothorax. No pulmonary contusions or lacerations. No solid pulmonary nodule requiring follow-up. Vascular: No dissection or pseudoaneurysm. No incidental central pulmonary embolism. No hemopericardium. There is mild coronary artery calcification. Mediastinum: No mediastinum hematoma. No suspicious mass or lymph nodes. No actionable thyroid nodules. Heart size is normal. Chest wall: Intact clavicles, scapula, and glenohumeral joint. No displaced rib fractures. Thoracic spine: No acute fracture or traumatic subluxation. ABDOMEN and PELVIS: Liver: No laceration or capsular hematoma. Gallbladder: Unremarkable. Biliary system: Non-dilated. Pancreas: Unremarkable. Spleen: No laceration or capsular hematoma. Adrenals: No suspicious nodules. Kidneys: No contrast extravasation or hydronephrosis. No solid masses. Bilateral cysts can be seen of the kidneys, which are better demonstrated on the recent prior renal ultrasound. Vessels and lymph nodes: No pathology lymph nodes by size criteria. No dissection or aneurysm. No retroperitoneal hematoma. Atherosclerotic calcification is noted. Bowel and peritoneum: No suspicious region of mesenteric hemorrhage or hemoperitoneum. No bowel obstruction. Pelvis: Unremarkable bladder. No adnexal masses are seen on either side. Pelvic ring and femurs: No pelvic ring disruption. No hip fractures. Lumbar spine: No acute fracture or traumatic subluxation. Generalized lumbar spine degenerative change can be seen. Abdominal wall: No drainable fluid collection or hematoma. There is a comminuted fracture seen of the right humerus, with moderate displacement and overlapping of fracture fragments. IMPRESSION: Right humerus fracture again seen. No displaced rib fractures or spinal fractures can be seen. No pneumothorax is seen. No solid organ injury is seen. Dictated by: Thaddeus Og M.D. on 04/18/2025 at 21:26 Approved by: Thaddeus Og M.D. on 04/18/2025 at 21:33
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
--- NOTE | 2025-04-18 21:15 | EKG_ITS ---
[place] [id number] [place] [id number] Test Date: 2025-04-18 Pat Name: Taylor Olivera Department: [facility] Room: Gender: Female Signal Person: CASTRO : 1955 Requested By: Order Number: [id number] Reading MD: Gerald Loya MD Measurements Intervals [place] Rate: 67 P: 34 HI: 182 QRS: -17 QRSD: 82 T: 3 QT: 432 QTc: 456 Interpretive Statements Normal sinus rhythm Minimal voltage criteria for LVH, may be normal variant ( R in aVL ) Electronically Signed On 04-19-2025 7:25:38 PDT by Gerald Loya MD
--- NOTE | 2025-04-18 21:15 | DI.CT.S_ITS ---
PROCEDURE: CT HEAD/BRAIN WO CON INDICATIONS: Trauma TECHNIQUE: Noncontrast 4.5 mm thick angled axial sections acquired from the foramen magnum to the vertex, with coronal and sagittal reformats. For radiation dose reduction, the following was used: automated exposure control, adjustment of mA and/or kV according to patient size. COMPARISON: [facility], CT, CT HEAD/BRAIN WO CON, 03/01/2020, 20:45. [facility], CT, CT HEAD/BRAIN WO CON, 04/03/2021, 15:20. [facility], CR, XR HUMERUS RT 2V, 04/18/2025, 21:40. [facility], CT, CT TRAUMA CHEST ABDOMEN PELVIS, 04/18/2025, 21:18. [facility], CT, CT CERVICAL SPINE WO CON, 04/18/2025, 21:18. [facility], CT, CT HEAD/BRAIN WO CON, 10/21/2024, 3:54. FINDINGS: Image quality: Diagnostic. CSF spaces: Basal cisterns are patent. No extra-axial fluid collections. The ventricles are symmetric in size and shape. Brain: No intracranial bleeds or mass effect. There is cerebral volume loss, with resultant ventricular and sulcal prominence. There are periventricular and deep white matter chronic small vessel ischemic changes. There is intracranial internal carotid artery atherosclerosis. Skull and face: Calvarium and visualized facial bones appear intact, without suspicious lesions. Sinuses: Focal moderate mucosal thickening can be seen within the sphenoid sinus. There is a perforated nasal septum distally. IMPRESSION: No acute intracranial hemorrhage is seen. No acute intracranial pathology. Additional findings: Focal sphenoid sinus mucosal thickening, new from the prior Perforated nasal septum Dictated by: Thaddeus Og M.D. on 04/18/2025 at 21:22 Approved by: Thaddeus Og M.D. on 04/18/2025 at 21:23
[2025-04-18] MEDS: ONDANSETRON 4 MG/2 ML INJ IV (21:23)
[2025-04-18] MEDS: HYDROMORPHONE 0.5 MG INJ IV ×2 (21:23→23:46)
[2025-04-18 21:34] LABS: Add Manual Diff / Slide Review NO; Basophils Absolute Auto 100 /uL (0-100); Basophils Percent Auto 0.6 % (0-2); Eosinophils Absolute Auto 200 /uL (0-450); Eosinophils Percent Auto 2.2 % (2-4); Hematocrit 34.8 % (36-46); Hemoglobin 11.7 g/dL (12.0-16.0); Lymphocytes Absolute Auto 2000 /uL (1100-4500); Lymphocytes Percent Auto 19.6 % (25-40); Mean Corpuscular HGB Conc 33.6 % (30-36); Mean Corpuscular Hemoglobin 32.6 PG (26-34); Monocytes Absolute Auto 600 /uL (0-900); Monocytes Percent Auto 5.7 % (3-14); Neutrophils Absolute Auto 7400 /uL (1500-7000); Neutrophils Percent Auto 71.9 % (50-75); Platelet Count 290 X10^3/uL (150-400); Red Blood Cell Count 3.59 X10^6/uL (4.0-5.2); Red Cell Distribution Width 13.6 % (11.6-14.8); White Blood Cell Count 10.3 X10^3/uL (4.5-11.0)
[2025-04-18 21:39] LABS: INR 1.1 (0.9-1.3); Prothrombin Time 12.4 SECONDS (9.4-12.5)
[2025-04-18 21:42] LABS: PTT Partial Thromboplastin Tim 44 SECONDS (25.1-36.5)
[2025-04-18 21:43] LABS: Alanine Aminotransferase 17 IU/L (<35); Albumin 4.9 g/dL (3.5-5.0); Albumin Globulin Ratio 1.7 (1.0-2.8); Alkaline Phosphatase 96 U/L (38-126); Aspartate Aminotransferase 33 IU/L (14-36); BUN Creatinine Ratio 18.7 (6-22); Bilirubin Total 0.4 mg/dL (0.2-1.3); Blood Urea Nitrogen 23 mg/dL (7-17); Calcium 9.9 mg/dL (8.4-10.2); Carbon Dioxide 24 mmol/L (22-32); Chloride 104 mmol/L (98-107); Estimated Glomerular Filt Rate 48 mL/min (>60); Ethanol (ETOH) < 10 mg/dL (<10); Globulin 2.9 g/dL (1.7-4.1); Glucose 105 mg/dL (70-99); HEMOLYSIS < 15 (0-50); Lipase 216 U/L (23-300); Potassium 4.8 mmol/L (3.4-5.1); Sodium 137 mmol/L (137-145); Total Protein 7.8 g/dL (6.3-8.2)
[2025-04-18 21:44] LABS: Lactate (Lactic Acid) 0.9 mmol/L (0.7-2.1)
[2025-04-18] MEDS: HYDROMORPHONE 1 MG INJ IV (22:07)
--- NOTE | 2025-04-18 22:07 | ED_ITS ---
HPI - General Adult General Chief complaint: Trauma Stated complaint: R Arm Injury Time Seen by Provider: 04/18/25 21:13 Source: patient Mode of arrival: Wheelchair History of Present Illness HPI narrative: 69-year-old female had fall from the top of her stairs, down to the bottom step, estimated 12 steps total, has right mid arm pain with deformity and swelling. Denies use of blood thinner medications. Denies alcohol or other drug use tonight. States that she does take some potentially sedating medications, none extra, none new. Unclear how she fell, can not recall tripping over anything. Has pain to her right mid arm. Denies pain to her head, neck, upper mid lower back, lower extremities, left upper extremity. Denies nausea or vomiting. Denies focal weakness to face arm or leg. Related Data Home Medications ?Medication ?Instructions ?Recorded ?Confirmed aspirin 81 mg capsule 81 mg PO DAILY 12/16/2403/28 Previous Rx's ?Medication ?Instructions ?Recorded propranolol 10 mg tablet 20 mg (2 x 10 mg) PO TID #54 0 tabs 05/12/24 simvastatin 40 mg tablet 40 mg PO BEDTIME #60 tabs losartan 50 mg tablet 50 mg PO DAILY #60 tabs 11/28 07/22 liothyronine 5 mcg tablet (Cytomel) 5 mcg PO BID #60 t abs 02/18/25 metformin 500 mg tablet 500 mg PO DAILY #90 tabs clonazepam 1 mg tablet See Rx Instructions .Route 0 03/18/25 .COMPLEX #90 tabs citalopram 40 mg tablet 20 mg (1/2 x 40 mg) PO DAILY #90 04/01/25 tabs quetiapine 100 mg tablet 200 mg (2 x 100 mg) PO BEDTI ME 04/01/25 #120 tabs levothyroxine 37.5 mcg capsule 37.5 mcg PO DAILY #90 c aps 04/12/25 oxycodone-acetaminophen 5 mg-325 1 tab PO Q6H PRN pain #14 tabs 04/19/25 mg tablet Allergies Allergy/AdvReac Type Severity Reaction Status Date / Time NASRIN Inhibitors Allergy Intermediate EDEMA IN Verified 04/18/25 21:11 BOTH HANDS codeine Allergy Mild NAUSEA/VOMI Verified 04/18/25 21:11 TING meperidine Allergy Mild VOMITING Verified 04/18/25 21:11 Patient History Medical History Drug induced akathisia Weight gain due to medication Acute bacterial sinusitis Prediabetes Sinusitis History of hepatitis B Orthopnea Rales Weight gain Right knee pain Presbyacusis Intentional benzodiazepine overdose Amphetamine use disorder, severe, in early remission 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 PTSD (post-traumatic stress disorder) Chest pain Measles Chicken pox Anemia Chronic headaches Migraines Anterior myocardial infarction (2007) Narcotic abuse, episodic CAD (coronary artery disease) Hyperlipidemia Hypertension Diabetes mellitus Depression Panic disorder Chronic pain Panic disorder without agoraphobia (02/21/11) Surgical History Anesthesia Status post insertion of drug-eluting stent into left anterior descending (LAD) artery (2007) History of appendectomy History of tonsillectomy History of colonoscopy with polypectomy (12/29/14) History of esophagogastroduodenoscopy (EGD) (12/29/14) Status post blepharoplasty of both eyes (11/11/12) Family History Father Diabetes mellitus Heart disease Hypertension Stroke Social History household members: none Smoking Status: Current every day smoker alcohol intake: never substance use type: does not use Smoking Status: Current every day smoker tobacco type: cigarettes alcohol intake frequency: holidays/special occasions only Exam Narrative Exam Narrative: GENERAL: Well-developed patient, in mild distress. HEAD: Atraumatic. Normocephalic. EYES: Pupils equal round and reactive. Extraocular motions intact. No scleral icterus. No injection or drainage. ENT: Nose without bleeding, purulent drainage. Throat without erythema, tonsillar hypertrophy or exudate. Airway patent. NECK: Trachea midline. Non tender CARDIOVASCULAR: Regular rate and rhythm without murmurs, gallops, or rubs. RESPIRATORY: Clear to auscultation. Breath sounds equal bilaterally. No wheezes, rales, or rhonchi. GASTROINTESTINAL: Abdomen soft, non-tender, nondistended. EXTREMITIES: Right arm mid humeral pain and swelling with some angulation which he attempts to move. Abrasion to the right elbow, no suturable lacerations. No tenderness to the deltoid area of the right upper extremity nor along the clavicle. No tenderness swelling right elbow, forearm, wrist, hand, fingers. No obvious pain or swelling to left upper extremity, right lower extremity, left lower extremity. BACK: Nontender without deformity or crepitance. No flank tenderness. NEURO: AOx3. Motor functions grossly nonfocal SKIN: No rash or erythema of visible areas Initial Vital Signs Initial Vital Signs: Vital Signs Pulse Rate 70 04/18/25 21:10 Blood Pressure 169/81 H 04/18/25 21:10 Pulse Oximetry 97 04/18/25 21:10 Procedures Orthopedic Splinting/Casting Injury #1: Time of procedure: 03:09 Upper Extremity Injury Location: upper arm Upper Extremity Immobilizer: sling/shoulder immobilizer (with aapposition right shoulder splint applied with distraction and bimanual molding) Post splinting vascular exam: intact Procedural Sedation Time of procedure: 03:06 Consent signed: Yes Time out performed: Yes Indication: fracture/dislocation reduction ASA Class: I Mallampati Airway Classification: Class I Time of Last PO Intake: 19:00 Preparation: child monitor applied, pulse oximeter, capnometry used, supplemental O2 applied, suction/airway equipment at bedside and IV secured IV Propofol dose (mg): 60 Patient Tolerated Procedure: Well Complications: none Additional Comments: Returned to preprocedure baseline mental status. Course Orders Ordered: ED Orders 04/18/25 21:14 CT Trauma Chest Abdomen Pelvis Stat XR humerus RT 2V Stat 04/18/25 21:15 CT cervical spine wo con Stat CT head/brain wo con Stat Urine Drug Screen, Rapid Stat EKG-12 Lead Stat 04/18/25 21:26 Complete Blood Count AUTO DIFF Stat Comprehensive Metabolic Panel Stat Ethanol (ETOH) Stat Lactate (Lactic Acid) Stat Lipase Stat PTT Partial Thromboplastin Cole Stat Prothrombin Time INR Stat 04/19/25 02:27 XR humerus RT 2V Stat Ketamine HCl 250 mg/ Sodium (Chloride) 252.5 mls @ 12.095 mls/hr IV TITRATE TEETEE; Protocol Discontinued Medications Hydromorphone HCl (Hydromorphone 0.5 Mg Inj) 0.5 mg IV NOW ONE Stop: 04/18/25 21:19 Last Admin: 06/22/25 21:23 Dose: 0.5 mg Documented By: SUZAN Hydromorphone HCl (Hydromorphone 1 Mg Inj) 1 mg IV NOW ONE Stop: 04/18/25 22:04 Last Admin: 04/18/25 22:07 Dose: 1 mg Documented By: CONCEPCION Hydromorphone HCl (Hydromorphone 0.5 Mg Inj) 0.5 mg IV NOW ONE Stop: 04/18/25 23:41 Last Admin: 04/18/25 23:46 Dose: 0.5 mg Documented By: NIKI Ondansetron HCl (Ondansetron 4 Mg/2 Ml Inj) 4 mg IV NOW ONE Stop: 04/18/25 21:19 Last Admin: 04/18/25 21:23 Dose: 4 mg Documented By: SUZAN Oxycodone/Acetaminophen (Oxycodone/Apap 5/325 Prepack) 1 bottle MISC DIRECTED ONE Stop: 04/19/25 02:39 Last Admin: 04/19/25 03:04 Dose: 1 bottle Documented By: SUZAN Oxycodone/Acetaminophen (Oxycodone/Acetaminophen 5/325 Tablet) 1 tab PO NOW ONE Stop: 04/19/25 02:39 Last Admin: 04/19/25 03:03 Dose: 1 tab Documented By: SUZAN Propofol (Propofol 200 Mg/20 Ml Vial) 200 mg IV NOW ONE Stop: 04/18/25 22:46 Last Admin: 04/19/25 02:25 Dose: 60 mg Documented By: SUZAN Vital Signs Vital signs: Vital Signs - 8 hr 04/18/25 22:06 04/18/25 22:06 04/18/25 22:15 Pulse Rate Respiratory Rate Blood Pressure 191/98 H 182/88 H Pulse Oximetry Oxygen Delivery Method Room Air Oxygen Flow Rate 04/18/25 22:15 04/18/25 22:20 04/18/25 22:20 Pulse Rate 67 67 Respiratory Rate 8 L 10 L Blood Pressure 168/88 H Pulse Oximetry 97 95 Oxygen Delivery Method Oxygen Flow Rate 04/18/25 22:25 04/18/25 22:25 04/18/25 22:30 Pulse Rate 68 70 Respiratory Rate 11 L 23 Blood Pressure 172/94 H Pulse Oximetry 96 88 L Oxygen Delivery Method Room Air Oxygen Flow Rate 04/18/25 22:30 04/19/25 00:50 04/19/25 00:50 Pulse Rate 76 Respiratory Rate 23 Blood Pressure 168/92 H 154/85 H Pulse Oximetry 99 96 Oxygen Delivery Method Nasal Cannula Nasal Cannula Oxygen Flow Rate 1.5 2 04/19/25 00:55 04/19/25 00:55 04/19/25 01:00 Pulse Rate 73 Respiratory Rate 23 Blood Pressure 142/75 H 138/73 Pulse Oximetry 98 Oxygen Delivery Method Oxygen Flow Rate 04/19/25 01:00 04/19/25 01:06 04/19/25 01:06 Pulse Rate 74 74 Respiratory Rate 21 14 Blood Pressure 134/78 Pulse Oximetry 97 96 Oxygen Delivery Method Oxygen Flow Rate 04/19/25 01:11 04/19/25 01:11 04/19/25 01:15 Pulse Rate 76 Respiratory Rate 28 H Blood Pressure 155/85 H 142/82 H Pulse Oximetry 97 Oxygen Delivery Method Room Air Oxygen Flow Rate 04/19/25 01:15 04/19/25 01:20 04/19/25 01:20 Pulse Rate 74 74 Respiratory Rate 17 27 H Blood Pressure 130/77 Pulse Oximetry 97 95 Oxygen Delivery Method Oxygen Flow Rate 04/19/25 01:25 04/19/25 01:25 04/19/25 01:30 Pulse Rate 72 Respiratory Rate 17 Blood Pressure 145/83 H 140/82 Pulse Oximetry 97 Oxygen Delivery Method Oxygen Flow Rate 04/19/25 01:30 04/19/25 01:35 04/19/25 01:35 Pulse Rate 73 74 Respiratory Rate 28 H 11 L Blood Pressure 147/86 H Pulse Oximetry 97 94 Oxygen Delivery Method Oxygen Flow Rate 04/19/25 01:40 04/19/25 01:40 04/19/25 01:45 Pulse Rate 75 74 Respiratory Rate 11 L 12 Blood Pressure 156/88 H Pulse Oximetry 96 98 Oxygen Delivery Method Oxygen Flow Rate 04/19/25 01:45 04/19/25 01:50 04/19/25 01:50 Pulse Rate 73 Respiratory Rate 21 Blood Pressure 154/84 H 144/85 H Pulse Oximetry 98 Oxygen Delivery Method Oxygen Flow Rate 04/19/25 01:55 04/19/25 01:55 04/19/25 02:00 Pulse Rate 72 Respiratory Rate 14 Blood Pressure 145/83 H 144/82 H Pulse Oximetry 99 Oxygen Delivery Method Oxygen Flow Rate 04/19/25 02:00 04/19/25 02:05 04/19/25 02:05 Pulse Rate 73 72 Respiratory Rate 22 19 Blood Pressure 142/82 H Pulse Oximetry 98 99 Oxygen Delivery Method Oxygen Flow Rate 04/19/25 02:10 04/19/25 02:10 04/19/25 02:15 Pulse Rate 73 75 Respiratory Rate 19 12 Blood Pressure 149/85 H Pulse Oximetry 98 97 Oxygen Delivery Method Room Air Oxygen Flow Rate 04/19/25 02:15 04/19/25 02:20 04/19/25 02:20 Pulse Rate 72 Respiratory Rate 15 Blood Pressure 164/88 H 149/78 H Pulse Oximetry 98 Oxygen Delivery Method Room Air Oxygen Flow Rate 04/19/25 02:25 04/19/25 02:25 04/19/25 02:30 Pulse Rate 67 Respiratory Rate 25 H Blood Pressure 149/80 H 154/74 H Pulse Oximetry 100 Oxygen Delivery Method Oxygen Flow Rate 04/19/25 02:30 04/19/25 02:36 04/19/25 02:36 Pulse Rate 69 67 Respiratory Rate 23 19 Blood Pressure 170/84 H Pulse Oximetry 100 99 Oxygen Delivery Method Oxygen Flow Rate 04/19/25 02:40 04/19/25 02:40 04/19/25 02:45 Pulse Rate 70 68 Respiratory Rate 30 H 17 Blood Pressure 172/87 H Pulse Oximetry 99 97 Oxygen Delivery Method Oxygen Flow Rate 04/19/25 02:45 04/19/25 02:50 04/19/25 02:50 Pulse Rate 68 Respiratory Rate 24 Blood Pressure 161/84 H 157/82 H Pulse Oximetry 97 Oxygen Delivery Method Room Air Oxygen Flow Rate 04/19/25 02:55 04/19/25 02:55 04/19/25 03:00 Pulse Rate 74 72 Respiratory Rate 27 H 30 H Blood Pressure 142/85 H Pulse Oximetry 96 97 Oxygen Delivery Method Room Air Oxygen Flow Rate 04/19/25 03:01 04/19/25 03:01 04/19/25 03:05 Pulse Rate 71 Respiratory Rate 31 H Blood Pressure 173/84 H 174/84 H Pulse Oximetry 98 Oxygen Delivery Method Oxygen Flow Rate 04/19/25 03:05 04/19/25 03:11 04/19/25 03:11 Pulse Rate 69 70 Respiratory Rate 23 Blood Pressure 157/81 H Pulse Oximetry 97 99 Oxygen Delivery Method Oxygen Flow Rate Medical Decision Making Lab Data Lab results reviewed: Yes I reviewed the patient's lab results. Lab results narrative: White blood cell count 10,300, hemoglobin 11.7. Platelets adequate. Glucose 105. BUN 23 with creatinine 1.23 normal. Normal carbon dioxide. Normal electrolytes. Normal liver functions. Lipase normal. INR normal. Ethanol level negative. 04/18/25 21:26 04/18/25 21:26 Labs: Lab Results 04/18/25 Range/Units 21:26 WBC 10.3 (4.5-11.0) X10^3/uL RBC 3.59 L (4.0-5.2) X10^6/uL Hgb 11.7 L (12.0-16.0) g/dL Hct 34.8 L (36-46) % MCV 97.0 (80-100) fL MCH 32.6 (26-34) PG MCHC 33.6 (30-36) % RDW 13.6 (11.6-14.8) % Plt Count 290 (150-400) X10^3/uL Neut % (Auto) 71.9 (50-75) % Lymph % (Auto) 19.6 L (25-40) % Edwards % (Auto) 5.7 (3-14) % Eos % (Auto) 2.2 (2-4) % Baso % (Auto) 0.6 (0-2) % Neut # (Auto) 7400 H (7560-9590) /uL Lymph # (Auto) 2000 (5505-3454) /uL Edwards # (Auto) 600 (0-900) /uL Eos # (Auto) 200 (0-450) /uL Baso # (Auto) 100 (0-100) /uL PT 12.4 (9.4-12.5) SECONDS INR 1.1 (0.9-1.3) APTT 44 H (25.1-36.5) SECONDS Sodium 137 (137-145) mmol/L Potassium 4.8 (3.4-5.1) mmol/L Chloride 104 (98-107) mmol/L Carbon Dioxide 24 (22-32) mmol/L BUN 23 H (7-17) mg/dL Creatinine 1.23 H (0.52-1.04) mg/dL Estimated GFR 48 L (>60) mL/min BUN/Creatinine Ratio 18.7 (6-22) Glucose 105 H (70-99) mg/dL Lactate 0.9 (0.7-2.1) mmol/L Calcium 9.9 (8.4-10.2) mg/dL Total Bilirubin 0.4 (0.2-1.3) mg/dL AST 33 (14-36) IU/L ALT 17 (<35) IU/L Alkaline Phosphatase 96 (38-126) U/L Total Protein 7.8 (6.3-8.2) g/dL Albumin 4.9 (3.5-5.0) g/dL Globulin 2.9 (1.7-4.1) g/dL Albumin/Globulin Ratio 1.7 (1.0-2.8) Lipase 216 (23-300) U/L Ethyl Alcohol < 10 (<10) mg/dL Imaging Data Extremity x-ray #1: Radiologist's Impression: [address] [address] XRay Report Signed Patient: Taylor Olivera MR#: [id number] : 1955 Acct:[id number] Age/Sex: 69 / F Date of Service: 04/18/25 Loc: ED Accession Number: [id number] Procedure: XR humerus RT 2V Ordering Provider: Karan Donald MD PROCEDURE: XR HUMERUS RT 2V INDICATIONS: fall, deformity TECHNIQUE: 2 views of the humerus were acquired. COMPARISON: None. FINDINGS: Bones: There is a moderately displaced, moderately angulated fracture of the mid humerus, with overlapping of fracture fragments. Generalized degenerative changes are seen. Soft tissues: Soft tissue swelling is seen. IMPRESSION: Mid humerus fracture. Dictated by: Thaddeus Og M.D. on 04/18/2025 at 21:08 Approved by: Thaddeus Og M.D. on 04/18/2025 at 21:09 CT scan - head: Radiologist's Impression: Close Cervical Spine CT (Signed) Thaddeus Og - 04/18/[address] (Signed) Thaddeus Og - 04/18/25 Humerus X-Ray (Signed) Thaddeus Og - 04/18/25 Chest/Abdomen/Pelvis CT 04/18/25 Launch?Image [address] [address] [address] Scan Report Signed Patient: Taylor Olivera MR#: [id number] : 1955 Acct:[id number] Age/Sex: 69 / F Date of Service: 04/18/25 Loc: ED Accession Number: [id number] Procedure: CT head/brain wo con Ordering Provider: Karan Donald MD PROCEDURE: CT HEAD/BRAIN WO CON INDICATIONS: Trauma TECHNIQUE: Noncontrast 4.5 mm thick angled axial sections acquired from the foramen magnum to the vertex, with coronal and sagittal reformats. For radiation dose reduction, the following was used: automated exposure control, adjustment of mA and/or kV according to patient size. COMPARISON: [facility], CT, CT HEAD/BRAIN WO CON, 03/01/2020, 20:45. [facility], CT, CT HEAD/BRAIN WO CON, 04/03/2021, 15:20. [facility], CR, XR HUMERUS RT 2V, 04/18/2025, 21:40. [facility], CT, CT TRAUMA CHEST ABDOMEN PELVIS, 04/18/2025, 21:18. [facility], CT, CT CERVICAL SPINE WO CON, 04/18/2025, 21:18. [facility], CT, CT HEAD/BRAIN WO CON, 10/21/2024, 3:54. FINDINGS: Image quality: Diagnostic. CSF spaces: Basal cisterns are patent. No extra-axial fluid collections. The ventricles are symmetric in size and shape. Brain: No intracranial bleeds or mass effect. There is cerebral volume loss, with resultant ventricular and sulcal prominence. There are periventricular and deep white matter chronic small vessel ischemic changes. There is intracranial internal carotid artery atherosclerosis. Skull and face: Calvarium and visualized facial bones appear intact, without suspicious lesions. Sinuses: Focal moderate mucosal thickening can be seen within the sphenoid sinus. There is a perforated nasal septum distally. IMPRESSION: No acute intracranial hemorrhage is seen. No acute intracranial pathology. Additional findings: Focal sphenoid sinus mucosal thickening, new from the prior Perforated nasal septum Dictated by: Thaddeus Og M.D. on 04/18/2025 at 21:22 Approved by: Thaddeus Og M.D. on 04/18/2025 at 21:23 CT - cervical spine: Radiologist's Impression: [address] [address] [address] Scan Report Signed Patient: Taylor Olivera MR#: [id number] : 1955 Acct:[id number] Age/Sex: 69 / F Date of Service: 04/18/25 Loc: ED Accession Number: [id number] Procedure: CT cervical spine wo con Ordering Provider: Karan Donald MD PROCEDURE: CT CERVICAL SPINE WO CON INDICATIONS: Trauma TECHNIQUE: Noncontrast 3 mm thick sections acquired from the skull base to the T4 level. Sagittal and coronal reformats were then constructed. For radiation dose reduction, the following was used: automated exposure control, adjustment of mA and/or kV according to patient size. COMPARISON: [facility], CR, XR HUMERUS RT 2V, 04/18/2025, 21:40. [facility], CT, CT TRAUMA CHEST ABDOMEN PELVIS, 04/18/2025, 21:18. [facility], CT, CT HEAD/BRAIN WO CON, 04/18/2025, 21:18. [facility], CT, CT CERVICAL SPINE WO CON, 04/03/2021, 15:20. FINDINGS: Image quality: This examination is somewhat limited by quantum mottle artifact. Bones: No fractures or dislocations. Visualized superior ribs are intact. Degenerative changes are seen throughout, which are overall worst inferiorly, with moderate disc space narrowing at the C6-C7 level. Multiple levels of facet hypertrophy can be seen. Soft tissues: Prevertebral soft tissues are normal in thickness. No paravertebral hematomas. No apical pneumothoraces. Atherosclerotic calcification is noted. IMPRESSION: No displaced fracture or traumatic subluxation. Focal C6-C7 degenerative change. Dictated by: Thaddeus Og M.D. on 04/18/2025 at 21:24 Approved by: Thaddeus gO M.D. on 04/18/2025 at 21:25 CT chest abdomen and pelvis trauma protocol.: Radiologist's Impression: [address] [address] [address] Scan Report Signed Patient: Taylor Olivera MR#: [id number] : 1955 Acct:[id number] Age/Sex: 69 / F Date of Service: 04/18/25 Loc: ED Accession Number: [id number] Procedure: CT Trauma Chest Abdomen Pelvis Ordering Provider: Karan Donald MD PROCEDURE: CT TRAUMA CHEST ABDOMEN PELVIS INDICATIONS: trauma fell down 12 stairs TECHNIQUE: MDCT axial chest images were obtained with IV contrast in the arterial phase. Maximum intensity projections and multiplanar reformats were obtained. MDCT axial abdomen and pelvis images were obtained with IV contrast in the portal venous phase. Multiplanar reformats were obtained. Optional delayed phase scanning may also be obtained Advanced techniques were used to lower patient radiation exposure. COMPARISON: [facility], US, US RENAL COMPLETE, 01/07/2025, 15:22. [facility], CT, CT LUMBAR SPINE WO CON, 04/18/2021, 0:06. [facility], CT, CT CHEST WITHOUT CONTRAST, 04/04/2025, 23:09. [facility], CR, XR HUMERUS RT 2V, 04/18/2025, 21:40. [facility], CT, CT HEAD/BRAIN WO CON, 04/18/2025, 21:18. [facility], CT, CT CERVICAL SPINE WO CON, 04/18/2025, 21:18. [facility], CT, CT ANGIO CHEST PE, 04/06/2025, 7:50. (Additional prior imaging is not available for review from the archive at the time of this dictation.) FINDINGS Image Quality: There is streak artifact seen through the level of the shoulders. Chest: Lungs and pleura: No pneumothorax or hemothorax. No pulmonary contusions or lacerations. No solid pulmonary nodule requiring follow-up. Vascular: No dissection or pseudoaneurysm. No incidental central pulmonary embolism. No hemopericardium. There is mild coronary artery calcification. Mediastinum: No mediastinum hematoma. No suspicious mass or lymph nodes. No actionable thyroid nodules. Heart size is normal. Chest wall: Intact clavicles, scapula, and glenohumeral joint. No displaced rib fractures. Thoracic spine: No acute fracture or traumatic subluxation. ABDOMEN and PELVIS: Liver: No laceration or capsular hematoma. Gallbladder: Unremarkable. Biliary system: Non-dilated. Pancreas: Unremarkable. Spleen: No laceration or capsular hematoma. Adrenals: No suspicious nodules. Kidneys: No contrast extravasation or hydronephrosis. No solid masses. Bilateral cysts can be seen of the kidneys, which are better demonstrated on the recent prior renal ultrasound. Vessels and lymph nodes: No pathology lymph nodes by size criteria. No dissection or aneurysm. No retroperitoneal hematoma. Atherosclerotic calcification is noted. Bowel and peritoneum: No suspicious region of mesenteric hemorrhage or hemoperitoneum. No bowel obstruction. Pelvis: Unremarkable bladder. No adnexal masses are seen on either side. Pelvic ring and femurs: No pelvic ring disruption. No hip fractures. Lumbar spine: No acute fracture or traumatic subluxation. Generalized lumbar spine degenerative change can be seen. Abdominal wall: No drainable fluid collection or hematoma. There is a comminuted fracture seen of the right humerus, with moderate displacement and overlapping of fracture fragments. IMPRESSION: Right humerus fracture again seen. No displaced rib fractures or spinal fractures can be seen. No pneumothorax is seen. No solid organ injury is seen. Dictated by: Thaddeus Og M.D. on 04/18/2025 at 21:26 Approved by: Thaddeus Og M.D. on 04/18/2025 at 21:33 ECG Data Attestation: I personally reviewed and interpreted this ECG as follows: Interpretation: 2207, normal sinus rhythm with rate of 67, no obvious ST segment elevation or depression changes. IN 182, QRS 82, QTC 456. [facility] Narrative Medical decision making narrative: 69-year-old female fell down a flight of stairs, unclear if she tripped, right arm midshaft injuries suspected. History of anxiety/depression/PTSD, taking potentially sedating medications. Modified trauma activation by mechanism. Primary survey: Airway, breathing, circulation intact. GCS 15. Secondary survey: See physical exam sections. X-ray right humerus. CT head, cervical spine, chest abdomen and pelvis trauma and being protocol. Labs sent. Keep NPO. IV Dilaudid. Repeat dose IV Dilaudid. X-ray suspicious for a mid shaft fracture with angulation, currently neurovascularly intact. CT images pending. CT head, no acute traumatic changes. See radiology report. CT cervical spine, no acute traumatic changes. See radiology report. Chest abdomen pelvis, no acute traumatic injuries, accept for right humeral fracture again demonstrated. See radiology report. Case discussed with Dr. Reed Orthopedic surgery, who prefers we attempt coaptation splinting with sedation, with follow up with [place] [facility]. See separate procedure note and conscious sedation note, for splinting of angulated midshaft right humeral fracture. X-ray right humerus post reduction/splinting. Impression: ?displaced transverse fracture of the mid humerus as detailed. ? See tele radiology report. Discharge with home pack pain medication to use if needed. Follow up with Orthopedic surgery as above. Return precautions discussed. Discharge Plan Departure Patient Disposition: Home Clinical Impression: Fall (on) (from) other stairs and steps, initial encounter, Humerus shaft fracture Activity Restrictions/Additional Instructions: Fall down a flight of stairs. CT imaging of the head spine chest abdomen and pelvis showed no injury patterns. X-rays right upper extremity showed mid shaft humerus fracture with some angulation and displacement. Local orthopedic surgeon on-call Dr. Ryan was contacted, who suggested splinting in follow up in their clinic with 1 of his colleagues at [facility]. Contact information given for that clinic. Take pain medications as needed. Wear splint and sling until follow up. Recheck earlier to this/nearest emergency department for any change worsening symptoms or any concerns prior. Prescriptions: New oxycodone-acetaminophen 5-325 mg tablet 1 tab PO Q6H PRN (Reason: pain) Qty: 14 0RF No Action citalopram 40 mg tablet 20 mg PO DAILY Qty: 90 1RF quetiapine 100 mg tablet 200 mg PO BEDTIME Qty: 120 2RF propranolol 10 mg tablet 20 mg PO TID Qty: 540 1RF metformin 500 mg tablet 500 mg PO DAILY Qty: 90 1RF liothyronine [Cytomel] 5 mcg tablet 5 mcg PO BID Qty: 60 5RF clonazepam 1 mg tablet See Rx Instructions .ROUTE .COMPLEX Qty: 90 0RF Rx Instructions: 0.5 mg (1/2 tab) PO BID and 2.0 mg (2 tabs) PO QHS levothyroxine 37.5 mcg capsule 37.5 mcg PO DAILY Qty: 90 0RF Rx Instructions: Dose change. D/C 25 mcg. Thanks! simvastatin 40 mg tablet 40 mg PO BEDTIME Qty: 60 3RF aspirin 81 mg capsule 81 mg PO DAILY losartan 50 mg tablet 50 mg PO DAILY Qty: 60 3RF Referrals: [facility] [Provider Group] Lamont Schaefer MD [Physician, Orthopedic Surgery] Belia Walker DO [Primary Care Provider, Family Practice] Stand Alone Forms: Patient Portal/API
[2025-04-19] VITALS (30 sets, daily range): BP systolic 130–174; BP diastolic 73–88; PULSE 67–76; RESP 11–31; O2SAT 94–100
[2025-04-19] MEDS: propofoL 200 MG/20 ML VIAL IV (02:25)
--- NOTE | 2025-04-19 02:27 | DI.RAD.S_ITS ---
PROCEDURE: XR HUMERUS RT 2V INDICATIONS: post reduction Rt humerus midshaft fx TECHNIQUE: 2 views of the humerus were acquired. COMPARISON: [facility], CR, XR HUMERUS RT 2V, 04/18/2025, 21:40. FINDINGS AND IMPRESSION: Mildly displaced humerus fracture with comminuted fragments again seen, with improved alignment. No suspicious soft tissue calcifications. Agree with preliminary report. Dictated by: Richard Gonzales M.D. on 04/19/2025 at 7:41 Approved by: Richard Gonzales M.D. on 04/19/2025 at 7:42
[2025-04-19] MEDS: OXYCODONE/ACETAMINOPHEN 5/325 TABLET 1 TAB PO (03:03)
[2025-04-19] MEDS: OXYCODONE/APAP 5/325 PREPACK 1 BOTTLE MISC (03:04)
== END 2025-04-19 03:25 | disposition home or self-care (01) ==
PROVIDERS: Emergency Provider Emergency Medicine; Family Provider Pediatrics; PCP Family Medicine
DX: S42.321A Displaced transverse fracture of shaft of humerus, right arm, initial encounter for closed fracture (principal); W10.9XXA Fall (on) (from) unspecified stairs and steps, initial encounter
CPT/HCPCS: 29105; 70450; 71275; 72125; 73060; 74177; 80053; 80320; 83605; 83690; 85025; 85610; 85730; 93005; 93010; 96374; 96375; 96376; 99152; 99284; 99285; J1171; J2405; J2704; Q9967

== ENCOUNTER 2025-04-19 13:56 | Emergency (ER) | payer MEDICARE, MEDICAID, SELFPAY ==
[2021-08-22 16:55] VITALS: BMI 22.9
[2025-04-19 14:00] VITALS: BP 146/75; PULSE 80; RESP 18; TEMP 36.6; O2SAT 98; BMI 25.7
--- NOTE | 2025-04-19 14:04 | DI.RAD.S_ITS ---
PROCEDURE: XR HUMERUS RT 2V INDICATIONS: known fracture, increased pain TECHNIQUE: 2 views of the humerus were acquired. COMPARISON: [facility], , XR HUMERUS RT 2V, 04/19/2025, 2:23. [facility], CR, XR HUMERUS RT 2V, 04/18/2025, 21:40. FINDINGS/IMPRESSION: Slight increase in apex lateral angulation of the comminuted mid humeral shaft fracture. Dictated by: Jeb Pike M.D. on 04/19/2025 at 14:25 Approved by: Jeb Pike M.D. on 04/19/2025 at 14:25
[2025-04-19] MEDS: OXYCODONE/ACETAMINOPHEN 5/325 TABLET 1 TAB PO (16:29)
[2025-04-19] MEDS: HYDROMORPHONE 1 MG INJ IM (18:26)
--- NOTE | 2025-04-19 19:20 | ED.UPPEXIN ---
HPI - Extremity Injury (Upper) <Eliseo Coats PA-C - Last Filed: 04/19/25 19:28> General Chief Complaint: Extremity Injury, Upper Stated Complaint: Right arm in pain from ER Time Seen by Provider: 04/19/25 15:03 Source: patient Mode of arrival: Ambulatory History of Present Illness HPI narrative: 69-year-old female returns to the ED with a re-injury to her right humeral shaft fracture. Patient states that she was trying to bend forward when she heard a crunch from her right arm where she had the humeral shaft fracture. Patient states that her pain has increased and that her splint feels tight. No numbness, tingling, weakness. Patient has taken the oxycodone as prescribed every 6 hours for a total of 2 doses after she left the ED. Related Data Home Medications ?Medication ?Instructions ?Recorded ?Confirmed aspirin 81 mg capsule 81 mg PO DAILY 12/16/24 04/08/25 Previous Rx's ?Medication ?Instructions ?Recorded propranolol 10 mg tablet 20 mg (2 x 10 mg) PO TID #540 tabs 05/12/24 simvastatin 40 mg tablet 40 mg PO BEDTIME #60 tabs 08/19/24 losartan 50 mg tablet 50 mg PO DAILY #60 tabs 12/16/24 liothyronine 5 mcg tablet (Cytomel) 5 mcg PO BID #60 tabs 02/18/25 metformin 500 mg tablet 500 mg PO DAILY #90 tabs 02/18/25 clonazepam 1 mg tablet See Rx Instructions .Route 03/18/25 .COMPLEX #90 tabs citalopram 40 mg tablet 20 mg (1/2 x 40 mg) PO DAILY #90 04/01/25 tabs quetiapine 100 mg tablet 200 mg (2 x 100 mg) PO BEDTIME 04/01/25 #120 tabs levothyroxine 37.5 mcg capsule 37.5 mcg PO DAILY #90 caps 04/12/25 oxycodone 5 mg tablet 5 mg PO Q4H PRN pain #20 tabs 04/19/25 oxycodone-acetaminophen 5 mg-325 1 tab PO Q6H PRN pain #14 tabs 04/19/25 mg tablet Allergies Allergy/AdvReac Type Severity Reaction Status Date / Time NASRIN Inhibitors Allergy Intermediate EDEMA IN Verified 04/19/25 14:03 BOTH HANDS codeine Allergy Mild NAUSEA/VOMI Verified 04/19/25 14:03 TING meperidine Allergy Mild VOMITING Verified 04/19/25 14:03 Review of Systems <Eliseo Coats PA-C - Last Filed: 04/19/25 19:28> Constitutional Constitutional: Denies chills, Denies fatigue, Denies fever(s), Denies frequent falls, Denies lethargy and Denies weakness Eyes Eyes: Denies change in vision, Denies eye discharge, Denies irritation and Denies loss of vision ENT Ears, Nose, Mouth, and Throat: Denies change in voice, Denies dizziness, Denies neck pain, Denies sore throat and Denies throat swelling Cardiovascular Cardiovascular: Denies chest pain, Denies irregular heart rhythm, Denies lightheadedness, Denies palpitations, Denies dyspnea, Denies dyspnea on exertion and Denies orthopnea Respiratory Respiratory: Denies cough, Denies dyspnea, Denies dyspnea on exertion and Denies wheezing Gastrointestinal Gastrointestinal: Denies abdominal pain, Denies change in bowel habits, Denies diarrhea, Denies nausea and Denies vomiting Musculoskeletal Musculoskeletal: Denies neck pain and Denies numbness Comments: Right upper arm pain Integumentary/Breasts Skin/Breast: Denies pruritus, Denies erythema, Denies rash and Denies wounds Neurologic Neurologic: Denies behavioral changes, Denies confusion, Denies dizziness, Denies frequent falls, Denies loss of vision, Denies numbness and Denies weakness Psychiatric Psychiatric: Denies anxiety, Denies behavioral changes, Denies confusion, Denies depression, Denies homicidal ideation and Denies suicidal ideation Endocrine Endocrine: Denies fatigue, Denies flushing and Denies palpitations Hematologic/Lymphatic Hematologic/Lymphatic: Denies easy bruising Allergic/Immunologic Allergic/Immunologic: Denies urticaria, Denies throat swelling and Denies wheezing Patient History <Eliseo Coats PA-C - Last Filed: 04/19/25 19:28> Medical History Drug induced akathisia Weight gain due to medication Acute bacterial sinusitis Prediabetes Sinusitis History of hepatitis B Orthopnea Rales Weight gain Right knee pain Presbyacusis Intentional benzodiazepine overdose Amphetamine use disorder, severe, in early remission 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 PTSD (post-traumatic stress disorder) Chest pain Measles Chicken pox Anemia Chronic headaches Migraines Anterior myocardial infarction (2007) Narcotic abuse, episodic CAD (coronary artery disease) Hyperlipidemia Hypertension Diabetes mellitus Depression Panic disorder Chronic pain Panic disorder without agoraphobia (02/21/11) Surgical History Anesthesia Status post insertion of drug-eluting stent into left anterior descending (LAD) artery (2007) History of appendectomy History of tonsillectomy History of colonoscopy with polypectomy (12/29/14) History of esophagogastroduodenoscopy (EGD) (12/29/14) Status post blepharoplasty of both eyes (11/11/12) Family History Father Diabetes mellitus Heart disease Hypertension Stroke Social History household members: none alcohol intake: never substance use type: does not use tobacco type: cigarettes alcohol intake frequency: holidays/special occasions only Exam <Eliseo Coats PA-C - Last Filed: 04/19/25 19:28> Narrative Exam Narrative: Const General:?cooperative, healthy appearing and comfortable [facility] Head:?normal to inspection Ears:?hearing grossly normal bilaterally Nose:?external nose normal Face and sinus:?normal facial exam and sinuses nontender Mouth:?oral mucosae normal Throat:?posterior oropharynx normal Eyes General:?appearance normal, both eyes and all related structures Neck Neck:?normal visual inspection and no lymphadenopathy noted Resp Effort & Inspection:?normal respiratory effort Auscultation:?clear to auscultation bilaterally Cardio Rate:?regular rate Rhythm:?regular rhythm Musculoskeletal Patient presents in the splint and sling the right upper arm. Patient is neurovascularly intact. The splint does not appear too tight, however was loosened for comfort. Neurovascularly intact before and after the adjustment. Neuro General:?patient alert, patient awake and patient oriented x3 Initial Vital Signs Initial Vital Signs: Vital Signs Temperature 98 F 04/19/25 14:00 Pulse Rate 80 04/19/25 14:00 Respiratory Rate 18 04/19/25 14:00 Blood Pressure 146/75 H 04/19/25 14:00 Pulse Oximetry 98 04/19/25 14:00 Oxygen Delivery Method Room Air 04/19/25 14:00 <Soni Tilley DO - Last Filed: 04/19/25 19:56> Initial Vital Signs Initial Vital Signs: Vital Signs Temperature 98 F 04/19/25 14:00 Pulse Rate 80 04/19/25 14:00 Respiratory Rate 18 04/19/25 14:00 Blood Pressure 146/75 H 04/19/25 14:00 Pulse Oximetry 98 04/19/25 14:00 Oxygen Delivery Method Room Air 04/19/25 14:00 Course <Eliseo Coats PA-C - Last Filed: 04/19/25 19:28> Orders Ordered: ED Orders 04/19/25 14:04 XR humerus RT 2V Stat Discontinued Medications Hydromorphone HCl (Hydromorphone 1 Mg Inj) 1 mg IM NOW ONE Stop: 04/19/25 18:03 Last Admin: 04/19/25 18:26 Dose: 1 mg Documented By: RB Oxycodone/Acetaminophen (Oxycodone/Acetaminophen 5/325 Tablet) 1 tab PO NOW ONE Stop: 04/19/25 15:51 Last Admin: 04/19/25 16:29 Dose: 1 tab Documented By: RB Vital Signs Vital signs: Vital Signs - 8 hr 04/19/25 14:00 04/19/25 19:35 Temperature 98 F 98.2 F Pulse Rate 80 85 Respiratory Rate 18 18 Blood Pressure 146/75 H 147/92 H Pulse Oximetry 98 96 Oxygen Delivery Method Room Air Room Air <Soni Tilley DO - Last Filed: 04/19/25 19:56> Orders Ordered: ED Orders 04/19/25 14:04 XR humerus RT 2V Stat Discontinued Medications Hydromorphone HCl (Hydromorphone 1 Mg Inj) 1 mg IM NOW ONE Stop: 04/19/25 18:03 Last Admin: 04/19/25 18:26 Dose: 1 mg Documented By: RB Oxycodone/Acetaminophen (Oxycodone/Acetaminophen 5/325 Tablet) 1 tab PO NOW ONE Stop: 04/19/25 15:51 Last Admin: 04/19/25 16:29 Dose: 1 tab Documented By: RB Vital Signs Vital signs: Vital Signs - 8 hr 04/19/25 14:00 04/19/25 19:35 Temperature 98 F 98.2 F Pulse Rate 80 85 Respiratory Rate 18 18 Blood Pressure 146/75 H 147/92 H Pulse Oximetry 98 96 Oxygen Delivery Method Room Air Room Air MDM - Extremity Injury (Upper) <Eliseo Coats PA-C - Last Filed: 04/19/25 19:28> [facility] Narrative Medical decision making narrative: 69-year-old female returns to the ED with a re-injury to her right humeral shaft fracture. An x-ray was obtained and shows a slight increase in apex lateral angulation of the comminuted mid humeral shaft fracture. It is reassuring that patient continues to be neurovascularly intact. The splint was loosened slightly for comfort. Pain was controlled with Percocet and Dilaudid in the ED. Dr. wendy bergeron from ortho surgery was consulted, he agrees that it is safe to discharge home with pain control and have patient be seen in clinic for evaluation for possible surgical fixation. Prescribed pain medications, advised patient on fall precautions. ED return precautions were discussed with patient. Patient verbalized understanding. Medical records reviewed: Yes Discharge Plan Departure Patient Disposition: Home Clinical Impression: Humeral shaft fracture Qualifiers: Encounter type: initial encounter Fracture type: closed Fracture morphology: comminuted Fracture alignment: displaced Laterality: right Qualified Code(s): S42.351A - Displaced comminuted fracture of shaft of humerus, right arm, initial encounter for closed fracture Instructions: Humeral Shaft Fracture Activity Restrictions/Additional Instructions: You were evaluated in the ED today for the humerus fracture of the right arm. The x-ray shows that there is slightly more displacement compared to after the splint yesterday. However, it appears that you are safely aligned and neurovascularly intact. We consulted ortho surgeon Dr. Ryan, who advises that it is safe for you to go home tonight and follow-up in clinic within the week. You are being prescribed more pain medications to take every 4 hours. Please exercise good fall precautions and avoid further injury to the arm. Return to the ED if you have worsening symptoms, numbness, tingling, weakness. Prescriptions: New oxycodone 5 mg tablet 5 mg PO Q4H PRN (Reason: pain) Qty: 20 0RF No Action citalopram 40 mg tablet 20 mg PO DAILY Qty: 90 1RF quetiapine 100 mg tablet 200 mg PO BEDTIME Qty: 120 2RF propranolol 10 mg tablet 20 mg PO TID Qty: 540 1RF metformin 500 mg tablet 500 mg PO DAILY Qty: 90 1RF liothyronine [Cytomel] 5 mcg tablet 5 mcg PO BID Qty: 60 5RF clonazepam 1 mg tablet See Rx Instructions .ROUTE .COMPLEX Qty: 90 0RF Rx Instructions: 0.5 mg (1/2 tab) PO BID and 2.0 mg (2 tabs) PO QHS levothyroxine 37.5 mcg capsule 37.5 mcg PO DAILY Qty: 90 0RF Rx Instructions: Dose change. D/C 25 mcg. Thanks! simvastatin 40 mg tablet 40 mg PO BEDTIME Qty: 60 3RF aspirin 81 mg capsule 81 mg PO DAILY losartan 50 mg tablet 50 mg PO DAILY Qty: 60 3RF oxycodone-acetaminophen 5-325 mg tablet 1 tab PO Q6H PRN (Reason: pain) Qty: 14 0RF Referrals: Belia Walker DO [Primary Care Provider, Family Practice] Stand Alone Forms: Patient Portal/API ED Sign-out <Soni Tilley DO - Last Filed: 04/19/25 19:56> Cosign ED Attending Cosignature Attestation: I was immediately available in the department for consultation. Case was reviewed was discussed imaging from last night as well as today was reviewed as well. Patient continues to be neurovascularly intact.
[2025-04-19 19:35] VITALS: BP 147/92; PULSE 85; RESP 18; TEMP 36.8; O2SAT 96
== END 2025-04-19 19:39 | disposition home or self-care (01) ==
PROVIDERS: Emergency Provider Student in an Organized Health Care Education/Training Program; Family Provider Pediatrics; PCP Family Medicine
DX: S42.351A Displaced comminuted fracture of shaft of humerus, right arm, initial encounter for closed fracture (principal); W10.9XXA Fall (on) (from) unspecified stairs and steps, initial encounter
CPT/HCPCS: 73060; 96372; 99283; J1171

== ENCOUNTER → 2025-05-11 11:59 | Outpatient (CLI) | payer MEDICARE, MEDICAID, SELFPAY ==
[2021-08-22 16:55] VITALS: BMI 22.9
== END ==
PROVIDERS: Family Provider Pediatrics; PCP Family Medicine; Visit Provider Family Medicine
DX: N76.0 Acute vaginitis (principal)
CPT/HCPCS: 87210; 87220

== ENCOUNTER → 2025-05-18 14:43 | Outpatient (CLI) | payer MEDICARE, MEDICAID, SELFPAY ==
[2021-08-22 16:55] VITALS: BMI 22.9
--- NOTE | 2025-05-18 14:46 | EKG_ITS ---
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
== END ==
PROVIDERS: Family Provider Pediatrics; PCP Family Medicine; Referring Provider Family Medicine; Visit Provider Family Medicine
DX: Z79.899 Other long term (current) drug therapy (principal)
CPT/HCPCS: 93005

== ENCOUNTER 2025-06-10 11:30 | Outpatient (RCR) | payer MEDICARE, MEDICAID, SELFPAY ==
[2021-08-22 16:55] VITALS: BMI 22.9
--- NOTE | 2025-06-03 15:36 | PT.OIE ---
Current Diagnoses Displaced transverse fracture of shaft of humerus, right arm, subsequent encounter for fracture with routine healing (06/03/25) Past Medical History (Last Reviewed 04/01/25 @ 04:42 by Soni Tilley DO) Acute bacterial sinusitis Amphetamine use disorder, severe, in early remission Anemia Anterior myocardial infarction (2007) CAD (coronary artery disease) Chest pain Chicken pox Chronic headaches Chronic pain Depression Diabetes mellitus Drug induced akathisia 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 History of hepatitis B Hyperlipidemia Hypertension Intentional benzodiazepine overdose Measles Migraines Narcotic abuse, episodic Orthopnea Panic disorder Panic disorder without agoraphobia (02/21/11) Prediabetes Presbyacusis PTSD (post-traumatic stress disorder) Rales Right knee pain Sinusitis Weight gain Weight gain due to medication Past Surgical History (Last Reviewed 04/01/25 @ 04:42 by Soni Tilley DO) Anesthesia History of appendectomy History of colonoscopy with polypectomy (12/29/14) History of esophagogastroduodenoscopy (EGD) (12/29/14) History of tonsillectomy Status post blepharoplasty of both eyes (11/11/12) Status post insertion of drug-eluting stent into left anterior descending (LAD) artery (2007) Visit Care Team Role Provider Type Belia Walker DO Primary Care Provider Physician Specialty: Family Practice Address: [address] [place] [address], [id number] Email: [email or web address] Timothy Alex MD Family Provider Non-Staff Specialty: Internal Medicine Pediatrics Address: [address] [place] [address], [id number] Email: [email or web address] Kerry Mathur PA-C Attending Provider Non-Staff Referring Provider Specialty: Medical Address: [address] [place] [address], [phone] Email: Physical Therapy Initial Evaluation PT OP: Cervical/Upper Extremity Start: 06/03/25 13:01 Freq: Status: Active Protocol: Document 06/03/25 14:34 [facility] (Rec: 06/03/25 15:36 [facility] [id number]) Out-Patient Physical Therapy Visit Information Visit Information Visit Type Initial Evaluation Visit Start Time 14:35 Visit Stop Time 15:18 Visit Number 1 Number of INDUSTRIAL SERVICER Visits 0 Progress Note Due 07/03/25 Current Condition History of Current Condition Onset Date april 18April 22 Current Complaints R femoral shaft fx w/ORIF History of Current Pt reports fell down the stairs and landed on cement in Condition April 18 w/ORIF on April 22. Saw the doctor yesterday who just told her not to lift really heavy things but let her out of the sling. Encouraged her to work on scar. Likes to go for walks, but hasn't been out walking. likes cooking, but hasn't done as much d/t this. Is R handed. Was told if has enough ROM with PT, could drive. picking up things, pulling up pants inc pain. Treatment Goals Patient/Caregiver be able to cook, go for walks, Dec pain doing dressing Goals and ADLs Posture Evaluation Comments Posture Comments inc kyphosis , fwd head, R scap abd and ant tipped more Shoulder Goniometric Range of Motion Shoulder Right Passive Flexion 158 Abduction 141 Right Active Flexion 125 Extension 56 Abduction 134 External Rotation at 87 90 degrees Abduction External Rotation at 63 0 degrees Abduction Internal Rotation T12 Behind Back (text) Left Active Flexion 154 Extension 70 Abduction 176 External Rotation at 70 90 degrees Abduction External Rotation at 67 0 degrees Abduction Internal Rotation T5 Behind Back (text) Elbow/Forearm Range of Motion Elbow/Forearm ROM Limitations Comments L: -2- 146 R: -20-149 pain Shoulder Strength Shoulder Manual Muscle Testing Right Flexion 3+ Fair+ Extension 3+ Fair+ Abduction (C5) 3+ Fair+ External Rotation 3 Fair Internal Rotation 3 Fair Left Flexion 4 Good Extension 4+ Good+ Abduction (C5) 5 Normal External Rotation 4 Good Internal Rotation 5 Normal Elbow/Forearm Strength Elbow and Forearm Manual Muscle Testing Right Flexion (C6) 3+ Fair+ Extension (C7) 3+ Fair+ Pronation 3+ Fair+ Supination 4- Good- Comments flex in pronation and supination 3+/5 Left Flexion (C6) 5 Normal Extension (C7) 5 Normal Pronation 4+ Good+ Supination 4+ Good+ Comments flex in pronation and supination 5/5 Therapeutic Exercises Supine Exercises flex Supine Exercise Name AAROM Side right Equipment Used dowel Reps/Minutes 12 Standing Exercises stretch Standing Exercise elbow extended in doorway Name Side bilateral Reps/Minutes 30 sec AAROM Standing Exercise 1. abd 2. ext 3. IR behind back Name Side right Equipment Used dowel Reps/Minutes 10 ea Comments cues slow controlled motion, posture Manual Therapy Treatment Consent Patient gave verbal Yes consent for manual treatment Soft Tissue Mobilization biceps Body Location R Mobilization Type Rolling Intensity/Depth Moderate Body Position Supine scar Body Location R Mobilization Type Myofascial Release,Rolling Intensity/Depth Superficial Body Position Supine Physical Therapy Assessment Rehab Potential Rehabilitation Good Potential Evaluation Complexity Number of Personal 1-2 Factors/ Comorbidities Number of Body 4 or More Systems Impaired Clinical Evolving Presentation at Evaluation Impairments Impairments Activity Tolerance,Edema,Functional Activities, Functional Mobility,Integument,Pain,Posture,ROM,Soft Tissue Mobility,Strength Goals quickdash Impairment 22.7 Mcc Goal (LTG) Pt will score no greater than 7 on quickdash to show improved functional mobility LTG Duration 11/ strength Short Term Goal (STG Pt will demonstrate independence w/HEP by being able to ) perform with no more than min cues. STG Duration / Installations Inspector Goal (LTG) Pt will score at least 4+/5 R shoulder and elbow strength to allow return to all cooking activities. LTG Duration 11/ ROM Short Term Goal (STG Pt will have at least 150 deg AROM flex and abd ) STG Duration 9/7 Installations Inspector Goal (LTG) Pt will have full ROM R shoulder and elbow w/o pain to allow for ADLs w/o inc pain LTG Duration 11/ Assessment Summary Assessment Pt presents s/p R humeral shaft ORIF April 22 after fx falling down stairs April 18. She was released from sling from doctor yesterday and was told just to avoid heavy lifting. She typically enjoys walking and cooking and is not doing a lot of either d/t this injury. She is doing well with ROM but is limited in R elbow and shoulder ROM and strength and would benefit from skilled PT to address her deficits and return her to typical function. Physical Therapy Plan Frequency and Duration Frequency of 2x/Week Treatment Duration of 12 treatment (weeks) Plan of Care Start 06/03/25 Date Plan of Care End 09/01/25 Date Next Visit Focus/Plan Next Note Type Treatment Note Next Visit Plan review exercises, advance to AROM when ready from AAROM , gentle strength progression-no high resistance, manual to scar, shoulder and elbow for full ROM; start gentle strength 06/17
--- NOTE | 2025-06-08 12:30 | PT.OTN ---
Current Diagnoses Displaced transverse fracture of shaft of humerus, right arm, subsequent encounter for fracture with routine healing (06/08/25) Physical Therapy Treatment Note PT OP: Cervical/Upper Extremity Start: 06/03/25 13:01 Freq: Status: Active Protocol: Document 06/08/25 11:26 [facility] (Rec: 06/08/25 12:30 [facility] [id number]) Out-Patient Physical Therapy Visit Information Visit Information Visit Type Treatment Note Visit Start Time 11:35 Visit Stop Time 12:15 Visit Number 2 Number of SOLE CONFORMING MACHINE OPERATOR Visits 0 Progress Note Due 07/03/25 OP-PT Subjective Patient Comments Patient Comments Pt reports the most pain waking up Saturday and still sore today. She repotted plants but didn't lift anything on saturday Therapeutic Exercises Sitting Exercises pully Sitting Exercise 1. flex 2. abd Name Side right Reps/Minutes 15 ea Comments AAROM cues slow control AROM Sitting Exercise elbow flex/ext Name Side bilateral Reps/Minutes 10 Comments cues full ext Standing Exercises stretch Standing Exercise elbow extended in doorway Name Side bilateral Reps/Minutes 30 sec AAROM Standing Exercise 1. abd 2. ext 3. IR behind back 4. flex Name Side right Equipment Used dowel Reps/Minutes 10 ea Comments cues slow controlled motion, posture Manual Therapy Treatment Consent Patient gave verbal Yes consent for manual treatment Soft Tissue Mobilization biceps Body Location R Mobilization Type Rolling Intensity/Depth Moderate Body Position Supine scar Body Location R Mobilization Type Myofascial Release,Rolling Intensity/Depth Superficial Body Position Supine Comments cupping at distal end Joint Mobilizations humeroulnar Direction II Comments distraction radioulnar Grade II Comments AP GH Grade II Comments distraction Physical Therapy Assessment Goals quickdash Impairment 22.7 Traffic Manager Goal (LTG) Pt will score no greater than 7 on quickdash to show improved functional mobility LTG Duration 11 strength Short Term Goal (STG Pt will demonstrate independence w/HEP by being able to ) perform with no more than min cues. STG Duration 07/03 Retirement Goal (LTG) Pt will score at least 4+/5 R shoulder and elbow strength to allow return to all cooking activities. LTG Duration 09/01 ROM Short Term Goal (STG Pt will have at least 150 deg AROM flex and abd ) STG Duration 07/04 Retirement Goal (LTG) Pt will have full ROM R shoulder and elbow w/o pain to allow for ADLs w/o inc pain LTG Duration 09/01 Assessment Summary Assessment Pt encouraged to be gentle with her exercises and to ice as she is inc activity. Did report some relief w/ manual. Scar tissue is very restricted likely contributing to her pain. Physical Therapy Plan Frequency and Duration Frequency of 2x/Week Treatment Duration of 12 treatment (weeks) Plan of Care Start 06/03/25 Date Plan of Care End 09/01/25 Date Next Visit Focus/Plan Next Note Type Treatment Note Next Visit Plan review exercises, advance to AROM when ready from SAAD , antonio strength progression-no high resistance, manual to scar, shoulder and elbow for full ROM; start gentle strength 06/17
[2025-06-10 11:41] VITALS: BP 130/83; PULSE 85; O2SAT 100
--- NOTE | 2025-06-10 12:19 | PT.OTN ---
Current Diagnoses Displaced transverse fracture of shaft of humerus, right arm, subsequent encounter for fracture with routine healing (06/10/25) Physical Therapy Treatment Note PT OP: Cervical/Upper Extremity Start: 06/03/25 13:01 Freq: Status: Active Protocol: Document 06/10/25 11:41 [facility] (Rec: 06/10/25 12:18 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 She is feeling tired and a little nausea this AM Therapeutic Exercises Supine Exercises flex Supine Exercise Name AROM Side bilateral Reps/Minutes 15 Comments cues comfortable range no scap elevation, cues slow Sidelying Exercises ER Side right Equipment Used towel at elbow Reps/Minutes 15 Comments cues slow control and comfortable range abd Side right Reps/Minutes 15 Comments cues slow control and comfortable range Sitting Exercises pully Sitting Exercise 1. flex 2. abd 3. IR behind back Name Side right Reps/Minutes 15 ea Comments AAROM cues slow control Manual Therapy Treatment Consent Patient gave verbal Yes consent for manual treatment Soft Tissue Mobilization biceps Body Location R biceps, brachialis, brachioradialis Mobilization Type Rolling Intensity/Depth Moderate Body Position Supine scar Body Location R Mobilization Type Myofascial Release,Rolling Intensity/Depth Superficial Body Position Supine Comments cupping and manual Joint Mobilizations humeroulnar Direction II Comments distraction radioulnar Grade II Comments PA Physical Therapy Assessment Goals quickdash Impairment 22.7 Snf Goal (LTG) Pt will score no greater than 7 on quickdash to show improved functional mobility LTG Duration 11/5 strength Short Term Goal (STG Pt will demonstrate independence w/HEP by being able to ) perform with no more than min cues. STG Duration 9/6 Ldr Rn Goal (LTG) Pt will score at least 4+/5 R shoulder and elbow strength to allow return to all cooking activities. LTG Duration 11/5 ROM Short Term Goal (STG Pt will have at least 150 deg AROM flex and abd ) STG Duration 07/04 Snf Goal (LTG) Pt will have full ROM R shoulder and elbow w/o pain to allow for ADLs w/o inc pain LTG Duration 09/01 Assessment Summary Assessment Pt had mostly full PROM shoulder today with tightness at end. Cues for control needed w/exercises Physical Therapy Plan Frequency and Duration Frequency of 2x/Week Treatment Duration of 12 treatment (weeks) Plan of Care Start 06/03/25 Date Plan of Care End 09/01/25 Date Next Visit Focus/Plan Next Note Type Treatment Note Next Visit Plan review exercises, advance to AROM when ready from AAROM , gentle strength progression-no high resistance, manual to scar, shoulder and elbow for full ROM; start gentle strength 06/17
--- NOTE | 2025-06-30 10:00 | PT-OP ANOTE ---
Pt called re:no show and reminded of policy and of next appt. Asked to call back if she would like to try to reschedule.
--- NOTE | 2025-08-10 16:00 | PT.OPDS ---
Current Diagnoses Displaced transverse fracture of shaft of humerus, right arm, subsequent encounter for fracture with routine healing (06/10/25) Visit Care Team Role Provider Type Belia Walker DO Primary Care Provider Physician Specialty: Family Practice Address: [address] [place] [address], [address], [place], [address] Email: [email or web address] Timothy Alex MD Family Provider Non-Staff Specialty: Internal Medicine Pediatrics Address: [address] [place] [address], [id number] Email: [email or web address] Kerry Mathur [email or web address] Attending Provider Non-Staff Referring Provider Specialty: Medical Address: [address] [place] [address], [id number] Email: Visit Number Visit Number 3 Discharge Summary PT OP: Cervical/Upper Extremity Start: 06/03/25 13:01 Freq: Status: Active Protocol: Document 08/10/25 15:59 [facility] (Rec: 08/10/25 16:00 [facility] [id number]) Out-Patient Physical Therapy Visit Information Visit Information Visit Type Discharge Summary Physical Therapy Assessment Goals quickdash Impairment 22.7 Chcf Goal (LTG) Pt will score no greater than 7 on quickdash to show improved functional mobility LTG Duration 09/01 strength Short Term Goal (STG Pt will demonstrate independence w/HEP by being able to ) perform with no more than min cues. STG Duration 07/03 Lens Edge Grinder Machine Goal (LTG) Pt will score at least 4+/5 R shoulder and elbow strength to allow return to all cooking activities. LTG Duration 09/01 ROM Short Term Goal (STG Pt will have at least 150 deg AROM flex and abd ) STG Duration 07/04 Lens Edge Grinder Machine Goal (LTG) Pt will have full ROM R shoulder and elbow w/o pain to allow for ADLs w/o inc pain LTG Duration 11 Assessment Summary Assessment Pt was seen only for 3 visits and was making some progress. [place] [facility] [place] noting other medical concerns and did no show an appt. DC d/t no longer attending PT Physical Therapy Plan Discharge Physical Therapy Discharge Reasons No Longer Attending PT
== END 2025-08-11 08:43 | disposition home or self-care (01) ==
LOC: PHYS 11:30
PROVIDERS: Family Provider Pediatrics; PCP Family Medicine; Referring Provider Physician Assistant; Visit Provider Physician Assistant
DX: S42.321D Displaced transverse fracture of shaft of humerus, right arm, subsequent encounter for fracture with routine healing (principal)
CPT/HCPCS: 97110; 97140; 97162

== ENCOUNTER → 2025-09-17 13:06 | Outpatient (CLI) | payer MEDICARE, MEDICAID, SELFPAY ==
[2021-08-22 16:55] VITALS: BMI 22.9
[2025-09-17 13:42] LABS: Add Manual Diff / Slide Review NO; Hematocrit 34.3 % (36-46); Hemoglobin 11.7 g/dL (12.0-16.0); Lymphocytes Absolute Auto 2400 /uL (1100-4500); Mean Corpuscular HGB Conc 34.1 % (30-36); Mean Corpuscular Hemoglobin 32.2 PG (26-34); Mean Corpuscular Volume 94.4 fL (80-100); Platelet Count 312 X10^3/uL (150-400)
[2025-09-17 13:55] LABS: Hemoglobin A1C% w Est Avg Glu 5.8 % (4.0-6.0)
[2025-09-17 14:35] LABS: Thyroid Stimulating Hormone 5.29 uIU/mL (0.47-4.68)
== END ==
PROVIDERS: PCP Family Medicine; Referring Provider Family Medicine; Visit Provider Family Medicine
DX: E03.9 Hypothyroidism, unspecified (principal); E11.9 Type 2 diabetes mellitus without complications; D64.9 Anemia, unspecified
CPT/HCPCS: 36415; 83036; 84443; 85025

== ENCOUNTER → 2025-10-06 17:17 | Outpatient (CLI) | payer MEDICARE, MEDICAID, SELFPAY ==
[2021-08-22 16:55] VITALS: BMI 22.9
[2025-10-06 19:24] LABS: Microalbumi Creatinin Ratio Ur 641.0 ug/mg CR (<30)
== END ==
PROVIDERS: PCP Family Medicine; Visit Provider Nurse Practitioner Family
DX: R39.15 Urgency of urination (principal); E11.9 Type 2 diabetes mellitus without complications
CPT/HCPCS: 82043; 82570; 87086

== ENCOUNTER → 2025-10-18 15:37 | Outpatient (CLI) | payer MEDICARE, MEDICAID, SELFPAY ==
[2021-08-22 16:55] VITALS: BMI 22.9
[2025-10-18 16:44] LABS: Appearance Urine UA CLEAR; Bilirubin Urine UA NEGATIVE (NEGATIVE); Color Urine UA YELLOW; Glucose Urine UA NEGATIVE (Negative); Ketones Urine UA TRACE (NEGATIVE); Leukocyte Esterase Urine UA NEGATIVE (NEGATIVE); Nitrite Urine UA NEGATIVE (Negative); Occult Blood Urine UA TRACE-INTACT (Negative); Protein Urine UA 1+ (Negative); Specific Gravity Urine UA 1.025 (1.000-1.035); Urobilinogen Urine UA 0.2 E.U./dL (0.2)
[2025-10-18 16:54] LABS: pH Urine UA 5.5 (4.5-8.0)
[2025-10-18 17:06] LABS: Culture Indicated Urine Cult Not Indicated
[2025-10-18 17:42] LABS: Thyroid Stimulating Hormone 0.529 uIU/mL (0.47-4.68)
== END ==
PROVIDERS: PCP Family Medicine; Referring Provider Family Medicine; Visit Provider Family Medicine
DX: E03.9 Hypothyroidism, unspecified (principal); R30.0 Dysuria; R32 Unspecified urinary incontinence
CPT/HCPCS: 36415; 81001; 84443